=== PATIENT | female | born 1965 | race Caucasian/White ===

== ENCOUNTER 2024-01-16 19:14 | Emergency (ER) | payer OTHER, SELFPAY ==
[2024-01-16] VITALS (22 sets, daily range): BP systolic 105–122; BP diastolic 52–99; PULSE 60–81; TEMP 36.9; O2SAT 98–99; BMI 34.2
--- NOTE | 2024-01-16 19:42 | XR_ITS ---
The [address] [address] Patient Name: VALERIA ROMERO MRN: [id number] date: 1965 Sex: F Assigned Patient Location: ER Current Patient Location: ER Accession/Order Number: [id number] Exam Date: 01/16/2024 20:05 Report Date: 01/16/2024 20:30 At the request of: DANI TURNER Procedure: XR chest 1V ONE-VIEW CHEST RADIOGRAPH, 01/16/2024 8:05 PM EDT COMPARISON: None. CLINICAL HISTORY: chest pain , worse when lying down and recently recovering from the flu. Findings and impression: 1. Minimal atelectasis in the right lung base. Lungs otherwise clear. 2. Normal heart size. 3. No acute osseous abnormality. Electronically authenticated by: Loi JAUREGUI Date: 01/16/2024 20:30
--- NOTE | 2024-01-16 19:42 | ECG_ITS ---
The 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
--- NOTE | 2024-01-16 19:43 | ED.CHESTPAI1 ---
HPI - Chest Pain General Chief Complaint: Chest Pain Stated Complaint: Chest pain Time Seen by Provider: 01/16/24 19:33 Source: patient Mode of arrival: walk-in Limitations: no limitations History of Present Illness HPI narrative: past history of asthma. smokes marijuana. Ill with flu earlier this month. Now has chest pain for past 2 days. Also difficult time sleeping because when she lays down she starts coughing and feels like there is fluid in her chest. No fever , nausea or abdominal pain MD complaint: Reports chest heaviness Related Data Home Medications ?Medication ?Instructions ?Recorded ?Confirmed montelukast 10 mg tablet 10 mg PO DAILY 01/16/24 01/16/24 omeprazole 40 mg capsule,delayed 40 mg PO DAILY 01/16/24 01/16/24 release Allergies Allergy/AdvReac Type Severity Reaction Status Date / Time ciprofloxacin [From Cipro] Allergy Hives Verified 01/16/24 19:24 Review of Systems ROS Status of ROS 10 or more systems reviewed and unremarkable except as noted in history and below Exam Constitutional Vital Signs, click to edit/add: Last Vital Signs Temp 98.4 F 01/16/24 19:26 Pulse 61 01/16/24 21:58 Resp 16 01/16/24 21:58 BP 121/72 01/16/24 21:01 Pulse Ox 98 01/16/24 21:58 O2 Del Method Room Air 01/16/24 21:58 Common normals: no apparent distress, average body habitus, oriented x3, no limitations, healthy appearing, alert and well nourished [facility] Common normals: normocephalic and head/scalp atraumatic Eye Common normals: EOMs intact bilaterally and conjunctivae normal Respiratory Common normals: normal respiratory effort Effort & inspection: audible wheezes Cardio Common normals: regular rate, regular rhythm, S1 normal heart sound and S2 normal heart sound GI Common normals: Normal to inspection, nondistended, normoactive bowel sounds present, soft to palpation and non-tender Extremity Common normals: normal to inspection and full ROM Neuro Common normals: oriented x3, CN's II-XII intact bilaterally, moves all extremities and no focal motor deficits Psych Appearance: grossly normal Course Vital Signs Vital signs: Vital Signs Blood Pressure 105/63 01/16/24 19:21 Pulse Oximetry 99 01/16/24 19:21 Temperature 98.4 F 01/16/24 19:26 Pulse Rate 61 01/16/24 21:58 Respiratory Rate 16 01/16/24 21:58 Blood Pressure 121/72 01/16/24 21:01 Pulse Oximetry 98 01/16/24 21:58 Oxygen Delivery Method Room Air 01/16/24 21:58 MDM - Chest Pain MDM Narrative Medical decision making narrative: patient has history of asthma. recent influenza and smokes marijuana. Presents complaining of chest pressure and not able to lay down to sleep due to cough and a sensation of fluid in her chest. chest exam with diffuse wheeze that resolved after solumedrol and duoneb NMT x2. Patient feeling better. symptoms started yesterday. d-dimer and troponin neg. EKG without acute findings. Patient discharged home in improved condition with a prescription for zpak, prednisone and albuterol solution for her nebulizer that she has at home Lab Data Labs: Lab Results 01/16/24 Range/Units 19:40 WBC 10.0 (4.0-11.0) 10^3/uL RBC 4.08 L (4.20-5.40) 10^6/uL Hgb 11.4 L (12.0-16.0) g/dL Hct 36.5 (36.0-48.0) % MCV 89.5 (81.0-99.0) fL MCH 27.9 (26.7-34.0) pg MCHC 31.2 (29.9-35.2) g/dL RDW 14.9 (11.0-15.0) % Plt Count 523 H (150-450) 10^3/uL MPV 9.0 L (9.5-13.5) fL Neut % (Auto) 66.9 (43.0-75.0) % Lymph % (Auto) 23.9 (20.5-60.0) % [place] % (Auto) 7.2 (1.7-12.0) % Eos % (Auto) 1.4 (0.9-7.0) % Baso % (Auto) 0.4 (0.2-2.0) % Neut # (Auto) 6.7 H (1.4-6.5) 10^3/uL Lymph # (Auto) 2.4 (1.2-3.8) 10^3/uL [place] # (Auto) 0.7 (0.3-0.8) 10^3/uL Eos # (Auto) 0.1 (0.0-0.7) 10^3/uL Baso # (Auto) 0.0 (0.0-0.1) 10^3/uL Abs Immat Gran (auto) 0.02 (0.00-0.03) 10^3/uL Imm/Tot Granulo (auto) 0.2 (0.0-0.5) % D-Dimer 0.40 (<=0.59) mg/L FEU Sodium 142 (136-145) mmol/L Potassium 3.9 (3.5-5.1) mmol/L Chloride 104 (98-107) mmol/L Carbon Dioxide 32.3 H (21.0-32.0) mmol/L Anion Gap 9.6 BUN 6.0 L (7.0-18.0) mg/dL Creatinine 0.68 (0.55-1.02) mg/dL Est GFR ( Amer) >60 (>=60) Est GFR (Non-Af Amer) >60 (>=60) BUN/Creatinine Ratio 8.8 Glucose 110 H (74-106) mg/dL Calcium 9.7 (8.5-10.1) mg/dL Troponin I High Sens <4.0 L (4.0-51.3) pg/mL Discharge Plan Discharge Stand Alone Forms: Portal Instructions Chief Complaint: Chest Pain Clinical Impression: Acute bronchospasm, Bronchitis Patient Disposition: Home, Self-Care Prescriptions / Home Meds: No Action montelukast 10 mg tablet 10 mg PO DAILY omeprazole 40 mg capsule,delayed release(DR/EC) 40 mg PO DAILY Print Language: Mohawk Instructions: Acute Bronchitis (ED), Bronchospasm (ED) Additional Instructions: follow up with your doctor in 2-3 days for recheck Referrals: Capri Chi NP [Primary Care Provider] - 1 week
[2024-01-16] MEDS: METHYLPREDNISOLONE SOD SUCC PF 125 MG/2 ML VIAL IVP (19:50)
[2024-01-16] MEDS: IPRATROPIUM/ALBUTEROL SULFATE 3 ML AMPUL.NEB IH ×2 (19:52→22:05)
[2024-01-16 19:54] LABS: Basophils Percent Auto 0.4 % (0.2-2.0); Eosinophils Absolute Auto 0.1 10^3/uL (0.0-0.7); Eosinophils Percent Auto 1.4 % (0.9-7.0); Hematocrit 36.5 % (36.0-48.0); Hemoglobin 11.4 g/dL (12.0-16.0); Immature Granulocytes Abs Auto 0.02 10^3/uL (0.00-0.03); Immature Granulocytes Pct Auto 0.2 % (0.0-0.5); Lymphocytes Absolute Auto 2.4 10^3/uL (1.2-3.8); Lymphocytes Percent Auto 23.9 % (20.5-60.0); Mean Corpuscular HGB Conc 31.2 g/dL (29.9-35.2); Mean Corpuscular Hemoglobin 27.9 pg (26.7-34.0); Mean Corpuscular Volume 89.5 fL (81.0-99.0); Monocytes Absolute Auto 0.7 10^3/uL (0.3-0.8); Monocytes Percent Auto 7.2 % (1.7-12.0); Neutrophils Absolute Auto 6.7 10^3/uL (1.4-6.5); Neutrophils Percent Auto 66.9 % (43.0-75.0); Platelet Count 523 10^3/uL (150-450); Red Blood Count 4.08 10^6/uL (4.20-5.40); Red Cell Distribution Width 14.9 % (11.0-15.0)
[2024-01-16 20:14] LABS: Anion Gap 9.6; BUN Creatinine Ratio 8.8; Calcium 9.7 mg/dL (8.5-10.1); Carbon Dioxide 32.3 mmol/L (21.0-32.0); Chloride 104 mmol/L (98-107); Estimated GFR (African America >60 (>=60); Estimated GFR (Non-African Ame >60 (>=60); Glucose 110 mg/dL (74-106); Potassium 3.9 mmol/L (3.5-5.1); Sodium 142 mmol/L (136-145); Troponin I High Sensitivity <4.0 pg/mL (4.0-51.3)
== END 2024-01-16 22:19 | disposition home or self-care (01) ==
PROVIDERS: Emergency Provider Internal Medicine; PCP Nurse Practitioner Family
DX: J45.909 Unspecified asthma, uncomplicated (principal); Z79.899 Other long term (current) drug therapy
CPT/HCPCS: 36415; 71045; 80048; 84484; 85025; 85378; 93005; 94640; 96374; 99285; J2919

== ENCOUNTER 2024-05-21 21:09 | Emergency (ER) | payer OTHER, SELFPAY ==
[2024-05-21 21:49] VITALS: BP 114/78; PULSE 64; TEMP 36.6; O2SAT 99; BMI 39.1
--- NOTE | 2024-05-21 22:15 | ED_ITS ---
HPI - Dental/Oral General Chief complaint: Dental/Oral Stated complaint: Dental Pain Time Seen by Provider: 05/21/24 22:12 Source: patient Mode of arrival: walk-in Limitations: no limitations History of Present Illness HPI Narrative: presents complaining of left dental pain. Pain increases with eating or exposure to air. ongoing for a couple of days. no fever or obvious swelling Related Data Home Medications ?Medication ?Instructions ?Recorded ?Confirmed montelukast 10 mg tablet 10 mg PO DAILY 01/16/24 01/16/24 omeprazole 40 mg capsule,delayed 40 mg PO DAILY 01/16/24 01/16/24 release Allergies Allergy/AdvReac Type Severity Reaction Status Date / Time ciprofloxacin [From Cipro] Allergy Hives Verified 05/21/24 21:51 Review of Systems ROS Status of ROS 10 or more systems reviewed and unremark able except as noted in history and below Exam Constitutional Vital Signs, click to edit/add: Last Vital Signs Temp 98 F 05/21/24 21:49 Pulse 64 05/21/24 21:49 Resp 18 05/21/24 21:49 BP 114/78 05/21/24 21:49 Pulse Ox 99 05/21/24 21:49 O2 Del Method Room Air 05/21/24 21:49 Common normals: no apparent distress, average body habitus, oriented x3, no limitations, healthy appearing, alert and well nourished [facility] Common normals: normocephalic and head/scalp atraumatic Other: left upper premolar tender. no obvious swelling Eye Common normals: EOMs intact bilaterally and conjunctivae normal Respiratory Common normals: normal respiratory effort, no retractions, no use of accessory muscles and clear to auscultation bilaterally Cardio Common normals: regular rate, regular rhythm, S1 normal heart sound and S2 normal heart sound Extremity Common normals: normal to inspection and full ROM Neuro Common normals: oriented x3, CN's II-XII intact bilaterally and moves all extremities Psych Appearance: grossly normal Course Vital Signs Vital signs: Vital Signs Temperature 98 F 05/21/24 21:49 Pulse Rate 64 05/21/24 21:49 Respiratory Rate 18 05/21/24 21:49 Blood Pressure 114/78 05/21/24 21:49 Pulse Oximetry 99 05/21/24 21:49 Oxygen Delivery Method Room Air 05/21/24 21:49 Temperature 98 F 05/21/24 21:49 Pulse Rate 64 05/21/24 21:49 Respiratory Rate 18 05/21/24 21:49 Blood Pressure 114/78 05/21/24 21:49 Pulse Oximetry 99 05/21/24 21:49 Oxygen Delivery Method Room Air 05/21/24 21:49 MDM - Dental/Oral MDM Narrative Medical decision making narrative: presents with worsening dental pain concerning for an early abscess. Discussed plan to start Amoxicillin and have her follow up with her dentist Discharge Plan Discharge Stand Alone Forms: Work/School Release, Portal Instructions Chief Complaint: Dental/Oral Clinical Impression: Dental abscess Patient Disposition: Home, Self-Care Prescriptions / Home Meds: No Action montelukast 10 mg tablet 10 mg PO DAILY omeprazole 40 mg capsule,delayed release(DR/EC) 40 mg PO DAILY Print Language: [place] Instructions: Dental Abscess (ED) Additional Instructions: follow up with your dentist next week Referrals: Capri Chi NP [Primary Care Provider] - 1 week
[2024-05-21] MEDS: AMOXICILLIN 500 MG CAPSULE 1000 MG PO (22:26)
[2024-05-21] MEDS: IBUPROFEN 200 MG/10 ML ORAL.SUSP 800 MG PO (22:51)
[2024-05-21 22:54] VITALS: BP 112/70; PULSE 70; O2SAT 97
== END 2024-05-21 22:54 | disposition home or self-care (01) ==
PROVIDERS: Emergency Provider Internal Medicine; PCP Nurse Practitioner Family
DX: K04.7 Periapical abscess without sinus (principal)
CPT/HCPCS: 99283

== ENCOUNTER 2024-07-15 23:21 | Inpatient (IN) | payer OTHER, SELFPAY ==
[2024-07-15 23:31] VITALS: BP 124/87; PULSE 76; TEMP 36.9; O2SAT 99; BMI 35.2
--- OUTSIDE RECORDS SUMMARY | 2024-07-15 23:42 | XMS_ITS | CCD ---
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 Name Role Phone Unavailable Primary Care Provider Unavailabl e NO FAMILY, PHYSICIAN Primary Care Provider Unava ilable Rice ([facility]), KARINA Lundberg Attending Provider [phone] [facility], Arcadio Gallagher Primary Care Provider [phone] MD Charli Sena Attending Provider NO FAMILY, PHYSICIAN Primary Care Unavailable Rice ([facility]), Luz Maria Lundberg Admitting Unavailabl e Rice ([facility]), Luz Maria Lundberg Attending Unavailabl e [facility], Arcadio Gallagher Primary Care Unavailable Charli Sena Admitting Unavailable Charli Sena Attending Unavailable YAQUELIN, DR CHICHO Martines Consulting Unavailabl e YAQUELIN, DR CHICHO Martines Attending Unavailabl e [facility] Primary Care Unava ilable YAQUELIN, DR CHICHO Martines Admitting Unavailabl e SHANNON, DR INO Lundberg Consulting Unavailable NELDA .MAJOR Consulting Unavailabl e Unavailable Primary Care Provider Unavailabl e BETTIE SMITH Referring Unavailable PEDRO WALHS Referring Unavailable PEDRO WALSH Attending Unavailable PEDRO WALSH Referring Unavailable JAZZY SAWANT Attending Unavaila ble PEDRO WALSH Referring Unavailable PEDRO WALSH Attending Unavailable PEDRO WALSH Admitting Unavailable PEDRO WALSH Referring Unavailable PEDRO WALSH TMeaghan Referring Unavailable PEDRO WALSH Referring Unavailable PEDRO WALSH Attending Unavailable MARIA D REYNA Attending Unavailable BETTIE SMITH Referring Unavailable CRISTINE GARCIA Attending Unavailable Allergies Allergy Classification Reported Allergen(s) Allergy Type Date of Onset Reaction(s) Facility (14 sources) Ciprofloxacin; Translations: [CIPROFLOXACIN] Drug Allergy 02-27-2007 [facility] Work Phone: (1 source) Ciprofloxacin Drug Allergy 12-26-2022 [facility] (1 source) Ciprofloxacin Drug Allergy 05-01-2017 [facility] Repository Medications Current Medications Medication Drug Class(es) Dates Sig (Normalized) Sig (Original) acetaminophen 500 mg oral tablet (3 sources) Start: 06-09-2022 End: 06-16-2022 take 2 tablets by mouth every six hours as needed acetaminophen (TYLENOL) 500 mg tablet Take 2 tablets by mouth every 6 hours as needed for pain for up to 7 days. 56 tablet 0 06/09/2022 06/16/2022 Active Comment on above: Take 2 tablets by mo [facility] every 6 hours as needed for pain for up to 7 days. 200 actuat albuterol 0.09 mg/actuat dry powder inhaler (20 sources) beta2-Adrenergic Agonist Start: 12-26-2022 Albuterol Sulfate (Proair Respiclick) 90 mcg/actuation aerosol powdr breath activated Active 90 MCG INHALATION As Directed December 26, 2022 12:00am Start: 05-30-2022 End: 05-30-2022 take 3 mL by inhalation four times daily as needed for wheezing albuterol (PROVENTIL) 2.5 mg /3 mL (0.083 %) nebulizer solution Indications: Asthma with acute exacerbation, unspecified asthma severity, unspecified whether persistent Use 3 mL via nebulizer four times daily as needed for wheezing/shortness of breath. Inhale by nebulizer over 5-15 minutes 300 mL 0 05/30/2022 Active Start: 05-30-2022 End: 05-30-2022 take 1-2 puff(s) by inhalation every four to six hours as needed for wheezing albuterol HFA (PROAIR HFA) 90 mcg/actuation inhaler Indications: Asthma with acute exacerbation, unspecified asthma severity, unspecified whether persistent 1-2 puffs every 4-6 hours as needed for wheezing, shortness of breath 18 g 2 05/30/2022 Active Start: 10-30-2007 End: 05-30-2022 take 1 puff(s) by inhalation once daily as needed for wheezing ALBUTEROL 90 MCG/ACTUATION AEROSOL INHALER Inhale one(1) - two(2) puffs four(4) times a day as needed for wheezing and shortness of breath. a 2 10/30/2007 05/30/2022 Discontinued (Course of therapy completed) Comment on above: Inhale one(1) - two( 2) puffs four(4) times a day as needed for wheezing and shortness of breath. Use 3 mL via nebuliz er four times daily as needed for wheezing/shortness of breath. Inhale by nebulizer over 5-15 minutes 1-2 puffs every 4-6 hours as needed for wheezing, shortness of breath cyclobenzaprine hydrochloride 5 mg oral tablet (10 sources) Muscle Relaxant Start: 06-09-20 End: 06-19-20 take 1 tablet by mouth every eight hours as needed cyclobenzaprine (FLEXERIL) 5 mg tablet Take 1 tablet by mouth three times daily as needed for up to 10 days. 20 tablet 0 06/09/2022 06/19/2022 Active Start: 05-30-2022 End: 05-30-2022 cyclobenzaprine (FLEXERIL) 1 0 mg tablet Indications: Abdominal spasms Take 0.5 to 1 tab every 8 hours as needed for spasm 20 tablet 0 05/30/2022 Active Start: 10-30-2007 End: 05-30-2022 cyclobenzaprine hcl(FLEXERIL 10 MG TAB) Take one(1) tablet every eight(8) to twelve(12) hours as needed for pain or spasms. 20 0 10/30/2007 05/30/2022 Discontinued Comment on above: Take one(1) tablet e very eight(8) to twelve(12) hours as needed for pain or spasms. Take 0.5 to 1 tab ev diamond 8 hours as needed for spasm Take 1 tablet by barry th three times daily as needed for up to 10 days. montelukast 10 mg oral tablet (15 sources) Leukotriene Receptor Antagonist Start: 7 End: 2 take 1 tablet by mouth once daily Montelukast (Singulair) 10 mg Tablet Active 10 MG PO Daily December 26, 2022 12:00am Comment on above: Take one(1) tablet d aily at bedtime. Take 1 tablet by barry th daily at bedtime. Take by mouth. omeprazole 40 mg delayed release oral capsule (13 sources) Proton Pump Inhibitor Start: 3 take 40 mg by mouth once daily Omeprazole Active 40 MG PO Daily December 26, 2022 12:00am Start: 05-30-2022 End: 05-30-2022 take 1 capsule by mouth once daily omeprazole (PRILOSEC) 20 mg capsule Indications: Gastroesophageal reflux disease, unspecified whether esophagitis present Take 1 capsule by mouth once daily. 90 capsule 0 05/30/2022 Active End: 05-30-2022 omeprazole magnesium (PRILOS EC ORAL) Take 40 mg by mouth. 0 05/30/2022 Discontinued (Course of therapy completed) Comment on above: Take 1 capsule by [facility] once daily. Take 40 mg by mouth. predniSONE 20 mg oral tablet (4 sources) Start: 05-30-2022 End: 06-04-2022 take 2 tablets by mouth once daily predniSONE (DELTASONE) 20 mg tablet Indications: Asthma with acute exacerbation, unspecified asthma severity, unspecified whether persistent Take 2 tablets by mouth once daily for 5 days. 10 tablet 0 05/30/2022 06/04/2022 Active Comment on above: Take 2 tablets by [facility] once daily for 5 days. Completed/Discontinued Medications Medication Drug Class(es) Dates Sig (Normalized) Sig (Original) 24 hr buPROPion hydrochloride 300 mg extended release oral tablet (3 sources) Aminoketone Start: 12-18-2006 End: 05-30-2022 WELLBUTRIN XL 300 MG 24 HR TAB Indications: Incisional hernia without mention of obstruction or gangrene Take one(1) tablet daily. 0 12/18/2006 05/30/2022 Discontinued (Course of therapy completed) Comment on above: Take one(1) tablet d aily. codeine phosphate 2 mg/ml / guaiFENesin 20 mg/ml oral solution (3 sources) Opioid Agonist Start: 10-30-2007 End: 05-30-2022 CODEINE-GUAIFENESIN 10 MG-100 MG/5 ML SYRUP Take 1-2 teaspoon(s) (5-10 ml) tablet every four(4) to six(6) hours as needed for coughing. 200 0 10/30/2007 05/30/2022 Discontinued (Course of therapy completed) Comment on above: Take 1-2 teaspoon(s) (5-10 ml) tablet every four(4) to six(6) hours as needed for coughing. diphenhydrAMINE hydrochloride 25 mg oral capsule (3 sources) Histamine-1 Receptor Antagonist Start: 02-27-2007 End: 05-30-2022 diphenhydrAMINE (BENADRYL) 25 mg ORAL Cap Use as directed. 20 0 02/27/2007 05/30/2022 Discontinued (Course of therapy completed) Comment on above: Use as directed. esomeprazole 40 mg delayed release oral capsule (3 sources) Proton Pump Inhibitor Start: 12-18-2006 End: 05-30-2022 NEXIUM 40 MG CAP Indications: Incisional hernia without mention of obstruction or gangrene Take one(1) capsule daily. 0 12/18/2006 05/30/2022 Discontinued (Course of therapy completed) Comment on above: Take one(1) capsule daily. Nebulizer and Compressor For Neb (11 sources) Start: 05-30-2022 Nebulizer and Compressor For Neb Indications: Asthma with acute exacerbation, unspecified asthma severity, unspecified whether persistent 1 Each every 4 hours as needed. 1 Each 0 05/30/2022 Active Start: 05-30-2022 End: 05-30-2022 Nebulizer and Compressor For Neb Indications: Asthma with acute exacerbation, unspecified asthma severity, unspecified whether persistent 1 Each every 4 hours as needed. 1 Each 0 05/30/2022 05/30/2022 Discontinued Comment on above: 1 Each every 4 hours as needed. oxyCODONE hydrochloride 5 mg oral tablet (9 sources) Opioid Agonist Start: 06-09-2022 take 1 tablet by mouth every eight hours as needed for pain oxyCODONE IR (ROXICODONE) 5 mg immediate release tablet Indications: Acute post-operative pain Take 1 tablet by mouth every 8 hours as needed for pain (for pain not relieved by Tylenol/Motrin). 10 tablet 0 06/09/2022 Active Start: 06-09-2022 End: 06-14-2022 take 1 tablet by mouth every six hours as needed oxyCODONE IR (ROXICODONE) 5 mg immediate release tablet Indications: Post-op pain Take 1 tablet by mouth every 6 hours as needed for up to 5 days. 10 tablet 0 06/09/2022 06/14/2022 Active Comment on above: Take 1 tablet by barry every 6 hours as needed for up to 5 days. Take 1 tablet by barry th every 8 hours as needed for pain (for pain not relieved by Tylenol/Motrin). promethazine hydrochloride 25 mg oral tablet (3 sources) Phenothiazine Start: 12-19-19 End: 05-30-20 PHENERGAN 25 MG TAB Indications: Incisional hernia without mention of obstruction or gangrene Take one(1) tablet every four(4) to six(6) hours as needed for nausea. 0 12/18/2006 05/30/2022 Discontinued (Course of therapy completed) Comment on above: Take one(1) tablet e very four(4) to six(6) hours as needed for nausea. sertraline 50 mg oral tablet (11 sources) Serotonin Reuptake Inhibitor Start: 05-30-20 End: 05-30-20 take 1 tablet by mouth once daily sertraline (ZOLOFT) 50 mg tablet Indications: Anxiety and depression Take 1 tablet by mouth once daily. 90 tablet 0 05/30/2022 Active Comment on above: Take 1 tablet by barry th once daily. synthetic conjugated estrogens, A (3 sources) Start: 12-19-19 End: 05-30-20 CENESTIN 0.625 MG TAB Indications: Incisional hernia without mention of obstruction or gangrene Take one(1) tablet daily. 0 12/18/2006 05/30/2022 Discontinued (Course of therapy completed) Start: 12-18-2006 CENESTIN 0.625 MG TAB Indications: Incisional hernia without mention of obstruction or gangrene Take one(1) tablet daily. 0 12/18/2006 Active Comment on above: Take one(1) tablet d aily. Problems Active Problems Problem Classification Problem Date Documented Date Episodic/Chronic Abdominal pain (5 sources) Finding of sensation of abdomen; Translations: [Unspecified abdominal pain] Onset: 12-18-2022 Episodic Anxiety disorders (8 sources) Mixed anxiety and depressive disorder; Translations: [Anxiety disorder, unspecified] Onset: 06-07-2022 Chronic Asthma (13 sources) Asthma; Translations: [Unspecified asthma, uncomplicated] Onset: 05-30-2022 05-30-2022 Chronic Esophageal disorders (13 sources) Gastroesophageal reflux disease without esophagitis; Translations: [Gastro-esophageal reflux disease without esophagitis] Onset: 05-30-2022 05-30-2022 Chronic Esophageal disorders (1 source) Esophageal disorders; Translations: [Gastro-esophageal reflux disease without esophagitis] Onset: 12-27-2022 Hemorrhoids (2 sources) Prolapsed hemorrhoids; Translations: [Other hemorrhoids] Onset: 01-18-2023 Episodic Other nervous system disorders (1 source) Acute postoperative pain; Translations: [Other acute postprocedural pain] Episodic Prolapse of female genital organs (1 source) Vaginal wall prolapse; Translations: [Cystocele, unspecified] Chronic Residual codes; unclassified (1 source) Acquired absence of both cervix and uterus; Translations: [ACQUIRED ABSENCE BOTH CERVIX AND UTERUS] Onset: 12-19-2022 Episodic Substance-related disorders (8 sources) Nicotine dependence; Translations: [Nicotine dependence, unspecified, uncomplicated] Onset: 06-08-2022 06-08-2022 Chronic Unclassified (1 source) Encounter for screening mammogram for malignant neoplasm of breast; Translations: [Encounter for screening mammogram for malignant neoplasm of breast] Onset: 09-06-2022 Past or Other Problems Problem Classification Problem Date Documented Da te Episodic/Chronic Abdominal hernia (16 sources) Incisional hernia; Translations: [Incisional hernia without obstruction or gangrene] Onset: 04-18-2022 Episodic Immunizations and screening for infectious disease (7 sources) Blood group antibody titer - finding; Translations: [Other specified abnormal immunological findings in serum] Onset: 06-02-2022 06-02-2022 Episodic Other gastrointestinal disorders (1 source) Personal history of other diseases of the digestive system; Translations: [History of incisional hernia repair] Onset: 04-18-2022 Episodic Other nervous system disorders (7 sources) Postoperative pain ; Translations: [Other acute postprocedural pain] Onset: 06-07-2022 06-07-2022 Episodic Other nervous system disorders (1 source) Other acute postprocedural pain; Translations: [Post-op pain] Onset: 06-07-2022 Episodic Peritonitis and intestinal abscess (3 sources) Infectious disease of abdomen; Translations: [Peritonitis, unspecified] Onset: 06-29-2022 Episodic Residual codes; unclassified (7 sources) History of hernia repair; Translations: [Other specified postprocedural states] Onset: 06-07-2022 06-07-2022 Episodic Residual codes; unclassified (1 source) Other specified postprocedural states; Translations: [History of incisional hernia repair] Onset: 04-18-2022 Episodic Results Test Name Value Interpretation Reference Range Facility [facility] 01-18-2023 CNOV Office Visit (CORSAV ) VALERIA ROMERO ([id number]) 1965 F Date Time Provider Department 01/18/23 9:40 AM MARIA D REYNA During your visit today, we recorded the following information about you: Maria D Reyna MD 01/19/2023 1:23 AM Signed COLORECTAL SURGERY January 18, 2023 Valeria Romero 57 year old This consult was requested by Dr. Sena and my final recommendations will be communicated to the requesting health care provider by way of the shared medical record for internal providers or letter via the [employer] for external providers. Chief Complaint: hemorrhoids, prolapse History of Present Illness: Valeria Romero is a 57 year old female presents today for evaluation of hemorrhoids and prolapse. Colonoscopy 12/27/22 - Dr. Sena Findings: - Pancolonic diverticulosis - Cecum: 15 mm sessile polyp removed from the posterior cecal wall with hot snare, 8 mm sessile polyp removed adjacent to the AO with hot snare - Ascending colon: 10 mm polyp removed with a hot snare - Hepatic flexure: Normal - Transverse colon: 5 mm and 12 mm polyps removed with hot snare - Splenic flexure: Normal - Descending colon: Normal - Sigmoid colon: 6 mm polyp removed with cold snare - Rectum: Normal - Retroflexed views: Rectum did show large inflamed with area of prolapse internal hemorrhoids. 57-year-old female with the above-stated history. She underwent colonoscopy as above. She does report some rectal bleeding. She also reports an episode of something that prolapses out of her vagina. It was quite painful and she had to manually push it back in. I asked that we first go to the bathroom so she could Valsalva and see if we could retreat this prolapse but she declines PAST MEDICAL HISTORY Diagnosis Date Asthma GERD (gastroesophageal reflux disease) PAST SURGICAL HISTORY Procedure Laterality Date PAST SURGICAL HISTORY OF 10/01/2000 incisional hernia PAST SURGICAL HISTORY OF 10/01/2003 incisional hernia PAST SURGICAL HISTORY OF 10/01/2003 bilat ovarian cyst PAST SURGICAL HISTORY OF PAST SURGICAL HISTORY OF 10/01/2004 incisional hernia PAST SURGICAL HISTORY OF 10/01/2006 recurrent incisional hernia, mesh removal PAST SURGICAL HISTORY OF 10/01/1997 umbilical hernia, abominoplasty PAST SURGICAL HISTORY OF 10/01/1993 TOTAL ABDOM HYSTERECTOMY Current Outpatient Medications Medication Sig Dispense Refill oxyCODONE IR (ROXICODONE) 5 mg immediate release tablet Take 1 tablet by mouth every 8 hours as needed for pain (for pain not relieved by Tylenol/Motrin). 10 tablet 0 albuterol (PROVENTIL) 2.5 mg /3 mL (0.083 %) nebulizer solution Use 3 mL via nebulizer four times daily as needed for wheezing/shortness of breath. Inhale by nebulizer over 5-15 minutes 300 mL 0 Nebulizer and Compressor For Neb 1 Each every 4 hours as needed. 1 Each 0 albuterol HFA (PROAIR HFA) 90 mcg/actuation inhaler 1-2 puffs every 4-6 hours as needed for wheezing, shortness of breath 18 g 2 montelukast (SINGULAIR) 10 mg tablet Take 1 tablet by mouth daily at bedtime. 90 tablet 0 omeprazole (PRILOSEC) 20 mg capsule Take 1 capsule by mouth once daily. 90 capsule 0 sertraline (ZOLOFT) 50 mg tablet Take 1 tablet by mouth once daily. 90 tablet 0 No current facility-administered medications for this visit. ALLERGIES Allergen Reactions Cipro [Ciprofloxaci* Rash FAMILY HISTORY Problem Relation Age of Onset COPD Mother Diabetes Mother Diabetes Father Social History Tobacco Use Smoking status: Some Days Types: Cigarettes, Pipe Last attempt to quit: 05/22/2022 Years since quittin.6 Smokeless tobacco: Never Tobacco comments: vape Vaping Use Vaping Use: current everyday user Substance Use Topics Alcohol use: Yes Comment: rare Drug use: Yes Frequency: 7.0 times per week Types: Marijuana Comment: marijuana daily Physical Exam: There were no vitals taken for this visit. General Appearance: Well appearing, alert, in no acute distress, well-hydrated, well nourished. Anorectal: External exam reveals no lesions. Digital rectal exam reveals no gross blood or masses Forensic Photographer present: Yes, Gianna Gusman Anoscopy: The patient was placed in chest-knee position. After digital exam with a lubricated finger, the scope was easily inserted. Moderately enlarged right posterior, right anterior, and left lateral internal hemorrhoids were noted. Otherwise normal mucosa was noted. Anoscopy completed. Preoperative diagnosis: First to second degree hemorrhoids. Procedure: Anoscopy, rubber band ligation of hemorrhoids. Postoperative diagnosis: Same Indications: This 57 year old was found to have internal hemorrhoids that were not suitable for conservative management. Description of procedure: The patient was placed in the chest-knee posit (more content not included)... Normal [facility] 12-27-2022 L -- ---- Specimen: [id number] Received: 12/27/22 Status: PJ Segovianolan Num: [id number] Spec Type: Surgical Subm Dr: Charli Sena MD Tissues: A Colon Biopsy (CECAL POLYP) B Colon Biopsy (ASCENDING POLYP) C Colon Biopsy (TRANSVERSE POLYP) D Colon Biopsy (SIGMOID POLYP) Procedures: HE/8, Gross/Micro L4/4 ---- Age/ Patient Sex Location Account Attending Physician ---- Valeria Romero 57/F [id number] Charli Sena MD ---- SPEC NUM: [id number] RECD: 12/27/22 STATUS: PJ GARZA NUM: [id number] ADELITA: 12/27/[address]: Charli Sena MD ENTERED: 12/27/[address] [facility] [address]: CAROL ANN TYPE: Surgical DEPT: S ORDERED: HE/8, Gross/Micro L4/4 ORDERED: HE/8, Gross/Micro L4/4 Pathological Diagnosis A. Colon, cecum, polyps, biopsy: - Fragments of tubular adenoma. B. Colon, ascending, polyp, biopsy: - Fragments of tubular adenoma. C. Colon, transverse, polyp, biopsy: - Fragments of tubular adenoma. D. Colon, sigmoid, polyp, biopsy: - Tubular adenoma. Clinical Information GERD, blood in stools Gross Description A. Received in formalin labeled with the patient's name, number and cecal polyps are multiple fragments of soft figueroa tissue measuring 2.2 x 0.7 x 0.3 cm in aggregate. Entirely submitted in one cassette labeled A1. ---- Specimen: Received: 12/27/22 Status: PJ Garza Num: [id number] Spec Type: Surgical Subm Dr: Charli Sena MD Tissues: A Colon Biopsy (CECAL POLYP) B Colon Biopsy (ASCENDING POLYP) C Colon Biopsy (TRANSVERSE POLYP) D Colon Biopsy (SIGMOID POLYP) Procedures: ROHAN/Angel, Gross/Micro L4/4 ---- Patient: TomasmunirjoseValeria [id number] (Continued) ---- Specimen: Received: 12/27/22 (Continued) Gross Description (Continued) Signed (signature on file) Kristel Blair MD 12/28/22 0936 ---- Specimen: Received: 12/27/22 Status: PJ Garza Num: [id number] Spec Type: Surgical Subm Dr: Charli Sena MD Tissues: A Colon Biopsy (CECAL POLYP) B Colon Biopsy (ASCENDING POLYP) C Colon Biopsy (TRANSVERSE POLYP) D Colon Biopsy (SIGMOID POLYP) Procedures: /Angel, Gross/Micro L4/4 ---- Patient: Valeria Romero [id number] (Continued) ---- Specimen: [id number] Received: 12/27/22-1057 (Continued) Gross Description (Continued) B. Received in formalin labeled with the patient's name, number and ascending polyp are multiple fragments of soft figueroa tissue measuring 1.5 x 0.7 x 0.2 cm in aggregate. Entirely submitted in one cassette labeled B1. C. Received in formalin labeled with the patient's name, number and transverse polyp are multiple fragments of soft figueroa tissue measuring 1.5 x 1.2 x 0.4 cm in aggregate. Entirely submitted in one cassette labeled C1. D. Received in formalin labeled with the patient's name, number and sigmoid polyp is one fragment of soft figueroa tissue measuring 0.5 x 0.3 x 0.2 cm. Entirely submitted in one cassette labeled D1. Microscopic Description A. Two glass slides with H E stained material have been examined. The microscopic findings support the above pathologic diagnosis. B. Two glass slides with H E stained material have been examined. The microscopic findings support the above pathologic diagnosis. C. Two glass slides with H E stained material have been examined. The microscopic findings support the above pathologic diagnosis. D. Two glass slides with H E stained material have been examined. The microscopic findings support the above pathologic diagnosis. CPT Codes 46363?4 ---- ---- Specimen: [id number] Received: 12/27/22 Status: PJ Garza Num: [id number] Spec Type: Surgical Subm Dr: Charli Sena MD Tissues: A Colon Biopsy (CECAL POLYP) B Colon Biopsy (ASCENDING POLYP) C Colon Biopsy (TRANSVERSE POLY (more content not included)... Normal [facility] CT ABD/PELVIS WO CONon 12-18 CT ABD/PELVIS WO CON EXAMINATION: CT ABD/PELVIS WO CON HISTORY: UNSPECIFIED ABDOMINAL PAIN COMPARISON: No relevant comparison available. TECHNIQUE: Axial, Coronal, and Sagittal images were obtained without and/or with IV contrast as indicated by examination type. Dose reduction techniques were achieved by using automated exposure control and/or adjustment of mA and/or kV according to patient size and/or use of iterative reconstruction technique. FINDINGS: LUNG BASES: No visible pulmonary or pleural disease. LIVER: No enlargement, atrophy, suspicious density, or significant focal lesion. BILIARY: Cholecystectomy. PANCREAS: No lesion, fluid collection, or abnormal duct dilatation. SPLEEN: No enlargement or focal lesion. ADRENALS: No mass or enlargement. KIDNEYS: No mass, obstruction, or calcification. BOWEL/MESENTERY: Numerous small diverticula along the length of colon without acute inflammatory changes. Normal appendix. No visible mass, obstruction, or bowel wall thickening. AORTA/VASCULAR: No aneurysm or dissection. RETROPERITONEUM: No mass or adenopathy. LYMPH NODES: No adenopathy. URINARY BLADDER: No visible focal wall thickening, lesion, or calculus. PELVIC ORGANS: Hysterectomy. ABDOMINAL WALL: Prior lower anterior abdominal wall hernia repair; no hernia or suspicious abnormality. This time. BONES: Old, incompletely healed fractures of the anterior pubic rami bilaterally. OTHER: Negative. IMPRESSION: 1.No acute or specific findings to account for patient's symptoms. 2.Colonic diverticulosis. 3. Additional chronic changes detailed above. Electronically authenticated by: INO ORTEGA Date: 2022-12-18 17:48 Normal [facility] ER URINE PROFILEon 3 Bilirubin Ql (U) Negative Normal NEGATIVE [facility] Comment on above: Performed By: #### E RUR #### [facility] [address] [place] [address] Dr. Oh Laureano Clarity (U) CLEAR Normal CLEAR [facility] Comment on above: Performed By: #### E RUR #### [facility] [address] [place] [address] Dr. Oh Laureano Color (U) LT. YELLOW Normal YELLOW [facility] Comment on above: Performed By: #### E RUR #### [facility] [address] [place] [address] Dr. Oh CHAPMAN A micrscopic examination will be performed if indicated. Normal [facility] Comment on above: Performed By: #### E RUR #### [facility] [address] [place] [address] Dr. Oh Laureano Glucose Ql (U) Negative Normal NEGATIVE [facility] Comment on above: Performed By: #### E RUR #### [facility] [address] [place] [address] Dr. Oh Laureano Hemoglobin Ql (U) Negative Normal NEGATIVE [facility] Comment on above: Performed By: #### E RUR #### [facility] [address] [place] [address] Dr. Oh Laureano Ketones Ql (U) Negative Normal NEGATIVE [facility] Comment on above: Performed By: #### E RUR #### [facility] [address] [place] [address] Dr. Oh Laureano LEUKOCYTES Negative Normal NEGATIVE [facility] Comment on above: Performed By: #### E RUR #### [facility] [address] [place] [address] Dr. Oh Laureano Nitrite Ql (U) Negative Normal NEGATIVE [facility] Comment on above: Performed By: #### E RUR #### [facility] [address] [place] [address] Dr. Oh Laureano pH (U) 6.0 [pH] Normal 5-9 [facility] Comment on above: Performed By: #### E RUR #### [facility] [address] [place] [address] Dr. Oh Laureano SPEC GRAVITY <=1.005 Abnormal 1.005-<=1.025 [facility] Comment on above: Performed By: #### E RUR #### [facility] [address] [place] [address] Dr. Oh Laureano UA PROTEIN Negative Normal NEGATIVE/ TRACE [facility] Comment on above: Performed By: #### E RUR #### [facility] [address] [place] [address] Dr. Oh Laureano UR MICRO IND NOT INDICATED Normal [facility] Comment on above: Performed By: #### E RUR #### [facility] [address] [place] [address] Dr. Oh Laureano Urobilinogen Qn (U) 0.2 {Rasta'U}/dL Normal 0.2 - 1. 0 [facility] Comment on above: Performed By: #### E RUR #### [facility] [address] [place] [address] Dr. Oh Laureano Basophils Auto (Bld) [#/Vol] Ordered By: Capri Walsh on 09-06-2022 Basophils (Bld) [#/Vol] 0.0 10*3/uL 0.0-0.2 [facility] Basophils/100 WBC Auto (Bld) Ordered By: Capri Walsh on 09-06-2022 Basophils/100 WBC (Bld) 0.9 % . [facility] Complete Blood Count Auto Di ffon 09-06-2022 Basophils (Bld) [#/Vol] 0.0 10*3/uL Normal 0.0-0.2 [facility] Comment on above: Order Comment: PT FA STED 12 HRS Result Comment: PERF ORMED BY: [place] [address] PATHOLOGIST HARNESS CLEANER MAURIZIO CRAMER M.D. Performed By: #### C BC #### [facility] [address] [place] [address] #### HCV RX PCR #### [facility] , Basophils/100 WBC (Bld) 0.9 % Normal . [facility] Comment on above: Order Comment: PT FA STED 12 HRS Performed By: #### C BC #### [facility] [address] [place] [address] #### HCV RX PCR #### [facility] , Eosinophils (Bld) [#/Vol] 0.2 10*3/uL Normal 0.0-0.45 [facility] Comment on above: Order Comment: PT FA STED 12 HRS Performed By: #### C BC #### [facility] [address] [place] [address] #### HCV RX PCR #### [facility] , Eosinophils/100 WBC (Bld) 3.7 % Normal . [facility] Comment on above: Order Comment: PT FA STED 12 HRS Performed By: #### C BC #### [facility] [address] [place] [address] [place] #### HCV RX PCR #### [facility] , Erythrocyte distribution width (RBC) [Ratio] 15.3 % Normal 11.9-15.3 [facility] Comment on above: Order Comment: PT FA STED 12 HRS Performed By: #### C BC #### [facility] [address] [place] [address] [place] #### HCV RX PCR #### [facility] , Hematocrit (Bld) [Volume fraction] 32.5 % Low 34.0-46.4 [facility] Comment on above: Order Comment: PT FA STED 12 HRS Performed By: #### C BC #### [facility] [address] [place] [address] #### HCV RX PCR #### [facility] , Hemoglobin (Bld) [Mass/Vol] 10.4 g/dL Low 11.8-15.4 [facility] Comment on above: Order Comment: PT FA STED 12 HRS Performed By: #### C BC #### [facility] [address] [place] [address] #### HCV RX PCR #### [facility] , Lymphocytes (Bld) [#/Vol] 1.1 10*3/uL Normal 1.00-4.8 [facility] Comment on above: Order Comment: PT FA STED 12 HRS Performed By: #### C BC #### [facility] [address] [place] [address] #### HCV RX PCR #### [facility] , Lymphocytes/100 WBC (Bld) 20.5 % Normal . [facility] Comment on above: Order Comment: PT FA STED 12 HRS Performed By: #### C BC #### [facility] [address] [place] [address] #### HCV RX PCR #### [facility] , MCH (RBC) [Entitic mass] 26.5 pg Normal 24.7-34.3 [facility] Comment on above: Order Comment: PT FA STED 12 HRS Performed By: #### C BC #### [facility] [address] [place] [address] [place] #### HCV RX PCR #### [facility] , MCV (RBC) [Entitic vol] 82.8 fL Normal 80-100 [facility] Comment on above: Order Comment: PT FA STED 12 HRS Performed By: #### C BC #### [facility] [address] [place] [address] [place] #### HCV RX PCR #### [facility] , Mean Corpuscular HGB Conc 32.0 g/dL Normal 32.0-35.0 [facility] Comment on above: Order Comment: PT FA STED 12 HRS Performed By: #### C BC #### [facility] [address] [place] [address] [place] #### HCV RX PCR #### [facility] , Monocytes (Bld) [#/Vol] 0.5 10*3/uL Normal 0.0-0.8 [facility] Comment on above: Order Comment: PT FA STED 12 HRS Performed By: #### C BC #### [address] #### HCV RX PCR #### [facility] , Monocytes/100 WBC (Bld) 9.1 % Normal . [facility] Comment on above: Order Comment: PT FA STED 12 HRS Performed By: #### C BC #### [facility] [address] [place] [address] [place] #### HCV RX PCR #### [facility] , Neutrophils (Bld) [#/Vol] 3.6 10*3/uL Normal 1.8-7.7 [facility] Comment on above: Order Comment: PT FA STED 12 HRS Performed By: #### C BC #### [facility] [address] [place] [address] [place] #### HCV RX PCR #### [facility] , Neutrophils/100 WBC (Bld) 65.8 % Normal . [facility] Comment on above: Order Comment: PT FA STED 12 HRS Performed By: #### C BC #### [facility] [address] [place] [address] [place] #### HCV RX PCR #### [facility] , NRBC% 0.0 /100{WBC} Normal 0-0.5 [facility] Comment on above: Order Comment: PT FA STED 12 HRS Performed By: #### C BC #### [facility] [address] [place] [address] #### HCV RX PCR #### [facility] , Platelet mean volume (Bld) [Entitic vol] 7.5 fL Normal 6.3-10.7 [facility] Comment on above: Order Comment: PT FA STED 12 HRS Performed By: #### C BC #### [facility] [address] [place] [address] #### HCV RX PCR #### [facility] , Platelets (Bld) [#/Vol] 374 10*3/uL Normal 150-450 [facility] Comment on above: Order Comment: PT FA STED 12 HRS Performed By: #### C BC #### [facility] [address] [place] [address] #### HCV RX PCR #### [facility] , RBC (Bld) [#/Vol] 3.92 10*6/uL Normal 3.60-5.00 [facility] Comment on above: Order Comment: PT FA STED 12 HRS Performed By: #### C BC #### [facility] [address] [place] [address] #### HCV RX PCR #### [facility] , WBC (Bld) [#/Vol] 5.5 10*3/uL Normal 3.8-11.6 [facility] Comment on above: Order Comment: PT FA STED 12 HRS Performed By: #### C BC #### [facility] [address] [place] [address] [place] #### HCV RX PCR #### [facility] , Eosinophils Auto (Bld) [#/Vo l]Ordered By: Capri Walsh on 09-06-2022 Eosinophils (Bld) [#/Vol] 0.2 10*3/uL 0.0-0.45 [facility] Eosinophils/100 WBC Auto (Bl d)Ordered By: Capri Walsh on 09-06-2022 Eosinophils/100 WBC (Bld) 3.7 % . [facility] Erythrocyte distribution wid th Auto (RBC) [Ratio]Ordered By: Capri Walsh on 09-06-2022 Erythrocyte distribution width (RBC) [Ratio] 15.3 % 11.9-15.3 [facility] Hematocrit Auto (Bld) [Volum e fraction]Ordered By: Capri Walsh on 09-06-2022 Hematocrit (Bld) [Volume fraction] 32.5 % 34.0-46.4 [facility] Hemoglobin [Mass/volume] in BloodOrdered By: Capri Walsh on 09-06-2022 Hemoglobin (Bld) [Mass/Vol] 10.4 g/dL 11.8-15.4 [facility] Hep C Ab wRfx to Qnt PCRon 1 11-07-2021 Hepatitis C Virus Antibody <0.1 Normal 0.0-0.9 [facility] Comment on above: Order Comment: PT FA STED 12 HRS Performed By: #### C BC #### [facility] [address] [place] [address] #### HCV RX PCR #### [facility] , Interpretation Hepatitis C Normal . [facility] Comment on above: Order Comment: PT FA STED 12 HRS Result Comment: Nega tive Not infected with HCV, unless recent infection is suspected or other evidence exists to indicate HCV infection. Performed at: - [facility] [id number] Glass Science Engineer: Jean Thorpe PhD, Phone: [phone] PERFORMED BY: [place] [address] PATHOLOGIST HARNESS CLEANER MAURIZIO CRAMER M.D. Performed By: #### C BC #### [facility] [address] [place] [address] [place] #### HCV RX PCR #### [facility] , Leukocytes [#/volume] correc radhames for nucleated erythrocytes in Blood by Automated counOrdered By: Capri Walsh on 09-06-2022 WBC corrected for nucl RBC Auto (Bld) [#/Vol] 5.5 10*3/uL 3.8-11.6 [facility] Lymphocytes Auto (Bld) [#/Vo l]Ordered By: Capri Walsh on 09-06-2022 Lymphocytes (Bld) [#/Vol] 1.1 10*3/uL 1.00-4.8 [facility] Lymphocytes/100 WBC Auto (Bl d)Ordered By: Capri Walsh on 09-06-2022 Lymphocytes/100 WBC (Bld) 20.5 % . [facility] MCH Auto (RBC) [Entitic mass ]Ordered By: Capri Walsh on 09-06-2022 MCH (RBC) [Entitic mass] 26.5 pg 24.7-34.3 [facility] MCHC Auto (RBC) [Mass/Vol]Or dered By: Capri Walsh on 09-06-2022 MCHC (RBC) [Mass/Vol] 32.0 g/dL 32.0-35.0 [facility] MCV Auto (RBC) [Entitic vol] Ordered By: Capri Walsh on 09-06-2022 MCV (RBC) [Entitic vol] 82.8 fL 80-100 [facility] MM screening mammo BI w/CADo n 09-06-2022 MM screening mammo BI w/CAD [facility] [place] [address] Mammography Report Signed Patient: Valeria Romero MR#: [id number] : 1965 Acct:[id number] Age/Sex: 57 / F ADM Date: 09/06/22 Loc: [place] Room: Type: [facility] Attending Dr: Luz Maria West ([facility]) KARINA Copies to: NO FAMILY PHYSICIAN Luz Maria West APRN, WHCNP Ordering Provider: Luz Maria West APRN, WHCNP Date of Service: 09/06/22 MM/MM screening mammo BI w/CAD: SCREENING CLINICAL DATA: Screening for malignancy. BILATERAL SCREENING MAMMOGRAMS - FULL FIELD DIGITAL WITH TOMOSYNTHESIS AND CAD Conventional and Tomosynthesis craniocaudal and mediolateral oblique views of both breasts were obtained using low-dose digital technique. Comparison is made to prior studies from 07/05/2012 and 04/08/2009. This examination was reviewed with the aid of CAD. The breast parenchyma has been largely replaced by fat. Benign-appearing calcifications are present. Benign-appearing lymph nodes are noted along the chest wall. There are no dominant masses, typically malignant calcifications or architectural distortion. There has been no significant interval change. MM/MM screening mammo BI w/CAD IMPRESSION: NO MAMMOGRAPHIC EVIDENCE OF MALIGNANCY. ROUTINE FOLLOW-UP IS RECOMMENDED IN ONE YEAR. RESULT CODE: 2 Benign Findings(s) DENSITY CODE: 1 (<25% glandular) FOLLOW UP: 1YR The false-negative rate of mammography is approximately 10-percent. Management of a palpable abnormality must be based on clinical grounds. Patient was entered into a reminder system with a target due date for the next mammogram. Impression dictated by: Wilfredo Green M.D.09/06/2022 12:33 PM Dictation Location: [facility] Transcribed By: HAM 09/06/22 1233 Dictated By: Wilfredo Green II, MD 09/06/22 1226 Signed By: 09/06/22 1233 Normal [facility] Monocytes Auto (Bld) [#/Vol] Ordered By: Capri Walsh on 09-06-2022 Monocytes (Bld) [#/Vol] 0.5 10*3/uL 0.0-0.8 [facility] Monocytes/100 WBC Auto (Bld) Ordered By: Capri Walsh on 09-06-2022 Monocytes/100 WBC (Bld) 9.1 % . [facility] Neutrophils Auto (Bld) [#/Vo l]Ordered By: Capri Walsh on 09-06-2022 Neutrophils (Bld) [#/Vol] 3.6 10*3/uL 1.8-7.7 [facility] Neutrophils/100 WBC Auto (Bl d)Ordered By: Capri Walsh on 09-06-2022 Neutrophils/100 WBC (Bld) 65.8 % . [facility] Nucleated erythrocytes [Pres ence] in Blood by Automated countOrdered By: Capri Walsh on 09-06-2022 Nucleated RBC Auto Ql (Bld) 0.0 /100{WBC} 0-0.5 [facility] Platelet mean volume Auto (B ld) [Entitic vol]Ordered By: Capri Walsh on 09-06-2022 Platelet mean volume (Bld) [Entitic vol] 7.5 fL 6.3-10.7 [facility] Platelets Auto (Bld) [#/Vol] Ordered By: Capri Walsh on 09-06-2022 Platelets (Bld) [#/Vol] 374 10*3/uL 150-450 [facility] RBC Auto (Bld) [#/Vol]Ordere d By: Capri Walsh on 09-06-2022 RBC (Bld) [#/Vol] 3.92 10*6/uL 3.60-5.00 [facility] WBC Auto (Bld) [#/Vol]Ordere d By: Capri Walsh on 09-06-2022 WBC (Bld) [#/Vol] 5.5 10*3/uL 3.8-11.6 [facility] CNOVon 06-29-2022 CNOV Office Visit (TAMMY ) VALERIA ROMERO ([id number]) 1965 F Date Time Provider Department 06/29/22 10:20 AM PEDRO WALSH During your visit today, we recorded the following information about you: Temperature Pulse Respiration Blood pressure 96.6 degrees 76/minute 14/minute 109/62 Weight Height 78 kg 1.575 m Pedro Walsh MD 06/29/2022 4:16 PM Signed [facility] Abdominal Core Health - Postoperative visit HPI: Silvia Galo is a 57 y/o F with a PMH of asthma, depression/anxiety, GERD who presented on 06/06/22 for a ventral hernia repair with mesh by Dr. Walsh (Bilateral TAR), she had a non eventful hospital stay and was discharge POD 3. She is here today for her first postoperative visit. Patient is doing ok, eating and drinking well, a week ago she started feeling a lump on the right lower part of her midline incision with pain especially with activity. On examination abdomen is soft, non tender, non distended, with a SQ tissue bulge in the right lower part of the midline incision. PAST MEDICAL HISTORY Diagnosis Date Asthma GERD (gastroesophageal reflux disease) PAST SURGICAL HISTORY Procedure Laterality Date PAST SURGICAL HISTORY OF 10/01/2000 incisional hernia PAST SURGICAL HISTORY OF 10/01/2003 incisional hernia PAST SURGICAL HISTORY OF 10/01/2003 bilat ovarian cyst PAST SURGICAL HISTORY OF PAST SURGICAL HISTORY OF 10/01/2004 incisional hernia PAST SURGICAL HISTORY OF 10/01/2006 recurrent incisional hernia, mesh removal PAST SURGICAL HISTORY OF 10/01/1997 umbilical hernia, abominoplasty PAST SURGICAL HISTORY OF 10/01/1993 TOTAL ABDOM HYSTERECTOMY Social History Tobacco Use Smoking status: Some Days Types: Cigarettes, Pipe Last attempt to quit: 05/22/2022 Years since quittin.1 Smokeless tobacco: Never Tobacco comments: vape Vaping Use Vaping Use: current everyday user Substance Use Topics Alcohol use: Yes Comment: rare Drug use: Yes Frequency: 7.0 times per week Types: Marijuana Comment: marijuana daily Additional social history not relevant to the patient's HPI FAMILY HISTORY Problem Relation Age of Onset COPD Mother Diabetes Mother Diabetes Father Additional family history not relevant to the patient's HPI ALLERGIES Allergen Reactions Cipro [Ciprofloxaci* Rash Current Outpatient Medications Medication Sig Dispense Refill oxyCODONE IR (ROXICODONE) 5 mg immediate release tablet Take 1 tablet by mouth every 8 hours as needed for pain (for pain not relieved by Tylenol/Motrin). 10 tablet 0 albuterol (PROVENTIL) 2.5 mg /3 mL (0.083 %) nebulizer solution Use 3 mL via nebulizer four times daily as needed for wheezing/shortness of breath. Inhale by nebulizer over 5-15 minutes 300 mL 0 Nebulizer and Compressor For Neb 1 Each every 4 hours as needed. 1 Each 0 albuterol HFA (PROAIR HFA) 90 mcg/actuation inhaler 1-2 puffs every 4-6 hours as needed for wheezing, shortness of breath 18 g 2 montelukast (SINGULAIR) 10 mg tablet Take 1 tablet by mouth daily at bedtime. 90 tablet 0 omeprazole (PRILOSEC) 20 mg capsule Take 1 capsule by mouth once daily. 90 capsule 0 sertraline (ZOLOFT) 50 mg tablet Take 1 tablet by mouth once daily. 90 tablet 0 No current facility-administered medications for this visit. BP 109/62 Pulse 76 Temp (!) 35.9 ?C (96.6 ?F) (Temporal) Resp 14 Ht 157.5 cm (5' 2 ) Wt 78 kg (172 lb) BMI 31.46 kg/m? Physical findings of this patient are as follows (COMPLETE 10 INCLUDING HEART AND LUNG EXAM OR CHOOSE NORMAL EXAM IF APPROPRIATE): Physical Exam Physical Exam Constitutional: The patient is well-developed, well-nourished, and in no distress. Head: Normocephalic and atraumatic. Eyes: Pupils are equal, round, and reactive to light. EOM are normal. Neck: Normal range of motion. Neck supple. Cardiovascular: Regular rhythm and normal heart sounds. Pulmonary/Chest: Effort normal and breath sounds normal. Abdominal: See HPI Musculoskeletal: Normal range of motion. Neurological: He is alert. GCS score is 15. Skin: Skin is warm and dry. Psychiatric: Affect and judgment normal. LABS: No results found for: HBA1C IMAGING - Reviewed with staff CT - Ordered Assessment: Silvia Galo is a 57 y/o F with a PMH of asthma, depression/anxiety, GERD who presented on 06/06/22 for a ventral hernia repair with mesh by Dr. Walsh (Bilateral TAR), she had a non eventful hospital stay and was discharge POD 3. She is here today for her first postoperative visit. Where she was found to have lump on the right lower part of her midline incision with pain especially with activity. Plan: - CT A/P Leonard Ivey MD General Surgery Resident Attending Note I evaluated the patient and personally participated in the parham components. I agree with the resi (more content not included)... [facility] CT ABD/PEL WO IVCONon 2021 CT ABD/PEL WO IVCON * * *Final Report* * * DATE OF EXAM: Jun 29 2022 12:25PM [facility] 0531 - CT ABD/PEL WO IVCON / PROCEDURE REASON: Infection in abdomen (HCC) * * * * Physician Interpretation * * * * EXAMINATION: CT ABDOMEN AND PELVIS WITHOUT IV CONTRAST CLINICAL HISTORY: Incisional hernia repair (06/06/2022). Follow-up exam. TECHNIQUE: Non-IV contrast imaging of the abdomen and pelvis was performed using standard technique, scanning from just above the dome of the diaphragm to the symphysis pubis. Unenhanced imaging is limited for the evaluation of some intra-abdominal and pelvic pathology. MQ: [id number] Contrast: IV: None Oral: None CT Radiation dose: Integrated Dose-length product (DLP) for this visit = 331 mGy*cm. CT Dose Reduction Employed: Automated exposure control (AEC) COMPARISON: CT abdomen/pelvis 04/18/2022 RESULT: Abdomen / Pelvis: Liver: Unremarkable. Biliary: Cholecystectomy. Spleen: No splenomegaly. Pancreas: Unremarkable. Adrenals: No mass. Kidneys: No calculus, hydronephrosis or finding to suggest a cyst or mass in the unenhanced kidney. GI Tract: Small hiatal hernia. No dilated bowel. Normal appendix. Scattered colonic diverticulosis without acute diverticulitis. Lymph Nodes: No lymphadenopathy. Mesentery/peritoneum: Ventral abdominal wall hernia repair with minimal stranding in the anterior peritoneum. No organized fluid collection. Retroperitoneum: No mass. Vasculature: Mild arterial atherosclerotic disease without aneurysm. Pelvis: No mass or ascites. Decompressed urinary bladder. Hysterectomy. Bones/Soft Tissues: Postoperative changes to the ventral abdominal wall with: * 3.5 x 6.9 cm fluid collection in the subcutaneous infraumbilical midline abdominal wall (2:105) with small volume fluid extending superiorly at midline. No internal gas. * 1.8 x 4.0 cm fluid collection in the supraumbilical subcutaneous midline abdominal wall (2:49). No internal gas. Healed bilateral inferior pubic rami fractures. Lower thorax: Unremarkable. Certified Coding Specialist (topogram) images: No additional findings. IMPRESSION: Postoperative changes to ventral abdominal wall with pockets of fluid along the surgical incision without internal gas, as described, likely seromas. No intra-abdominopelvic fluid collection. Entry Level Finance: MANAV Transcribe Date/Time: Jun 29 2022 12:38P Dictated by : ALISSON FISH DO This examination was interpreted and the report reviewed and electronically signed by: KYLE COBB MD on Jun 29 2022 1:40PM EST [id number] [facility] No Panel Informationon 06-29 [facility] ([facility]) HEATHERVALERIA ([id number]) 1965 F Date Time Provider Department 06/12/22 VALERIA MORSE [facility] During your visit today, we recorded the following information about you: VON Bhatia 06/12/2022 4:15 PM Signed BEHAVIORAL HEALTH SOCIAL WORK CONSULT NOTE Service Date: June 12, 2022 Patient was identified by name and Patient: Valeria Mei Heather [address] [place] [address] [address] [facility] [id number] (home) [phone] (cell) PCP: No primary care provider on file. No primary provider on file. Assessment: SW spoke with pt about getting connected with mental health services. Pt declined assistance. Medications: Current Outpatient Medications on File Prior to Visit Medication Sig cyclobenzaprine (FLEXERIL) 5 mg tablet Take 1 tablet by mouth three times daily as needed for up to 10 days. acetaminophen (TYLENOL) 500 mg tablet Take 2 tablets by mouth every 6 hours as needed for pain for up to 7 days. oxyCODONE IR (ROXICODONE) 5 mg immediate release tablet Take 1 tablet by mouth every 6 hours as needed for up to 5 days. oxyCODONE IR (ROXICODONE) 5 mg immediate release tablet Take 1 tablet by mouth every 8 hours as needed for pain (for pain not relieved by Tylenol/Motrin). albuterol (PROVENTIL) 2.5 mg /3 mL (0.083 %) nebulizer solution Use 3 mL via nebulizer four times daily as needed for wheezing/shortness of breath. Inhale by nebulizer over 5-15 minutes Nebulizer and Compressor For Neb 1 Each every 4 hours as needed. albuterol HFA (PROAIR HFA) 90 mcg/actuation inhaler 1-2 puffs every 4-6 hours as needed for wheezing, shortness of breath montelukast (SINGULAIR) 10 mg tablet Take 1 tablet by mouth daily at bedtime. omeprazole (PRILOSEC) 20 mg capsule Take 1 capsule by mouth once daily. sertraline (ZOLOFT) 50 mg tablet Take 1 tablet by mouth once daily. No current facility-administered medications on file prior to visit. Curbside: No Screening Tools: No Substance Use / Abuse: No Outcome / Plan / Referrals: Internal Referrals : No Reason for External Referrals : N/A Intervention: Supportive Listening Education Resources Provided: Patient declined option for recommendations Time Spent: 15 minutes LIEN Bhatia Allergies As of Date: 06/12/2022 Noted Allergy Reaction CIPRO (CIPROFLOXACIN) 02/27/2007 2 - Rash Date Reviewed: 06/08/2022 Reviewed by: Kellee Hayden RN - Fully Assessed Reason for Visit: outreach [Other] Prescriptions as of 06/12/2022 - cyclobenzaprine (FLEXERIL) 5 mg tablet Take 1 tablet by mouth three times daily as needed for up to 10 days. - acetaminophen (TYLENOL) 500 mg tablet Take 2 tablets by mouth every 6 hours as needed for pain for up to 7 days. - oxyCODONE IR (ROXICODONE) 5 mg immediate release tablet Take 1 tablet by mouth every 6 hours as needed for up to 5 days. - oxyCODONE IR (ROXICODONE) 5 mg immediate release tablet Take 1 tablet by mouth every 8 hours as needed for pain (for pain not relieved by Tylenol/Motrin). - albuterol (PROVENTIL) 2.5 mg /3 mL (0.083 %) nebulizer solution Use 3 mL via nebulizer four times daily as needed for wheezing/shortness of breath. Inhale by nebulizer over 5-15 minutes - Nebulizer and Compressor For Neb 1 Each every 4 hours as needed. - albuterol HFA (PROAIR HFA) 90 mcg/actuation inhaler 1-2 puffs every 4-6 hours as needed for wheezing, shortness of breath - montelukast (SINGULAIR) 10 mg tablet Take 1 tablet by mouth daily at bedtime. - omeprazole (PRILOSEC) 20 mg capsule Take 1 capsule by mouth once daily. - sertraline (ZOLOFT) 50 mg tablet Take 1 tablet by mouth once daily. 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] 06/02/2022 Incisional hernia of anterior abdominal wall wi*06/06/2022 06/07/2022 S/P hernia repair [Z98.890, Z87.19] 06/07/2022 Post-op pain [G89.18] 06/07/2022 Hyperkalemia [E87.5] 06/07/2022 06/09/2022 Anxiety [F41.9] 06/07/2022 Nicotine use disorder, F17.2 [F17.200] 06/08/2022 Encounter Status:Closed by VALERIA MORSE on 06/12/22 [facility] Basic metabolic 2000 panelon 06-09-2022 Anion gap [Moles/Vol] 11 mmol/L Normal 9-18 [facility] Comment on above: Order Comment: Speci men Type: BLOOD SPECIMENOrdering Facility: [facility] Address: [address] [place] [address] Performed By: #### 2 4320-11, 1988-01, , 2776-10 ####[facility] LABCLIA [id number] [place] [address] [place] Calcium [Mass/Vol] 8.8 mg/dL Normal 8.5-10.2 [facility] Comment on above: Order Comment: Speci men Type: BLOOD SPECIMENOrdering Facility: [facility] Address: [address] [place] [address] Performed By: #### 2 4320-11, 1988-01, , 2776-10 ####[facility] LABCLIA [id number] [address] [address] [place] Chloride [Moles/Vol] 102 mmol/L Normal 97-105 [facility] Comment on above: Order Comment: Speci men Type: BLOOD SPECIMENOrdering Facility: [facility] Address: [address] [place], [place] [address] Performed By: #### 2 432-2, 1988-01, , 2776-10 ####[facility] LABCLIA [id number] [address] [address] [place] CO2 [Moles/Vol] 25 mmol/L Normal 22-30 [facility] Comment on above: Order Comment: Speci men Type: BLOOD SPECIMENOrdering Facility: [facility] Address: [address] [place], [place] [address] Performed By: #### 2 432-2, 1988-01, , 2776-10 ####[facility] LABCLIA [id number] [address] [address] [place] Creatinine [Mass/Vol] 0.58 mg/dL Normal 0.58-0.96 [facility] Comment on above: Order Comment: Speci men Type: BLOOD SPECIMENOrdering Facility: [facility] Address: [address] [place], [place] [address] Performed By: #### 2 432-2, 1988-01, , 2776-10 ####[facility] LABCLIA [id number] [address] [address] [place] ESTIMATED GLOMERULAR FILTRATION RATE 107 mL/min/1.73m??? Normal >=60 [facility] Comment on above: Order Comment: Speci men Type: BLOOD SPECIMENOrdering Facility: [facility] Address: [address] [place], [place] [address] Result Comment: Faiza mated Glomerular Filtration Rate (eGFR) is calculated using the 2021 CKD-EPI creatinine equation. This equation utilizes serum creatinine, sex, and age as parameters. The creatinine assay has traceable calibration to isotope dilution-mass spectrometry. Refer to KDIGO guidelines for clinical interpretation. In patients with unstable renal function, e.g. those with acute kidney injury, the eGFR may not accurately reflect actual GFR. Performed By: #### 2 4320-11, 1988-01, , 2776-10 ####[facility] LABCLIA [id number] [place] [id number] [place] Glucose [Mass/Vol] 102 mg/dL High 74-99 [facility] Comment on above: Order Comment: Poncho freeman Type: BLOOD SPECIMENOrdering Facility: [facility] Address: [address] [place] [address] Result Comment: The Stateless Diabetes Association (ADA) provides guidance for cutoff values for fasting glucose and random glucose. The ADA defines fasting as no caloric intake for at least 8 hours. Fasting plasma glucose results between 100 to 125 mg/dL indicate increased risk for diabetes (prediabetes). Fasting plasma glucose results greater than or equal to 126 mg/dL meet the criteria for diagnosis of diabetes. In the absence of unequivocal hyperglycemia, results should be confirmed by repeat testing. In a patient with classic symptoms of hyperglycemia or hyperglycemic crisis, random plasma glucose results greater than or equal to 200 mg/dL meet the criteria for diagnosis of diabetes. Reference: Standards of Medical Care in Diabetes 2016, Stateless Diabetes Association. Diabetes Care. 2016.39(Suppl 1). Performed By: #### 2 4320-11, 1988-01, , 2776-10 ####[facility] LABCLIA [id number] [address] [address] [place] Potassium [Moles/Vol] 3.9 mmol/L Normal 3.7-5.1 [facility] Comment on above: Order Comment: Poncho freeman Type: BLOOD SPECIMENOrdering Facility: [facility] Address: [address] [place] [address] Performed By: #### 2 4320-11, 1988-01, , 2776-10 ####[facility] LABCLIA [id number] [place] [address] [place] Sodium [Moles/Vol] 138 mmol/L Normal 136-144 [facility] Comment on above: Order Comment: Speci men Type: BLOOD SPECIMENOrdering Facility: [facility] Address: [address] [place] [address] Performed By: #### 2 4320-2, 1988-01, , 2776-10 ####[facility] LABCLIA [id number] [place] [address] [place] Urea nitrogen [Mass/Vol] 6 mg/dL Low 7-21 [facility] Comment on above: Order Comment: Speci men Type: BLOOD SPECIMENOrdering Facility: [facility] Address: [address] [place] [address] Performed By: #### 2 4320-11, 1988-01, , 2776-10 ####[facility] LABCLIA [id number] [place] [address] [place] CBC W Auto Differential pane l (Bld)on 06-09-2022 Basophils (Bld) [#/Vol] 0.05 10*3/uL Normal <0.11 [facility] Comment on above: Order Comment: Speci men Type: BLOOD SPECIMENOrdering Facility: [facility] Address: [address] [place], [place] [address] Performed By: #### 5 7021-8 ####[facility] LABCLIA [id number] [place] [address] [place] Basophils/100 WBC (Bld) 0.4 % Normal [facility] Comment on above: Order Comment: Speci men Type: BLOOD SPECIMENOrdering Facility: [facility] Address: [address] [place], [place] [address] Performed By: #### 5 7021-8 ####[facility] LABCLIA [id number] [address] [place] Differential cell count method Nom (Bld) Auto Normal [facility] Comment on above: Order Comment: Speci men Type: BLOOD SPECIMENOrdering Facility: [facility] Address: [address] [place] [address] Performed By: #### 5 7021-8 ####[facility] LABCLIA [id number] [place] [address] [place] Eosinophils (Bld) [#/Vol] 0.26 10*3/uL Normal <0.46 [facility] Comment on above: Order Comment: Speci men Type: BLOOD SPECIMENOrdering Facility: [facility] Address: [address] [place] [address] Performed By: #### 5 7021-8 ####[facility] LABCLIA [id number] [address] [place] Eosinophils/100 WBC (Bld) 2.1 % Normal [facility] Comment on above: Order Comment: Speci men Type: BLOOD SPECIMENOrdering Facility: [facility] Address: [address] [place], [place] [address] Performed By: #### 5 7021-8 ####[facility] LABCLIA [id number] [place] [address] [place] Erythrocyte distribution width (RBC) [Ratio] 14.1 % Normal 11.5-15.0 [facility] Comment on above: Order Comment: Speci men Type: BLOOD SPECIMENOrdering Facility: [facility] Address: [address] [place], [place] [address] Performed By: #### 5 7021-8 ####[facility] LABCLIA [id number] [place] [address] [place] Hematocrit (Bld) [Volume fraction] 34.3 % Low 36.0-46.0 [facility] Comment on above: Order Comment: Speci men Type: BLOOD SPECIMENOrdering Facility: [facility] Address: [address] [place], [place] [address] Performed By: #### 5 7021-8 ####[facility] LABCLIA [id number] [place] [address] [place] Hemoglobin (Bld) [Mass/Vol] 10.7 g/dL Low 11.5-15.5 [facility] Comment on above: Order Comment: Speci men Type: BLOOD SPECIMENOrdering Facility: [facility] Address: [address] [place] [address] Performed By: #### 5 7021-8 ####[facility] LABCLIA [id number] [address] [place] IMMATURE GRAN % 0.8 % Normal [facility] Comment on above: Order Comment: Speci men Type: BLOOD SPECIMENOrdering Facility: [facility] Address: [address] [place], [place] [address] Performed By: #### 5 7021-8 ####[facility] LABCLIA [id number] [place] [address] [place] IMMATURE GRAN ABS 0.10 k/uL High <0.10 [facility] Comment on above: Order Comment: Speci men Type: BLOOD SPECIMENOrdering Facility: [facility] Address: [address] [place], [place] [address] Performed By: #### 5 7021-8 ####[facility] LABCLIA [id number] [place] [address] [place] Lymphocytes (Bld) [#/Vol] 1.76 10*3/uL Normal 1.00-4.00 [facility] Comment on above: Order Comment: Speci men Type: BLOOD SPECIMENOrdering Facility: [facility] Address: [address] [place], [place] [address] Performed By: #### 5 7021-8 ####[facility] LABCLIA [id number] [place] [address] [place] Lymphocytes/100 WBC (Bld) 14.0 % Normal [facility] Comment on above: Order Comment: Speci men Type: BLOOD SPECIMENOrdering Facility: [facility] Address: [address] [place] [address] Performed By: #### 5 7021-8 ####[facility] LABCLIA [id number] [address] [place] MCH (RBC) [Entitic mass] 29.4 pg Normal 26.0-34.0 [facility] Comment on above: Order Comment: Speci men Type: BLOOD SPECIMENOrdering Facility: [facility] Address: [address] [place], [place] [address] Performed By: #### 5 7021-8 ####[facility] LABIA [id number] [address] [place] MCHC (RBC) [Mass/Vol] 31.2 g/dL Normal 30.5-36.0 [facility] Comment on above: Order Comment: Speci men Type: BLOOD SPECIMENOrdering Facility: [facility] Address: [address] [place], [place] [address] Performed By: #### 5 7021-8 ####[facility] LABIA [id number] [place] [address] [place] MCV (RBC) [Entitic vol] 94.2 fL Normal 80.0-100.0 [facility] Comment on above: Order Comment: Speci men Type: BLOOD SPECIMENOrdering Facility: [facility] Address: [address] [place] [address] Performed By: #### 5 7021-8 ####[facility] LABIA [id number] [place] [address] [place] Monocytes (Bld) [#/Vol] 1.05 10*3/uL High <0.87 [facility] Comment on above: Order Comment: Speci men Type: BLOOD SPECIMENOrdering Facility: [facility] Address: [address] [place] [address] Performed By: #### 5 7021-8 ####[facility] LABCLIA [id number] [place] [address] [place] Monocytes/100 WBC (Bld) 8.4 % Normal [facility] Comment on above: Order Comment: Speci men Type: BLOOD SPECIMENOrdering Facility: [facility] Address: [address] Performed By: #### 5 7021-8 ####[facility] LABCLIA [id number] [place] [address] [place] Neutrophils (Bld) [#/Vol] 9.35 10*3/uL High 1.45-7.50 [facility] Comment on above: Order Comment: Speci men Type: BLOOD SPECIMENOrdering Facility: [facility] Address: [address] [place] [address] Performed By: #### 5 7021-8 ####[facility] LABCLIA [id number] [place] [address] [place] Neutrophils/100 WBC (Bld) 74.3 % Normal [facility] Comment on above: Order Comment: Speci men Type: BLOOD SPECIMENOrdering Facility: [facility] Address: [address] [place] Performed By: #### 5 7021-8 ####[facility] LABCLIA [id number] [place] [address] [place] Nucleated RBC (Bld) [#/Vol] 10*3/uL Normal <0.01 [facility] Comment on above: Order Comment: Speci men Type: BLOOD SPECIMENOrdering Facility: [facility] Address: [address] [place] [address] Performed By: #### 5 7021-8 ####[facility] LABCLIA [id number] [place] [address] [place] Nucleated RBC/100 WBC (Bld) [Ratio] 0.0 /100 WBC Normal [facility] Comment on above: Order Comment: Speci men Type: BLOOD SPECIMENOrdering Facility: [facility] Address: [address] [place] [address] Performed By: #### 5 7021-8 ####[facility] LABIA [id number] [place] [address] [place] Platelet mean volume (Bld) [Entitic vol] 9.9 fL Normal 9.0-12.7 [facility] Comment on above: Order Comment: Speci men Type: BLOOD SPECIMENOrdering Facility: [facility] Address: [address] [place], [place] [address] Performed By: #### 5 7021-8 ####[facility] LABIA [id number] [place] [address] [place] Platelets (Bld) [#/Vol] 316 10*3/uL Normal 150-400 [facility] Comment on above: Order Comment: Speci men Type: BLOOD SPECIMENOrdering Facility: [facility] Address: [address] [place] [address] Performed By: #### 5 7021-8 ####[facility] LABIA [id number] [place] [address] [place] RBC (Bld) [#/Vol] 3.64 10*6/uL Low 3.90-5.20 [facility] Comment on above: Order Comment: Speci men Type: BLOOD SPECIMENOrdering Facility: [facility] Address: [address] [place], [place] [address] Performed By: #### 5 7021-8 ####[facility] LABCLIA [id number] [place] [id number] [place] WBC (Bld) [#/Vol] 12.57 10*3/uL High 3.70-11.00 [facility] Comment on above: Order Comment: Speci men Type: BLOOD SPECIMENOrdering Facility: [facility] Address: [address] [place] [address] Performed By: #### 5 7021-8 ####[facility] LABCLIA [id number] [place] [id number] [facility] [place] CNDSon 06-09-2022 CNDS HNO ID: [id number] Author: Pedro Walsh MD Service: General Surgery Author Type: Physician Type: Discharge Summary Filed: 06/12/2022 9:30 AM Note Text: GENERAL SURGERY DISCHARGE SUMMARY PATIENT NAME: Valeria Romero ADMISSION DATE: 06/06/2022 DISCHARGE DATE: 06/09/2022 ATTENDING PHYSICIAN: Pedro Walsh MD Code Status: Not on file Highest Readmission Risk Score: 26 The 30 day readmissions risk score is derived from an internally validated risk model which evaluates patient level characteristics, utilization history, medication orders and lab results up until the day of discharge. Patients with a score of 40 or above are considered highest risk for readmission. Specific patient level drivers will be listed at the bottom of the summary. REASON FOR HOSPITALIZATION: hernia surgery and recovery OPERATIONS DURING HOSPITALIZATION: 1. Open right myofascial advancement flap 2. Open left myofascial advancement flap 3. Repair of incarcerated incisional hernia 4. Implantation of 30 cm x 30 cm Prolene mesh 5. Transverse abdominis block with bupivacaine 6. Resection old mesh PROCEDURES DURING HOSPITALIZATION: IV access Intubation for surgery Anesthesia administration EKG HOSPITAL COURSE: Silvia Galo is a 57 y/o F with a PMH of asthma, depression/anxiety, GERD who presented on 06/06/22 for a ventral hernia repair with mesh by Dr. Walsh. The patient tolerated the procedure well, and surgery went as expected. She recovered in the PACU, and then was transferred to a [facility] for the remainder of recovery. On POD1 she was treated with a K+ cocktail x1 for hyperkalemia. She was asymptomatic and an EKG showed NSR. On POD1 she was having bowel function and advanced to GIS. 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 Her scott was removed and she was able to void. On POD3 she had successfully met all post op milestones. Left REYNALDO drain was removed. Right REYNALDO drain was left in place with plans to return on 06/14/22 for removal. PHYSICAL EXAM ON DAY OF DISCHARGE BP (!) 113/47 Pulse 74 Temp 37.2 ?C (99 ?F) (Oral) Resp 18 Ht 152.4 cm (5') Wt 85 kg (187 lb 6.3 oz) SpO2 97% BMI 36.60 kg/m? Gen: Alert, awake, oriented. NAD. Resp: Chest rise symmetrical. Breathing non labored. Card: Well perfused, no edema Abd: Soft, appropriately tender. Non distended. Incision sites well approximated with skin glue in place. Binder being worn. Right REYNALDO drain SS. Neuro: CN II-XII grossly intact. DEL ROSARIO equally. Active Hospital Problems Diagnosis Date Noted Nicotine use disorder, F17.2 06/08/2022 S/P hernia repair 06/07/2022 Post-op pain 06/07/2022 Anxiety 06/07/2022 Asthma 05/30/2022 Resolved Hospital Problems Diagnosis Date Noted Date Resolved Incisional hernia of anterior abdominal wall without obstruction or gangrene 06/06/2022 06/07/2022 Hyperkalemia 06/07/2022 06/09/2022 Transitions of Care Critical Issues: - Follow up on 06/14/22 for drain removal in clinic - Follow up in 3-4 weeks with surgeon LABS AND PROCEDURES PENDING AT DISCHARGE: No pending results. CONSULTING TEAMS DURING HOSPITALIZATION: None Treatment Team: Attending Provider: Pedro Walsh MD Primary Service: ALESSIA DUBOIS PATIENT CONDITION AT DISCHARGE: Stable DISCHARGE DISPOSITION: Home with Self Care INFORMATION PROVIDED TO PATIENT: DCI DIET: Resume pre-hospital diet ACTIVITY: Lifting is restricted to: 10 lbs for 4 weeks May bathe and shower No walking restrictions No driving while on narcotics May use stairs WOUND/SURGICAL SITE CARE: None ALLERGIES Allergen Reactions Cipro [Ciprofloxaci* Rash DISCHARGE MEDICATION: Current Discharge Medication List START taking these medications acetaminophen (TYLENOL) 1,000 mg Take 1,000 mg by mouth every 6 hours as needed for pain. Qty: 56 tablet Refills: 0 oxyCODONE IR (ROXICODONE) 5 mg Take 5 mg by mouth every 6 hours as needed. Qty: 10 tablet Refills: 0 Associated Diagnoses:Post-op pain CONTINUE these medications which have CHANGED cyclobenzaprine (FLEXERIL) 5 mg Take 5 mg by mouth three times daily as needed. Qty: 20 tablet Refills: 0 CONTINUE these medications which have NOT CHANGED montelukast (SINGULAIR) 10 mg Take 10 mg by mouth daily at bedtime. Qty: 90 tablet Refills: 0 Associated Diagnoses:Asthma with acute exacerbation, unspecified asthma severity, unspecified whether persistent sertraline (ZOLOFT) 50 mg Take 50 mg by mouth once daily. Qty: 90 tablet Refills: 0 Associated Diagnoses:Anxiety and depression albuterol (PROVENTIL) 2.5 mg Use 2.5 mg via nebulizer four times daily as needed for wheezing/shortness of breath. Inhale by nebulizer over 5-15 minutes Qty: 300 mL Refills: 0 Associated Diagnoses:Asthma with acute exacerbation, unspecified asthma severity, unspecified whether persistent Nebulizer and Compressor For Neb 1 Each (more content not included)... [facility] CRP SerPl-mCncon 06-09-2022 CRP [Mass/Vol] 10.2 mg/dL High <0.9 [facility] Comment on above: Order Comment: Poncho freeman Type: BLOOD SPECIMENOrdering Facility: [facility] Address: [address] [place], [place] [phone] Performed By: #### 2 4321-2, 1987-5, 38163-5, 2777-1 ####[facility] LABCLIA [id number] [facility] [id number] [place] [address] [place] Magnesium SerPl-mCncon 06-09 Magnesium [Mass/Vol] 2.0 mg/dL Normal 1.7-2.3 [facility] Comment on above: Order Comment: Poncho freeman Type: BLOOD SPECIMENOrdering Facility: [facility] Address: [address] [place], [place] [phone] Performed By: #### 2 4321-2, 1988-01, , 2776-10 ####[facility] LABCLIA [id number] [address] [address] [place] NURSING PROGon 06-09-2022 NURSING PROG HNO ID: [id number] Author: Kellee Hayden RN Service: ? Author Type: Registered Nurse Type: Nursing Progress Note Filed: 06/09/2022 3:55 AM Note Text: Other: pt refusal for PIV PIV removed at 2210 on 06/08/2022 after being flushed with no difficulty. Pt stated PIV was burning during and after flush. IV removed by RN, pt refused insertion of a new one. Dr Ivey notified and requested that a new IV be placed. pt refused, MD notified. Pt was educated on need for IV in case of an emergency while in the hospital and still refused. Dr Ivey notified [facility] Phosphate SerPl-mCncon 06-09 Phosphate [Mass/Vol] 2.0 mg/dL Low 2.7-4.8 [facility] Comment on above: Order Comment: Speci men Type: BLOOD SPECIMENOrdering Facility: [facility] Address: [address] [place], [place] [phone] Performed By: #### 2 4321-2, 1988-01, , 2776-10 ####[facility] LABIA [id number] [place] [id number] [place] URINALYSIS, REFLEX MICROSCOP ICon 06-09-2022 Bilirubin Ql (U) Negative Normal Negative [facility] Comment on above: Order Comment: Speci men Type: URINE SPECIMENOrdering Facility: [facility] Address: [address] [place] [address] Performed By: #### L [id number] ####[facility] LABCLIA [id number] [address] [address] [place] Clarity (Unsp spec) Clear Normal Clear [facility] Comment on above: Order Comment: Speci men Type: URINE SPECIMENOrdering Facility: [facility] Address: [address] [place] [address] Performed By: #### L [id number] ####[facility] LABCLIA [id number] [place] [address] [place] Color (U) Straw Normal [facility] Comment on above: Order Comment: Speci men Type: URINE SPECIMENOrdering Facility: [facility] Address: [address] [place] [address] Performed By: #### L [id number] ####[facility] LABCL[facility] [id number] [place] [address] [place] Glucose Test strip (U) [Mass/Vol] Negative Normal Negative [facility] Comment on above: Order Comment: Speci men Type: URINE SPECIMENOrdering Facility: [facility] Address: [address] [place], [place] [address] Performed By: #### L [id number] ####[facility] LABCL[facility] [id number] [place] [address] [place] Hemoglobin Ql (U) Negative Normal Negative [facility] Comment on above: Order Comment: Speci men Type: URINE SPECIMENOrdering Facility: [facility] Address: [address] [place] [address] Performed By: #### L [id number] ####[facility]CLIA [id number] [place] [address] [place] Ketones Ql (U) Negative Normal Negative [facility] Comment on above: Order Comment: Speci men Type: URINE SPECIMENOrdering Facility: [facility] Address: [address] [place], [place] [address] Performed By: #### L [id number] ####[facility] LABCLIA [id number] [place] [address] [place] Leukocyte esterase Test strip Ql (U) Negative Normal Negative [facility] Comment on above: Order Comment: Speci men Type: URINE SPECIMENOrdering Facility: [facility] Address: [address] [place], [place] [address] Performed By: #### L [id number] ####[facility]CLIA [id number] [place] [address] [place] Nitrite Ql (U) Negative Normal Negative [facility] Comment on above: Order Comment: Speci men Type: URINE SPECIMENOrdering Facility: [facility] Address: [address] [place], [place] [address] Performed By: #### L [id number] ####[facility] LABCLIA [id number] [place] [address] [place] pH (U) 8.0 [pH] Normal 5.0-8.0 [facility] Comment on above: Order Comment: Speci men Type: URINE SPECIMENOrdering Facility: [facility] Address: [address] [place], [place] [address] Performed By: #### L [id number] ####[facility]CLIA [id number] [place] [address] [place] Protein (U) [Mass/Vol] Negative Normal Negative [facility] Comment on above: Order Comment: Speci men Type: URINE SPECIMENOrdering Facility: [facility] Address: [address] [place], [place] [address] Performed By: #### L [id number] ####[facility]CLIA [id number] [place] [address] [place] Specific gravity (U) [Rel density] 1.006 Normal 1.005-1.030 [facility] Comment on above: Order Comment: Speci men Type: URINE SPECIMENOrdering Facility: [facility] Address: [address] [place], [place] [address] Performed By: #### L [id number] ####[facility]CLIA [id number] [place] [address] [place] Urobilinogen Ql (U) Negative Normal Negative [facility] Comment on above: Order Comment: Speci men Type: URINE SPECIMENOrdering Facility: [facility] Address: [address] [place] [address] Performed By: #### L [id number] ####[facility] LABCLIA [id number] [place] [address] [place] ALLIED HEALTHon 06-08-2022 ALLIED HEALTH HNO ID: [id number] Author: Chaplain Jameson Service: Spiritual Care Author Type: Type: Allied Health Filed: 06/08/2022 12:50 PM Note Text: HEALING SERVICES THERAPY NOTE Service date: 06/08/22 Visit with: Patient Purpose of session: Emotional support Type of visit: Initial Visit Referred by: Nurse Practitioner Reason for Referral: Emotional Support;Fear/Anxiety/S tress Intervention notes: Patient welcomed visit. Will look at brochure for further interest. Welcomed a follow-up visit. Revisit from Healing Services Team?: If requested SIGNATURE: Chaplain Jameson PATIENT NAME: Valeria Romero DATE: June 08, 2022 TIME: 12:49 PM CONTACT #: [id number] Normal [facility] Basic metabolic 2000 panelon 06-08-2022 Anion gap [Moles/Vol] 9 mmol/L Normal 9-18 [facility] Comment on above: Order Comment: Speci men Type: BLOOD SPECIMENOrdering Facility: [facility] Address: [address] [place] [address] Performed By: #### 2 4321-2, 1987-5, 12952-3, 2777-1, JOSSELYN ####[facility] LABCLIA [id number] [place] [address] [place] Calcium [Mass/Vol] 9.0 mg/dL Normal 8.5-10.2 [facility] Comment on above: Order Comment: Speci men Type: BLOOD SPECIMENOrdering Facility: [facility] Address: [address] [place] [phone] Performed By: #### 2 4320-11, 1988-01, , 2776-10, JOSSELYN ####[facility] LABCLIA [id number] [place] [id number] [place] Chloride [Moles/Vol] 99 mmol/L Normal 97-105 [facility] Comment on above: Order Comment: Speci men Type: BLOOD SPECIMENOrdering Facility: [facility] Address: [address] [place], [place] [phone] Performed By: #### 2 4320-11, 1988-01, , 2776-10, JOSSELYN ####[facility] LABCLIA [id number] [place] [address] [place] CO2 [Moles/Vol] 30 mmol/L Normal 22-30 [facility] Comment on above: Order Comment: Speci men Type: BLOOD SPECIMENOrdering Facility: [facility] Address: [address] [place], [place] [phone] Performed By: #### 2 4320-11, 1988-01, , 2776-10, JOSSELYN ####[facility] LABCLIA [id number] [place] [address] [place] Creatinine [Mass/Vol] 0.66 mg/dL Normal 0.58-0.96 [facility] Comment on above: Order Comment: Speci men Type: BLOOD SPECIMENOrdering Facility: [facility] Address: [address] [place] [phone] Performed By: #### 2 4320-2, 1988-01, , 2776-10, JOSSELYN ####[facility] LABCLIA [id number] [place] [id number] [place] ESTIMATED GLOMERULAR FILTRATION RATE 104 mL/min/1.73m??? Normal >=60 [facility] Comment on above: Order Comment: Poncho freeman Type: BLOOD SPECIMENOrdering Facility: [facility] Address: [address] [place] [address] Result Comment: Faiza mated Glomerular Filtration Rate (eGFR) is calculated using the 2020 CKD-EPI creatinine equation. This equation utilizes serum creatinine, sex, and age as parameters. The creatinine assay has traceable calibration to isotope dilution-mass spectrometry. Refer to KDIGO guidelines for clinical interpretation. In patients with unstable renal function, e.g. those with acute kidney injury, the eGFR may not accurately reflect actual GFR. Performed By: #### 2 4320-, 1988-01, , 2776-10, JOSSELYN ####[facility] LABCLIA [id number] [address] [address] [place] Glucose [Mass/Vol] 108 mg/dL High 74-99 [facility] Comment on above: Order Comment: Poncho freeman Type: BLOOD SPECIMENOrdering Facility: [facility] Address: [address] [place] [phone] Result Comment: The Stateless Diabetes Association (ADA) provides guidance for cutoff values for fasting glucose and random glucose. The ADA defines fasting as no caloric intake for at least 8 hours. Fasting plasma glucose results between 100 to 125 mg/dL indicate increased risk for diabetes (prediabetes). Fasting plasma glucose results greater than or equal to 126 mg/dL meet the criteria for diagnosis of diabetes. In the absence of unequivocal hyperglycemia, results should be confirmed by repeat testing. In a patient with classic symptoms of hyperglycemia or hyperglycemic crisis, random plasma glucose results greater than or equal to 200 mg/dL meet the criteria for diagnosis of diabetes. Reference: Standards of Medical Care in Diabetes 2016, Stateless Diabetes Association. Diabetes Care. 2016.39(Suppl 1). Performed By: #### 2 4320-, 1988-01, , 2776-10, JOSSELYN ####[facility] LABCLIA [id number] [address] [address] [place] Potassium [Moles/Vol] 5.1 mmol/L Normal 3.7-5.1 [facility] Comment on above: Order Comment: Speci men Type: BLOOD SPECIMENOrdering Facility: [facility] Address: [address] [place], [place] [address] Performed By: #### 2 4320-11, 1988-01, , 2776-10, JOSSELYN ####[facility] LABCLIA [id number] [place] [id number] [place] Sodium [Moles/Vol] 138 mmol/L Normal 136-144 [facility] Comment on above: Order Comment: Speci men Type: BLOOD SPECIMENOrdering Facility: [facility] Address: [address] [place] [address] Performed By: #### 2 4320-11, 1988-01, , 2776-10, JOSSELYN ####[facility] LABCLIA [id number] [place] [address] [place] Urea nitrogen [Mass/Vol] 6 mg/dL Low 7-21 [facility] Comment on above: Order Comment: Speci men Type: BLOOD SPECIMENOrdering Facility: [facility] Address: [address] [place] [address] Performed By: #### 2 4320-11, 1988-01, , 2776-10, JOSSELYN ####[facility] LABCLIA [id number] [place] [address] [place] CBC W Auto Differential pane l (Bld)on 06-08-2022 Basophils (Bld) [#/Vol] 10*3/uL Normal <0.11 [facility] Comment on above: Order Comment: Speci men Type: BLOOD SPECIMENOrdering Facility: [facility] Address: [address] [place], [place] [address] Performed By: #### 5 7021-8 ####[facility] LABCLIA [id number] [place] [address] [place] Basophils/100 WBC (Bld) 0.1 % Normal [facility] Comment on above: Order Comment: Speci men Type: BLOOD SPECIMENOrdering Facility: [facility] Address: [address] [place], [place] [address] Performed By: #### 5 7021-8 ####[facility] LABCLIA [id number] [place] [address] [place] Differential cell count method Nom (Bld) Auto Normal [facility] Comment on above: Order Comment: Speci men Type: BLOOD SPECIMENOrdering Facility: [facility] Address: [address] [place], [place] [address] Performed By: #### 5 7021-8 ####[facility] LABCLIA [id number] [place] [address] [place] Eosinophils (Bld) [#/Vol] 0.07 10*3/uL Normal <0.46 [facility] Comment on above: Order Comment: Speci men Type: BLOOD SPECIMENOrdering Facility: [facility] Address: [address] [place], [place] [address] Performed By: #### 5 7021-8 ####[facility] LABCLIA [id number] [place] [address] [place] Eosinophils/100 WBC (Bld) 0.6 % Normal [facility] Comment on above: Order Comment: Speci men Type: BLOOD SPECIMENOrdering Facility: [facility] Address: [address] [place], [place] [address] Performed By: #### 5 7021-8 ####[facility] LABCLIA [id number] [place] [address] [place] Erythrocyte distribution width (RBC) [Ratio] 14.4 % Normal 11.5-15.0 [facility] Comment on above: Order Comment: Speci men Type: BLOOD SPECIMENOrdering Facility: [facility] Address: [address] [place], [place] [address] Performed By: #### 5 7021-8 ####[facility] LABIA [id number] [address] OF [facility] Hematocrit (Bld) [Volume fraction] 34.8 % Low 36.0-46.0 [facility] Comment on above: Order Comment: Speci men Type: BLOOD SPECIMENOrdering Facility: [facility] Address: [address] [place], [place] [address] Performed By: #### 5 7021-8 ####[facility] [id number] [address] STATES OF [facility] Hemoglobin (Bld) [Mass/Vol] 10.7 g/dL Low 11.5-15.5 [facility] Comment on above: Order Comment: Speci men Type: BLOOD SPECIMENOrdering Facility: [facility] Address: [address] [place], [place] [address] Performed By: #### 5 7021-8 ####[facility] [id number] [address] IMMATURE GRAN % 0.7 % Normal [facility] Comment on above: Order Comment: Speci men Type: BLOOD SPECIMENOrdering Facility: [facility] Address: [address] [place], [place] [address] Performed By: #### 5 7021-8 ####[facility] [id number] [address] OF [facility] IMMATURE GRAN ABS 0.08 k/uL Normal <0.10 [facility] Comment on above: Order Comment: Speci men Type: BLOOD SPECIMENOrdering Facility: [facility] Address: [address] [place], [place] [address] Performed By: #### 5 7021-8 ####[facility] [id number] [address] [place] Lymphocytes (Bld) [#/Vol] 2.23 10*3/uL Normal 1.00-4.00 [facility] Comment on above: Order Comment: Speci men Type: BLOOD SPECIMENOrdering Facility: [facility] Address: [address] [place], [place] [address] Performed By: #### 5 7021-8 ####[facility] LABIA [id number] [address] [place] Lymphocytes/100 WBC (Bld) 20.2 % Normal [facility] Comment on above: Order Comment: Speci men Type: BLOOD SPECIMENOrdering Facility: [facility] Address: [address] [place], [place] [address] Performed By: #### 5 7021-8 ####[facility] LABIA [id number] [place] [address] [place] MCH (RBC) [Entitic mass] 29.1 pg Normal 26.0-34.0 [facility] Comment on above: Order Comment: Speci men Type: BLOOD SPECIMENOrdering Facility: [facility] Address: [address] [place], [place] [address] Performed By: #### 5 7021-8 ####[facility] LABIA [id number] [address] [place] MCHC (RBC) [Mass/Vol] 30.7 g/dL Normal 30.5-36.0 [facility] Comment on above: Order Comment: Speci men Type: BLOOD SPECIMENOrdering Facility: [facility] Address: [address] [place], [place] [address] Performed By: #### 5 7021-8 ####[facility] LABIA [id number] [address] [place] MCV (RBC) [Entitic vol] 94.6 fL Normal 80.0-100.0 [facility] Comment on above: Order Comment: Speci men Type: BLOOD SPECIMENOrdering Facility: [facility] Address: [address] [place], [place] [address] Performed By: #### 5 7021-8 ####[facility] LABCLIA [id number] [place] [address] [place] Monocytes (Bld) [#/Vol] 0.97 10*3/uL High <0.87 [facility] Comment on above: Order Comment: Speci men Type: BLOOD SPECIMENOrdering Facility: [facility] Address: [address] [place], [place] [address] Performed By: #### 5 7021-8 ####[facility] LABCLIA [id number] [place] [address] [place] Monocytes/100 WBC (Bld) 8.8 % Normal [facility] Comment on above: Order Comment: Speci men Type: BLOOD SPECIMENOrdering Facility: [facility] Address: [address] [place], [place] [address] Performed By: #### 5 7021-8 ####[facility] LABCLIA [id number] [place] [address] [place] Neutrophils (Bld) [#/Vol] 7.66 10*3/uL High 1.45-7.50 [facility] Comment on above: Order Comment: Speci men Type: BLOOD SPECIMENOrdering Facility: [facility] Address: [address] [place], [place] [address] Performed By: #### 5 7021-8 ####[facility]CLIA [id number] [place] [address] [place] Neutrophils/100 WBC (Bld) 69.6 % Normal [facility] Comment on above: Order Comment: Speci men Type: BLOOD SPECIMENOrdering Facility: [facility] Address: [address] [place], [place] [address] Performed By: #### 5 7021-8 ####[facility] LABCLIA [id number] [place] [address] [place] Nucleated RBC (Bld) [#/Vol] 10*3/uL Normal <0.01 [facility] Comment on above: Order Comment: Speci men Type: BLOOD SPECIMENOrdering Facility: [facility] Address: [address] [place], [place] [address] Performed By: #### 5 7021-8 ####[facility] LABCLIA [id number] [place] [address] [place] Nucleated RBC/100 WBC (Bld) [Ratio] 0.0 /100 WBC Normal [facility] Comment on above: Order Comment: Speci men Type: BLOOD SPECIMENOrdering Facility: [facility] Address: [address] [place], [place] [address] Performed By: #### 5 7021-8 ####[facility] LABIA [id number] [place] [address] [place] Platelet mean volume (Bld) [Entitic vol] 9.7 fL Normal 9.0-12.7 [facility] Comment on above: Order Comment: Speci men Type: BLOOD SPECIMENOrdering Facility: [facility] Address: [address] [place], [place] [address] Performed By: #### 5 7021-8 ####[facility] LABIA [id number] [place] [address] [place] Platelets (Bld) [#/Vol] 322 10*3/uL Normal 150-400 [facility] Comment on above: Order Comment: Speci men Type: BLOOD SPECIMENOrdering Facility: [facility] Address: [address] [place], [place] [address] Performed By: #### 5 7021-8 ####[facility] LABCLIA [id number] [place] [address] [place] RBC (Bld) [#/Vol] 3.68 10*6/uL Low 3.90-5.20 [facility] Comment on above: Order Comment: Speci men Type: BLOOD SPECIMENOrdering Facility: [facility] Address: [address] [place], [place] [address] Performed By: #### 5 7021-8 ####[facility] LABCLIA [id number] [place] [address] [place] WBC (Bld) [#/Vol] 11.02 10*3/uL High 3.70-11.00 [facility] Comment on above: Order Comment: Speci men Type: BLOOD SPECIMENOrdering Facility: [facility] Address: [address] [place], [place] [address] Performed By: #### 5 7021-8 ####[facility] LABCLIA [id number] [place] [address] [place] CRP SerPl-ncon 06-08-2022 CRP [Mass/Vol] 6.2 mg/dL High <0.9 [facility] Comment on above: Order Comment: Speci men Type: BLOOD SPECIMENOrdering Facility: [facility] Address: [address] [place], [place] [address] Performed By: #### 2 4320-2, 1988-01, , 2776-10, JOSSELYN ####[facility] LABCLIA [id number] [place] [address] [place] Magnesium SerPl-mCncon 06-08 Magnesium [Mass/Vol] 2.2 mg/dL Normal 1.7-2.3 [facility] Comment on above: Order Comment: Speci men Type: BLOOD SPECIMENOrdering Facility: [facility] Address: [address] [place] [address] Performed By: #### 2 4321-2, 1988-01, , 2776-10, JOSSELYN ####[facility] LABCLIA [id number] [place] [id number] [place] Phosphate SerPl-mCncon 06-08 Phosphate [Mass/Vol] 2.4 mg/dL Low 2.7-4.8 [facility] Comment on above: Order Comment: Speci men Type: BLOOD SPECIMENOrdering Facility: [facility] Address: [address] [place], [place] [address] Performed By: #### 2 4321-2, 1988-01, , 2776-10, JOSSELYN ####[facility] LABCLIA [id number] [place] [id number] [place] TROPONIN Ton 06-08-2022 Troponin T.cardiac [Mass/Vol] ug/L Normal 0.000-0.029 [facility] Comment on above: Order Comment: Speci men Type: BLOOD SPECIMENOrdering Facility: [facility] Address: [address] [place], [place] [address] Performed By: #### 2 4321-2, 1988-01, , 2776-10, JOSSELYN ####[facility] LABCLIA [id number] [place] [address] [place] Basic metabolic 2000 panelon 06-07-2022 Anion gap [Moles/Vol] 9 mmol/L Normal 9-18 [facility] Comment on above: Order Comment: Speci men Type: BLOOD SPECIMENOrdering Facility: [facility] Address: [address] [place], [place] [address] Performed By: #### 2 4321-2 ####[facility] LABCLIA [id number] [place] [address] [place] Calcium [Mass/Vol] 9.6 mg/dL Normal 8.5-10.2 [facility] Comment on above: Order Comment: Speci men Type: BLOOD SPECIMENOrdering Facility: [facility] Address: [address] [place], [place] [address] Performed By: #### 2 4321-2 ####[facility] LABCLIA [id number] [place] [address] [place] Chloride [Moles/Vol] 99 mmol/L Normal 97-105 [facility] Comment on above: Order Comment: Speci men Type: BLOOD SPECIMENOrdering Facility: [facility] Address: [address] [place] [address] Performed By: #### 2 4321-2 ####[facility] LABCLIA [id number] [place] [address] [place] CO2 [Moles/Vol] 29 mmol/L Normal 22-30 [facility] Comment on above: Order Comment: Speci men Type: BLOOD SPECIMENOrdering Facility: [facility] Address: [address] [place] [address] Performed By: #### 2 4321-2 ####[facility] LABIA [id number] [address] [place] OF [facility] Creatinine [Mass/Vol] 0.70 mg/dL Normal 0.58-0.96 [facility] Comment on above: Order Comment: Speci men Type: BLOOD SPECIMENOrdering Facility: [facility] Address: [address] [place] [address] Performed By: #### 2 4321-2 ####[facility] LABIA [id number] [address] OF [facility] ESTIMATED GLOMERULAR FILTRATION RATE 102 mL/min/1.73m??? Normal >=60 [facility] Comment on above: Order Comment: Speci men Type: BLOOD SPECIMENOrdering Facility: [facility] Address: [address] [place] [address] Result Comment: Faiza mated Glomerular Filtration Rate (eGFR) is calculated using the 2020 CKD-EPI creatinine equation. This equation utilizes serum creatinine, sex, and age as parameters. The creatinine assay has traceable calibration to isotope dilution-mass spectrometry. Refer to KDIGO guidelines for clinical interpretation. In patients with unstable renal function, e.g. those with acute kidney injury, the eGFR may not accurately reflect actual GFR. Performed By: #### 2 4321-2 ####[facility]CL[facility] [id number] [address] [address] [place] Glucose [Mass/Vol] 94 mg/dL Normal 74-99 [facility] Comment on above: Order Comment: Speci men Type: BLOOD SPECIMENOrdering Facility: [facility] Address: [address] [place], [place] [phone] Result Comment: The Stateless Diabetes Association (ADA) provides guidance for cutoff values for fasting glucose and random glucose. The ADA defines fasting as no caloric intake for at least 8 hours. Fasting plasma glucose results between 100 to 125 mg/dL indicate increased risk for diabetes (prediabetes). Fasting plasma glucose results greater than or equal to 126 mg/dL meet the criteria for diagnosis of diabetes. In the absence of unequivocal hyperglycemia, results should be confirmed by repeat testing. In a patient with classic symptoms of hyperglycemia or hyperglycemic crisis, random plasma glucose results greater than or equal to 200 mg/dL meet the criteria for diagnosis of diabetes. Reference: Standards of Medical Care in Diabetes 2016, Stateless Diabetes Association. Diabetes Care. 2016.39(Suppl 1). Performed By: #### 2 4321-2 ####[facility] [id number] [place] [address] [place] Potassium [Moles/Vol] 4.9 mmol/L Normal 3.7-5.1 [facility] Comment on above: Order Comment: Carol Anni men Type: BLOOD SPECIMENOrdering Facility: [facility] Address: [address] [phone] Performed By: #### 2 4321-2 ####[facility] [id number] [place] [address] [place] Sodium [Moles/Vol] 137 mmol/L Normal 136-144 [facility] Comment on above: Order Comment: Poncho men Type: BLOOD SPECIMENOrdering Facility: [facility] Address: [address] [place] [address] Performed By: #### 2 4321-2 ####[facility]CL[facility] [id number] [place] [address] [place] Urea nitrogen [Mass/Vol] 8 mg/dL Normal 7-21 [facility] Comment on above: Order Comment: Speci men Type: BLOOD SPECIMENOrdering Facility: [facility] Address: [address] [place], [place] [address] Performed By: #### 2 4321-2 ####[facility] [id number] [place] [address] [place] Anion gap [Moles/Vol] 9 mmol/L Normal 9-18 [facility] Comment on above: Order Comment: Speci men Type: BLOOD SPECIMENOrdering Facility: [facility] Address: [address] [place], [place] [address] Performed By: #### 1 988-5, 2777-1, JOSSELYN, , 88576-8 ####[facility] [id number] [place] [address] [place] Calcium [Mass/Vol] 10.0 mg/dL Normal 8.5-10.2 [facility] Comment on above: Order Comment: Speci men Type: BLOOD SPECIMENOrdering Facility: [facility] Address: [address] [place], [place] [address] Performed By: #### 1 988-5, 2777-1, JOSSELYN, , 69901-9 ####[facility] [id number] [address] [address] [place] Chloride [Moles/Vol] 99 mmol/L Normal 97-105 [facility] Comment on above: Order Comment: Speci men Type: BLOOD SPECIMENOrdering Facility: [facility] Address: [address] [place], [place] [address] Performed By: #### 1 988-5, 2777-1, JOSSELYN, , 29813-3 ####[facility]CL[facility] [id number] [place] [address] [place] CO2 [Moles/Vol] 27 mmol/L Normal 22-30 [facility] Comment on above: Order Comment: Speci men Type: BLOOD SPECIMENOrdering Facility: [facility] Address: [address] [place] [address] Performed By: #### 1 988-5, 2777-1, JOSSELYN, , 46343-8 ####[facility] [id number] [place] [address] [place] Creatinine [Mass/Vol] 0.66 mg/dL Normal 0.58-0.96 [facility] Comment on above: Order Comment: Speci men Type: BLOOD SPECIMENOrdering Facility: [facility] Address: [address] [place] [address] Performed By: #### 1 988-5, 2777-1, JOSSELYN, , 28388-4 ####[facility] [id number] [place] [address] [place] ESTIMATED GLOMERULAR FILTRATION RATE 104 mL/min/1.73m??? Normal >=60 [facility] Comment on above: Order Comment: Speci men Type: BLOOD SPECIMENOrdering Facility: [facility] Address: [address] [place] [address] Result Comment: Faiza mated Glomerular Filtration Rate (eGFR) is calculated using the 2020 CKD-EPI creatinine equation. This equation utilizes serum creatinine, sex, and age as parameters. The creatinine assay has traceable calibration to isotope dilution-mass spectrometry. Refer to KDIGO guidelines for clinical interpretation. In patients with unstable renal function, e.g. those with acute kidney injury, the eGFR may not accurately reflect actual GFR. Performed By: #### 1 988-5, 2777-1, JOSSELYN, 52824-3, 54389-5 ####[facility] [id number] [place] [address] [place] Glucose [Mass/Vol] 121 mg/dL High 74-99 [facility] Comment on above: Order Comment: Speci men Type: BLOOD SPECIMENOrdering Facility: [facility] Address: [address] [place] [address] Result Comment: The Stateless Diabetes Association (ADA) provides guidance for cutoff values for fasting glucose and random glucose. The ADA defines fasting as no caloric intake for at least 8 hours. Fasting plasma glucose results between 100 to 125 mg/dL indicate increased risk for diabetes (prediabetes). Fasting plasma glucose results greater than or equal to 126 mg/dL meet the criteria for diagnosis of diabetes. In the absence of unequivocal hyperglycemia, results should be confirmed by repeat testing. In a patient with classic symptoms of hyperglycemia or hyperglycemic crisis, random plasma glucose results greater than or equal to 200 mg/dL meet the criteria for diagnosis of diabetes. Reference: Standards of Medical Care in Diabetes 2016, Stateless Diabetes Association. Diabetes Care. 2016.39(Suppl 1). Performed By: #### 1 988-5, 2777-1, JOSSELYN, 57975-4, 78471-6 ####[facility] [id number] [place] [address] [place] Potassium [Moles/Vol] 5.4 mmol/L High 3.7-5.1 [facility] Comment on above: Order Comment: Speci men Type: BLOOD SPECIMENOrdering Facility: [facility] Address: [address] [place] [address] Performed By: #### 1 988-5, 2777-1, JOSSELYN, , 55445-5 ####[facility] [id number] [place] [address] [place] Sodium [Moles/Vol] 135 mmol/L Low 136-144 [facility] Comment on above: Order Comment: Speci men Type: BLOOD SPECIMENOrdering Facility: [facility] Address: [address] [place], [place] [phone] Performed By: #### 1 988-5, 2777-1, JOSSELYN, 98587-4, 49195-5 ####[facility] [id number] [place] [address] [place] Urea nitrogen [Mass/Vol] 8 mg/dL Normal 7-21 [facility] Comment on above: Order Comment: Speci men Type: BLOOD SPECIMENOrdering Facility: [facility] Address: [address] [place] [address] Performed By: #### 1 988-5, 2777-1, JOSSELYN, 43073-2, 49229-3 ####[facility] [id number] [place] [address] [place] CBC W Auto Differential pane l (Bld)on 06-07-2022 Basophils (Bld) [#/Vol] 10*3/uL Normal <0.11 [facility] Comment on above: Order Comment: Speci men Type: BLOOD SPECIMENOrdering Facility: [facility] Address: [address] [place] [address] Performed By: #### 5 7021-8 ####[facility] [id number] [address] [place] Basophils/100 WBC (Bld) 0.1 % Normal [facility] Comment on above: Order Comment: Speci men Type: BLOOD SPECIMENOrdering Facility: [facility] Address: [address] [place], [place] [address] Performed By: #### 5 7021-8 ####[facility] [id number] [address] [place] Differential cell count method Nom (Bld) Auto Normal [facility] Comment on above: Order Comment: Speci men Type: BLOOD SPECIMENOrdering Facility: [facility] Address: [address] [place], [place] [address] Performed By: #### 5 7021-8 ####[facility]CL[facility] [id number] [place] [address] [place] Eosinophils (Bld) [#/Vol] 10*3/uL Normal <0.46 [facility] Comment on above: Order Comment: Speci men Type: BLOOD SPECIMENOrdering Facility: [facility] Address: [address] [place] [address] Performed By: #### 5 7021-8 ####[facility] [id number] [place] [address] [place] Eosinophils/100 WBC (Bld) 0.0 % Normal [facility] Comment on above: Order Comment: Speci men Type: BLOOD SPECIMENOrdering Facility: [facility] Address: [address] [place] [address] Performed By: #### 5 7021-8 ####[facility] [id number] [place] [address] [place] Erythrocyte distribution width (RBC) [Ratio] 14.4 % Normal 11.5-15.0 [facility] Comment on above: Order Comment: Speci men Type: BLOOD SPECIMENOrdering Facility: [facility] Address: [address] [place] [address] Performed By: #### 5 7021-8 ####[facility] [id number] [place] [address] [place] Hematocrit (Bld) [Volume fraction] 39.3 % Normal 36.0-46.0 [facility] Comment on above: Order Comment: Speci men Type: BLOOD SPECIMENOrdering Facility: [facility] Address: [address] [place], [place] [address] Performed By: #### 5 7021-8 ####[facility]CL[facility] [id number] [place] [address] [place] Hemoglobin (Bld) [Mass/Vol] 12.2 g/dL Normal 11.5-15.5 [facility] Comment on above: Order Comment: Speci men Type: BLOOD SPECIMENOrdering Facility: [facility] Address: [address] [place], [place] [address] Performed By: #### 5 7021-8 ####[facility] [id number] [place] [address] [place] IMMATURE GRAN % 0.8 % Normal [facility] Comment on above: Order Comment: Speci men Type: BLOOD SPECIMENOrdering Facility: [facility] Address: [address] [place], [place] [address] Performed By: #### 5 7021-8 ####[facility]CL[facility] [id number] [place] [address] [place] IMMATURE GRAN ABS 0.11 k/uL High <0.10 [facility] Comment on above: Order Comment: Speci men Type: BLOOD SPECIMENOrdering Facility: [facility] Address: [address] [place], [place] [address] Performed By: #### 5 7021-8 ####[facility] [id number] [place] [address] [place] Lymphocytes (Bld) [#/Vol] 0.56 10*3/uL Low 1.00-4.00 [facility] Comment on above: Order Comment: Speci men Type: BLOOD SPECIMENOrdering Facility: [facility] Address: [address] [place], [place] [address] Performed By: #### 5 7021-8 ####[facility]CL[facility] [id number] [place] [address] [place] Lymphocytes/100 WBC (Bld) 3.9 % Normal [facility] Comment on above: Order Comment: Speci men Type: BLOOD SPECIMENOrdering Facility: [facility] Address: [address] [place], [place] [address] Performed By: #### 5 7021-8 ####[facility]CL[facility] [id number] [place] [address] [place] MCH (RBC) [Entitic mass] 28.7 pg Normal 26.0-34.0 [facility] Comment on above: Order Comment: Speci men Type: BLOOD SPECIMENOrdering Facility: [facility] Address: [address] [place] [address] Performed By: #### 5 7021-8 ####[facility] [id number] [address] [place] MCHC (RBC) [Mass/Vol] 31.0 g/dL Normal 30.5-36.0 [facility] Comment on above: Order Comment: Speci men Type: BLOOD SPECIMENOrdering Facility: [facility] Address: [address] [place] [address] Performed By: #### 5 7021-8 ####[facility] [id number] [address] [place] MCV (RBC) [Entitic vol] 92.5 fL Normal 80.0-100.0 [facility] Comment on above: Order Comment: Speci men Type: BLOOD SPECIMENOrdering Facility: [facility] Address: [address] [place] [address] Performed By: #### 5 7021-8 ####[facility] [id number] [address] [place] Monocytes (Bld) [#/Vol] 0.76 10*3/uL Normal <0.87 [facility] Comment on above: Order Comment: Speci men Type: BLOOD SPECIMENOrdering Facility: [facility] Address: [address] [place] [address] Performed By: #### 5 7021-8 ####[facility] [id number] [address] [id number] [address] [place] Monocytes/100 WBC (Bld) 5.3 % Normal [facility] Comment on above: Order Comment: Speci men Type: BLOOD SPECIMENOrdering Facility: [facility] Address: [address] [place], [place] [address] Performed By: #### 5 7021-8 ####[facility]CL[facility] [id number] [place] [address] [place] Neutrophils (Bld) [#/Vol] 12.93 10*3/uL High 1.45-7.50 [facility] Comment on above: Order Comment: Speci men Type: BLOOD SPECIMENOrdering Facility: [facility] Address: [address] [place], [place] [address] Performed By: #### 5 7021-8 ####[facility]CL[facility] [id number] [place] [address] [place] Neutrophils/100 WBC (Bld) 89.9 % Normal [facility] Comment on above: Order Comment: Speci men Type: BLOOD SPECIMENOrdering Facility: [facility] Address: [address] [place], [place] [address] Performed By: #### 5 7021-8 ####[facility] [id number] [place] [address] [place] Nucleated RBC (Bld) [#/Vol] 10*3/uL Normal <0.01 [facility] Comment on above: Order Comment: Speci men Type: BLOOD SPECIMENOrdering Facility: [facility] Address: [address] [place], [place] [address] Performed By: #### 5 7021-8 ####[facility]CL[facility] [id number] [place] [address] [place] Nucleated RBC/100 WBC (Bld) [Ratio] 0.0 /100 WBC Normal [facility] Comment on above: Order Comment: Speci men Type: BLOOD SPECIMENOrdering Facility: [facility] Address: [address] [place], [place] [address] Performed By: #### 5 7021-8 ####[facility] [id number] [place] [address] [place] Platelet mean volume (Bld) [Entitic vol] 9.9 fL Normal 9.0-12.7 [facility] Comment on above: Order Comment: Speci men Type: BLOOD SPECIMENOrdering Facility: [facility] Address: [address] [place], [place] [address] Performed By: #### 5 7021-8 ####[facility] [id number] [place] [address] [place] Platelets (Bld) [#/Vol] 385 10*3/uL Normal 150-400 [facility] Comment on above: Order Comment: Speci men Type: BLOOD SPECIMENOrdering Facility: [facility] Address: [address] [place], [place] [address] Performed By: #### 5 7021-8 ####[facility] [id number] [place] [address] [place] RBC (Bld) [#/Vol] 4.25 10*6/uL Normal 3.90-5.20 [facility] Comment on above: Order Comment: Speci men Type: BLOOD SPECIMENOrdering Facility: [facility] Address: [address] [place] [address] Performed By: #### 5 7021-8 ####[facility] [id number] [place] [address] [place] WBC (Bld) [#/Vol] 14.38 10*3/uL High 3.70-11.00 [facility] Comment on above: Order Comment: Speci men Type: BLOOD SPECIMENOrdering Facility: [facility] Address: [address] [place], [place] [address] Performed By: #### 5 7021-8 ####[facility]CL[facility] [id number] [address] [id number] [facility] CRP SerPl-mCncon 06-07-2022 CRP [Mass/Vol] 2.1 mg/dL High <0.9 [facility] Comment on above: Order Comment: Speci men Type: BLOOD SPECIMENOrdering Facility: [facility] Address: [address] [place] [address] Performed By: #### 1 988-5, 2777-1, JOSSELYN, 41066-7, 60691-9 ####[facility] [id number] [address] [facility] ECG COMPLETEon 06-07-2022 ECG COMPLETE Ventricular Rate : 6 3 BPM Atrial Rate : 63 BPM P-R Interval : 136 ms QRS Duration : 82 ms Q-T Interval : 414 ms QTC Calculation(Bazett) : 423 ms Calculated P [place] : 56 degrees Calculated R [place] : 49 degrees Calculated T [place] : 33 degrees NORMAL SINUS RHYTHM NORMAL ECG Confirmed by MD PRECIOUS, PhD, UZMA ([id number]) on 06/24/2022 6:36:16 PM NAME : VALERIA ROMERO PID : [id number] : 1965 Gender : Female Race : ORD : [id number] Procedure Date : Jun 07 2022 02:28:37 Edit Date : Jun 24 2022 18:36:18 Diagnosis: NORMAL SINUS RHYTHM NORMAL ECG Confirmed by MD PRECIOUS, PhD, UZMA ([id number]) on 06/24/2022 6:36:16 PM Test Reason : Post-OP Location : 53 : 0 H050[facility] Overread By : MD PRECIOUS, PhD,UZMA Edited By : MD PRECIOUS, PhD,UZMA Referred By : , Acquired by : JACQUES [facility] Magnesium SerPl-mCncon 06-07 Magnesium [Mass/Vol] 2.0 mg/dL Normal 1.7-2.3 [facility] Comment on above: Order Comment: Speci men Type: BLOOD SPECIMENOrdering Facility: [facility] Address: [address] [place] [address] Performed By: #### 1 988-5, 2777-1, JOSSELYN, , 95274-7 ####[facility]CL[facility] [id number] [address] [address] [facility] Phosphate SerPl-mCncon 06-07 Phosphate [Mass/Vol] 4.4 mg/dL Normal 2.7-4.8 [facility] Comment on above: Order Comment: Speci men Type: BLOOD SPECIMENOrdering Facility: [facility] Address: [address] [place], [place] [address] [address] Performed By: #### 1 988-5, 2777-1, JOSSELYN, , 61170-4 ####[facility] [id number] [place] [id number] [facility] [place] THERAPY NTon 06-07-2022 THERAPY NT HNO ID: [id number] Author: Chayo Maharaj OT/Hamida Service: ? Author Type: Occupational Therapist Type: Therapy (PT/OT/Speech/Resp) Filed: 06/07/2022 3:04 PM Note Text: Occupational Therapy Evaluation SERVICE DATE: 06/07/2022 SERVICE TIME: 1354 to 1451 ROOM: [place] [address] Recommended Discharge Disposition: Home Recommended Discharge Disposition Comments: Recommend assistance for IADL management. Anticipated Discharge Needs: Physical Assist at Home Physical Assist at Home for: Cleaning;Laundry;Meals ;Stairs Recommended Discharge Equipment: No equipment needs anticipated OT 6 Clicks Score: 24 Precautions/Activity Restrictions: Abdominal Current Hospital Course: s/p ventral hernia repair with mesh, resection of old mesh 06/06 Reason for Hospital Admission: scheduled procedure Relevant Past Medical History: GERD, asthma, tobacco abuse hx, shx surgical history significant for multiple incisional hernia repairs, hysterectomy, C-sections, abdominoplasty, and bilateral ovarian cyst removal Response to Therapy Interventions: Good participation in activities, Notable progression with functional activities/skills, On-track to achieve discharge goals Assessment Comments: Pt w/ good participation in activities while adhering to abdominal precautions. No further OT concerns at this time. Will discontinue services. Cognition/Communicatio n Deficits Responsiveness: Alert, Awake Follows Commands: 3-step Commands Attention Deficits: Distractible Cognitive Clinical Tests and Screens: 4AT Screening Psychosocial Deficit: Pt appears to be coping well with current hospital course. Reports intermittent anxiety, provided meditation handouts/aromatherapy for pt and demonstrated use. Cognitive Activities Performed: Precautions 4AT Screening Assess alertness (ask patient to state their name and address): Normal (fully alert, but not agitated, throughout assessment) Ask patient: age, date of , current year, and current location: No mistakes Ask patient to tell me the months of the year backwards order, starting with August : Able to state 7+ months correctly Acute change or fluctuating mental status: No 4AT Score: 0 Delirium Positive/Negative: Negative Home Environment Patient Lives With: Other: See Comment Comments: Roommates Assistance Available: 24 Hour;Other: See Comment Comments: Cousin will be staying with patient intially at discharge Entry To Home: Stairs;Without Rail Number Of Stairs Into Home: 3 Number Of Stairs To Bed/Bath: flight to basement bedroom Stairs to Bed/Bath with: No Rail Tub/Shower Type: walk in shower with GB Laundry: Pt normally completes (up one flight of stairs from bedroom in basement), however arranged for roommates to complete. Equipment Owned: Grab Bars-Shower Prior Functional Level: Within Functional Limits Prior Functional Level Comments: Pt reports IND in ADLs/IADLs. (+) drives, (-) falls. Patient Report: I have everything set up. CURRENT FUNCTIONAL STATUS: Most recent performance Current Activities of Daily Living Assist Level Additional Information Feeding Independent Grooming Set Up Bathing Upper Body Modified Independent Bathing Lower Body Stand By Assistance Dressing Upper Body Modified Independent Dressing Lower Body Stand By Assistance Toileting Stand By Assistance Instrumental Activities of Daily Living Assist Level Additional Information Meal/Beverage Prep Cleaning Laundry Medication Management with Strategies Functional Mobility Assist Level Additional Information Rolling Supervision Supine to Sit Supervision Sit to Supine Scooting Supervision Sit to Stand Stand By Assistance Stand to Sit Stand By Assistance Bed to Chair Toilet/Commode Shower Functional Mobility Stand By Assistance IV Pole Blank dickson indicate activity not attempted Balance: Static Sitting;Dynamic Sitting;Static Standing;Dynamic Standing Static Sitting Balance: Normal Patient able to maintain steady balance without handhold support Dynamic Sitting Balance: Normal Patient accepts maximal challenge and can shift weight easily within full range in all directions Static Standing Balance: Good Patient able to maintain balance without handhold support, limited postural sway Dynamic Standing Balance: Good Patient accepts moderate challenge, able to maintain balance while picking up object off floor Learning/Educational Needs: Discharge Plan;Family Education/Training;Fun ctional Activities/Mobility;Sa fety;Self Care Goals for Plan of Care: Patient /Caregiver Goals: Go Home Goals: Patient will demonstrate progress with self-care, cognitive and/or coping needs identified to allow safe discharge to home with available support and/or physical assistance. (Goal met 06/07.) Progress Toward Goals: Progressing as expected Rehab Potential: Good Patient will be discontinued from Occupational Therapy when no further skilled needs ar (more content not included)... Normal [facility] THERAPY NT HNO ID: [id number] Author: Shanna Leslie PT Service: ? Author Type: Physical Therapist Type: Therapy (PT/OT/Speech/Resp) Filed: 06/07/2022 11:46 AM Note Text: Physical Therapy Evaluation SERVICE DATE: 06/07/2022 SERVICE TIME: 1043 to 1121 ROOM: [place] [address] Recommended Discharge Disposition: Home Recommended Discharge Disposition Comments: Pt reports roommates will be available to assist with iADLs. Cousin will be staying with her initially at discharge. Anticipated Discharge Needs: Physical Assist at Home Physical Assist at Home for: Cleaning;Laundry;Meals ;Shopping Recommended Discharge Equipment: No equipment needs anticipated PT 6 Clicks Score: 24 Precautions/Activity Restrictions: Abdominal Current Hospital Course: s/p ventral hernia repair with mesh, resection of old mesh 06/06 Reason for Hospital Admission: scheduled procedure Relevant Past Medical History: GERD, asthma, tobacco abuse hx, shx surgical history significant for multiple incisional hernia repairs, hysterectomy, C-sections, abdominoplasty, and bilateral ovarian cyst removal Response to Therapy Interventions: Good participation in activities, On-track to achieve discharge goals, Pain Assessment Comments: Patient requires cueing and education throughout session for application of precautions to mobility. Education provided related to home safety and activity modification. Pt receptive to therapist education. No additional skilled needs at this time and pt will be discharged from PT caseload. Please re-consult if additional needs arise. Physical Therapy Problem List: Pain;Decreased Activity Tolerance;Functional Mobility Impairment;Balance Impaired Treatment Interventions: Education;Functional Mobility Training;Balance Training;Pain Management;Energy Conservation Training Home Environment Patient Lives With: Other: See Comment Comments: Roommates Assistance Available: 24 Hour;Other: See Comment Comments: Cousin will be staying with patient intially at discharge Entry To Home: Stairs;Without Rail Number Of Stairs Into Home: 3 Number Of Stairs To Bed/Bath: flight to basement bedroom Stairs to Bed/Bath with: No Rail Tub/Shower Type: walk in shower with GB Equipment Owned: SenicShower Prior Functional Level: Within Functional Limits Prior Functional Level Comments: Pt reports I with mobility, ADLs, and 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 Patient Report: Pt agreeable to PT CURRENT FUNCTIONAL STATUS: Most recent performance Current Functional Mobility Assist Level Additional Information Rolling Supine to Sit Stand By Assistance;Verbal Cues Only Sit to Supine Scooting Supervision Sit to Stand Stand By Assistance Stand to Sit Stand By Assistance Bed to Chair Stand By Assistance Bed To Chair Transfer Type: Stepping Bed To Chair Transfer Equipment: (IV pole) Toilet/Commode Gait Stand By Assistance;Additional Information Gait Device: IV Pole Gait Distance (feet): 320 Progressing to supervision Stairs Stand By Assistance Stairs Device: Rail Number of Stairs: 4 Curb Step Car Transfer Blank dickson indicate activity not attempted Balance: Static Sitting;Dynamic Sitting;Static Standing;Dynamic Standing Static Sitting Balance: Normal Patient able to maintain steady balance without handhold support Dynamic Sitting Balance: Good Patient accepts moderate challenge, able to maintain balance while picking up object off floor Static Standing Balance: Good Patient able to maintain balance without handhold support, limited postural sway Dynamic Standing Balance: Good Patient accepts moderate challenge, able to maintain balance while picking up object off floor JH-HLM: 8: Walk 250 feet or more Learning/Educational Needs: Disease Process;Discharge Plan;Pain Management;Plan of Care;Rehabilitation Techniques and Procedures;Safety;Prec autions Goals for Plan of Care: Patient /Caregiver Goals: Go Home Goals: Patient will demonstrate progress with functional mobility to allow safe discharge to home with available support and/or physical assistance. Rehab Potential: Excellent Patient will be discontinued from Physical Therapy when no further skilled needs are identified in this setting. PLAN: PT Frequency: Discontinue therapy services Reasons Therapy Services Discontinued: Goals met Plan of Care developed with: Patient TREATMENT INTERVENTIONS: Therapy Diagnosis: Reduced mobility-other Interventions Provided: Evaluation;Therapeutic Activity (72293);Gait Training (24606) $ Evaluation-Low (83378) Billed Units: 1 unit Therapeutic Activity (28074) Treatment Minutes: 8 $ Therapeutic Activity (38245) Billed Units: 1 unit Gait Training (80400) Treatment Minutes: 15 $ Gait Training (84341) Billed Units: 1 unit Training AND education provided in: Assistive device use, Bed mobility, Benefits of in-hospital mobility, Discharge planning, Disease specific education, Expected functional level, Gait trinity (more content not included)... [facility] TROPONIN Ton 06-07-2022 Troponin T.cardiac [Mass/Vol] ug/L Normal 0.000-0.029 [facility] Comment on above: Order Comment: Speci men Type: BLOOD SPECIMENOrdering Facility: [facility] Address: [address] [place] [address] Performed By: #### 1 988-5, 2777-1, JOSSELYN, 13275-7, 02978-8 ####[facility] LABCLIA [id number] [place] [address] [place] ANES POSTPROC EVALon 022 ANES POSTPROC EVAL HNO ID: [id number] Author: Jose Manuel Martinez MD Service: ? Author Type: Anesthesiologist Type: Anesthesia Postprocedure Evaluation Filed: 06/06/2022 4:49 PM Note Text: POST ANESTHESIA EVALUATION NOTE : 1965 Procedure Summary Date: 06/06/22 Room / Location: [address] [facility] Anesthesia Start: 1026 Anesthesia Stop: 1505 Procedure: COMPLEX REPAIR WOUND OF ABDOMEN 2.6 CM TO 7.5 CM (Abdomen) Diagnosis: Preoperative examination Incisional hernia, without obstruction or gangrene (Preoperative examination [Z01.818]) (Incisional hernia, without obstruction or gangrene [K43.2]) Surgeons: Pedro Walsh MD Responsible Provider: Jose Manuel Martinez MD Anesthesia Type: general ASA Status: 3 Anesthesia Type: general Airway Type: ETT Last Vitals Vitals Value Taken Time BP 115/60 06/06/22 1645 Temp 36 ?C (96.8 ?F) 06/06/22 1503 Pulse 71 06/06/22 1646 Resp 28 06/06/22 1646 SpO2 95 % 06/06/22 1646 Vitals shown include unvalidated device data. Post Anesthesia Patient Status Patient Evaluation: bedside. Neurological Status: aware and responsive. Pulmonary Status: breathing comfortably on room air Airway Control: returned to baseline unsupported. Cardiovascular Status: stable. Pain Management: clinically adequate Postoperative Hydration: acceptable. Intraoperative Events: no significant anesthesia events Post Operative Nausea/Vomiting Status: no significant post operative nausea or vomiting Anesthetic Observations: Recommendation: continue current plan of care. Anesthesia Observations No Documentation SIGNATURE: Jose Manuel Martinez MD PATIENT NAME: Valeria Romero DATE: June 06, 2022 TIME: 4:48 PM CSN: [id number] [facility] ANES PRE-OPon 06-06-2022 ANES PRE-OP HNO ID: [id number] Author: Jose Manuel Martinez MD Service: ? Author Type: Anesthesiologist Type: Anesthesia Preprocedure Evaluation Filed: 06/06/2022 9:56 AM Note Text: ANESTHESIOLOGY DAY OF SURGERY NOTE : 1965 Procedure Information Date/Time: 06/06/22 1015 Procedure: COMPLEX REPAIR WOUND OF ABDOMEN 2.6 CM TO 7.5 CM (Abdomen) Location: [place] [address] [facility] Surgeons: Pedro Walsh MD Estimated body mass index is 33.36 kg/m? as calculated from the following: Height as of 05/30/22: 152.4 cm (5'). Weight as of 05/30/22: 77.5 kg (170 lb 12.8 oz). Most recent hematocrit and potassium results: Hematocrit 40.5 05/30/2022 Potassium 4.3 05/30/2022 Relevant Problems GI (+) Gastroesophageal reflux disease without esophagitis PULMONARY (+) Asthma I - PHYSICAL EVALUATION AIRWAY Patient intubated: No. Tracheostomy tube not present Mallampati: II. TM distance: >3 FB. Neck ROM: full ROM without neurological symptoms. Mouth opening: adequate. Short neck: no. Thick neck: no DENTAL Dental findings: missing tooth/teeth. Additional exam findings: yes. Other findings: most molars missing top and bottom still smoking MJ and sounds tight without wheezing although does not look dyspneic wants TAP block no reflux while on PPI . II - ANESTHESIA PLAN ASA Score: 3 Anesthetic Plan: general Airway type: ETT The patient is a current smoker. NPO Status: adequate Monitoring plan: standard ASA. Postoperative analgesic plan: parenteral or oral opioids. Informed Consent Anesthetic risks, benefits, alternatives, personnel and consent discussed: yes. Patient / Responsible Constitution Party agrees to proceed: yes Patient / Surrogate agrees to blood products: Yes Significant changes in the patient condition since the History and Physical, not otherwise documented in primary service progress note: no. Potential Anesthesia issues that may suggest increased risk of complications or contraindication to planned procedure: none. Vitals Value Taken Time BP 116/60 06/06/22 0845 Pulse 63 06/06/22 0845 Resp 18 06/06/22 0845 Temp 36.7 ?C (98.1 ?F) 06/06/22 0845 SpO2 99 % 06/06/22 0845 Facility-Administered Medications as of 06/06/2022 Medication Dose Route Frequency - lidocaine (PF) 10 mg/mL (1 %) 1-2 mg injection (XYLOCAINE) 0.1-0.2 mL INTRADERMAL PRN Or - lidocaine 1% 0.25 mL subcutaneous j-tip syringe (XYLOCAINE) 0.25 mL SUBCUTANEOUS PRN - lactated ringers iv infusion 5-30 mL/hr INTRAVENOUS CONTINUOUS - [COMPLETED] heparin 5,000 Units injection 5,000 Units SUBCUTANEOUS ONCE - ceFAZolin iv piggyback 2 g in D5W (iso-osmotic) 100 mL (ANCEF) 2 g INTRAVENOUS Pre-Op Once - [COMPLETED] acetaminophen 1,000 mg tab(s) (TYLENOL) 1,000 mg ORAL ONCE - [COMPLETED] promethazine 12.5 mg tab(s) (PHENERGAN) 12.5 mg ORAL Pre-Op Once No current outpatient medications on file as of 06/06/2022. I have interviewed and examined the patient. I have reviewed the medical record and/or the pre-anesthesia evaluation, pertinent labs, and test results. This contains updated information obtained within 48 hours of Surgery/Procedure. SIGNATURE: Jose Manuel Martinez MD PATIENT NAME: Valeria Romero DATE: June 06, 2022 TIME: 9:52 AM CSN: [id number] [facility] CBC panel Auto (Bld)on 06-06 Erythrocyte distribution width (RBC) [Ratio] 14.2 % Normal 11.5-15.0 [facility] Comment on above: Order Comment: Speci men Type: BLOOD SPECIMENOrdering Facility: [facility] Address: [address] [place] [address] Performed By: #### 5 8410-2 ####[facility] [id number] [address] [place] Hematocrit (Bld) [Volume fraction] 41.1 % Normal 36.0-46.0 [facility] Comment on above: Order Comment: Speci men Type: BLOOD SPECIMENOrdering Facility: [facility] Address: [address] [place] [address] Performed By: #### 5 8410-2 ####[facility] [id number] [place] [address] [place] Hemoglobin (Bld) [Mass/Vol] 13.1 g/dL Normal 11.5-15.5 [facility] Comment on above: Order Comment: Speci men Type: BLOOD SPECIMENOrdering Facility: [facility] Address: [address] [place] [address] Performed By: #### 5 8410-2 ####[facility] LABIA [id number] [place] [address] [place] MCH (RBC) [Entitic mass] 29.5 pg Normal 26.0-34.0 [facility] Comment on above: Order Comment: Speci men Type: BLOOD SPECIMENOrdering Facility: [facility] Address: [address] [place] [address] Performed By: #### 5 8410-2 ####[facility] LABIA [id number] [place] [address] [place] MCHC (RBC) [Mass/Vol] 31.9 g/dL Normal 30.5-36.0 [facility] Comment on above: Order Comment: Speci men Type: BLOOD SPECIMENOrdering Facility: [facility] Address: [address] [place], [place] [address] Performed By: #### 5 8410-2 ####[facility] LABIA [id number] [place] [address] [place] MCV (RBC) [Entitic vol] 92.6 fL Normal 80.0-100.0 [facility] Comment on above: Order Comment: Speci men Type: BLOOD SPECIMENOrdering Facility: [facility] Address: [address] [place], [place] [address] Performed By: #### 5 8410-2 ####[facility] LABIA [id number] [address] [place] Nucleated RBC (Bld) [#/Vol] 10*3/uL Normal <0.01 [facility] Comment on above: Order Comment: Speci men Type: BLOOD SPECIMENOrdering Facility: [facility] Address: [address] [place], [place] [address] Performed By: #### 5 8410-2 ####[facility] LABIA [id number] [place] [address] [place] Platelet mean volume (Bld) [Entitic vol] 9.6 fL Normal 9.0-12.7 [facility] Comment on above: Order Comment: Speci men Type: BLOOD SPECIMENOrdering Facility: [facility] Address: [address] [place], [place] [address] Performed By: #### 5 8410-2 ####[facility] LABCLIA [id number] [place] [address] [place] Platelets (Bld) [#/Vol] 261 10*3/uL Normal 150-400 [facility] Comment on above: Order Comment: Speci men Type: BLOOD SPECIMENOrdering Facility: [facility] Address: [address] [place], [place] [address] Performed By: #### 5 8410-2 ####[facility] LABCLIA [id number] [place] [address] [place] RBC (Bld) [#/Vol] 4.44 10*6/uL Normal 3.90-5.20 [facility] Comment on above: Order Comment: Speci men Type: BLOOD SPECIMENOrdering Facility: [facility] Address: [address] [place], [place] [address] Performed By: #### 5 8410-2 ####[facility] LABCLIA [id number] [place] [address] [place] WBC (Bld) [#/Vol] 18.18 10*3/uL High 3.70-11.00 [facility] Comment on above: Order Comment: Speci men Type: BLOOD SPECIMENOrdering Facility: [facility] Address: [address] [place], [place] [address] Performed By: #### 5 8410-2 ####[facility] LABCLIA [id number] [place] [address] [place] CONFIRM BLOOD TYPEon 022 ABO O [facility] Comment on above: Order Comment: Speci men Type: BLOOD SPECIMENOrdering Facility: [facility] Address: [address] [place], [place] [address] Performed By: #### C ONABO ####[facility] BLOOD BANKCLIA [id number] [place] [address] [place] Rh Nom (Bld) Positive [facility] Comment on above: Order Comment: Speci men Type: BLOOD SPECIMENOrdering Facility: [facility] Address: [address] [place], [place] [address] Performed By: #### C ONABO ####[facility] BLOOD [facility] [id number] [place] [id number] [facility] OPERATIVE NOon 06-06-2022 OPERATIVE NO HNO ID: [id number] Author: Pedro Walsh MD Service: ? Author Type: Physician Type: Operative Report Filed: 06/06/2022 2:20 PM Note Text: OPERATIVE REPORT Name: Valeria Romero : 1965 MR#: [id number] Date of service: June 06, 2022 Surgeon(s): Pedro Walsh MD [employer] Manager(s): DO Anne Peterson MD Procedure(s): 1. Open right myofascial advancement flap 2. Open left myofascial advancement flap 3. Repair of incarcerated incisional hernia 4. Implantation of 30 cm x 30 cm Prolene mesh 5. Transverse abdominis block with bupivacaine 6. Resection old mesh Anesthesia: General Pre-Op/Pre-Procedure Diagnosis: incarcerated incisional hernia Post-Op/Post-Procedure Diagnosis: incarcerated incisional hernia Operative Findings: Incisional hernia measuring 13 cm wide by 23 cm long Moderate intra-abdominal adhesions Estimated Blood Loss: 100 cc Specimens: None Implantable Devices: 30 cm x 30 cm Prolene mesh Drains: 2 drains above the mesh, below the muscle Complications: None Indication for Operation: Valeria Romero is a 57 year old female who presents with a symptomatic incisional hernia, having undergone at least 5 previous repairs. Current symptoms include pain and a bulge. We discussed the risks and benefits of the operation. and the patient agreed to proceed. Procedure Details: The patient was transported to the operating room and placed supine on the operating table. A preoperative safety huddle was performed. The patient received pre-operative IV antibiotics and subcutaneous heparin. Sequential compression devices were placed on the patient's lower extremities. General anesthesia was induced and an endotracheal tube was placed in the patient's airway. A Scott catheter was placed in the bladder. The patient was then appropriately positioned with padding and safety belts. The abdomen was prepped and draped in a sterile fashion. A time out was performed before incision. We began with a midline incision, entering the abdomen sharply. The bowel and omentum were taken down off of the anterior abdominal wall. Intra-abdominal adhesions were not bad, but there was some small bowel stuck to prior mesh in the pelvis. The bowel was liberated from the mesh and we ran it in its entirety. There were no serosal tears or enterotomies. After confirming hemostasis, a towel was placed over the viscera. The defect was 13 cm wide by 23 cm long. The fascia would not come back together primarily, so we performed posterior components separation. We started on the left side. The posterior rectus sheath was incised and off the rectus muscle, carefully preserving neurovascular bundles. The transversus abdominis muscle was divided to enter the preperitoneal plane. The dissection continued laterally to the psoas, superiorly along the costal margin to the central tendon of the diaphragm, and into the space of Retzius inferiorly. This gave us excellent advancement of the fascial elements. Next, the same dissection was performed on the contralateral side. The posterior rectus sheath was incised and off the rectus muscle, carefully preserving neurovascular bundles. The transversus abdominis muscle was divided to enter the preperitoneal plane. The dissection continued laterally to the psoas, superiorly along the costal margin to the central tendon of the diaphragm, and into the space of Retzius inferiorly. There were 3 pieces of old [place] mesh from prior hernia repairs that were excised. We then closed posterior rectus sheath with running 2-0 Vicryl, completely excluding the viscera from the large preperitoneal pocket. We policed for hemostasis. A 30 cm x 30 cm piece of Prolene mesh was placed in the retromuscular space, tucking it under the xiphoid, pubis, and costal margins. This gave us excellent mesh coverage of the defect. A TAP block was performed with bupivacaine. Two drains were placed above the mesh and secured at the skin before closing the anterior fascia. The midline was closed with interrupted [id number] sutures using #1 PDS. Some hernia sac was removed. After confirming that all final counts were correct, the skin was closed in two layers with a 3-0 chromic and a 4-0 Monocryl in a running, subcuticular fashion. Skin glue and sterile dressings were applied. Anesthesia was reversed and the patient was taken to the recovery room in stable condition. Please note, Dr. Pedro Walsh, the attending surgeon was present and scrubbed for the procedure. [facility] ([facility]) VALERIA ROMERO ([id number]) 1965 F Date Time Provider Department 06/01/22 VALERIA MORSE [facility] During your visit today, we recorded the following information about you: VON Bhatia 06/12/2022 4:16 PM Signed [facility] called the pt and left message with name and number asking for a return call. Allergies As of Date: 06/01/2022 Noted Allergy Reaction CIPRO (CIPROFLOXACIN) 02/27/2007 2 - Rash Date Reviewed: 05/30/2022 Reviewed by: Darío Miranda APRN.ETL TESTER - Fully Assessed Reason for Visit: outreach [Other] Prescriptions as of 06/12/2022 - cyclobenzaprine (FLEXERIL) 5 mg tablet Take 1 tablet by mouth three times daily as needed for up to 10 days. - acetaminophen (TYLENOL) 500 mg tablet Take 2 tablets by mouth every 6 hours as needed for pain for up to 7 days. - oxyCODONE IR (ROXICODONE) 5 mg immediate release tablet Take 1 tablet by mouth every 6 hours as needed for up to 5 days. - oxyCODONE IR (ROXICODONE) 5 mg immediate release tablet Take 1 tablet by mouth every 8 hours as needed for pain (for pain not relieved by Tylenol/Motrin). - albuterol (PROVENTIL) 2.5 mg /3 mL (0.083 %) nebulizer solution Use 3 mL via nebulizer four times daily as needed for wheezing/shortness of breath. Inhale by nebulizer over 5-15 minutes - Nebulizer and Compressor For Neb 1 Each every 4 hours as needed. - albuterol HFA (PROAIR HFA) 90 mcg/actuation inhaler 1-2 puffs every 4-6 hours as needed for wheezing, shortness of breath - montelukast (SINGULAIR) 10 mg tablet Take 1 tablet by mouth daily at bedtime. - omeprazole (PRILOSEC) 20 mg capsule Take 1 capsule by mouth once daily. - sertraline (ZOLOFT) 50 mg tablet Take 1 tablet by mouth once daily. Problem List As Of Date 06/01/2022 Noted Resolved Incisional hernia, without obstruction or gangr*05/30/2022 Asthma [J45.909] 05/30/2022 Gastroesophageal reflux disease without esophag*05/30/2022 Encounter Status:Closed by VALERIA MORSE on 06/12/22 [facility] Telephone ([facility]) VALERIA RMOERO ([id number]) 1965 F Date Time Provider Department 06/01/22 VALERIA MORSE [facility] During your visit today, we recorded the following information about you: VON Bhatia 06/01/2022 1:38 PM Signed BEHAVIORAL HEALTH SOCIAL WORK CONSULT NOTE Service Date: June 01, 2022 Patient was identified by name and Patient: Valeria Romero [address] [place] [address] [address] [facility] [address] (home) [phone] (cell) PCP: No primary care provider on file. No primary provider on file. Assessment: [facility] called the pt to discuss behavioral health services and offer resources, etc. Pt was looking for resources close to home. SW discussed options for psych, discussed firelands. Medications: Current Outpatient Medications on File Prior to Visit Medication Sig albuterol (PROVENTIL) 2.5 mg /3 mL (0.083 %) nebulizer solution Use 3 mL via nebulizer four times daily as needed for wheezing/shortness of breath. Inhale by nebulizer over 5-15 minutes Nebulizer and Compressor For Neb 1 Each every 4 hours as needed. albuterol HFA (PROAIR HFA) 90 mcg/actuation inhaler 1-2 puffs every 4-6 hours as needed for wheezing, shortness of breath predniSONE (DELTASONE) 20 mg tablet Take 2 tablets by mouth once daily for 5 days. montelukast (SINGULAIR) 10 mg tablet Take 1 tablet by mouth daily at bedtime. omeprazole (PRILOSEC) 20 mg capsule Take 1 capsule by mouth once daily. sertraline (ZOLOFT) 50 mg tablet Take 1 tablet by mouth once daily. cyclobenzaprine (FLEXERIL) 10 mg tablet Take 0.5 to 1 tab every 8 hours as needed for spasm No current facility-administered medications on file prior to visit. Curbside: No Screening Tools: No Substance Use / Abuse: No Outcome / Plan / Referrals: Internal Referrals : No Reason for External Referrals : Wait is too long and Location Intervention: Supportive Listening Education Provided referral information Resources Provided: Medication Management [facility] Time Spent: 15 minutes VON Bhatia Allergies As of Date: 06/01/2022 Noted Allergy Reaction CIPRO (CIPROFLOXACIN) 02/27/2007 2 - Rash Date Reviewed: 05/30/2022 Reviewed by: Darío Miranda APRN.ETL TESTER - Fully Assessed Reason for Visit: outreach [Other] Prescriptions as of 06/01/2022 - albuterol (PROVENTIL) 2.5 mg /3 mL (0.083 %) nebulizer solution Use 3 mL via nebulizer four times daily as needed for wheezing/shortness of breath. Inhale by nebulizer over 5-15 minutes - Nebulizer and Compressor For Neb 1 Each every 4 hours as needed. - albuterol HFA (PROAIR HFA) 90 mcg/actuation inhaler 1-2 puffs every 4-6 hours as needed for wheezing, shortness of breath - predniSONE (DELTASONE) 20 mg tablet Take 2 tablets by mouth once daily for 5 days. - montelukast (SINGULAIR) 10 mg tablet Take 1 tablet by mouth daily at bedtime. - omeprazole (PRILOSEC) 20 mg capsule Take 1 capsule by mouth once daily. - sertraline (ZOLOFT) 50 mg tablet Take 1 tablet by mouth once daily. - cyclobenzaprine (FLEXERIL) 10 mg tablet Take 0.5 to 1 tab every 8 hours as needed for spasm Problem List As Of Date 06/01/2022 Noted Resolved Incisional hernia, without obstruction or gangr*05/30/2022 Asthma [J45.909] 05/30/2022 Gastroesophageal reflux disease without esophag*05/30/2022 Encounter Status:Closed by VALERIA MORSE on 06/01/22 [facility] ANTIBODY ID PATIENTon 2021 ANTIBODY IDENTIFIED Non-specific Zoey [facility] Comment on above: Order Comment: Speci men Type: BLOOD SPECIMENOrdering Facility: [facility] Address: [address] [place] [address] Performed By: #### % DIAZ, TSCR30, BBABINT ####[facility] MA[facility] BLOOD BANKCLIA [id number] [address] BLOOD BANK PLACEHOLDER, ANTI BODY INTERPRETATIONon 05-30-2022 BLOOD BANK REPORT, ANTIBODY INTERPRETATION See Pathology Report [facility] Comment on above: Order Comment: Speci men Type: BLOOD SPECIMENOrdering Facility: [facility] Address: [address] [place] [address] Performed By: #### % DIAZ, TSCR30, BBABINT ####[facility] MA[facility] BLOOD BANKCLIA [id number] [address] TYPE AND SCREEN EXPIRATION 06/29/2022 23:59 [facility] Comment on above: Order Comment: Speci men Type: BLOOD SPECIMENOrdering Facility: [facility] Address: [address] [place] [address] Performed By: #### % DIAZ, TSCR30, BBABINT ####[facility] MA[facility] BLOOD BANKCLIA [id number] [address] BLOOD BANK REPORT, ANTIBODY INTERPRETATIONon 05-30-2022 CASE REPORT [facility] Comment on above: Order Comment: Poncho freeman Type: BLOOD SPECIMENOrdering Facility: [facility] Address: [address] [place], [place] [phone] Result Comment: Jonny cyr Bank Report, [facility] Case: [id number] Authorizing Provider: Pedro Walsh MD Collected: 05/30/2022 11:24 AM Ordering Location: Laboratory Medicine Received: 06/06/2022 11:54 AM Pathologist: Daniele Gallo MD Specimen: BLOOD Performed By: #### B MATEO ####[facility] LABIA [id number] [address] PATHOLOGY INTERPRETATION [facility] Comment on above: Order Comment: Poncho freeman Type: BLOOD SPECIMENOrdering Facility: [facility] Address: [address] [place] [address] Result Comment: Anti bodies to common clinically significant red cell antigens have been ruled out; however, there is weak reactivity of no apparent specificity against 3 of 3 cells in solid phase testing. No reactivity is seen in gel testing. This may represent an evolving antibody or spurious reactivity, among other possibilities. This reactivity is not expected to cause red cell hemolysis. Assessment of patterns of reactivity on subsequent antibody screens may help differentiate these possibilities. For transfusion: RBC units will be selected on the basis of ABO, Rh and AHG crossmatch compatibility. The AHG (Anti-Human Globulin or Nathan) crossmatch provides a good measure of safety in the presence of reactivity of no apparent specificity. Performed By: #### B MATEO ####[facility] LABIA [id number] [address] [place] CBC W Auto Differential pane l (Bld)on 05-30-2022 Basophils (Bld) [#/Vol] 10*3/uL Normal <0.11 [facility] Comment on above: Order Comment: Poncho freeman Type: BLOOD SPECIMENOrdering Facility: [facility] Address: [address] [place] [address] Performed By: #### 5 7021-8 ####[facility] LABCLIA [id number] [address] [place] Basophils/100 WBC (Bld) 0.4 % [facility] Comment on above: Order Comment: Speci men Type: BLOOD SPECIMENOrdering Facility: [facility] Address: [address] [place], [place] [address] Performed By: #### 5 7021-8 ####[facility] LABCLIA [id number] [place] [address] [place] Differential cell count method Nom (Bld) Auto [facility] Comment on above: Order Comment: Speci men Type: BLOOD SPECIMENOrdering Facility: [facility] Address: [address] [place], [place] [address] Performed By: #### 5 7021-8 ####[facility] LABCLIA [id number] [place] [address] [place] Eosinophils (Bld) [#/Vol] 0.15 10*3/uL Normal <0.46 [facility] Comment on above: Order Comment: Speci men Type: BLOOD SPECIMENOrdering Facility: [facility] Address: [address] [place] [address] Performed By: #### 5 7021-8 ####[facility] LABCLIA [id number] [address] STATES OF [facility] Eosinophils/100 WBC (Bld) 2.7 % [facility] Comment on above: Order Comment: Speci men Type: BLOOD SPECIMENOrdering Facility: [facility] Address: [address] [place] [address] Performed By: #### 5 7021-8 ####[facility] LABCLIA [id number] [place] [address] [place] Erythrocyte distribution width (RBC) [Ratio] 13.7 % Normal 11.5-15.0 [facility] Comment on above: Order Comment: Speci men Type: BLOOD SPECIMENOrdering Facility: [facility] Address: [address] [place], [place] [address] Performed By: #### 5 7021-8 ####[facility] LABIA [id number] [address] [place] Hematocrit (Bld) [Volume fraction] 40.5 % Normal 36.0-46.0 [facility] Comment on above: Order Comment: Speci men Type: BLOOD SPECIMENOrdering Facility: [facility] Address: [address] [place], [place] [address] Performed By: #### 5 7021-8 ####[facility] LABIA [id number] [address] [place] Hemoglobin (Bld) [Mass/Vol] 12.8 g/dL Normal 11.5-15.5 [facility] Comment on above: Order Comment: Speci men Type: BLOOD SPECIMENOrdering Facility: [facility] Address: [address] [place], [place] [address] Performed By: #### 5 7021-8 ####[facility] LABIA [id number] [address] OF [facility] IMMATURE GRAN % 0.4 % [facility] Comment on above: Order Comment: Speci men Type: BLOOD SPECIMENOrdering Facility: [facility] Address: [address] [place], [place] [address] Performed By: #### 5 7021-8 ####[facility] LABIA [id number] [address] [place] IMMATURE GRAN ABS <0.03 Normal <0.10 [facility] Comment on above: Order Comment: Speci men Type: BLOOD SPECIMENOrdering Facility: [facility] Address: [address] [place], [place] [address] Performed By: #### 5 7021-8 ####[facility] LABCLIA [id number] [place] [address] [place] Lymphocytes (Bld) [#/Vol] 1.30 10*3/uL Normal 1.00-4.00 [facility] Comment on above: Order Comment: Speci men Type: BLOOD SPECIMENOrdering Facility: [facility] Address: [address] [place] [address] Performed By: #### 5 7021-8 ####[facility] LABIA [id number] [place] [address] [place] Lymphocytes/100 WBC (Bld) 23.5 % [facility] Comment on above: Order Comment: Speci men Type: BLOOD SPECIMENOrdering Facility: [facility] Address: [address] [place] [address] Performed By: #### 5 7021-8 ####[facility] LABIA [id number] [place] [address] [place] MCH (RBC) [Entitic mass] 28.8 pg Normal 26.0-34.0 [facility] Comment on above: Order Comment: Speci men Type: BLOOD SPECIMENOrdering Facility: [facility] Address: [address] [place] [address] Performed By: #### 5 7021-8 ####[facility] LABIA [id number] [address] [place] MCHC (RBC) [Mass/Vol] 31.6 g/dL Normal 30.5-36.0 [facility] Comment on above: Order Comment: Speci men Type: BLOOD SPECIMENOrdering Facility: [facility] Address: [address] [place], [place] [address] Performed By: #### 5 7021-8 ####[facility] LABIA [id number] [address] [address] [id number] [address] [place] MCV (RBC) [Entitic vol] 91.2 fL Normal 80.0-100.0 [facility] Comment on above: Order Comment: Speci men Type: BLOOD SPECIMENOrdering Facility: [facility] Address: [address] [place], [place] [address] Performed By: #### 5 7021-8 ####[facility] LABCLIA [id number] [place] [address] [place] Monocytes (Bld) [#/Vol] 0.49 10*3/uL Normal <0.87 [facility] Comment on above: Order Comment: Speci men Type: BLOOD SPECIMENOrdering Facility: [facility] Address: [address] [place], [place] [address] Performed By: #### 5 7021-8 ####[facility] LABCLIA [id number] [address] [place] Monocytes/100 WBC (Bld) 8.8 % [facility] Comment on above: Order Comment: Speci men Type: BLOOD SPECIMENOrdering Facility: [facility] Address: [address] [place], [place] [address] Performed By: #### 5 7021-8 ####[facility] LABCLIA [id number] [place] [address] [place] Neutrophils (Bld) [#/Vol] 3.56 10*3/uL Normal 1.45-7.50 [facility] Comment on above: Order Comment: Speci men Type: BLOOD SPECIMENOrdering Facility: [facility] Address: [address] [place], [place] [address] Performed By: #### 5 7021-8 ####[facility] LABCLIA [id number] [place] [address] [place] Neutrophils/100 WBC (Bld) 64.2 % [facility] Comment on above: Order Comment: Speci men Type: BLOOD SPECIMENOrdering Facility: [facility] Address: [address] [place] [address] Performed By: #### 5 7021-8 ####[facility] LABCLIA [id number] [address] Nucleated RBC (Bld) [#/Vol] 10*3/uL Normal <0.01 [facility] Comment on above: Order Comment: Speci men Type: BLOOD SPECIMENOrdering Facility: [facility] Address: [address] [place], [place] [address] Performed By: #### 5 7021-8 ####[facility] LABCLIA [id number] [place] [address] [place] Nucleated RBC/100 WBC (Bld) [Ratio] 0.0 /100 WBC [facility] Comment on above: Order Comment: Speci men Type: BLOOD SPECIMENOrdering Facility: [facility] Address: [address] [place], [place] [address] Performed By: #### 5 7021-8 ####[facility] LABCLIA [id number] [place] [address] [place] Platelet mean volume (Bld) [Entitic vol] 10.4 fL Normal 9.0-12.7 [facility] Comment on above: Order Comment: Speci men Type: BLOOD SPECIMENOrdering Facility: [facility] Address: [address] [place] [address] Performed By: #### 5 7021-8 ####[facility] LABCLIA [id number] [place] [address] [place] Platelets (Bld) [#/Vol] 354 10*3/uL Normal 150-400 [facility] Comment on above: Order Comment: Speci men Type: BLOOD SPECIMENOrdering Facility: [facility] Address: [address] [place] [address] Performed By: #### 5 7021-8 ####[facility] LABCLIA [id number] [place] [address] [place] RBC (Bld) [#/Vol] 4.44 10*6/uL Normal 3.90-5.20 [facility] Comment on above: Order Comment: Speci men Type: BLOOD SPECIMENOrdering Facility: [facility] Address: [address] [place] [address] Performed By: #### 5 7021-8 ####[facility] LABIA [id number] [address] [place] WBC (Bld) [#/Vol] 5.54 10*3/uL Normal 3.70-11.00 [facility] Comment on above: Order Comment: Speci men Type: BLOOD SPECIMENOrdering Facility: [facility] Address: [address] [place] [address] Performed By: #### 5 7021-8 ####[facility] LABIA [id number] [address] [place] CNOVon 05-30-2022 CNOV Office Visit (INWG10 ) GARRETTOSITO DEVLINVALERIA Hamida ([id number]) 1965 F Date Time Provider Department 05/30/22 12:45 PM DARÍO MIRANDA INWG10 During your visit today, we recorded the following information about you: Temperature Pulse Blood pressure Weight 98.7 degrees 54/minute 102/63 77.5 kg Luz Maria Arriaga, RN 05/30/2022 1:12 PM Signed Valeria Galvezyanira is a 57 year old female here today for visit in the [facility]. Pt has been identified by name and date of for verification. Allergies have been reviewed/verified and include the following: Cipro [Ciprofloxacin]. Medication reviewed/updated by provider. Pharmacy verified Yes Has the patient had any recent labs: No Is the patient active on MyChart No: patient declines What is the patients preferred method of communication: Letter AMB ROOMING INTAKE FLOWSHEET DATA Risk Screening Do you have concerns about personal safety or safety in the home?: No Pain Pain Level: 4 Pain Location: Abdomen-Mid Lower Description: Spasm ( pinching ) Duration Amount of Time: 2 Duration Units: Months Frequency: Continuous Intervention/Comfort measure: Medication MORALES Larsen, KARINA.ETL TESTER 05/30/2022 2:30 PM Signed CC: Medication refills, asthma HPI: Valeria Romero is a 57 year old female who presents to the 0 walk in clinic with the above chief compliant. PMH: Asthma, multiple hernias, depression/anxiety Patient from [place]. Moved to [place] and moved back for the surgery. Living in [place], [place] 1[place] hours away. Has not had a PCP in >5 years. Needs to establish care with PCP in [place], [place]. Patient has not been taking any of her medications because of financial reasons and she wanted to be off medications. Patient currently has medicaid. Trying to get medical things taken care of while she has insurance. Following with general surgery for a painful and enlarging incisional hernia. Hx of incisional hernia repair with mesh at [facility] w/ Dr. Craft in 2006. Patient scheduled for abdominal wall reconstruction with prior mesh excision 06/06/22. Pre-op testing today --> Provider sent patient to [facility] today for concerns for asthma. Asthma - +wheezing at night. +shortness of breath after exertion. No chest pain. Minimal cough. No tobacco use. Occ MJ use. Not vaping - she quit. Asthma has been worse over the past 1 month. Has been on an maintenance in [place] in the past. None x >5 years. Patient has had a break-up recently, can not work because of health issues. Has anxiety and depression she is concerned about. Trying to manage with meditation, etc. But she notes she has had uncontrollable crying spontaneously more recently. Denies thoughts of SI/HI. Has tried Zolft in the past with some good effect. Lexapro did not work well. Minimal support system currently. Has abdominal wall spasms from her hernia. Took flexeril prior to her previous surgery that was helpful. Wonders if she can get a refill Past Medical History: PAST MEDICAL HISTORY Diagnosis Date Asthma GERD (gastroesophageal reflux disease) ACTIVE PROBLEM LIST Incisional Hernia, Without Obstruction Or Gangrene Asthma Gastroesophageal Reflux Disease Without Esophagitis Past Surgical History: PAST SURGICAL HISTORY Procedure Laterality Date PAST SURGICAL HISTORY OF 10/01/2000 incisional hernia PAST SURGICAL HISTORY OF 10/01/2003 incisional hernia PAST SURGICAL HISTORY OF 10/01/2003 bilat ovarian cyst PAST SURGICAL HISTORY OF PAST SURGICAL HISTORY OF 10/01/2004 incisional hernia PAST SURGICAL HISTORY OF 10/01/2006 recurrent incisional hernia, mesh removal PAST SURGICAL HISTORY OF 10/01/1997 umbilical hernia, abominoplasty PAST SURGICAL HISTORY OF 10/01/1993 TOTAL ABDOM HYSTERECTOMY Past Family History: FAMILY HISTORY Problem Relation Age of Onset COPD Mother Diabetes Mother Diabetes Father Medications: Current Outpatient Medications on File Prior to Visit Medication Sig omeprazole magnesium (PRILOSEC ORAL) Take 40 mg by mouth. cyclobenzaprine hcl(FLEXERIL 10 MG TAB) Take one(1) tablet every eight(8) to twelve(12) hours as needed for pain or spasms. ALBUTEROL 90 MCG/ACTUATION AEROSOL INHALER Inhale one(1) - two(2) puffs four(4) times a day as needed for wheezing and shortness of breath. SINGULAIR 10 MG TAB Take by mouth. CODEINE-GUAIFENESIN 10 MG-100 MG/5 ML SYRUP Take 1-2 teaspoon(s) (5-10 ml) tablet every four(4) to six(6) hours as needed for coughing. (Patient not taking: No sig reported) diphenhydrAMINE (BENADRYL) 25 mg ORAL Cap Use as directed. (Patient not taking: No sig reported) WELLBUTRIN XL 300 MG 24 HR TAB Take one(1) tablet daily. (Patient not taking: No sig reported) NEXIUM 40 MG CAP Take one(1) capsule daily. (Patient not taking: Reported on 05/30/2022) CENESTIN 0.625 MG TAB Take one(1 (more content not included)... [facility] CNOV Office Visit (GENN ) VALERIA ROMERO ([id number]) 1965 F Date Time Provider Department 05/30/22 11:00 AM JAZZY SAWANT During your visit today, we recorded the following information about you: Jazzy Pastrana, PhD 05/30/2022 2:09 PM Signed [facility] Name: Valeria Romero MR#: [id number] Date: 05/30/2022 Time: ? hour Referred by: Dr. Walsh Reason for Referral: address psychological factors as they can affect post-operative recovery. Information relayed back to referral source via electronic medical record Her chart was reviewed and she gave her own complex surgical and personal history. She has had some significant recent stressful events in her life and her medical problem compound her struggles. She has gone off her medications including for asthma. She says she has stopped smoking cigarettes but continues to vape although she plans to stop that as well. She has been smoking MJ daily and we discussed the risks of smoking and she says she will 'try' to stop. She had some specific GI complaints and was advised to see GI after she has recovered from this surgery and also to establish care with a PCP. She has financial issues that have gotten in the way of her care. The basic underlying psychological and physiological mechanisms behind the brain body connection were explained. She was introduced to the concepts and techniques that she can employ to help with pain and healing after surgery. She was given the link to the Behavioral Medicine Program website, instructed on the use of the relaxation recordings, and told of the informational content. She was given the opportunity to ask questions and informed that she could be seen again as an in-patient or in the outpatient clinic. Jazzy Pastrana, Ph.D. Referring Provider: PEDRO WALSH [[id number]] Allergies As of Date: 05/30/2022 Noted Allergy Reaction CIPRO (CIPROFLOXACIN) 02/27/2007 2 - Rash Date Reviewed: 05/30/2022 Reviewed by: Luz Maria Arriaga RN - Fully Assessed Primary Visit Diagnosis:Incisional hernia, without obstruction or gangrene [K43.2] Problem List As Of Date 05/30/2022 Noted Resolved Incisional hernia, without obstruction or gangr*05/30/2022 Asthma [J45.909] 05/30/2022 Gastroesophageal reflux disease without esophag*05/30/2022 Encounter Status:Closed by JAZZY SAWANT on 05/30/22 [facility] Comprehensive metabolic 2000 panelon 05-30-2022 Albumin [Mass/Vol] 4.3 g/dL Normal 3.9-4.9 [facility] Comment on above: Order Comment: Speci men Type: BLOOD SPECIMENOrdering Facility: [facility] Address: [address] [place] [address] Performed By: #### 2 4323-8 ####[facility] LABCLIA [id number] [place] [address] [place] ALP [Catalytic activity/Vol] 83 U/L Normal 34-123 [facility] Comment on above: Order Comment: Speci men Type: BLOOD SPECIMENOrdering Facility: [facility] Address: [address] [place] [address] Performed By: #### 2 4323-8 ####[facility] LABCLIA [id number] [place] [address] [place] ALT [Catalytic activity/Vol] 16 U/L Normal 7-38 [facility] Comment on above: Order Comment: Speci men Type: BLOOD SPECIMENOrdering Facility: [facility] Address: [address] [place] [address] Performed By: #### 2 4323-8 ####[facility] LABCLIA [id number] [place] [address] [place] Anion gap [Moles/Vol] 11 mmol/L Normal 9-18 [facility] Comment on above: Order Comment: Speci men Type: BLOOD SPECIMENOrdering Facility: [facility] Address: [address] [place], [place] [address] Performed By: #### 2 4323-8 ####[facility] LABCLIA [id number] [place] [address] [place] AST [Catalytic activity/Vol] 27 U/L Normal 13-35 [facility] Comment on above: Order Comment: Speci men Type: BLOOD SPECIMENOrdering Facility: [facility] Address: [address] [place], [place] [address] Performed By: #### 2 4323-8 ####[facility] LABCLIA [id number] [place] [address] [place] Bilirubin [Mass/Vol] 0.3 mg/dL Normal 0.2-1.3 [facility] Comment on above: Order Comment: Speci men Type: BLOOD SPECIMENOrdering Facility: [facility] Address: [address] [place], [place] [address] Performed By: #### 2 4323-8 ####[facility] LABCLIA [id number] [place] [address] [place] Calcium [Mass/Vol] 10.0 mg/dL Normal 8.5-10.2 [facility] Comment on above: Order Comment: Speci men Type: BLOOD SPECIMENOrdering Facility: [facility] Address: [address] [place] [address] Performed By: #### 2 4323-8 ####[facility] LABCLIA [id number] [place] [address] [place] Chloride [Moles/Vol] 102 mmol/L Normal 97-105 [facility] Comment on above: Order Comment: Speci men Type: BLOOD SPECIMENOrdering Facility: [facility] Address: [address] [place], [place] [address] Performed By: #### 2 4323-8 ####[facility] LABCLIA [id number] [place] [address] [place] CO2 [Moles/Vol] 28 mmol/L Normal 22-30 [facility] Comment on above: Order Comment: Speci men Type: BLOOD SPECIMENOrdering Facility: [facility] Address: [address] [place] [address] Performed By: #### 2 4323-8 ####[facility] LABCLIA [id number] [address] OF [facility] Creatinine [Mass/Vol] 0.59 mg/dL Normal 0.58-0.96 [facility] Comment on above: Order Comment: Speci men Type: BLOOD SPECIMENOrdering Facility: [facility] Address: [address] [place] [address] Performed By: #### 2 4323-8 ####[facility] LABIA [id number] [address] ESTIMATED GLOMERULAR FILTRATION RATE 107 mL/min/1.73m??? Normal >=60 [facility] Comment on above: Order Comment: Speci men Type: BLOOD SPECIMENOrdering Facility: [facility] Address: [address] [place] [address] Result Comment: Faiza mated Glomerular Filtration Rate (eGFR) is calculated using the 2020 CKD-EPI creatinine equation. This equation utilizes serum creatinine, sex, and age as parameters. The creatinine assay has traceable calibration to isotope dilution-mass spectrometry. Refer to KDIGO guidelines for clinical interpretation. In patients with unstable renal function, e.g. those with acute kidney injury, the eGFR may not accurately reflect actual GFR. Performed By: #### 2 4323-8 ####[facility] LABCLIA [id number] [place] [address] [place] Glucose [Mass/Vol] 89 mg/dL Normal 74-99 [facility] Comment on above: Order Comment: Speci men Type: BLOOD SPECIMENOrdering Facility: [facility] Address: [address] [place] [address] Result Comment: The Stateless Diabetes Association (ADA) provides guidance for cutoff values for fasting glucose and random glucose. The ADA defines fasting as no caloric intake for at least 8 hours. Fasting plasma glucose results between 100 to 125 mg/dL indicate increased risk for diabetes (prediabetes). Fasting plasma glucose results greater than or equal to 126 mg/dL meet the criteria for diagnosis of diabetes. In the absence of unequivocal hyperglycemia, results should be confirmed by repeat testing. In a patient with classic symptoms of hyperglycemia or hyperglycemic crisis, random plasma glucose results greater than or equal to 200 mg/dL meet the criteria for diagnosis of diabetes. Reference: Standards of Medical Care in Diabetes 2016, Stateless Diabetes Association. Diabetes Care. 2016.39(Suppl 1). Performed By: #### 2 4323-8 ####[facility] LABCLIA [id number] [place] [address] [place] Potassium [Moles/Vol] 4.3 mmol/L Normal 3.7-5.1 [facility] Comment on above: Order Comment: Speci men Type: BLOOD SPECIMENOrdering Facility: [facility] Address: [address] Performed By: #### 2 4323-8 ####[facility] [id number] [place] [address] [place] Protein [Mass/Vol] 7.4 g/dL Normal 6.3-8.0 [facility] Comment on above: Order Comment: Speci men Type: BLOOD SPECIMENOrdering Facility: [facility] Address: [address] Performed By: #### 2 4323-8 ####[facility] LABIA [id number] [place] [address] [place] Sodium [Moles/Vol] 141 mmol/L Normal 136-144 [facility] Comment on above: Order Comment: Speci men Type: BLOOD SPECIMENOrdering Facility: [facility] Address: [address] Performed By: #### 2 4323-8 ####[facility] LABCLIA [id number] [address] [address] [place] [facility] Urea nitrogen [Mass/Vol] 9 mg/dL Normal 7-21 [facility] Comment on above: Order Comment: Speci men Type: BLOOD SPECIMENOrdering Facility: [facility] Address: [address] [place], [place] [address] Performed By: #### 2 4323-8 ####[facility] LABCLIA [id number] [address] [address] [place] ECG COMPLETEon 05-30-2022 ECG COMPLETE Ventricular Rate : 5 5 BPM Atrial Rate : 55 BPM P-R Interval : 144 ms QRS Duration : 76 ms Q-T Interval : 464 ms QTC Calculation(Bazett) : 443 ms Calculated P [place] : 65 degrees Calculated R [place] : 65 degrees Calculated T [place] : 40 degrees SINUS BRADYCARDIA OTHERWISE NORMAL ECG Confirmed by KATT DODSON MD ([id number]) on 06/04/2022 6:50:53 PM NAME : VALERIA ROMERO PID : [id number] : 1965 Gender : Female Race : ORD : [id number] Procedure Date : May 30 2022 10:59:19 Edit Date : Jun 04 2022 18:50:54 Diagnosis: SINUS BRADYCARDIA OTHERWISE NORMAL ECG Confirmed by KATT DODSON MD ([id number]) on 06/04/2022 6:50:53 PM Test Reason : Location : 119 : A17 Overread By : KATT DODSON MD Edited By : KATT DODSON MD Referred By : PEDRO WALSH Acquired by : ISHAAN ROY [facility] HISTORY PHYSICALon HISTORY PHYSICAL HNO ID: [id number] Author: Candace Harris DO Service: ? Author Type: Resident Type: HANDP Filed: 05/31/2022 7:59 AM Note Text: HISTORY AND PHYSICAL EXAMINATION SERVICE DATE: May 30, 2022 SERVICE TIME: 10:22 AM PRIMARY CARE PHYSICIAN: No primary care provider on file. REASON FOR VISIT: Valeria Romero is a 57 year old female who is scheduled for COMPLEX REPAIR WOUND OF ABDOMEN 2.6 CM TO 7.5 CM at the request of Dr. Pedro Walsh for consultation. My final recommendation will be communicated back to the requesting physician by way of shared medical record or letter. The patient has the following: ACTIVE PROBLEM LIST Incisional Hernia, Without Obstruction Or Gangrene Asthma Gastroesophageal Reflux Disease Without Esophagitis Subjective CHIEF COMPLAINT: Pre-op exam HPI: Valeria Romero is a 57 year old female who presents for pre-anesthesia consultation for upcoming procedure. Patient has a history of GERD, asthma, tobacco abuse hx, shx surgical history significant for multiple incisional hernia repairs, hysterectomy, C-sections, abdominoplasty, and bilateral ovarian cyst removal who presents to discuss recurrent ventral hernias. Denies any fever, chills, nausea, vomiting, chest pain, abdominal pain, SOB. Above procedure is recommended to manage symptoms. Patient is scheduled for surgery on 06/06/2022. PAST MEDICAL HISTORY Diagnosis Date Asthma GERD (gastroesophageal reflux disease) PAST SURGICAL HISTORY Procedure Laterality Date PAST SURGICAL HISTORY OF 10/01/2000 incisional hernia PAST SURGICAL HISTORY OF 10/01/2003 incisional hernia PAST SURGICAL HISTORY OF 10/01/2003 bilat ovarian cyst PAST SURGICAL HISTORY OF PAST SURGICAL HISTORY OF 10/01/2004 incisional hernia PAST SURGICAL HISTORY OF 10/01/2006 recurrent incisional hernia, mesh removal PAST SURGICAL HISTORY OF 10/01/1997 umbilical hernia, abominoplasty PAST SURGICAL HISTORY OF 10/01/1993 TOTAL ABDOM HYSTERECTOMY FAMILY HISTORY Problem Relation Age of Onset COPD Mother Diabetes Mother Diabetes Father SOCIAL HISTORY: Social History Tobacco Use Smoking status: Some Days Types: Cigarettes, Pipe Last attempt to quit: 05/22/2022 Years since quittin.0 Smokeless tobacco: Never Tobacco comments: vape Vaping Use Vaping Use: current everyday user Substance Use Topics Alcohol use: Yes Comment: rare Drug use: Yes Frequency: 7.0 times per week Types: Marijuana Comment: marijuana daily MEDICATIONS: Prior to Admission medications as of 05/30/22 0946 Medication Sig Last Dose Taking omeprazole magnesium (PRILOSEC ORAL) Take 40 mg by mouth. Taking Yes cyclobenzaprine hcl(FLEXERIL 10 MG TAB) Take one(1) tablet every eight(8) to twelve(12) hours as needed for pain or spasms. Patient not taking: Reported on 05/30/2022 Not Taking ALBUTEROL 90 MCG/ACTUATION AEROSOL INHALER Inhale one(1) - two(2) puffs four(4) times a day as needed for wheezing and shortness of breath. Patient not taking: Reported on 05/30/2022 Not Taking CODEINE-GUAIFENESIN 10 MG-100 MG/5 ML SYRUP Take 1-2 teaspoon(s) (5-10 ml) tablet every four(4) to six(6) hours as needed for coughing. Patient not taking: Reported on 05/30/2022 Not Taking diphenhydrAMINE (BENADRYL) 25 mg ORAL Cap Use as directed. Patient not taking: Reported on 05/30/2022 Not Taking SINGULAIR 10 MG TAB Take one(1) tablet daily at bedtime. Patient not taking: Reported on 05/30/2022 Not Taking WELLBUTRIN XL 300 MG 24 HR TAB Take one(1) tablet daily. Patient not taking: Reported on 05/30/2022 Not Taking NEXIUM 40 MG CAP Take one(1) capsule daily. Patient not taking: Reported on 05/30/2022 Not Taking CENESTIN 0.625 MG TAB Take one(1) tablet daily. Patient not taking: Reported on 05/30/2022 Not Taking PHENERGAN 25 MG TAB Take one(1) tablet every four(4) to six(6) hours as needed for nausea. Patient not taking: Reported on 05/30/2022 Not Taking No medication comments found. CURRENT ALLERGIES: ALLERGIES Allergen Reactions Cipro [Ciprofloxaci* Rash COVID VACCINATION STATUS: Fully vaccinated REVIEW OF SYSTEMS: PAIN ASSESSMENT: Pain Pain Level: 4 Pain Location: Abdomen Description: Spasm;Pressure Ulcer/Injury;Tingling Duration Units: Years Frequency: Intermittent General: No weight loss, malaise or fevers. Neuro: No history of TIA's, stroke, WINDOWS CONSULTANT tumor, impaired sensorium, hemiplegia, paraplegia or quadraplegia. No neurological symptoms or problems. Respiratory: +Asthma. No history of current cough or dyspnea, or pneumonia in the past 6 weeks. No history of respiratory/pulmonary symptoms or problems. Cardiovascular: No history of HTN requiring medication, no history of angina, CHF, UT, cardiac surgery or stents. Denies rest pain, gangrene or revascularization/ampu tation for PVD. No history of cardiovascular symptoms or problems. GI: +Chronic diarrhea/IBS. : No history of d (more content not included)... [facility] PT panel Coag (PPP)on 2021 INR Coag (PPP) [Relative time] 1.0 {INR} Normal 0.9-1.3 [facility] Comment on above: Order Comment: Poncho freeman Type: BLOOD SPECIMENOrdering Facility: [facility] Address: [address] [place] [address] Result Comment: Essence min K Antagonist (VKA) Therapeutic Range: INR 2 to 3 (Target INR of 2.5) Note: For patients treated with VKA drugs, such as warfarin, the Stateless College of [employer]icians 2012 Guideline recommends a therapeutic INR range of 2 to 3 (target INR of 2.5). This recommendation includes high-risk patients with antiphospholipid syndrome with previous arterial or venous thromboembolism, current-generation mechanical or bioprosthetic aortic heart valve replacement. Note: Patients with mechanical aortic valve replacement and additional risk factors for thromboembolic events (atrial fibrillation, previous thromboembolism, LV dysfunction, hypercoagulable conditions) or an older generation mechanical AVR (i.e., ball in-Cage) or any mechanical MVR should have a INR therapeutic range of 2.5 to 3.5 (target INR of 3). Jad WORTHY, et al. Chest 2012, 141:7S-47S Mateus RA, et al. [facility] 2017, 70: 252-289 Performed By: #### 3 4528-0, 59553-0 ####[facility] LABCLIA [id number] [facility] [id number] [place] PT Coag (PPP) [Time] 10.6 s Normal 9.7-13.0 [facility] Comment on above: Order Comment: Poncho freeman Type: BLOOD SPECIMENOrdering Facility: [facility] Address: [address] [place] [address] Performed By: #### 3 4528-0, 19859-2 ####[facility] LABCLIA [id number] [address] [place] TYPE AND SCREEN,30 DAYon ABO O [facility] Comment on above: Order Comment: Speci men Type: BLOOD SPECIMENOrdering Facility: [facility] Address: [address] [place] [address] Performed By: #### % DIAZ, TSCR30, BBABINT ####[facility] BLOOD BANKCLIA [id number] [address] [place] HISTORICAL AB SCR STATUS Negative [facility] Comment on above: Order Comment: Speci men Type: BLOOD SPECIMENOrdering Facility: [facility] Address: [address] [place] [address] Performed By: #### % DAIZ, TSCR30, BBABINT ####[facility] BLOOD BANKIA [id number] [address] [place] Rh Nom (Bld) Positive [facility] Comment on above: Order Comment: Speci men Type: BLOOD SPECIMENOrdering Facility: [facility] Address: [address] [place] [address] Performed By: #### % DIAZ, TSCR30, BBABINT ####[facility] BLOOD BANKCLIA [id number] [address] [place] aPTT PPPon 05-30-2022 aPTT Coag (PPP) [Time] 27.3 s Normal 23.0-32.4 [facility] Comment on above: Order Comment: Speci men Type: BLOOD SPECIMENOrdering Facility: [facility] Address: [address] [place] [address] Performed By: #### 3 4528-0, 97145-8 ####[facility] LABCLIA [id number] [address] [place] CNOVon 05-22-2022 CNOV Office Visit (GENN ) VALERIA ROMERO ([id number]) 1965 F Date Time Provider Department 05/22/22 9:00 AM PEDRO WALSH During your visit today, we recorded the following information about you: Temperature Pulse Blood pressure Weight 98.3 degrees 69/minute 108/69 73.5 kg Height 1.524 m Lidya May Ma 05/22/2022 9:29 AM Signed What is the reason for your visit today? consult Who is your referring physician? Are you having poor oral intake? NO Have you had unintentional weight loss of 15 lbs/7 Kg in the last 3-6 months? NO Bowels: regular Wound: clean AND dry Temperature: No Drains: No Yeni Sevilla MD 05/22/2022 11:19 AM Signed [facility] Abdominal [facility] - HISTORY AND PHYSICAL Chief Complaint: Incisional hernia HPI: Valeria Romero is a 57 year old female with a history of asthma and GERD, who is a current smoker, and a surgical history significant for multiple incisional hernia repairs, hysterectomy, C-sections, abdominoplasty, and bilateral ovarian cyst removal who presents to discuss recurrent ventral hernias. She reports that she has had multiple repairs over the years, most recently [place] [address] Craft. She notes that 6 months after her repair in 2006, she noted recurrence at the lower part of her abdomen. She has put off repair of this hernia due to fear surrounding surgery in the setting of her multiple hernia repairs. 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 She also has experienced intermittent nausea and vomiting and inability to have bowel movements over the past year. She occasionally visited the ED in [place], and she presented to the ED in March of this year for evaluation. During that visit, a fat-containing hernia was noted on CT and she was discharged with follow-up in the hernia clinic. She notes that her quality of life is significantly impacted by this hernia and she is unable to carry out her day-to-day tasks or hold on her job due to this severe pain and cumbersome nature of her large hernia. She presents today to discuss definitive repair of this large hernia. Relevant previous operations include: Incisional hernia repairs-2000, 2003, 2004, 2006, hysterectomy, C section (1993), abdominoplasty (1997), mesh removal (2006), bilateral ovarian cyst removal (2003) No history of Psychiatric Disorders or Opioid Use Independent No employment Intense (more than once/week) No Significant Comorbidities History of open abdomen, History of abdominal wall surgical site infection PAST MEDICAL HISTORY Diagnosis Date Asthma GERD (gastroesophageal reflux disease) PAST SURGICAL HISTORY Procedure Laterality Date PAST SURGICAL HISTORY OF 2000 incisional hernia PAST SURGICAL HISTORY OF 2003 incisional hernia PAST SURGICAL HISTORY OF 2003 bilat ovarian cyst PAST SURGICAL HISTORY OF PAST SURGICAL HISTORY OF 2004 incisional hernia PAST SURGICAL HISTORY OF 2006 recurrent incisional hernia, mesh removal PAST SURGICAL HISTORY OF 1997 umbilical hernia, abominoplasty PAST SURGICAL HISTORY OF 1993 Social History Tobacco Use Smoking status: Some Days Types: Cigarettes, Pipe Smokeless tobacco: Never Vaping Use Vaping Use: current everyday user Substance Use Topics Drug use: Yes Types: Marijuana Comment: quit Aug 2021 Additional social history not relevant to the patient's HPI FAMILY HISTORY Problem Relation Age of Onset COPD Mother Diabetes Mother Diabetes Father Additional family history not relevant to the patient's HPI ALLERGIES Allergen Reactions Cipro [Ciprofloxaci* Rash Current Outpatient Medications Medication Sig Dispense Refill cyclobenzaprine hcl(FLEXERIL 10 MG TAB) Take one(1) tablet every eight(8) to twelve(12) hours as needed for pain or spasms. 20 0 ALBUTEROL 90 MCG/ACTUATION AEROSOL INHALER Inhale one(1) - two(2) puffs four(4) times a day as needed for wheezing and shortness of breath. a 2 CODEINE-GUAIFENESIN 10 MG-100 MG/5 ML SYRUP Take 1-2 teaspoon(s) (5-10 ml) tablet every four(4) to six(6) hours as needed for coughing. 200 0 diphenhydrAMINE (BENADRYL) 25 mg ORAL Cap Use as directed. 20 0 SINGULAIR 10 MG TAB Take one(1) tablet daily at bedtime. 0 WELLBUTRIN XL 300 MG 24 HR TAB Take one(1) tablet daily. 0 NEXIUM 40 MG CAP Take one(1) capsule daily. 0 CENESTIN 0.625 MG TAB Take one(1) tablet daily. 0 PHENERGAN 25 MG TAB Take one(1) tablet every four(4) to six(6) hours as needed for nausea. 0 No current facility-administered medications for this visit. REVIEW OF SYSTEMS The remainder of the 12 review of systems is negative other than what was mentioned in the HPI and above. BP 108/69 Pulse 69 Temp 36.8 ?C (98.3 ?F) (Tympanic) Ht 152.4 cm (5') Wt 73.5 (more content not included)... [facility] HISTORY PHYSICALon HISTORY PHYSICAL HNO ID: [id number] Author: Yeni Sevilla MD Service: ? Author Type: Resident Type: HANDP Filed: 05/22/2022 11:19 AM Note Text: [facility] Abdominal [facility] - HISTORY AND PHYSICAL Chief Complaint: Incisional hernia HPI: Valeria Romero is a 57 year old female with a history of asthma and GERD, who is a current smoker, and a surgical history significant for multiple incisional hernia repairs, hysterectomy, C-sections, abdominoplasty, and bilateral ovarian cyst removal who presents to discuss recurrent ventral hernias. She reports that she has had multiple repairs over the years, most recently in [address] Craft. She notes that 6 months after her repair in 2006, she noted recurrence at the lower part of her abdomen. She has put off repair of this hernia due to fear surrounding surgery in the setting of her multiple hernia repairs. 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 She also has experienced intermittent nausea and vomiting and inability to have bowel movements over the past year. She occasionally visited the ED in [place], and she presented to the ED in March of this year for evaluation. During that visit, a fat-containing hernia was noted on CT and she was discharged with follow-up in the hernia clinic. She notes that her quality of life is significantly impacted by this hernia and she is unable to carry out her day-to-day tasks or hold on her job due to this severe pain and cumbersome nature of her large hernia. She presents today to discuss definitive repair of this large hernia. Relevant previous operations include: Incisional hernia repairs-2000, 2003, 2004, 2006, hysterectomy, C section (1993), abdominoplasty (1997), mesh removal (2006), bilateral ovarian cyst removal (2003) No history of Psychiatric Disorders or Opioid Use Independent No employment Intense (more than once/week) No Significant Comorbidities History of open abdomen, History of abdominal wall surgical site infection PAST MEDICAL HISTORY Diagnosis Date Asthma GERD (gastroesophageal reflux disease) PAST SURGICAL HISTORY Procedure Laterality Date PAST SURGICAL HISTORY OF 2000 incisional hernia PAST SURGICAL HISTORY OF 2003 incisional hernia PAST SURGICAL HISTORY OF 2003 bilat ovarian cyst PAST SURGICAL HISTORY OF PAST SURGICAL HISTORY OF 2004 incisional hernia PAST SURGICAL HISTORY OF 2006 recurrent incisional hernia, mesh removal PAST SURGICAL HISTORY OF 1997 umbilical hernia, abominoplasty PAST SURGICAL HISTORY OF 1993 Social History Tobacco Use Smoking status: Some Days Types: Cigarettes, Pipe Smokeless tobacco: Never Vaping Use Vaping Use: current everyday user Substance Use Topics Drug use: Yes Types: Marijuana Comment: quit Aug 2021 Additional social history not relevant to the patient's HPI FAMILY HISTORY Problem Relation Age of Onset COPD Mother Diabetes Mother Diabetes Father Additional family history not relevant to the patient's HPI ALLERGIES Allergen Reactions Cipro [Ciprofloxaci* Rash Current Outpatient Medications Medication Sig Dispense Refill cyclobenzaprine hcl(FLEXERIL 10 MG TAB) Take one(1) tablet every eight(8) to twelve(12) hours as needed for pain or spasms. 20 0 ALBUTEROL 90 MCG/ACTUATION AEROSOL INHALER Inhale one(1) - two(2) puffs four(4) times a day as needed for wheezing and shortness of breath. a 2 CODEINE-GUAIFENESIN 10 MG-100 MG/5 ML SYRUP Take 1-2 teaspoon(s) (5-10 ml) tablet every four(4) to six(6) hours as needed for coughing. 200 0 diphenhydrAMINE (BENADRYL) 25 mg ORAL Cap Use as directed. 20 0 SINGULAIR 10 MG TAB Take one(1) tablet daily at bedtime. 0 WELLBUTRIN XL 300 MG 24 HR TAB Take one(1) tablet daily. 0 NEXIUM 40 MG CAP Take one(1) capsule daily. 0 CENESTIN 0.625 MG TAB Take one(1) tablet daily. 0 PHENERGAN 25 MG TAB Take one(1) tablet every four(4) to six(6) hours as needed for nausea. 0 No current facility-administered medications for this visit. REVIEW OF SYSTEMS The remainder of the 12 review of systems is negative other than what was mentioned in the HPI and above. BP 108/69 Pulse 69 Temp 36.8 ?C (98.3 ?F) (Tympanic) Ht 152.4 cm (5') Wt 73.5 kg (162 lb) BMI 31.64 kg/m? Physical findings of this patient are as follows Physical Exam Constitutional: The patient is well-developed, well-nourished, and in no distress. Head: Normocephalic and atraumatic. Eyes: Pupils are equal, round, and reactive to light. EOM are normal. Neck: Normal range of motion. Neck supple. Cardiovascular: Regular rhythm and normal heart sounds. Pulmonary/Chest: Effort normal and breath sounds normal. Abdominal: Soft. Bowel sounds are normal. Previous surgical scars well healed Musculoskeletal: Normal range of motion. Neurological: He is alert. GCS score is 15. Skin: Skin is (more content not included)... [facility] CT ABD/PEL W IVCONon 04-19-[address] ABD/PEL W IVCON * * *Final Report* * * DATE OF EXAM: Apr 18 2022 10:36PM [facility] 0530 - CT ABD/PEL W IVCON / PROCEDURE REASON: Hernia, complicated * * * * Physician Interpretation * * * * EXAMINATION: CT ABDOMEN AND PELVIS WITH IV CONTRAST CLINICAL HISTORY: Hernia, complicated TECHNIQUE: CT of the abdomen and pelvis was performed using standard technique, scanning from just above the dome of the diaphragm to the symphysis pubis. MQ: CTAP_3 Contrast: IV: 100 ml of Omnipaque 350 Oral: 200 ml of Omni 240 10-25ml diluted with water CT Radiation dose: Integrated Dose-length product (DLP) for this visit = 919 mGy*cm. CT Dose Reduction Employed: Automated exposure control (AEC) COMPARISON: CT abdomen/pelvis 10/25/2010 RESULT: Liver: No mass. Biliary: No bile duct dilation. Gallbladder is absent. Spleen: No mass. No splenomegaly. Pancreas: No mass or duct dilation. Adrenals: No mass. Kidneys: No mass, calculus or hydronephrosis. GI tract: No dilation or wall thickening. Normal appendix. Scattered colonic diverticula with no findings of diverticulitis. Lymph nodes: No abdominal or pelvic lymphadenopathy. Mesentery/Peritoneum: No ascites or mass. Retroperitoneum: No mass. Punctate and linear metallic densities overlie the left psoas and bilateral pelvic sidewalls, unchanged Vasculature: - Abdominal aorta and iliac arteries: No aneurysm. - Celiac and SMA: Patent without stenosis. - Portal venous system (SMV, splenic vein, portal vein and branches): Patent. - Hepatic veins: Patent. Pelvis: No mass, ascites or fluid collection. Bones: No acute abnormality Soft Tissues: Fat-containing ventral hernia, increased in size from 2010. Hernia sac measures approximately 16.8 cm transverse by 4.4 cm AP by 8.9 cm craniocaudal. Neck measures about 4 cm in transverse dimension, 2.3 cm in craniocaudal dimension, and lies superior to the abdominal wall mesh. No substantial stranding or inflammatory change of the herniated contents. Lower thorax: Unremarkable. Certified Coding Specialist (topogram) images: Unremarkable. IMPRESSION: Fat-containing ventral hernia as described, increased in size since 2010. Details and incidental findings as discussed. Entry Level Finance: MANAV Transcribe Date/Time: Apr 18 2022 10:48P Dictated by : JUJU GREGORY MD This examination was interpreted and the report reviewed and electronically signed by: KATT YANEZ MD on Apr 18 2022 11:18PM EST [id number] [facility] ED NOTEon 04-19-2022 ED NOTE HNO ID: [id number] Author: Monique Hanna RN Service: Emergency Medicine Author Type: Registered Nurse Type: ED Notes Filed: 04/18/2022 11:59 PM Note Text: Discharge instructions reviewed with patient at this time. No further questions or concerns. Patient stable at time of discharge. [facility] Basic metabolic 2000 panelon 04-18-2022 Anion gap [Moles/Vol] 8 mmol/L Low 9-18 [facility] Comment on above: Order Comment: Speci men Type: BLOOD SPECIMENOrdering Facility: [facility] Address: [address] [place] [phone] Performed By: #### 2 4321-2, ####[facility] LABCLIA [id number] [place] [id number] [place] Calcium [Mass/Vol] 9.9 mg/dL Normal 8.5-10.2 [facility] Comment on above: Order Comment: Speci men Type: BLOOD SPECIMENOrdering Facility: [facility] Address: [address] [place] [address] Performed By: #### 2 4321-2, ####[facility] LABCLIA [id number] [place] [address] [place] Chloride [Moles/Vol] 104 mmol/L Normal 97-105 [facility] Comment on above: Order Comment: Speci men Type: BLOOD SPECIMENOrdering Facility: [facility] Address: [address] [place] [address] Performed By: #### 2 432-2, ####[facility] LABCLIA [id number] [place] [address] [place] CO2 [Moles/Vol] 29 mmol/L Normal 22-30 [facility] Comment on above: Order Comment: Speci men Type: BLOOD SPECIMENOrdering Facility: [facility] Address: [address] [place] [phone] Performed By: #### 2 4321-2, ####[facility] LABCLIA [id number] [place] [id number] [place] Creatinine [Mass/Vol] 0.63 mg/dL Normal 0.58-0.96 [facility] Comment on above: Order Comment: Speci men Type: BLOOD SPECIMENOrdering Facility: [facility] Address: [address] [place], [place] [phone] Performed By: #### 2 4320-, ####[facility] LABCLIA [id number] [place] [address] [place] ESTIMATED GLOMERULAR FILTRATION RATE 105 mL/min/1.73m??? Normal >=60 [facility] Comment on above: Order Comment: Poncho freeman Type: BLOOD SPECIMENOrdering Facility: [facility] Address: [address] [place] [address] Result Comment: Faiza mated Glomerular Filtration Rate (eGFR) is calculated using the 2020 CKD-EPI creatinine equation. This equation utilizes serum creatinine, sex, and age as parameters. The creatinine assay has traceable calibration to isotope dilution-mass spectrometry. Refer to KDIGO guidelines for clinical interpretation. In patients with unstable renal function, e.g. those with acute kidney injury, the eGFR may not accurately reflect actual GFR. Performed By: #### 2 43210-02, ####[facility] LABCLIA [id number] [place] [address] [place] Glucose [Mass/Vol] 101 mg/dL High 74-99 [facility] Comment on above: Order Comment: Poncho freeman Type: BLOOD SPECIMENOrdering Facility: [facility] Address: [address] [place] [address] Result Comment: The Stateless Diabetes Association (ADA) provides guidance for cutoff values for fasting glucose and random glucose. The ADA defines fasting as no caloric intake for at least 8 hours. Fasting plasma glucose results between 100 to 125 mg/dL indicate increased risk for diabetes (prediabetes). Fasting plasma glucose results greater than or equal to 126 mg/dL meet the criteria for diagnosis of diabetes. In the absence of unequivocal hyperglycemia, results should be confirmed by repeat testing. In a patient with classic symptoms of hyperglycemia or hyperglycemic crisis, random plasma glucose results greater than or equal to 200 mg/dL meet the criteria for diagnosis of diabetes. Reference: Standards of Medical Care in Diabetes 2016, Stateless Diabetes Association. Diabetes Care. 2016.39(Suppl 1). Performed By: #### 2 432-, ####[facility] LABCLIA [id number] [place] [address] [place] Potassium [Moles/Vol] 3.4 mmol/L Low 3.7-5.1 [facility] Comment on above: Order Comment: Speci men Type: BLOOD SPECIMENOrdering Facility: [facility] Address: [address] [place] [address] Performed By: #### 2 4321-2, 66007-3 ####[facility] LABCLIA [id number] [place] [address] [place] Sodium [Moles/Vol] 141 mmol/L Normal 136-144 [facility] Comment on above: Order Comment: Speci men Type: BLOOD SPECIMENOrdering Facility: [facility] Address: [address] [place] [address] Performed By: #### 2 4321-2, 05542-4 ####[facility] LABCLIA [id number] [address] [place] Urea nitrogen [Mass/Vol] 9 mg/dL Normal 7-21 [facility] Comment on above: Order Comment: Speci men Type: BLOOD SPECIMENOrdering Facility: [facility] Address: [address] [place] [address] Performed By: #### 2 4321-2, 93232-3 ####[facility] LABCLIA [id number] [place] [address] [place] CBC W Auto Differential pane l (Bld)on 04-18-2022 Basophils (Bld) [#/Vol] 0.04 10*3/uL Normal <0.11 [facility] Comment on above: Order Comment: Speci men Type: BLOOD SPECIMENOrdering Facility: [facility] Address: [address] [place] [address] Performed By: #### 5 7021-8 ####[facility] LABCLIA [id number] [address] [place] Basophils/100 WBC (Bld) 0.7 % [facility] Comment on above: Order Comment: Speci men Type: BLOOD SPECIMENOrdering Facility: [facility] Address: [address] [place], [place] [address] Performed By: #### 5 7021-8 ####[facility] LABCLIA [id number] [place] [address] [place] Differential cell count method Nom (Bld) Auto [facility] Comment on above: Order Comment: Speci men Type: BLOOD SPECIMENOrdering Facility: [facility] Address: [address] [place], [place] [address] Performed By: #### 5 7021-8 ####[facility] LABCLIA [id number] [place] [address] [place] Eosinophils (Bld) [#/Vol] 0.17 10*3/uL Normal <0.46 [facility] Comment on above: Order Comment: Speci men Type: BLOOD SPECIMENOrdering Facility: [facility] Address: [address] [place] [address] Performed By: #### 5 7021-8 ####[facility] LABCLIA [id number] [address] [place] Eosinophils/100 WBC (Bld) 2.8 % [facility] Comment on above: Order Comment: Speci men Type: BLOOD SPECIMENOrdering Facility: [facility] Address: [address] [place] [address] Performed By: #### 5 7021-8 ####[facility] LABCLIA [id number] [place] [address] [place] Erythrocyte distribution width (RBC) [Ratio] 13.9 % Normal 11.5-15.0 [facility] Comment on above: Order Comment: Speci men Type: BLOOD SPECIMENOrdering Facility: [facility] Address: [address] [place], [place] [phone] Performed By: #### 5 7021-8 ####[facility] LABIA [id number] [address] [facility] Hematocrit (Bld) [Volume fraction] 37.6 % Normal 36.0-46.0 [facility] Comment on above: Order Comment: Speci men Type: BLOOD SPECIMENOrdering Facility: [facility] Address: [address] [place], [place] [address] Performed By: #### 5 7021-8 ####[facility] LABIA [id number] [address] [facility] Hemoglobin (Bld) [Mass/Vol] 12.4 g/dL Normal 11.5-15.5 [facility] Comment on above: Order Comment: Speci men Type: BLOOD SPECIMENOrdering Facility: [facility] Address: [address] [place], [place] [address] Performed By: #### 5 7021-8 ####[facility] LABIA [id number] [address] IMMATURE GRAN % 0.3 % [facility] Comment on above: Order Comment: Speci men Type: BLOOD SPECIMENOrdering Facility: [facility] Address: [address] [place], [place] [address] Performed By: #### 5 7021-8 ####[facility] LABIA [id number] [address] [place] IMMATURE GRAN ABS <0.03 Normal <0.10 [facility] Comment on above: Order Comment: Speci men Type: BLOOD SPECIMENOrdering Facility: [facility] Address: [address] [place], [place] [address] Performed By: #### 5 7021-8 ####[facility] LABIA [id number] [id number] [address] [place] Lymphocytes (Bld) [#/Vol] 2.13 10*3/uL Normal 1.00-4.00 [facility] Comment on above: Order Comment: Speci men Type: BLOOD SPECIMENOrdering Facility: [facility] Address: [address] [place] [address] Performed By: #### 5 7021-8 ####[facility] LABCLIA [id number] [address] [place] Lymphocytes/100 WBC (Bld) 34.7 % [facility] Comment on above: Order Comment: Speci men Type: BLOOD SPECIMENOrdering Facility: [facility] Address: [address] [place], [place] [address] Performed By: #### 5 7021-8 ####[facility] LABCLIA [id number] [address] [place] MCH (RBC) [Entitic mass] 29.5 pg Normal 26.0-34.0 [facility] Comment on above: Order Comment: Speci men Type: BLOOD SPECIMENOrdering Facility: [facility] Address: [address] [place], [place] [address] Performed By: #### 5 7021-8 ####[facility] LABCLIA [id number] [address] [place] MCHC (RBC) [Mass/Vol] 33.0 g/dL Normal 30.5-36.0 [facility] Comment on above: Order Comment: Speci men Type: BLOOD SPECIMENOrdering Facility: [facility] Address: [address] [place], [place] [address] Performed By: #### 5 7021-8 ####[facility] LABCLIA [id number] [place] [address] [place] MCV (RBC) [Entitic vol] 89.3 fL Normal 80.0-100.0 [facility] Comment on above: Order Comment: Speci men Type: BLOOD SPECIMENOrdering Facility: [facility] Address: [address] [place], [place] [address] Performed By: #### 5 7021-8 ####[facility] LABCLIA [id number] [place] [address] [place] Monocytes (Bld) [#/Vol] 0.72 10*3/uL Normal <0.87 [facility] Comment on above: Order Comment: Speci men Type: BLOOD SPECIMENOrdering Facility: [facility] Address: [address] [place], [place] [address] Performed By: #### 5 7021-8 ####[facility] LABCLIA [id number] [place] [address] [place] Monocytes/100 WBC (Bld) 11.7 % [facility] Comment on above: Order Comment: Speci men Type: BLOOD SPECIMENOrdering Facility: [facility] Address: [address] [place], [place] [address] Performed By: #### 5 7021-8 ####[facility] LABCLIA [id number] [place] [address] [place] Neutrophils (Bld) [#/Vol] 3.05 10*3/uL Normal 1.45-7.50 [facility] Comment on above: Order Comment: Speci men Type: BLOOD SPECIMENOrdering Facility: [facility] Address: [address] [place] [address] Performed By: #### 5 7021-8 ####[facility] LABCLIA [id number] [place] [address] [place] Neutrophils/100 WBC (Bld) 49.8 % [facility] Comment on above: Order Comment: Speci men Type: BLOOD SPECIMENOrdering Facility: [facility] Address: [address] [place], [place] [address] Performed By: #### 5 7021-8 ####[facility] LABCLIA [id number] [place] [address] [place] Nucleated RBC (Bld) [#/Vol] 10*3/uL Normal <0.01 [facility] Comment on above: Order Comment: Speci men Type: BLOOD SPECIMENOrdering Facility: [facility] Address: [address] [place], [place] [address] Performed By: #### 5 7021-8 ####[facility] LABIA [id number] [place] [address] [place] Nucleated RBC/100 WBC (Bld) [Ratio] 0.0 /100 WBC [facility] Comment on above: Order Comment: Speci men Type: BLOOD SPECIMENOrdering Facility: [facility] Address: [address] [place], [place] [address] Performed By: #### 5 7021-8 ####[facility] [id number] [place] [address] [place] Platelet mean volume (Bld) [Entitic vol] 9.1 fL Normal 9.0-12.7 [facility] Comment on above: Order Comment: Speci men Type: BLOOD SPECIMENOrdering Facility: [facility] Address: [address] [place], [place] [address] Performed By: #### 5 7021-8 ####[facility] [id number] [place] [address] [place] Platelets (Bld) [#/Vol] 355 10*3/uL Normal 150-400 [facility] Comment on above: Order Comment: Speci men Type: BLOOD SPECIMENOrdering Facility: [facility] Address: [address] [place] [address] Performed By: #### 5 7021-8 ####[facility] LABIA [id number] [place] [address] [place] RBC (Bld) [#/Vol] 4.21 10*6/uL Normal 3.90-5.20 [facility] Comment on above: Order Comment: Speci men Type: BLOOD SPECIMENOrdering Facility: [facility] Address: [address] [place], [place] [phone] Performed By: #### 5 7021-8 ####[facility] LABCLIA [id number] [place] [address] [facility] WBC (Bld) [#/Vol] 6.13 10*3/uL Normal 3.70-11.00 [facility] Comment on above: Order Comment: Speci men Type: BLOOD SPECIMENOrdering Facility: [facility] Address: [address] [place] [address] Performed By: #### 5 7021-8 ####[facility] LABCLIA [id number] [address] [facility] ED NOTEon 04-18-2022 ED NOTE HNO ID: [id number] Author: Eddie Lu DO, DPM Service: Emergency Medicine Author Type: Physician Type: ED Notes Filed: 04/20/2022 9:09 AM Note Text: CC for SS at 9:42 PM 57 year old female with PMH incision hernia s/p multiple repairs with mesh. Living in [place] and just moved back to [place]. Just got her Medicaid insurance today. Here to get her hernia evaluated. Had BM here. Exam with reducible hernia. [ ] CT scan [ ] labs [ ] plan for surgery outpatient follow up Initial lactate 0.8. No clinically significant laboratory abnormalities. CT scan with fat-containing incisional hernia. Patient feels better and is amenable for follow up with general surgery. Follow up order placed. Patient prescribed Tylenol and Motrin. Given ED return precautions and discharged home in stable condition. Eddie Lu DO, VALERIE, CHUY, FACEP [facility] ED NOTE HNO ID: [id number] Author: Eddie Gu RN Service: Emergency Medicine Author Type: Registered Nurse Type: ED Notes Filed: 04/18/2022 2:12 PM Note Text: Pt with a history of hernia repair, states recently diagnosed with another hernia at [facility], only wants her care at [facility]. [facility] ED PROV NOTEon 04-18-2022 ED PROV NOTE HNO ID: [id number] Author: Eddie Lu DO, DPM Service: Emergency Medicine Author Type: Physician Type: ED Provider Notes Filed: 04/20/2022 9:06 AM Note Text: ED Provider Note Patient Name: Valeria Romero : 1965 SERVICE DATE: 04/18/22 History Patient presents with: Hernia Valeria Romero is a 57 year old female with a PMHx significant for incisional hernia s/p multiple hernia repairs with mesh presenting to the ED for hernia. Patient reports she has had a lower abdominal incisional hernia for over 10 years. Has previously been repaired 7 times per patient report with mesh. Patient has been living in [place] but recently returned to [place]. States that over the past few months the hernia has rapidly grown in size. Endorses cramping and pulling pain along the hernia. States that she has been able to tolerate p.o. Denies nausea, vomiting, fever, chills, overlying skin changes. Her last bowel movement was while waiting in the ED lobby. States that she returned to [facility] to establish definitive care as she is aware that her hernia is complex. No past medical history on file. PAST SURGICAL HISTORY Procedure Laterality Date - PAST SURGICAL HISTORY OF 2000 incisional hernia - PAST SURGICAL HISTORY OF 2003 incisional hernia - PAST SURGICAL HISTORY OF 2003 bilat ovarian cyst - PAST SURGICAL HISTORY OF - PAST SURGICAL HISTORY OF 2004 incisional hernia - PAST SURGICAL HISTORY OF 2006 recurrent incisional hernia, mesh removal - PAST SURGICAL HISTORY OF 1997 umbilical hernia, abominoplasty - PAST SURGICAL HISTORY OF 1993 No family history on file. Social History Tobacco Use - Smoking status: Not on file - Smokeless tobacco: Not on file Substance and Sexual Activity - Alcohol use: Not on file - Drug use: Not on file - Sexual activity: Not on file ALLERGIES Allergen Reactions - Cipro [Ciprofloxaci* Rash Review of Systems Constitutional: Negative for chills and fever. HENT: Negative for sore throat. Respiratory: Negative for cough and shortness of breath. Cardiovascular: Negative for chest pain. Gastrointestinal: Positive for abdominal pain. Negative for diarrhea, nausea and vomiting. Genitourinary: Negative for dysuria and hematuria. Musculoskeletal: Negative for myalgias. Skin: Negative for rash. Allergic/Immunologic: Negative for immunocompromised state. Neurological: Negative for dizziness and light-headedness. Physical Exam Vitals [04/18/22 1409] BP Pulse Temp Temp src Resp SpO2 Weight Height 128/84 72 36.7 ?C (98.1 ?F) Oral 18 99 % -- -- Physical Exam Vitals and nursing note reviewed. Constitutional: General: She is not in acute distress. Appearance: Normal appearance. HENT: Head: Normocephalic and atraumatic. Right Ear: External ear normal. Left Ear: External ear normal. Mouth/Throat: Mouth: Mucous membranes are moist. Eyes: Extraocular Movements: Extraocular movements intact. Conjunctiva/sclera: Conjunctivae normal. Cardiovascular: Rate and Rhythm: Normal rate and regular rhythm. Pulses: Normal pulses. Heart sounds: No murmur heard. No friction rub. No gallop. Pulmonary: Effort: Pulmonary effort is normal. Breath sounds: No wheezing, rhonchi or rales. Abdominal: General: Bowel sounds are normal. There is no distension. Palpations: Abdomen is soft. Tenderness: There is abdominal tenderness. Hernia: A hernia is present. Hernia is present in the ventral area. Comments: Hernia present across the lower abdomen below the umbilicus, soft, mildly tender to palpation, reducible, no overlying skin changes Musculoskeletal: General: Normal range of motion. Cervical back: Neck supple. Right lower leg: No edema. Left lower leg: No edema. Skin: General: Skin is warm and dry. Capillary Refill: Capillary refill takes less than 2 seconds. Findings: No rash. Neurological: General: No focal deficit present. Mental Status: She is alert and oriented to person, place, and time. Psychiatric: Behavior: Behavior normal. Thought Content: Thought content normal. Diagnostic Testing ED Labs Ordered and Reviewed - No data to display Procedures ED Course / Clinical Impression ED Course as of 04/18/222 Jef Hamilton's Documentation SunApr 18, 20222033 Temp: 36.7 ?C (98.1 ?F) Afebrile 2033 Pulse: 72 2033 BP: 128/84 Hemodynamically stable 2033 SpO2: 99 % On room air 2133 Lactate (POCT): 0.8 Normal, low suspicion for bowel ischemia Others' Documentation Tue Apr 18, 20222206 Care endorsed to me by Dr. Lu - large ventral hernia with multiple procedures. Got insurance today and came to ED to see Venancio. Getting CT imaging. If no acute then outpatient follow up with [facility]. [HJ] ED Course User Index [HJ] Cristine Garcia MD Clinical Impressions as of 04/18/22 2307 Ventral hernia without obstruction or gangre (more content not included)... [facility] Magnesium SerPl-mCncon 04-18 Magnesium [Mass/Vol] 1.9 mg/dL Normal 1.7-2.3 [facility] Comment on above: Order Comment: Speci men Type: BLOOD SPECIMENOrdering Facility: [facility] Address: [address] [place] [address] Performed By: #### 2 4321-2, 25296-6 ####[facility] LABCLIA [id number] [place] [address] [place] Vital Signs Date Time Vital Sign Value Performing Clinician Facility 12-27-2022 10:46-0400 Diastolic blood pressure 65 mm[Hg] [facility] Work Phone: [facility] 12-27-2022 10:46-0400 Heart rate 61 /min [facility] Work Phone: [facility] 12-27-2022 10:46-0400 Respiratory rate 18 /min [facility] Work Phone: [facility] 12-27-2022 10:46-0400 SaO2% (BldA) [Mass fraction] 98 % [facility] Work Phone: [facility] 12-27-2022 10:46-0400 Systolic blood pressure 107 mm[Hg] [facility] Work Phone: [facility] 12-27-2022 08:49-0400 Body height 152.4 cm [facility] Work Phone: [facility] 12-27-2022 08:49-0400 Body temperature 97.7 [degF] [facility] Work Phone: [facility] 12-27-2022 08:49-0400 Body weight 86.63 kg [facility] Work Phone: [facility] 06-29-2022 10:33-0400 Body height 157.5 cm Pedro Walsh MD Work Phone: [facility] 06-29-2022 10:33-0400 Body temperature 96.6 [degF] Pedro Walsh MD Work Phone: [facility] 06-29-2022 10:33-0400 Body weight 78.02 kg Pedro Walsh MD Work Phone: [facility] 06-29-2022 10:33-0400 Diastolic blood pressure 62 mm[Hg] Pedro Walsh MD Work Phone: [facility] 06-29-2022 10:33-0400 Heart rate 76 /min Pedro Walsh MD Work Phone: [facility] 06-29-2022 10:33-0400 Respiratory rate 14 /min Pedro Walsh MD Work Phone: [facility] 06-29-2022 10:33-0400 Systolic blood pressure 109 mm[Hg] Pedro Walsh MD Work Phone: [facility] 05-30-2022 13:09-0400 Body temperature 98.71 [degF] Daríohector Miranda DIRECTOR OF LOSS PREVENTION.ET[employer] TESTER Work Phone: [facility] 05-30-2022 13:09-0400 Body weight 77.47 kg Daríohector Miranda DIRECTOR OF LOSS PREVENTION.ETL TESTER Work Phone: [facility] 05-30-2022 13:09-0400 Diastolic blood pressure 63 mm[Hg] Daríohector Miranda DIRECTOR OF LOSS PREVENTION.ET[employer] TESTER Work Phone: [facility] 05-30-2022 13:09-0400 Heart rate 54 /min Darío Bhattiveronica DIRECTOR OF LOSS PREVENTION.ETL TESTER Work Phone: [facility] 05-30-2022 13:09-0400 SaO2% (BldA) [Mass fraction] 95 % Darío Bhattiveronica DIRECTOR OF LOSS PREVENTION.ETL TESTER Work Phone: [facility] 05-30-2022 13:09-0400 Systolic blood pressure 102 mm[Hg] Darío Ruben DIRECTOR OF LOSS PREVENTION.ETL TESTER Work Phone: [facility] 05-22-2022 09:26-0400 Body height 152.4 cm Pedro Walsh MD Work Phone: [facility] 05-22-2022 09:26-0400 Body temperature 98.29 [degF] Pedro Walsh MD Work Phone: [facility] 05-22-2022 09:26-0400 Body weight 73.48 kg Pedro Walsh MD Work Phone: [facility] 05-22-2022 09:26-0400 Diastolic blood pressure 69 mm[Hg] Pedro Walsh MD Work Phone: [facility] 05-22-2022 09:26-0400 Heart rate 69 /min Pedro Walsh MD Work Phone: [facility] 05-22-2022 09:26-0400 Systolic blood pressure 108 mm[Hg] Pedro Walsh MD Work Phone: [facility] Encounters Encounter Date Encounter Type Care Provider Facility Start: 01-18-2023 End: 01-18-2023 lashon REYNA Facility:[facility] Start: 01-18-2023 End: 01-18-2023 Patient encounter procedure Maria D Reyna MD Work Phone: Colorectal Surgery Comment on above: Prolapsed hemorrhoid s (Primary Dx); Vaginal prolapse Start: 12-27-2022 End: 12-27-2022 ambulatory [facility] Dept Facility:[facility] Start: 12-27-2022 End: 12-27-2022 [facility] Work Phone: Start: 12-27-2022 End: 12-27-2022 [facility] Work Phone: Start: 12-18-2022 End: 12-18-[address] CHICHO JAMISON Facility: Start: 09-06-2022 End: 09-06-2022 ambulatory PHYSICIAN NO FAMILY Facility:[facility] Start: 09-06-2022 End: 09-06-2022 ambulatory PHYSICIAN NO FAMILY [facility] Work Phone: Start: 09-06-2022 End: 09-06-2022 Patient encounter procedure PHYSICIAN NO [facility] Start: 06-29-2022 End: 06-29-2022 ambulatory BETTIE SMITH Facility:[facility] Start: 06-29-2022 End: 06-30-2022 ambulatory PEDRO WALSH Facility:[facility] Start: 06-29-2022 End: 06-29-2022 Subsequent hospital visit by physician Ct 2 Main Qb (I-Stat) Radiology Comment on above: Infection in abdomen (HCC) [K65.9] Start: 06-29-2022 End: 06-29-2022 Patient encounter procedure Pedro Walsh MD Work Phone: General Surgery Comment on above: Infection in abdomen (HCC) (Primary Dx) Start: 06-12-2022 Telephone encounter Valeria LONGORIA Work Phone: Psycholgy Comment on above: outreach Start: 06-09-2022 Orders Only Sil bolaños MD Work Phone: General Surgery Comment on above: Acute post-operative pain (Primary Dx) Start: 06-06-2022 End: 06-09-2022 Evaluation and management of inpatient PEDRO WALSH Facility:[facility] Start: 06-01-2022 Chart abstracting Valeria LONGORIA Work Phone: Psycholgy Start: 06-01-2022 Telephone encounter Valeriaomar Pettywell KILN FURNITURE CASTER Work Phone: Psycholgy Comment on above: outreach Start: 05-30-2022 End: 05-31-2022 ambulatory BETTIE SMITH Facility:[facility] Start: 05-30-2022 Encounter for other preprocedural examination [facility] Start: 05-30-2022 End: 05-31-2022 ambulatory PEDRO WALSH Facility:[facility] Start: 05-30-2022 End: 05-31-2022 ambulatory PEDRO WALSH Facility:[facility] Start: 05-30-2022 Encounter for other preprocedural examination [facility] Start: 05-30-2022 End: 05-30-2022 Patient encounter procedure Jazzy Sanchez PhD Work Phone: General Surgery Comment on above: Incisional hernia, w ithout obstruction or gangrene (Primary Dx) Asthma with acute ex acerbation, unspecified asthma severity, unspecified whether persistent (Primary Dx); Anxiety and depression; Gastroesophageal reflux disease, unspecified whether esophagitis present; Abdominal spasms Start: 05-25-2022 ambulatory Pedro levine MD Work Phone: [facility] Comment on above: 9.6.22 cure (Complex abdominal wall reconstruction 5 hours los 5) Start: 05-25-2022 Preprocedural examin ation done Pedro Walsh MD Work Phone: [facility] Start: 05-22-2022 End: 05-23-2022 ambulatory PEDRO WALSH Facility:[facility] Start: 05-22-2022 End: 05-22-2022 Patient encounter procedure Pedro Walsh MD Work Phone: General Surgery Comment on above: Incisional hernia, w ithout obstruction or gangrene (Primary Dx) Start: 04-18-2022 End: 04-19-2022 Emergency department patient visit CRISTINE GARCIA Facility:[facility] Procedures Date Procedure Procedure Detail Performing Clinician Start: 12-27-2022 Esophagogastroduodenoscopy [facility] Dept Work Phone: Start: 09-06-2022 Screening mammography of bilateral breasts PHYSICIAN NO FAMILY Start: 06-29-2022 Ct abdomen & pelvis w/o contrast material Leonard Ivey MD Work Phone: Start: 05-30-2022 Antibody screen BETTIE SMITH Comment on above: Order Comment: Specimen Type: BLOOD SPEC IMENOrdering Facility: [facility] Address: [address] [place] [address] Performed By: #### % DIAZ, [id number], BBABINT ####CC MAIN BLOOD BANKCLIA [id number] [address] Plan of Treatment Date Care Activity Detail Author Start: 06-09-2025 DIABETES SCREEN DIABETES SCREEN [facility] Start: 05-30-2025 DIABETES SCREEN DIABETES SCREEN [facility] Start: 04-18-2025 DIABETES SCREEN DIABETES SCREEN [facility] Start: 06-01-2023 Influenza vaccination INFLUENZA (Sea son Ended) [facility] Start: 05-30-2023 ANNUAL PCP TEAM RAG GRADER VANESA DISEASE VISIT ANNUAL PCP TEAM CHRONIC DISEASE VISIT [facility] Start: 12-27-2022 [facility] Start: 10-01-2022 DEPRESSION ASSESSMENT DEPRESSION ASS ESSMENT [facility] Start: 09-06-2022 [facility] Start: 06-01-2022 Influenza vaccination INFLUENZA (#1) [facility] Start: 05-29-2022 End: 05-25-2023 aPTT in Platelet poor plasma by Coagulation assay ACTIVATED PTT Lab Routine Preoperative examination Incisional hernia, without obstruction or gangrene Expected: 05/29/2022, Expires: 05/25/2023 [facility] Work Phone: Comment on above: Expected: 05/29/2022 , Expires: 05/25/2023 Start: 05-29-2022 End: 05-25-2023 CBC W Auto Differential panel - Blood CBC + DIFF Lab Routine Preoperative examination Incisional hernia, without obstruction or gangrene Expected: 05/29/2022, Expires: 05/25/2023 [facility] Work Phone: Comment on above: Expected: 05/29/2022 , Expires: 05/25/2023 Start: 05-29-2022 End: 05-25-2023 Comprehensive metabolic 2000 panel - Serum or Plasma COMP METABOLIC PANEL Lab Routine Preoperative examination Incisional hernia, without obstruction or gangrene Expected: 05/29/2022, Expires: 05/25/2023 [facility] Work Phone: Comment on above: Expected: 05/29/2022 , Expires: 05/25/2023 Start: 05-29-2022 End: 05-25-2023 PT panel - Platelet poor plasma by Coagulation assay PROTHROMBIN TIME/PT Lab Routine Preoperative examination Incisional hernia, without obstruction or gangrene Expected: 05/29/2022, Expires: 05/25/2023 [facility] Work Phone: Comment on above: Expected: 05/29/2022 , Expires: 05/25/2023 Start: 05-29-2022 End: 05-25-2023 TYPE AND SCREEN,30 DAY TYPE AND SCREEN,30 DAY Blood Bank Routine Preoperative examination Incisional hernia, without obstruction or gangrene Expected: 05/29/2022, Expires: 05/25/2023 [facility] Work Phone: Comment on above: Expected: 05/29/2022 , Expires: 05/25/2023 Start: 10-01-2021 DEPRESSION ASSESSMENT DEPRESSION ASS ESSMENT [facility] Start: 2017 SHINGRIX VACCINE (1 of 2) SHINGRIX VACCINE (1 of 2) [facility] Start: 02-03-2012 COLOGUARD (FIT-DNA) COLOGUARD (FIT-D NA) [facility] Start: 02-03-2012 Colonoscopy COLONOSCOPY [facility] Start: 02-03-2012 COLORECTAL CANCER SCREENING COLORECTAL CANCER SCREENING [facility] Start: 02-03-[address] [facility] Start: 02-03-2012 FECAL OCCULT BLOOD FECAL OCCULT BLOO D [facility] Start: 02-03-2012 LIPID SCREEN LIPID SCREEN [facility] Start: 02-03-2012 SIGMOIDOSCOPY SIGMOIDOSCOPY [facility] Start: 2007 Mammography MAMMOGRAM [facility] Start: 1997 HPV TESTING HPV TESTING [facility] Start: 02-03-1988 PAP TESTING PAP TESTING [facility] Start: 1986 Urine microalbumin profile DTAP,TDAP,TD (1 - Tdap) [facility] Start: 1985 ANNUAL PCP TEAM RAG GRADER VANESA DISEASE VISIT ANNUAL PCP TEAM CHRONIC DISEASE VISIT [facility] Start: 1985 HEPATITIS C SCREENING HEPATITIS C SC REENING [facility] Start: 1985 HIV SCREENING HIV SCREENING [facility] Start: 1985 SPIROMETRY SPIROMETRY [facility] Start: 1979 Adult depression screening assessment DEPRESSION SCREENING [facility] Start: 1973 PNEUMOCOCCAL (1 - PCV) PNEUMOCOCCAL (1 - PCV) [facility] Start: 1967 COVID-19 VACCINE (#1) COVID-19 VACCI NE (#1) [facility] Start: 1967 HEPATITIS B (1 of 3 - 3-dose series) [facility] End: 05-25-2023 ECG COMPLETE ECG COMPLETE ECG Routine Preoperative examination Incisional hernia, without obstruction or gangrene 1 Occurrences starting 05/29/2022 until 05/25/2023 [facility] Work Phone: Comment on above: 1 Occurrences starti ng 05/29/2022 until 05/25/2023 Hepatitis C virus Ab Signal/Cutoff in Serum or Plasma by Immunoassay [facility] Work Phone: Patient Education Colon Polyps H emorrhoids (DC) Diverticulosis (DC) [facility] Work Phone: REFER FOR ADMIT INTERVIEW REFER FOR ADMIT INTERVIEW Procedures Routine Preoperative examination Incisional hernia, without obstruction or gangrene Ordered: 05/29/2022 [facility] Work Phone: Comment on above: Ordered: 05/29/2022 [facility] Payers Date Payer Category Payer Self-pay 2022 Medicaid MEDICAID [facility] MEDICAID [id number] 2022-Present [phone] [address] [place] [address] Medicaid [id number] 2022 Medicaid [id number] 1965 Unknown [id number] Unknown Isaías MORTON/YENI [id number] Unknown [id number] Unknown [id number] Social History Date Type Detail Facility Start: 05-22-2022 End: 05-30-2022 Tobacco smoking status UTIS Occasional tobacco smoker [facility] End: 05-22-2022 History of tobacco use Cigarette Smoker [facility] History of tobacco use Pipe Smoker [facility] Start: 05-22-2022 End: 05-30-2022 Tobacco use and exposure Smokeless tobacco non-user [facility] Start: 1965 Sex Assigned At Not on file [facility] Start: 05-12-2022 End: 06-29-2022 Exposure to SARS-CoV-2 (event) Not sure [facility] Start: 05-30-2022 End: 01-19-2023 Alcohol intake Current drinker of alcohol (finding) [facility] Start: 05-30-2022 History SDOH Alcohol Comment rare [facility] Start: 05-30-2022 Tobacco Comment vape [facility] Start: 1965 Sex Assigned At Female F [facility] Start: 12-27-2022 Tobacco smoking stat us UTIS Ex-smoker (finding) [facility] Medical Equipment Procedure Code Equipment Code Equipment Origin al Text Equipment Identifier Dates Mesh Prolene Squ are Flat 79y98hr Surgical Knit Nonabsorbable Nonreactive - [id number] Start: 06-06-2022 Goals Date Patient Goal Desired Activity /State Clinical Notes 04-19-2022 to 01-18-2023 Gianna Gusman RN - 01/18/2023 10:10 AM PRITITMaria D Reyna MD - 01/18/2023 9:40 AM Collette Beyer - 06/29/2022 1:30 PM Glynn Walsh MD - 06/29/2022 11:10 AM EDT Note Date & Type Note Facility 01-18-2023 Note HNO ID: [id number] Author: Maria D Reyna MD Service: ? Author Type: Physician Type: Progress Notes Filed: 01/19/2023 1:23 AM Note Text: COLORECTAL SURGERY January 18, 2023 Valeria Romero 57 year old This consult was requested by Dr. Sena and my final recommendations will be communicated to the requesting health care provider by way of the shared medical record for internal providers or letter via the [employer] for external providers. Chief Complaint: hemorrhoids, prolapse History of Present Illness: Valeria Romero is a 57 year old female presents today for evaluation of hemorrhoids and prolapse. Colonoscopy 12/27/22 - Dr. Sena Findings: - Pancolonic diverticulosis - Cecum: 15 mm sessile polyp removed from the posterior cecal wall with hot snare, 8 mm sessile polyp removed adjacent to the AO with hot snare - Ascending colon: 10 mm polyp removed with a hot snare - Hepatic flexure: Normal - Transverse colon: 5 mm and 12 mm polyps removed with hot snare - Splenic flexure: Normal - Descending colon: Normal - Sigmoid colon: 6 mm polyp removed with cold snare - Rectum: Normal - Retroflexed views: Rectum did show large inflamed with area of prolapse internal hemorrhoids. 57-year-old female with the above-stated history. She underwent colonoscopy as above. She does report some rectal bleeding. She also reports an episode of something that prolapses out of her vagina. It was quite painful and she had to manually push it back in. I asked that we first go to the bathroom so she could Valsalva and see if we could retreat this prolapse but she declines PAST MEDICAL HISTORY Diagnosis Date Asthma GERD (gastroesophageal reflux disease) PAST SURGICAL HISTORY Procedure Laterality Date PAST SURGICAL HISTORY OF 10/01/2000 incisional hernia PAST SURGICAL HISTORY OF 10/01/2003 incisional hernia PAST SURGICAL HISTORY OF 10/01/2003 bilat ovarian cyst PAST SURGICAL HISTORY OF PAST SURGICAL HISTORY OF 10/01/2004 incisional hernia PAST SURGICAL HISTORY OF 10/01/2006 recurrent incisional hernia, mesh removal PAST SURGICAL HISTORY OF 10/01/1997 umbilical hernia, abominoplasty PAST SURGICAL HISTORY OF 10/01/1993 TOTAL ABDOM HYSTERECTOMY Current Outpatient Medications Medication Sig Dispense Refill oxyCODONE IR (ROXICODONE) 5 mg immediate release tablet Take 1 tablet by mouth every 8 hours as needed for pain (for pain not relieved by Tylenol/Motrin). 10 tablet 0 albuterol (PROVENTIL) 2.5 mg /3 mL (0.083 %) nebulizer solution Use 3 mL via nebulizer four times daily as needed for wheezing/shortness of breath. Inhale by nebulizer over 5-15 minutes 300 mL 0 Nebulizer and Compressor For Neb 1 Each every 4 hours as needed. 1 Each 0 albuterol HFA (PROAIR HFA) 90 mcg/actuation inhaler 1-2 puffs every 4-6 hours as needed for wheezing, shortness of breath 18 g 2 montelukast (SINGULAIR) 10 mg tablet Take 1 tablet by mouth daily at bedtime. 90 tablet 0 omeprazole (PRILOSEC) 20 mg capsule Take 1 capsule by mouth once daily. 90 capsule 0 sertraline (ZOLOFT) 50 mg tablet Take 1 tablet by mouth once daily. 90 tablet 0 No current facility-administered medications for this visit. ALLERGIES Allergen Reactions Cipro [Ciprofloxaci* Rash FAMILY HISTORY Problem Relation Age of Onset COPD Mother Diabetes Mother Diabetes Father Social History Tobacco Use Smoking status: Some Days Types: Cigarettes, Pipe Last attempt to quit: 05/22/2022 Years since quittin.6 Smokeless tobacco: Never Tobacco comments: vape Vaping Use Vaping Use: current everyday user Substance Use Topics Alcohol use: Yes Comment: rare Drug use: Yes Frequency: 7.0 times per week Types: Marijuana Comment: marijuana daily Physical Exam: There were no vitals taken for this visit. General Appearance: Well appearing, alert, in no acute distress, well-hydrated, well nourished. Anorectal: External exam reveals no lesions. Digital rectal exam reveals no gross blood or masses Forensic Photographer present: Yes, Gianna Gusman Anoscopy: The patient was placed in chest-knee position. After digital exam with a lubricated finger, the scope was easily inserted. Moderately enlarged right posterior, right anterior, and left lateral internal hemorrhoids were noted. Otherwise normal mucosa was noted. Anoscopy completed. Preoperative diagnosis: First to second degree hemorrhoids. Procedure: Anoscopy, rubber band ligation of hemorrhoids. Postoperative diagnosis: Same Indications: This 57 year old was found to have internal hemorrhoids that were not suitable for conservative management. Description of procedure: The patient was placed in the chest-knee position. A time out was completed. A digital rectal exam was performed. A lubricated anoscope was inserted into the anal canal. The three hemorrhoidal pedicles were identified and the redu (more content not included)... [facility] Nurse Note What is the reason for your visit today? New patient consult for hemorrhoids & prolapse Who is your referring physician? Dr. Jaida MD Are you having poor oral intake? NO Have you had unintentional weight loss of 15 lbs/7 Kg in the last 3-6 months? NO Bowels: soft with occasional bleeding with wiping Wound: none Temperature: No Drains: No documented in this encounter [facility] 01-18-2023 History of Presen t illness Narrative COLORECTAL SURGERY January 18, 2023 Valeria Romero 57 year old This consult was requested by Dr. Sena and my final recommendations will be communicated to the requesting health care provider by way of the shared medical record for internal providers or letter via the [employer] Service for external providers. Chief Complaint: hemorrhoids, prolapse History of Present Illness: Valeria Romero is a 57 year old female presents today for evaluation of hemorrhoids and prolapse. Colonoscopy 12/27/22 - Dr. Sena Findings: - Pancolonic diverticulosis - Cecum: 15 mm sessile polyp removed from the posterior cecal wall with hot snare, 8 mm sessile polyp removed adjacent to the AO with hot snare - Ascending colon: 10 mm polyp removed with a hot snare - Hepatic flexure: Normal - Transverse colon: 5 mm and 12 mm polyps removed with hot snare - Splenic flexure: Normal - Descending colon: Normal - Sigmoid colon: 6 mm polyp removed with cold snare - Rectum: Normal - Retroflexed views: Rectum did show large inflamed with area of prolapse internal hemorrhoids. 57-year-old female with the above-stated history. She underwent colonoscopy as above. She does report some rectal bleeding. She also reports an episode of something that prolapses out of her vagina. It was quite painful and she had to manually push it back in. I asked that we first go to the bathroom so she could Valsalva and see if we could retreat this prolapse but she declines PAST MEDICAL HISTORY Diagnosis Date Asthma GERD (gastroesophageal reflux disease) PAST SURGICAL HISTORY Procedure Laterality Date PAST SURGICAL HISTORY OF 10/01/2000 incisional hernia PAST SURGICAL HISTORY OF 10/01/2003 incisional hernia PAST SURGICAL HISTORY OF 10/01/2003 bilat ovarian cyst PAST SURGICAL HISTORY OF PAST SURGICAL HISTORY OF 10/01/2004 incisional hernia PAST SURGICAL HISTORY OF 10/01/2006 recurrent incisional hernia, mesh removal PAST SURGICAL HISTORY OF 10/01/1997 umbilical hernia, abominoplasty PAST SURGICAL HISTORY OF 10/01/1993 TOTAL ABDOM HYSTERECTOMY Current Outpatient Medications Medication Sig Dispense Refill oxyCODONE IR (ROXICODONE) 5 mg immediate release tablet Take 1 tablet by mouth every 8 hours as needed for pain (for pain not relieved by Tylenol/Motrin). 10 tablet 0 albuterol (PROVENTIL) 2.5 mg /3 mL (0.083 %) nebulizer solution Use 3 mL via nebulizer four times daily as needed for wheezing/shortness of breath. Inhale by nebulizer over 5-15 minutes 300 mL 0 Nebulizer and Compressor For Neb 1 Each every 4 hours as needed. 1 Each 0 albuterol HFA (PROAIR HFA) 90 mcg/actuation inhaler 1-2 puffs every 4-6 hours as needed for wheezing, shortness of breath 18 g 2 montelukast (SINGULAIR) 10 mg tablet Take 1 tablet by mouth daily at bedtime. 90 tablet 0 omeprazole (PRILOSEC) 20 mg capsule Take 1 capsule by mouth once daily. 90 capsule 0 sertraline (ZOLOFT) 50 mg tablet Take 1 tablet by mouth once daily. 90 tablet 0 No current facility-administered medications for this visit. ALLERGIES Allergen Reactions Cipro [Ciprofloxaci* Rash FAMILY HISTORY Problem Relation Age of Onset COPD Mother Diabetes Mother Diabetes Father Social History Tobacco Use Smoking status: Some Days Types: Cigarettes, Pipe Last attempt to quit: 05/22/2022 Years since quittin.6 Smokeless tobacco: Never Tobacco comments: vape Vaping Use Vaping Use: current everyday user Substance Use Topics Alcohol use: Yes Comment: rare Drug use: Yes Frequency: 7.0 times per week Types: Marijuana Comment: marijuana daily Physical Exam: There were no vitals taken for this visit. General Appearance: Well appearing, alert, in no acute distress, well-hydrated, well nourished. Anorectal: External exam reveals no lesions. Digital rectal exam reveals no gross blood or masses Forensic Photographer present: Yes, Gianna Gusman Anoscopy: The patient was placed in chest-knee position. After digital exam with a lubricated finger, the scope was easily inserted. Moderately enlarged right posterior, right anterior, and left lateral internal hemorrhoids were noted. Otherwise normal mucosa was noted. Anoscopy completed. Preoperative diagnosis: First to second degree hemorrhoids. Procedure: Anoscopy, rubber band ligation of hemorrhoids. Postoperative diagnosis: Same Indications: This 57 year old was found to have internal hemorrhoids that were not suitable for conservative management. Description of procedure: The patient was placed in the chest-knee position. A time out was completed. A digital rectal exam was performed. A lubricated anoscope was inserted into the anal canal. The three hemorrhoidal pedicles were identified and the redundant rectal mucosa just above the largest internal hemorrhoids (right anterior, right posterior, left lateral) suctioned. Using the applicator, 2 rubber bands were placed around the tissue and were noted to be in good position. The mucosa was inspected for bleeding prior to withdrawal of the anoscope. The patient tolerated the procedure well with no excessive pain. Following the procedure, patient began to complain of worsening pain and pressure. She asked that the bands be removed. Endoscopy was repeated in the left lateral and right anterior bands were removed. The right posterior bands were able to be moved more superficially onto the hemorrhoid but it was challenging to completely remove them. At this point she said her pain had completely resolved and she was fine leaving this band on Assessment Assessment and Plan: Valeria Romero is a 57 year old female with symptomatic bleeding internal hemorrhoids status post rubber band ligation of 3 hemorrhoids and removal of band from 2 of the hemorrhoids due to excessive pain and pressure. We talked about psyllium fiber supplementation as well as increasing water intake. She also wishes to see someone for the vaginal prolapse and so I referred her to Dr. Peralta. She will return to see me as needed Medical Decision Making: Data Reviewed: Tests & Documents Reviewed/ordered: Review of prior operative reports Review of Imaging: CT Abdomen, CT Pelvis Review of Labs: CBC, BMP I have independently interpreted: CT Abdomen, CT Pelvis Risk of morbidity, mortality and/or complications of treatment plan: hola Reyna MD Colorectal Surgery documented in this encounter [facility] 12-27-2022 Procedure note [facility] 06-29-2022 Note HNO ID: [id number] Author: Collette Figueroa Service: Radiology Author Type: Traffic Engineer Type: Progress Notes Filed: 06/29/2022 12:24 PM Note Text: Radiology Service Progress Note PATIENT NAME: Valeria Romero DATE OF SERVICE: June 29, 2022 TIME: 12:18 PM PATIENT IDENTITY VERIFICATION COMPLETED USING TWO (2) IDENTIFIERS: Name and Date of confirmed by patient verbally. FALL SCREENING: Has the patient had 2 falls in the last year or 1 fall with injury or currently using an Ambulatory Assistive Device (Walker, Cane, Wheelchair, Crutches, etc.)? No PATIENT GENDER DATA: Female. status: : No status: NO. PATIENT RELEVANT IMPLANT DATA REVIEWED: Yes RADIOLOGY DEPARTMENT: CT; Exam(s) Completed: Abdomen/Pelvis PERIPHERAL IV DATA: Not applicable SIGNED BY: Collette Figueroa June 29, 2022 12:18 PM [facility] 06-29-2022 History of Presen t illness Narrative Radiology Service Progress Note PATIENT NAME: Valeria Romero DATE OF SERVICE: June 29, 2022 TIME: 12:18 PM PATIENT IDENTITY VERIFICATION COMPLETED USING TWO (2) IDENTIFIERS: Name and Date of confirmed by patient verbally. FALL SCREENING: Has the patient had 2 falls in the last year or 1 fall with injury or currently using an Ambulatory Assistive Device (Walker, Cane, Wheelchair, Crutches, etc.)? No PATIENT GENDER DATA: Female. status: : No status: NO. PATIENT RELEVANT IMPLANT DATA REVIEWED: Yes RADIOLOGY DEPARTMENT: CT; Exam(s) Completed: Abdomen/Pelvis PERIPHERAL IV DATA: Not applicable SIGNED BY: Collette Figueroa June 29, 2022 12:18 PM documented in this encounter [facility] 06-29-2022 Note HNO ID: [id number] Author: Pedro Walsh MD Service: ? Author Type: Physician Type: Progress Notes Filed: 06/29/2022 4:16 PM Note Text: [facility] - Postoperative visit HPI: Silvia Galo is a 57 y/o F with a PMH of asthma, depression/anxiety, GERD who presented on 06/06/22 for a ventral hernia repair with mesh by Dr. Walsh (Bilateral TAR), she had a non eventful hospital stay and was discharge POD 3. She is here today for her first postoperative visit. Patient is doing ok, eating and drinking well, a week ago she started feeling a lump on the right lower part of her midline incision with pain especially with activity. On examination abdomen is soft, non tender, non distended, with a SQ tissue bulge in the right lower part of the midline incision. PAST MEDICAL HISTORY Diagnosis Date Asthma GERD (gastroesophageal reflux disease) PAST SURGICAL HISTORY Procedure Laterality Date PAST SURGICAL HISTORY OF 10/01/2000 incisional hernia PAST SURGICAL HISTORY OF 10/01/2003 incisional hernia PAST SURGICAL HISTORY OF 10/01/2003 bilat ovarian cyst PAST SURGICAL HISTORY OF PAST SURGICAL HISTORY OF 10/01/2004 incisional hernia PAST SURGICAL HISTORY OF 10/01/2006 recurrent incisional hernia, mesh removal PAST SURGICAL HISTORY OF 10/01/1997 umbilical hernia, abominoplasty PAST SURGICAL HISTORY OF 10/01/1993 TOTAL ABDOM HYSTERECTOMY Social History Tobacco Use Smoking status: Some Days Types: Cigarettes, Pipe Last attempt to quit: 05/22/2022 Years since quittin.1 Smokeless tobacco: Never Tobacco comments: vape Vaping Use Vaping Use: current everyday user Substance Use Topics Alcohol use: Yes Comment: rare Drug use: Yes Frequency: 7.0 times per week Types: Marijuana Comment: marijuana daily Additional social history not relevant to the patient's HPI FAMILY HISTORY Problem Relation Age of Onset COPD Mother Diabetes Mother Diabetes Father Additional family history not relevant to the patient's HPI ALLERGIES Allergen Reactions Cipro [Ciprofloxaci* Rash Current Outpatient Medications Medication Sig Dispense Refill oxyCODONE IR (ROXICODONE) 5 mg immediate release tablet Take 1 tablet by mouth every 8 hours as needed for pain (for pain not relieved by Tylenol/Motrin). 10 tablet 0 albuterol (PROVENTIL) 2.5 mg /3 mL (0.083 %) nebulizer solution Use 3 mL via nebulizer four times daily as needed for wheezing/shortness of breath. Inhale by nebulizer over 5-15 minutes 300 mL 0 Nebulizer and Compressor For Neb 1 Each every 4 hours as needed. 1 Each 0 albuterol HFA (PROAIR HFA) 90 mcg/actuation inhaler 1-2 puffs every 4-6 hours as needed for wheezing, shortness of breath 18 g 2 montelukast (SINGULAIR) 10 mg tablet Take 1 tablet by mouth daily at bedtime. 90 tablet 0 omeprazole (PRILOSEC) 20 mg capsule Take 1 capsule by mouth once daily. 90 capsule 0 sertraline (ZOLOFT) 50 mg tablet Take 1 tablet by mouth once daily. 90 tablet 0 No current facility-administered medications for this visit. BP 109/62 Pulse 76 Temp (!) 35.9 ?C (96.6 ?F) (Temporal) Resp 14 Ht 157.5 cm (5' 2 ) Wt 78 kg (172 lb) BMI 31.46 kg/m? Physical findings of this patient are as follows (COMPLETE 10 INCLUDING HEART AND LUNG EXAM OR CHOOSE NORMAL EXAM IF APPROPRIATE): Physical Exam Physical Exam Constitutional: The patient is well-developed, well-nourished, and in no distress. Head: Normocephalic and atraumatic. Eyes: Pupils are equal, round, and reactive to light. EOM are normal. Neck: Normal range of motion. Neck supple. Cardiovascular: Regular rhythm and normal heart sounds. Pulmonary/Chest: Effort normal and breath sounds normal. Abdominal: See HPI Musculoskeletal: Normal range of motion. Neurological: He is alert. GCS score is 15. Skin: Skin is warm and dry. Psychiatric: Affect and judgment normal. LABS: No results found for: HBA1C IMAGING - Reviewed with staff CT - Ordered Assessment: Silvia Galo is a 57 y/o F with a PMH of asthma, depression/anxiety, GERD who presented on 06/06/22 for a ventral hernia repair with mesh by Dr. Walsh (Bilateral TAR), she had a non eventful hospital stay and was discharge POD 3. She is here today for her first postoperative visit. Where she was found to have lump on the right lower part of her midline incision with pain especially with activity. Plan: - CT A/P Leonard Ivey MD General Surgery Resident Attending Note I evaluated the patient and personally participated in the parham components. I agree with the resident's findings and plan as documented and have discussed the case and management of the patient's care with the resident. I suspect she has a seroma. CT today. Signature: Pedro Walsh MD Date: 06/29/2022 Time: 1:01 PM [facility] 06-29-2022 History of Presen t illness Narrative [facility] - Postoperative visit HPI: Silvia Galo is a 57 y/o F with a PMH of asthma, depression/anxiety, GERD who presented on 06/06/22 for a ventral hernia repair with mesh by Dr. Walsh (Bilateral TAR), she had a non eventful hospital stay and was discharge POD 3. She is here today for her first postoperative visit. Patient is doing ok, eating and drinking well, a week ago she started feeling a lump on the right lower part of her midline incision with pain especially with activity. On examination abdomen is soft, non tender, non distended, with a SQ tissue bulge in the right lower part of the midline incision. PAST MEDICAL HISTORY Diagnosis Date Asthma GERD (gastroesophageal reflux disease) PAST SURGICAL HISTORY Procedure Laterality Date PAST SURGICAL HISTORY OF 10/01/2000 incisional hernia PAST SURGICAL HISTORY OF 10/01/2003 incisional hernia PAST SURGICAL HISTORY OF 10/01/2003 bilat ovarian cyst PAST SURGICAL HISTORY OF PAST SURGICAL HISTORY OF 10/01/2004 incisional hernia PAST SURGICAL HISTORY OF 10/01/2006 recurrent incisional hernia, mesh removal PAST SURGICAL HISTORY OF 10/01/1997 umbilical hernia, abominoplasty PAST SURGICAL HISTORY OF 10/01/1993 TOTAL ABDOM HYSTERECTOMY Social History Tobacco Use Smoking status: Some Days Types: Cigarettes, Pipe Last attempt to quit: 05/22/2022 Years since quittin.1 Smokeless tobacco: Never Tobacco comments: vape Vaping Use Vaping Use: current everyday user Substance Use Topics Alcohol use: Yes Comment: rare Drug use: Yes Frequency: 7.0 times per week Types: Marijuana Comment: marijuana daily Additional social history not relevant to the patient's HPI FAMILY HISTORY Problem Relation Age of Onset COPD Mother Diabetes Mother Diabetes Father Additional family history not relevant to the patient's HPI ALLERGIES Allergen Reactions Cipro [Ciprofloxaci* Rash Current Outpatient Medications Medication Sig Dispense Refill oxyCODONE IR (ROXICODONE) 5 mg immediate release tablet Take 1 tablet by mouth every 8 hours as needed for pain (for pain not relieved by Tylenol/Motrin). 10 tablet 0 albuterol (PROVENTIL) 2.5 mg /3 mL (0.083 %) nebulizer solution Use 3 mL via nebulizer four times daily as needed for wheezing/shortness of breath. Inhale by nebulizer over 5-15 minutes 300 mL 0 Nebulizer and Compressor For Neb 1 Each every 4 hours as needed. 1 Each 0 albuterol HFA (PROAIR HFA) 90 mcg/actuation inhaler 1-2 puffs every 4-6 hours as needed for wheezing, shortness of breath 18 g 2 montelukast (SINGULAIR) 10 mg tablet Take 1 tablet by mouth daily at bedtime. 90 tablet 0 omeprazole (PRILOSEC) 20 mg capsule Take 1 capsule by mouth once daily. 90 capsule 0 sertraline (ZOLOFT) 50 mg tablet Take 1 tablet by mouth once daily. 90 tablet 0 No current facility-administered medications for this visit. BP 109/62 Pulse 76 Temp (!) 35.9 C (96.6 F) (Temporal) Resp 14 Ht 157.5 cm (5' 2 ) Wt 78 kg (172 lb) BMI 31.46 kg/m Physical findings of this patient are as follows (COMPLETE 10 INCLUDING HEART AND LUNG EXAM OR CHOOSE NORMAL EXAM IF APPROPRIATE): Physical Exam Physical Exam Constitutional: The patient is well-developed, well-nourished, and in no distress. Head: Normocephalic and atraumatic. Eyes: Pupils are equal, round, and reactive to light. EOM are normal. Neck: Normal range of motion. Neck supple. Cardiovascular: Regular rhythm and normal heart sounds. Pulmonary/Chest: Effort normal and breath sounds normal. Abdominal: See HPI Musculoskeletal: Normal range of motion. Neurological: He is alert. GCS score is 15. Skin: Skin is warm and dry. Psychiatric: Affect and judgment normal. LABS: No results found for: HBA1C IMAGING - Reviewed with staff CT - Ordered Assessment: Silvia Galo is a 57 y/o F with a PMH of asthma, depression/anxiety, GERD who presented on 06/06/22 for a ventral hernia repair with mesh by Dr. Walsh (Bilateral TAR), she had a non eventful hospital stay and was discharge POD 3. She is here today for her first postoperative visit. Where she was found to have lump on the right lower part of her midline incision with pain especially with activity. Plan: - CT A/P Leonard Ivey MD General Surgery Resident Attending Note I evaluated the patient and personally participated in the parham components. I agree with the resident's findings and plan as documented and have discussed the case and management of the patient's care with the resident. I suspect she has a seroma. CT today. Signature: Pedro Walsh MD Date: 06/29/2022 Time: 1:01 PM documented in this encounter [facility] 06-12-2022 Miscellaneous Notes [facility] called the pt and left message with name and number asking for a return call. documented in this encounter [facility] 06-12-2022 Miscellaneous Notes BEHAVIORAL HEALTH SOCIAL WORK CONSULT NOTE Service Date: June 12, 2022 Patient was identified by name and Patient: Valeria Romero [address] [place] [address] [address] [facility] [address] (home) [phone] (cell) PCP: No primary care provider on file. No primary provider on file. Assessment: SW spoke with pt about getting connected with mental health services. Pt declined assistance. Medications: Current Outpatient Medications on File Prior to Visit Medication Sig cyclobenzaprine (FLEXERIL) 5 mg tablet Take 1 tablet by mouth three times daily as needed for up to 10 days. acetaminophen (TYLENOL) 500 mg tablet Take 2 tablets by mouth every 6 hours as needed for pain for up to 7 days. oxyCODONE IR (ROXICODONE) 5 mg immediate release tablet Take 1 tablet by mouth every 6 hours as needed for up to 5 days. oxyCODONE IR (ROXICODONE) 5 mg immediate release tablet Take 1 tablet by mouth every 8 hours as needed for pain (for pain not relieved by Tylenol/Motrin). albuterol (PROVENTIL) 2.5 mg /3 mL (0.083 %) nebulizer solution Use 3 mL via nebulizer four times daily as needed for wheezing/shortness of breath. Inhale by nebulizer over 5-15 minutes Nebulizer and Compressor For Neb 1 Each every 4 hours as needed. albuterol HFA (PROAIR HFA) 90 mcg/actuation inhaler 1-2 puffs every 4-6 hours as needed for wheezing, shortness of breath montelukast (SINGULAIR) 10 mg tablet Take 1 tablet by mouth daily at bedtime. omeprazole (PRILOSEC) 20 mg capsule Take 1 capsule by mouth once daily. sertraline (ZOLOFT) 50 mg tablet Take 1 tablet by mouth once daily. No current facility-administered medications on file prior to visit. Curbside: No Screening Tools: No Substance Use / Abuse: No Outcome / Plan / Referrals: Internal Referrals : No Reason for External Referrals : N/A Intervention: Supportive Listening Education Resources Provided: Patient declined option for recommendations Time Spent: 15 minutes VON Bhatia-S documented in this encounter [facility] 06-09-2022 Note HNO ID: [id number] Author: Eve Anne MD Service: General Surgery Author Type: Fellow Type: Progress Notes Filed: 06/14/2022 10:29 AM Note Text: [facility] - Clinic Visit HPI: Valeria Romero is a 57 year old female who presents 1 week following a bilateral TAR for an incisional ventral hernia on 06/06/22. Her right REYNALDO was left in place at discharge due to high output. Today in clinic she is doing well. She had incisional pain after discharge, for which she was taking opioids. Her pain has improved and she is no longer taking pain meds. She is tolerating a diet, having bowel movements. Her incision is healing well without signs of infection. He REYNALDO output has decreased significantly, minimal output of the past few days. She is doing some walking and refraining from heavy lifting. She is not back at work. BP (!) 113/47 Pulse 97 Temp 37.2 ?C (99 ?F) (Oral) Resp 16 Ht 152.4 cm (5') Wt 85 kg (187 lb 6.3 oz) SpO2 96% BMI 36.60 kg/m? Physical Exam Relevant Hernia Findings - Well healed midline scar with glue. No drainage or signs of infection. Right REYNALDO drain removed today. Plan: No concerns 1 week s/p TAR. REYNALDO drain removed. No heavy lifting until 4 weeks post-op. Return to work when ready. Follow-up in ~3-4 weeks for post-op check. Eve Anne MD 06/14/22, 10:22 AM General Surgery Fellow - Abdominal Wall Reconstruction [facility] 06-08-2022 Note HNO ID: [id number] Author: Andree Chavez RN Service: Care Management Author Type: Registered Nurse Type: Care Mgt Initial Assessment Filed: 06/08/2022 3:32 PM Note Text: CARE MANAGEMENT: ASSESSMENT AND DISCHARGE PLAN SERVICE DATE: June 08, 2022 SERVICE TIME: 3:30 PM PRIMARY CARE PHYSICIAN: No primary care provider on file. Phone: None Primary Contact: Extended Emergency Contact Information Primary Emergency Contact: ISIDORO ROMERO Address: [address] [address] Relation: Spouse ADMISSION STATUS: Inpatient Insurance Provider: [place] NEEDS PRIOR TO DISCHARGE No skilled needs POTENTIAL TRANSITION PLANS Home with self care and family support Patient's perception of need for this admission: planned procedure ADVANCE DIRECTIVES Current Advance Directive: None Raw Products Director Attempted to Assist with AD Completion: Yes Action: Education Provided MS/BEHAVIOR Baseline Mental Status Prior to this Illness what was the patient's Baseline Mental Status?: Alert AND Oriented Prior to this illness, has anyone described the patient having any of the following behaviors?: Disturbed Sleep;Agitation Relationship of the informant to the patient:: Self READMISSION Last Discharge Date: 04/18/22 Is this Within the Past 30 days? PATIENT SCREEN CAREGIVER ASSESSMENT MEDICAL SOCIAL Food Insecurity: Not on file Financial Resource Strain: Not on file Transportation Needs: Not on file Housing Stability: Not on file BEHAVIORAL/COGNITIVE FUNCTIONAL How do you manage to accomplish the following: Independent: Ambulation;Bathe/Shower;Going to the bathroom;Transportation to appointments/community;Meals/Me al Prep;Dress;Medication Management Services/Needs//Equipment Does Patient Currently Receive Any Community Services or Home Care?: None Equipment Prior to Admission: None No medical discharge barriers identified at this time. No social discharge barriers identified at this time. No behavioral/cognitive discharge barriers identified at this time. No functional discharge barriers identified at this time. FREEDOM OF CHOICE EXPLAINED: NO SKILLED HOME CARE NEEDS ASSESSMENT AND PLAN: Independent at home will transport This patient has been screened for Care Management Transitional Planning Services. At this time, it does not appear this patient will require transition planning services. Should this change, and the patient require transition planning services during this admission, please contact Case Management. SIGNATURE: Andree Chavez RN PATIENT NAME: Valeria Romero DATE: June 08, 2022 TIME: 3:30 PM CONTACT #: [phone] [facility] 06-08-2022 Note HNO ID: [id number] Author: Herminia Chance APRN.ETL TESTER Service: General Surgery Author Type: Nurse Practitioner Type: Progress Notes Filed: 06/08/2022 7:09 AM Note Text: SERVICE DATE: 06/08/2022 SERVICE TIME: 7:08 AM GENERAL SURGERY SERVICE PROGRESS NOTE POD 2 ventral hernia repair, resection of old mesh by Dr. Walsh Subjective INTERVAL HPI: C/o abdominal bloating. No flatus since yesterday, no BM yet. Denies nausea or emesis. Pain and muscle spasms have improved from yesterday. Objective BP 112/78 Pulse 79 Temp (Src) 99.3 (Oral) Resp 20 Ht 5' 0 (1.52m) Wt 187 lb 6.3 oz (85.0kg) SpO2 95% BMI 36.60 kg/(m2). O2 Therapy: Room Air Date 06/07/22 07 - 06/08/22 0659 06/08/22 0700 - 06/09/22 0659 Shift 0471-3850 5448-9617 7300-5776 24 Hour Total 5434-3163 6859-3737 3699-2717 24 Hour Total INTAKE PO 480 480 PO 480 480 IV 600 492 658 5973 Volume (mL) (lactated ringers iv infusion) 600 573 730 3149 Shift Total 1080 350 894 5595 OUTPUT Urine 300 600 900 Output ( Indwelling Urinary Catheter 06/06/22 1044 Assessment Scott 16 Fr) 300 600 900 Tubes 110 80 190 Drain/Tube Output (Drain/Tube 06/06/22 1349 Assessment Jaspal Burgess Left Upper Quadrant Abdomen Drain #1) 40 30 70 Drain/Tube Output (Drain/Tube 06/06/22 1351 Assessment Jaspal Burgess Right Upper Quadrant Abdomen Drain #2) 70 50 120 # of BMs Number of BMs 0 x 0 x Shift Total 577 054 7946 Weight (kg) 85 85 85 85 85 85 85 85 Lines, Drains, and Airways Line Duration Peripheral 06/06/22 1009 Short Left Hand 18 Gauge 1 day Drain Duration Drain/Tube 06/06/22 1349 Assessment Jaspal Burgess Left Upper Quadrant Abdomen Drain #1 1 day Drain/Tube 06/06/22 1351 Assessment Jaspal Burgess Right Upper Quadrant Abdomen Drain #2 1 day Indwelling Urinary Catheter 06/06/22 1044 Assessment Scott 16 Fr 1 day PHYSICAL EXAM GENERAL: A+Ox3. No acute distress. Anxiety improving. SKIN: Skin color, texture, turgor normal HEAD: Normocephalic and atraumatic LUNGS: Non- Labored breathing on room air. CARDIAC: Regular rate. ABDOMEN: Abdomen softly distended. Appropriately tender. JPx2 SS. INCISIONS: Clean, dry and intact EXTREMITIES: Warm, no lower extremity edema Assessment AND Plan Active Hospital Problems as of 06/08/2022 Noted - Resolved POA Hospital Asthma 05/30/2022 - Present Yes Current Assessment AND Plan Assessment: Per PMHx. No respiratory distress on visit. Breathing comfortably on room air. HDS. PLAN: - Minimize use of O2. - RT consult - PEP - IS use - 10 breaths an hour every hour while awake. - Scheduled Duonebs q6h - Home Singulair re-started S/P hernia repair 06/07/2022 - Present No Current Assessment AND Plan Assessment: POD2 from repair. Was advanced to GIS yesterday. Some abdominal bloating. States she passed gas yesterday, no flatus or BM today. Up to chair and ambulating yesterday. PLAN: - Ok to continue GIS. Advised patient to go slowly with diet and if nausea/emesis or worsening of bloating, will decrease diet. - Discontinue scott - MMP regimen - Strict I/Os - OOB to chair, ambulating today - Encourage IS use - Minimize use of O2 - PT/OT consults - Keep JPs to bulb suction - Dispo: RNF. No needs anticipated on discharge. Post-op pain 06/07/2022 - Present No Current Assessment AND Plan Assessment: No acute distress noted. Reports muscle spasms have improved with use of Flexeril. States she feels better today. PLAN: - D/C Dilaudid TRUCK UNLOADER - Scheduled Tylenol, Flexeril, Gabapentin. Monitor for over-sedation - PRN oxycodone 5mg q4h PO available. - Encourage non pharmacological pain interventions Hyperkalemia 06/07/2022 - Present No Current Assessment AND Plan Assessment: 5.1 today. PLAN: - Continue to trend BMPs while in house Anxiety 06/07/2022 - Present Unknown Current Assessment AND Plan Assessment: Mood improved today. Less anxious. PLAN: - Continue home Zoloft 50mg PO daily - Healing services consult placed. Medication and Non-Pharmacologic VTE Prophylaxis/Anticoagulants Anticoagulant AND Antiplatelet Medications (From admission, onward) Start Dose Route Frequency Last Action Ordered Stop 06/06/22 2100 enoxaparin 40 mg injection (LOVENOX) (Surgical Risk Categories) 40 mg SUBCUTANEOUS EVERY 24 HOURS Given, 06/07 231006/06/22 183 -- 06/06/22 184 pneumatic compression stockings ([place]) 06/06/22 184 activity - mobilize patient ([place]) VTE Prophylaxis: VTE prophylaxis appropriate Plan of care discussed with: Provider, RN, Patient and Care Management SIGNATURE: Herminia Chance APRN.ETL TESTER PATIENT NAME: Valeria Romero DATE: June 08, 2022 TIME: 7:08 AM [facility] 06-07-2022 History of Past i llness Narrative Problem Noted Date Resolved Date Hyperkalemia 06/07/2022 06/09/2022 Last Assessment & Plan: Assessment: 5.1 today. PLAN: - Continue to trend BMPs while in house Incisional hernia of anterio r abdominal wall without obstruction or gangrene 06/06/2022 06/07/2022 documented as of this encounter (statuses as of 06/09/2022) [facility]09[facility]07[facility]2022 History of Past illness Narrative* Problem Noted Date Resolved Date Hyperkalemia 06/07/2022 06/09/2022 Last Assessment & Plan: Assessment: 5.1 today. PLAN: - Continue to trend BMPs while in house Incisional hernia of anterio r abdominal wall without obstruction or gangrene 06/06/2022 06/07/2022 documented as of this encounter (statuses as of 06/12/2022) [facility] History of Past illness Narrative* Problem Noted Date Resolved Date Hyperkalemia 06/07/2022 06/09/2022 Last Assessment & Plan: Assessment: 5.1 today. PLAN: - Continue to trend BMPs while in house Incisional hernia of anterio r abdominal wall without obstruction or gangrene 06/06/2022 06/07/2022 documented as of this encounter (statuses as of 06/12/2022) [facility] History of Past illness Narrative* Problem Noted Date Resolved Date Hyperkalemia 06/07/2022 06/09/2022 Last Assessment & Plan: Assessment: 5.1 today. PLAN: - Continue to trend BMPs while in house Incisional hernia of anterio r abdominal wall without obstruction or gangrene 06/06/2022 06/07/2022 documented as of this encounter (statuses as of 06/29/2022) [facility] History of Past illness Narrative* Problem Noted Date Resolved Date Hyperkalemia 06/07/2022 06/09/2022 Last Assessment & Plan: Assessment: 5.1 today. PLAN: - Continue to trend BMPs while in house Incisional hernia of anterio r abdominal wall without obstruction or gangrene 06/06/2022 06/07/2022 documented as of this encounter (statuses as of 06/30/2022) [facility] History of Past illness Narrative* Problem Noted Date Resolved Date Hyperkalemia 06/07/2022 06/09/2022 Last Assessment & Plan: Assessment: 5.1 today. PLAN: - Continue to trend BMPs while in house Incisional hernia of anterio r abdominal wall without obstruction or gangrene 06/06/2022 06/07/2022 documented as of this encounter (statuses as of 06/30/2022) [facility] History of Past illness Narrative* Problem Noted Date Resolved Date Hyperkalemia 06/07/2022 06/09/2022 Last Assessment & Plan: Assessment: 5.1 today. PLAN: - Continue to trend BMPs while in house Incisional hernia of anterio r abdominal wall without obstruction or gangrene 06/06/2022 06/07/2022 documented as of this encounter (statuses as of 01/19/2023) [facility]22 NoteHNO ID: [id number] Author: Herminia Chance APRN.ETL TESTER Service: General Surgery Author Type: Nurse Practitioner Type: Progress Notes Filed: 06/07/2022 8:50 AM Note Text: SERVICE DATE: 06/07/2022 SERVICE TIME: 8:49 AM GENERAL SURGERY SERVICE PROGRESS NOTE POD 1- ventral hernia repair with mesh, resection of old mesh - Dr. Walsh Subjective INTERVAL HPI: C/o muscle spasms s/p hernia repair. Using TRUCK UNLOADER. Denies nausea, vomiting. Reports she has passed flatus but no BM. Highly anxious regarding advancement of her diet. Objective BP 105/56 Pulse 78 Temp (Src) 98.2 (Oral) Resp 16 Ht 5' 0 (1.52m) Wt 187 lb 6.3 oz (85.0kg) SpO2 91% BMI 36.60 kg/(m2). O2 Therapy: Room Air Date 06/06/22 07 - 06/07/22 0659 06/07/22 07 - 06/08/22 0659 Shift 5090-2155 0485-4432 7046-2100 24 Hour Total 7558-6369 7793-6585 2004-8296 24 Hour Total INTAKE PO 100 200 300 PO 100 200 300 IV 2400 225 1475 4100 Volume (mL) (dextrose 10% iv bolus) 250 250 Volume (mL) (lactated ringers iv infusion) 1000 1000 Volume (mL) (lactated ringers iv infusion) 1400 1400 Volume (mL) (lactated ringers iv infusion) 225 1225 1450 Shift Total 2400 325 1675 4400 OUTPUT Urine 940 2639 162 0152 OR Urine Output 940 940 Output ( Indwelling Urinary Catheter 06/06/22 1044 Assessment Scott 16 Fr) 8712 897 9784 Tubes 195 90 285 Drain/Tube Output (Drain/Tube 06/06/22 1349 Assessment Jaspal Burgess Left Upper Quadrant Abdomen Drain #1) 110 50 160 Drain/Tube Output (Drain/Tube 06/06/22 1351 Assessment Jaspal Burgess Right Upper Quadrant Abdomen Drain #2) 85 40 125 Blood 100 100 Estimated Blood loss 100 100 Shift Total 1040 4557 192 7747 Weight (kg) 85 85 85 85 85 85 85 Lines, Drains, and Airways Line Duration Peripheral 06/06/22 1009 Short Left Hand 18 Gauge <1 day Peripheral 06/06/22 1042 Right Hand 18 Gauge <1 day Drain Duration Drain/Tube 06/06/22 1349 Assessment Jaspal Burgess Left Upper Quadrant Abdomen Drain #1 <1 day Drain/Tube 06/06/22 1351 Assessment Jaspal Burgess Right Upper Quadrant Abdomen Drain #2 <1 day Indwelling Urinary Catheter 06/06/22 1044 Assessment Scott 16 Fr <1 day PHYSICAL EXAM GENERAL: A+Ox3. Upset over not being able to eat regular food. SKIN: Skin color, texture, turgor normal HEAD: Normocephalic and atraumatic LUNGS: Non- Labored breathing on room air. CARDIAC: Regular rate. ABDOMEN: Abdomen soft, appropriately tender, mildly distended. INCISIONS:Initial post op dressing intact. JPx2 SS. EXTREMITIES: Warm, no lower extremity edema Assessment AND Plan Active Hospital Problems as of 06/07/2022 Noted - Resolved POA Hospital Asthma 05/30/2022 - Present Yes Current Assessment AND Plan Assessment: Per PMHx. No respiratory distress on visit. 91% on RA, discussed IS use. PLAN: - Wean O2, minimize use - RT consult - PEP - IS use - 10 breaths an hour every hour while awake. - Scheduled Duonebs q6h - Home Singulair re-started S/P hernia repair 06/07/2022 - Present No Current Assessment AND Plan Assessment: POD1 from repair. No nausea or vomiting. Reports she is passing flatus no BM. Good UOP. PLAN: - Advance to [facility] with limited 1L PO intake. Advised patient to go slowly. Avoid carbonation. Discussed with patient the timeline of advancing diet. - MMP regimen - Strict I/Os - OOB to chair, ambulating today - Encourage IS use - Minimize use of O2 - PT/OT consults - Dispo: RNF Post-op pain 06/07/2022 - Present No Current Assessment AND Plan Assessment: C/o muscle spasms around incision site. Using TRUCK UNLOADER. 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 Monitor for over-sedation - Encourage non pharmacological pain interventions Hyperkalemia 06/07/2022 - Present No Current Assessment AND Plan Assessment: K+ 5.4 overnight. Received K+ cocktail x1. EKG shows NSR. PLAN: - Follow up on repeat K+ Anxiety 06/07/2022 - Present Unknown Current Assessment AND Plan Assessment: Anxious appearing. Emotional support, educated provided at bedside regarding post op plan. PLAN: - Continue home Zoloft 50mg PO daily - Healing services consult placed. Medication and Non-Pharmacologic VTE Prophylaxis/Anticoagulants Anticoagulant AND Antiplatelet Medications (From admission, onward) Start Dose Route Frequency Last Action Ordered Stop 06/06/222099 enoxaparin 40 mg injection (LOVENOX) (Surgical Risk Categories) 40 mg SUBCUTANEOUS EVERY 24 HOURS Given, 06/06 202806/06/22 1832 -- 06/06/22 184 pneumatic compression stockings (fl,oh) 06/06/22 1845 activity - mobilize patient ([place]) VTE Prophylaxis: VTE prophylaxis appropriate Plan of care discussed with: Provider, RN, Patient and Care Management SIGNATURE: Herminia Chance APRN.KELLI PATIENT NAME: Valeria Romero DATE: June 07, 2022 TIME: 8:49 [facility]09-07-2022 NoteHNO ID: [id number] Author: Radha Medina RN Service: Nursing Author Type: Registered Nurse Type: Nursing Progress Note Filed: 06/07/2022 1:46 AM Note Text: LIP notified of Potassium 5.4.[facility]09-06-2022 NoteHNO ID: [id number] Author: Lara Moctezuma RN Service: ? Author Type: Registered Nurse Type: Nursing Progress Note Filed: 06/06/2022 6:02 PM Note Text: Other: Educated patient on leaving oxygen in nose when she has the TRUCK UNLOADER pump.[facility]09-06-2022 NoteHNO ID: [id number] Author: Belkis Benitez APRN.APPOINTMENT MANAGER Service: ? Author Type: Nurse Telecom Engineer Type: Anesthesia Procedure Notes Filed: 06/06/2022 11:07 AM Note Text: ANESTHESIOLOGY PROCEDURE NOTE Airway General Information Procedure Start Time/Medication Administration: 06/06/2022 10:39 AM Procedure End Time: 06/06/2022 10:40 AM Patient location during procedure: OR Timeout Performed Pre-procedure: timeout performed Consent Obtained: Yes Patient identity confirmed: arm band and patient sedated or unresponsive Staffing Anesthesiologist: Jose Manuel Martinez MD Performed by: anesthesiologist Indications and Patient Condition Indications for airway management: anesthesia Preoxygenated: yes anesthesia circuit Patient position: sniffing Method: asleep Difficult Mask: No Final Airway Details Final airway type: endotracheal airway Final Endotracheal Airway: ETT Cuffed: yes Successful intubation technique: direct laryngoscopy Endotracheal tube insertion site: oral Blade: Ever Blade size: #3 ETT size (mm): 7.0 Measured from: lips Measurement (cm): 22 Placement verified by: chest auscultation and capnometry Cormack-Lehane Classification: grade I - full view of glottis Number of attempts at approach: 1 Airway not difficult SIGNATURE: Belkis Benitez APRN.CRNA PATIENT NAME: Valeria Romero DATE: June 06, 2022 TIME: 11:06 AM CSN: [id number]22 NoteHNO ID: [id number] Author: Belkis Benitez APRN.APPOINTMENT MANAGER Service: ? Author Type: Nurse Telecom Engineer Type: Anesthesia Procedure Notes Filed: 06/06/2022 2:24 PM Note Text: ANESTHESIOLOGY PROCEDURE NOTE PIV General Information Procedure Start Time/Medication Administration: 06/06/2022 10:42 AM Patient Location: OR Staffing APPOINTMENT MANAGER: Belkis Benitez APRN.APPOINTMENT MANAGER Performed by: PIPO Preparation Sterility Preparation: hand hygiene performed prior to procedure, skin prep agent completely dried prior to procedure Site Prep: alcohol Procedure Details Indication: need for IV access Needle Size/Type: 18 gauge angiocath Orientation: Right Location: Hand Imaging Guidance Used: No SIGNATURE: Belkis Benitez APRN.CRNA PATIENT NAME: Valeria Romero DATE: June 06, 2022 TIME: 11:04 AM CSN: [id number]09-01-2022 Miscellaneous Notes* Telephone Encounter - VON Bhatia - 06/01/2022 12:47 PM EDT BEHAVIORAL HEALTH SOCIAL WORK CONSULT NOTE Service Date: June 01, 2022 Patient was identified by name and Patient: Valeria Romero [address] [place] [address] [address] [facility] [address] (home) [phone] (cell) PCP: No primary care provider on file. No primary provider on file. Assessment: [facility] called the pt to discuss behavioral health services and offer resources, etc. Pt was looking for resources close to home. SW discussed options for psych, discussed [place]lands. Medications: Current Outpatient Medications on File Prior to Visit Medication Sig albuterol (PROVENTIL) 2.5 mg /3 mL (0.083 %) nebulizer solution Use 3 mL via nebulizer four times daily as needed for wheezing/shortness of breath. Inhale by nebulizer over 5-15 minutes Nebulizer and Compressor For Neb 1 Each every 4 hours as needed. albuterol HFA (PROAIR HFA) 90 mcg/actuation inhaler 1-2 puffs every 4-6 hours as needed for wheezing, shortness of breath predniSONE (DELTASONE) 20 mg tablet Take 2 tablets by mouth once daily for 5 days. montelukast (SINGULAIR) 10 mg tablet Take 1 tablet by mouth daily at bedtime. omeprazole (PRILOSEC) 20 mg capsule Take 1 capsule by mouth once daily. sertraline (ZOLOFT) 50 mg tablet Take 1 tablet by mouth once daily. cyclobenzaprine (FLEXERIL) 10 mg tablet Take 0.5 to 1 tab every 8 hours as needed for spasm No current facility-administered medications on file prior to visit. Curbside: No Screening Tools: No Substance Use / Abuse: No Outcome / Plan / Referrals: Internal Referrals : No Reason for External Referrals : Wait is too long and Location Intervention: Supportive Listening Education Provided referral information Resources Provided: Medication Management [facility] Time Spent: 15 minutes VON Bhatia documented in this encounterVan Wert [facility]08-30-2022 NoteHNO ID: [id number] Author: Jazzy Sanchez, PhD Service: ? Author Type: Psychologist Type: Progress Notes Filed: 05/30/2022 2:09 PM Note Text: Behavioral Medicine [facility]ive Disease [facility] Name: Valeria Romero MR#: [id number] Date: 05/30/2022 Time: ? hour Referred by: Dr. Walsh Reason for Referral: address psychological factors as they can affect post-operative recovery. Information relayed back to referral source via electronic medical record Her chart was reviewed and she gave her own complex surgical and personal history. She has had some significant recent stressful events in her life and her medical problem compound her struggles. She has gone off her medications including for asthma. She says she has stopped smoking cigarettes but continues to vape although she plans to stop that as well. She has been smoking MJ daily and we discussed the risks of smoking and she says she will 'try' to stop. She had some specific GI complaints and was advised to see GI after she has recovered from this surgery and also to establish care with a PCP. She has financial issues that have gotten in the way of her care. The basic underlying psychological and physiological mechanisms behind the brain body connection were explained. She was introduced to the concepts and techniques that she can employ to help with pain and healing after surgery. She was given the link to the Behavioral Medicine Program website, instructed on the use of the relaxation recordings, and told of the informational content. She was given the opportunity to ask questions and informed that she could be seen again as an in-patient or in the outpatient clinic. Jazzy Pastrana, Ph.D.[facility]08-30-2022 NoteHNO ID: [id number] Author: Darío Miranda APRN.ETL TESTER Service: ? Author Type: Nurse Practitioner Type: Progress Notes Filed: 05/30/2022 2:30 PM Note Text: CC: Medication refills, asthma HPI: Valeria Romero is a 57 year old female who presents to the 0 walk in clinic with the above chief compliant. PMH: Asthma, multiple hernias, depression/anxiety Patient from [place]. Moved to [place] and moved back for the surgery. Living in [place], [place] 1.5 hours away. Has not had a PCP in >5 years. Needs to establish care with PCP in [place], [place]. Patient has not been taking any of her medications because of financial reasons and she wanted to be off medications. Patient currently has medicaid. Trying to get medical things taken care of while she has insurance. Following with general surgery for a painful and enlarging incisional hernia. Hx of incisional hernia repair with mesh at [facility] w/ Dr. Craft in 2006. Patient scheduled for abdominal wall reconstruction with prior mesh excision 06/06/22. Pre-op testing today --> Provider sent patient to [facility] today for concerns for asthma. Asthma - +wheezing at night. +shortness of breath after exertion. No chest pain. Minimal cough. No tobacco use. Occ MJ use. Not vaping - she quit. Asthma has been worse over the past 1 month. Has been on an maintenance in [place] in the past. None x >5 years. Patient has had a break-up recently, can not work because of health issues. Has anxiety and depression she is concerned about. Trying to manage with meditation, etc. But she notes she has had uncontrollable crying spontaneously more recently. Denies thoughts of SI/HI. Has tried Zolft in the past with some good effect. Lexapro did not work well. Minimal support system currently. Has abdominal wall spasms from her hernia. Took flexeril prior to her previous surgery that was helpful. Wonders if she can get a refill Past Medical History: PAST MEDICAL HISTORY Diagnosis Date Asthma GERD (gastroesophageal reflux disease) ACTIVE PROBLEM LIST Incisional Hernia, Without Obstruction Or Gangrene Asthma Gastroesophageal Reflux Disease Without Esophagitis Past Surgical History: PAST SURGICAL HISTORY Procedure Laterality Date PAST SURGICAL HISTORY OF 10/01/2000 incisional hernia PAST SURGICAL HISTORY OF 10/01/2003 incisional hernia PAST SURGICAL HISTORY OF 10/01/2003 bilat ovarian cyst PAST SURGICAL HISTORY OF PAST SURGICAL HISTORY OF 10/01/2004 incisional hernia PAST SURGICAL HISTORY OF 10/01/2006 recurrent incisional hernia, mesh removal PAST SURGICAL HISTORY OF 10/01/1997 umbilical hernia, abominoplasty PAST SURGICAL HISTORY OF 10/01/1993 TOTAL ABDOM HYSTERECTOMY Past Family History: FAMILY HISTORY Problem Relation Age of Onset COPD Mother Diabetes Mother Diabetes Father Medications: Current Outpatient Medications on File Prior to Visit Medication Sig omeprazole magnesium (PRILOSEC ORAL) Take 40 mg by mouth. cyclobenzaprine hcl(FLEXERIL 10 MG TAB) Take one(1) tablet every eight(8) to twelve(12) hours as needed for pain or spasms. ALBUTEROL 90 MCG/ACTUATION AEROSOL INHALER Inhale one(1) - two(2) puffs four(4) times a day as needed for wheezing and shortness of breath. SINGULAIR 10 MG TAB Take by mouth. CODEINE-GUAIFENESIN 10 MG-100 MG/5 ML SYRUP Take 1-2 teaspoon(s) (5-10 ml) tablet every four(4) to six(6) hours as needed for coughing. (Patient not taking: No sig reported) diphenhydrAMINE (BENADRYL) 25 mg ORAL Cap Use as directed. (Patient not taking: No sig reported) WELLBUTRIN XL 300 MG 24 HR TAB Take one(1) tablet daily. (Patient not taking: No sig reported) NEXIUM 40 MG CAP Take one(1) capsule daily. (Patient not taking: Reported on 05/30/2022) CENESTIN 0.625 MG TAB Take one(1) tablet daily. (Patient not taking: No sig reported) PHENERGAN 25 MG TAB Take one(1) tablet every four(4) to six(6) hours as needed for nausea. (Patient not taking: No sig reported) No current facility-administered medications on file prior to visit. Physical Exam: Vitals: BP 102/63 Pulse (!) 54 Temp 37.1 ?C (98.7 ?F) (Oral) Wt 77.5 kg (170 lb 12.8 oz) SpO2 95% BMI 33.36 kg/m? General: Alert, cooperative in no apparent distress. Speech clear and coherent Eyes: Anicteric Mouth: Mucous membranes moist, no oral lesions Heart: Bradycardic. Regular rhythm, without murmur Lungs: Breathing unlabored. Clear to auscultation bilaterally - minimal occasional wheeze Abdomen: Bowel sounds audible and active in all 4 quadrants. Lower hernia noted - tender to palpation Skin: Without rash or jaundice Ext: Without lower extremity edema bilaterally Assessment/Plan: Valeria Romero is a 57 year old female w/ a PMH asthma, anxiety and depression, GERD, multiple hernias at [facility] for an upcoming hernia repair. Sent to the walk in clinic for uncontrolled asthma concerns/exacerbation. Treatment plan as belo (more content not included)...[facility] 05-30-2022 NoteHNO ID: [id number] Author: Vic Fermin MD Service: ? Author Type: Anesthesiologist Type: Progress Notes Filed: 05/30/2022 1:24 PM Note Text: Attending Note I evaluated the patient and personally participated in the parham components. I agree with the resident's findings and plan as documented and have discussed the case and management of the patient's care with the resident. Signature: Vic Fermin MD Date: 05/30/2022 Time: 1:24 [facility]08-30-2022 Miscellaneous Notes* Addendum Note - Darío Miranda APRN.ETL TESTER - 05/30/2022 2:39 PM EDTAddended by: DARÍO MIRANDA on: 05/30/2022 02:39 PM Modules accepted: Orders documented in this encounterVan Wert [facility] Hospital08-30-2022 Instructions* Patient Instructions* Darío Miranda APRN.CNP - 05/30/2022 2:08 PM EDT Asthma: -Prednisone 40 mg (2 tabs) once daily for 5 days. Take with food -Albuterol nebulizer or inhaler -- 1 treatment or 1-2 puffs every 4-6 hours as needed for shortnessof breath, wheezing -Restart Singulair 10 mg once daily -Follow-up with primary care or pulmonology thereafter to see if daily maintenance therapy is needed -To the ER for chest pain, difficulty breathing, etc. Depression/Anxiety -Referral to counseling and resources -Start Zoloft 50 mg once daily. Follow-up with primary care or psychiatry in 1 month at the latest -To the ER for medication reactions, thoughts of harming yourself or others Flexeril 5 mg (one half tablet) three times daily as needed for pain, spasm. If tolerated, can increase to 10 mg (one full tablet) three times daily as needed. Instructed not drive, drink alcohol, oroperate heavy machinery while taking this medication Take care Darío Miranda APRN.CNP documented in this encounterVan Wert County Hospital08-30-2022 History of Present illness Narrative* Jazzy Sanchez, PhD - 05/30/2022 2:03 PM EDT Behavioral Medicine [facility] Name: Valeria Romero MR#: [id number] Date: 05/30/2022 Time: hour Referred by: Dr. Walsh Reason for Referral: address psychological factors as they can affect post- operative recovery. Information relayed back to referral source via electronic medical record Her chart was reviewed and she gave her own complex surgical and personal history. She has had some significant recent stressful events in her life and her medical problem compound her struggles. She has gone off her medications including for asthma. She says she has stopped smoking cigarettes but continues to vape although she plans to stop that as well. She has been smoking MJ daily and we discussed the risks of smoking and she says she will 'try' to stop. She had some specific GI complaints and was advised to see GI after she has recovered from this surgery and also to establish care with a PCP. She has financial issues that have gotten in the way of her care. The basic underlying psychological and physiological mechanisms behind the brain body connection were explained. She was introduced to the concepts and techniques that she can employ to help with pain and healing after surgery. She was given the link to the Behavioral Medicine Program website, instructed on the use of the relaxation recordings, and told of the informational content. She was given the opportunity to ask questions and informed that she could be seen again as an in-patient or in the outpatient clinic. Jazzy Pastrana, Ph.D. documented in this encounterVan Wert County Hospital08-30-2022 History of Present illness Narrative* Darío Miranda APRN.[facility] - 05/30/2022 1:38 PM EDT CC: Medication refills, asthma HPI: Valeria Romero is a 57 year old female who presents to the 0 walk in clinic with the above chief compliant. PMH: Asthma, multiple hernias, depression/anxiety Patient from [place]. Moved to [place] and moved back for the surgery. Living in [place], [place] hours away. Has not had a PCP in >5 years. Needs to establish care with PCP in [place], [place]. Patient has not been taking any of her medications because of financial reasons and she wanted to be off medications. Patient currently has medicaid. Trying to get medical things taken care of while shehas insurance. Following with general surgery for a painful and enlarging incisional hernia. Hx of incisional hernia repair with mesh at [facility] w/ Dr. Craft in 2006. Patient scheduled for abdominal wall reconstruction with prior mesh excision 06/06/22. Pre-op testing today --> Provider sent patient to [facility] today for concerns for asthma. Asthma - +wheezing at night. +shortness of breath after exertion. No chest pain. Minimal cough. No tobacco use. Occ MJ use. Not vaping - she quit. Asthma has been worse over the past 1 month. Has been on an maintenance in [facility] in the past. None x >5 years. Patient has had a break-up recently, can not work because of health issues. Has anxiety and depression she is concerned about. Trying to manage with meditation, etc. But she notes she has had uncontrollable crying spontaneously more recently. Denies thoughts of SI/HI. Has tried Zolft in the past with some good effect. Lexapro did not work well. Minimal support system currently. Has abdominal wall spasms from her hernia. Took flexeril prior to her previous surgery that was helpful. Wonders if she can get a refill Past Medical History: PAST MEDICAL HISTORY Diagnosis Date Asthma GERD (gastroesophageal reflux disease) ACTIVE PROBLEM LIST Incisional Hernia, Without Obstruction Or Gangrene Asthma Gastroesophageal Reflux Disease Without Esophagitis Past Surgical History: PAST SURGICAL HISTORY Procedure Laterality Date PAST SURGICAL HISTORY OF 10/01/2000 incisional hernia PAST SURGICAL HISTORY OF 10/01/2003 incisional hernia PAST SURGICAL HISTORY OF 10/01/2003 bilat ovarian cyst PAST SURGICAL HISTORY OF PAST SURGICAL HISTORY OF 10/01/2004 incisional hernia PAST SURGICAL HISTORY OF 10/01/2006 recurrent incisional hernia, mesh removal PAST SURGICAL HISTORY OF 10/01/1997 umbilical hernia, abominoplasty PAST SURGICAL HISTORY OF 10/01/1993 TOTAL ABDOM HYSTERECTOMY Past Family History: FAMILY HISTORY Problem Relation Age of Onset COPD Mother Diabetes Mother Diabetes Father Medications: Current Outpatient Medications on File Prior to Visit Medication Sig omeprazole magnesium (PRILOSEC ORAL) Take 40 mg by mouth. cyclobenzaprine hcl(FLEXERIL 10 MG TAB) Take one(1) tablet every eight(8) to twelve(12) hours as needed for pain or spasms. ALBUTEROL 90 MCG/ACTUATION AEROSOL INHALER Inhale one(1) - two(2) puffs four(4) times a day as needed for wheezing and shortness of breath. SINGULAIR 10 MG TAB Take by mouth. CODEINE-GUAIFENESIN 10 MG-100 MG/5 ML SYRUP Take 1-2 teaspoon(s) (5-10 ml) tablet every four(4) to six(6) hours as needed for coughing. (Patient not taking: No sig reported) diphenhydrAMINE (BENADRYL) 25 mg ORAL Cap Use as directed. (Patient not taking: No sig reported) WELLBUTRIN XL 300 MG 24 HR TAB Take one(1) tablet daily. (Patient not taking: No sig reported) NEXIUM 40 MG CAP Take one(1) capsule daily. (Patient not taking: Reported on 05/30/2022) CENESTIN 0.625 MG TAB Take one(1) tablet daily. (Patient not taking: No sig reported) PHENERGAN 25 MG TAB Take one(1) tablet every four(4) to six(6) hours as needed for nausea. (Patientnot taking: No sig reported) No current facility-administered medications on file prior to visit. Physical Exam: Vitals: BP 102/63 Pulse (!) 54 Temp 37.1 C (98.7 F) (Oral) Wt 77.5 kg (170 lb 12.8 oz) [id number]% BMI 33.36 kg/m General: Alert, cooperative in no apparent distress. Speech clear and coherent Eyes: Anicteric Mouth: Mucous membranes moist, no oral lesions Heart: Bradycardic. Regular rhythm, without murmur Lungs: Breathing unlabored. Clear to auscultation bilaterally - minimal occasional wheeze Abdomen: Bowel sounds audible and active in all 4 quadrants. Lower hernia noted - tender to palpation Skin: Without rash or jaundice Ext: Without lower extremity edema bilaterally Assessment/Plan: Valeira Romero is a 57 year old female w/ a PMH asthma, anxiety and depression, GERD, multiple hernias at [facility] for an upcoming hernia repair. Sent to the walk in clinic for uncontrolled asthma concerns/exacerbation. Treatment plan as below, though reiterated the importance of follow-up with PCP or pulmonology back in [place], [place] in addition to behavioral health specialist/counseling. (J45.901) Asthma with acute exacerbation, unspecified asthma severity, unspecified whether persistent (primary encounter diagnosis) Plan: albuterol (PROVENTIL) 2.5 mg /3 mL (0.083 %) nebulizer solution, Nebulizer and Compressor For Neb, albuterol HFA (PROAIR HFA) 90 mcg/actuation inhaler, predniSONE (DELTASONE) 20 mg tablet, montelukast (SINGULAIR) 10 mg tablet -Prednisone 40 mg (2 tabs) once daily for 5 days. To take with food -Albuterol nebulizer or inhaler -- 1 treatment or 1-2 puffs every 4-6 hours as needed for shortnessof breath, wheezing -Restart Singulair 10 mg once daily -Follow-up with primary care or pulmonology thereafter to see if daily maintenance therapy is needed -To the ER for chest pain, difficulty breathing, etc. (F41.9, F32.A) Anxiety and depression Plan: sertraline (ZOLOFT) 50 mg tablet, CONSULT TO PRIMARY CARE BEHAVIORAL HEALTH ADULT -Currently uncontrolled. No SI/HI. Will connect to resources, start Zoloft. She has been on in the past. Requesting to start at higher dose. Discussed need for follow-up in 1 month for efficacy. To the ER for medication reactions, thoughts of harming self or others (K21.9) Gastroesophageal reflux disease, unspecified whether esophagitis present Comment: Refill per request. Needs PCP Plan: omeprazole (PRILOSEC) 20 mg capsule (R10.9) Abdominal spasms Comment: Refill per request. Needs PCP Plan: cyclobenzaprine (FLEXERIL) 10 mg tablet -Flexeril 5 mg (one half tablet) three times daily as needed for pain, spasm. If tolerated, can increase to 10 mg (one full tablet) three times daily as needed. Instructed not drive, drink alcohol, or operate heavy machinery while taking this medication The above plan discussed with and agreed upon between the patient and this practitioner. All questions answered. Total time spent preparing chart, reviewing necessary history and tests, performing HPI and examination, counseling/care coordination, ordering necessary testing if indicated, consulting other providers, and documenting care in the electronic health record: 35 minutes Darío Miranda APRN.KELLI documented in this [facility] Nurse [facility]* Luz Maria Arriaga RN - 05/30/2022 1:10 PM EDT Valeria Romero is a 57 year old female here today for visit in the [facility]. Pt has been identified by name and date of for verification. Allergies have been reviewed/verified and include the following: Cipro [Ciprofloxacin]. Medication reviewed/updated by provider. Pharmacy verified Yes Has the patient had any recent labs: No Is the patient active on MyChart No: patient declines What is the patients preferred method of communication: Letter AMB ROOMING INTAKE FLOWSHEET DATA Risk Screening Do you have concerns about personal safety or safety in the home?: No Pain Pain Level: 4 Pain Location: Abdomen-Mid Lower Description: Spasm ( pinching ) Duration Amount of Time: 2 Duration Units: Months Frequency: Continuous Intervention/Comfort measure: Medication Luz Maria Arriaga RN documented in this encounterVan [facility]08-[facility]22 NoteHNO ID: [id number] Author: Pedro Walsh MD Service: ? Author Type: Physician Type: Progress Notes Filed: 05/22/2022 11:19 AM Note Text: Consultation requested by Dr. Ino Craft for an opinion regarding incisional hernia. My final recommendations will be communicated back to the requesting physician by way of shared medical record or letter via US mail. Valeria Romero is a 57 year old female who presents with incisional hernia. The hernia is enlarging and painful. She is unable to work. She underwent incisional hernia repair with mesh with Dr. Craft in 2006, during which he placed an 8 cm x 12 cm DualMesh. Her hernia has since recurred. On imaging, she had some incarcerated omentum in the hernia. We discussed abdominal wall reconstruction. Plan for open AWR with prior mesh excision. I have seen and evaluated the patient and discussed the case with the resident physician. I agree with the assessment and plan as documented in the resident?s note including a ROS that was reviewed and negative other than what was indicated in our notes. Patient consented for study? Yes STUDY TITLE: The Effect of Intraoperative Music on Pain in Patients Undergoing Ventral Hernia Repair with Mesh: a Double-Blind Randomized Controlled Trial IRB NO.: #[id number] CUSTOM CLOTHIER: Tawnya Soler MD COORDINATOR/Research Nurse/Folder Operator: Anne Colin MD Phone/email: [phone], [email or web address] Consenting was performed by the attending surgeon, in a [id number] manner, during preoperative evaluation at the General Surgery clinic. The study protocol was discussed in detail with the patient. All study procedures were explained to the subject, including randomization, the two possible study interventions, and the postoperative pain management strategy for all patients participating in the study. Also, it was explained that pain scores, anxiety, and opioid use will be assessed daily during hospital stay. The importance of follow up compliance was stressed. The risks, benefits, alternatives to participation and potential costs were discussed. All patient questions were addressed and answered. Patient has read and understood the study procedures and requirements. Patient has agreed to proceed with trial participation and consent signed. Copy of the signed consent provided to the patient. INCLUSION CRITERIA Yes No 1. The patient is > 18 years of age [x] [] 2. The patient has a hernia which is ? 20 cm in width [x] [] 3. The patient has a ventral, flank, or parastomal hernia [x] [] 4. The patient is planned to undergo an open ventral hernia repair with retromuscular mesh placement [x] [] 7. The patient is willing and able to give written informed consent [x] [] EXCLUSION CRITERIA Yes No 1. The patient lacks [place]ambian language fluency or cannot understand the consent form/study procedures [] [x] 2. The patient has any hearing impairment with or without the use of hearing aids [] [x] 3. The patient has a neurologic condition which prevents assessment of pain and/or anxiety [] [x] 4. The patient is to remain intubated after surgery [] [x][facility]08-22-[facility] History of Present illness Narrative* Pedro Walsh MD - 05/22/2022 10:03 AM EDT Consultation requested by Dr. Ino Craft for an opinion regarding incisional hernia. My final recommendations will be communicated back to the requesting physician by way of shared medical record or letter via US mail. Valeria Romero is a 57 year old female who presents with incisional hernia. The hernia is enlarging and painful. She is unable to work. She underwent incisional hernia repair with mesh with in 2006, during which he placed an 8 cm x 12 cm DualMesh. Her hernia has since recurred.On imaging, she had some incarcerated omentum in the hernia. We discussed abdominal wall reconstruction. Plan for open AWR with prior mesh excision. I have seen and evaluated the patient and discussed the case with the resident physician. I agree with the assessment and plan as documented in the resident s note including a ROS that was reviewed and negative other than what was indicated in our notes. Patient consented for study? Yes STUDY TITLE: The Effect of Intraoperative Music on Pain in Patients Undergoing Ventral Hernia Repair with Mesh: a Double-Blind Randomized Controlled Trial IRB NO.: #[id number] CUSTOM CLOTHIER: Tawnya Soler MD COORDINATOR/Research Nurse/Folder Operator: Anne Colin MD Phone/email: [phone], [email or web address] Consenting was performed by the attending surgeon, in a [id number] manner, during preoperative evaluation at the General Surgery clinic. The study protocol was discussed in detail with the patient. All study procedures were explained tothe subject, including randomization, the two possible study interventions, and the postoperative pain management strategy for all patients participating in the study. Also, it was explained that pain scores, anxiety, and opioid use will be assessed daily during hospital stay. The importance of follow up compliance was stressed. The risks, benefits, alternatives to participation and potential costs were discussed. All patient questions were addressed and answered. Patient has read and understood the study procedures and requirements. Patient has agreed to proceed with trial participation and consent signed. Copy of the signed consent provided to the patient. INCLUSION CRITERIA Yes No 1. The patient is > 18 years of age [x] [] 2. The patient has a hernia which is ? 20 cm in width [x] [] 3. The patient has a ventral, flank, or parastomal hernia [x] [] 4. The patient is planned to undergo an open ventral hernia repair with retromuscular mesh placement [x] [] 7. The patient is willing and able to give written informed consent [x] [] EXCLUSION CRITERIA Yes No 1. The patient lacks [place]ambian language fluency or cannot understand the consent form/study procedures [] [x] 2. The patient has any hearing impairment with or without the use of hearing aids [] [x] 3. The patient has a neurologic condition which prevents assessment of pain and/or anxiety [] [x] 4. The patient is to remain intubated after surgery [] [x] documented in this encounterVan [facility]22 History and physical note * Yeni Sevilla MD - 05/22/2022 9:59 AM EDT [facility] Abdominal [facility] - HISTORY AND PHYSICAL Chief Complaint: Incisional hernia HPI: Valeria Romero is a 57 year old female with a history of asthma and GERD, who is a current smoker, and a surgical history significant for multiple incisional hernia repairs, hysterectomy, C-sections, abdominoplasty, and bilateral ovarian cyst removal who presents to discuss recurrent ventral hernias. She reports that she has had multiple repairs over the years, most recently in [address] Craft. She notes that 6 months after her repair in 2006, she noted recurrence at the lower part of her abdomen. She has put off repair of this hernia due to fear surrounding surgery in thesetting of her multiple hernia repairs. She was living company about a year ago, and she notes thather hernia has become larger over the past year. She also has experienced intermittent nausea and vomiting and inability to have bowel movements over the past year. [place] to the ED in March of this year for evaluation. During that visit, a fat-containing hernia was noted on CT and she was discharged with follow-up in the hernia clinic. Shenotes that her quality of life is significantly impacted by this hernia and she is unable to carry out her day-to-day tasks or hold on her job due to this severe pain and cumbersome nature of her large hernia. She presents today to discuss definitive repair of this large hernia. Relevant previous operations include: Incisional hernia repairs-2000, 2003, 2004, 2006, hysterectomy, C section (1993), abdominoplasty (1997), mesh removal (2006), bilateral ovarian cyst removal (2003) No history of Psychiatric Disorders or Opioid Use Independent No employment Intense (more than once/week) No Significant Comorbidities History of open abdomen, History of abdominal wall surgical site infection PAST MEDICAL HISTORY Diagnosis Date Asthma GERD (gastroesophageal reflux disease) PAST SURGICAL HISTORY Procedure Laterality Date PAST SURGICAL HISTORY OF 2000 incisional hernia PAST SURGICAL HISTORY OF 2003 incisional hernia PAST SURGICAL HISTORY OF 2003 bilat ovarian cyst PAST SURGICAL HISTORY OF PAST SURGICAL HISTORY OF 2004 incisional hernia PAST SURGICAL HISTORY OF 2006 recurrent incisional hernia, mesh removal PAST SURGICAL HISTORY OF 1997 umbilical hernia, abominoplasty PAST SURGICAL HISTORY OF 1993 Social History Tobacco Use Smoking status: Some Days Types: Cigarettes, Pipe Smokeless tobacco: Never Vaping Use Vaping Use: current everyday user Substance Use Topics Drug use: Yes Types: Marijuana Comment: quit Aug 2021 Additional social history not relevant to the patient's HPI FAMILY HISTORY Problem Relation Age of Onset COPD Mother Diabetes Mother Diabetes Father Additional family history not relevant to the patient's HPI ALLERGIES Allergen Reactions Cipro [Ciprofloxaci* Rash Current Outpatient Medications Medication Sig Dispense Refill cyclobenzaprine hcl(FLEXERIL 10 MG TAB) Take one(1) tablet every eight(8) to twelve(12) hours as needed for pain or spasms. 20 0 ALBUTEROL 90 MCG/ACTUATION AEROSOL INHALER Inhale one(1) - two(2) puffs four(4) times a day as needed for wheezing and shortness of breath. a 2 CODEINE-GUAIFENESIN 10 MG-100 MG/5 ML SYRUP Take 1-2 teaspoon(s) (5-10 ml) tablet every four(4) to six(6) hours as needed for coughing. 200 0 diphenhydrAMINE (BENADRYL) 25 mg ORAL Cap Use as directed. 20 0 SINGULAIR 10 MG TAB Take one(1) tablet daily at bedtime. 0 WELLBUTRIN XL 300 MG 24 HR TAB Take one(1) tablet daily. 0 NEXIUM 40 MG CAP Take one(1) capsule daily. 0 CENESTIN 0.625 MG TAB Take one(1) tablet daily. 0 PHENERGAN 25 MG TAB Take one(1) tablet every four(4) to six(6) hours as needed for nausea. 0 No current facility-administered medications for this visit. REVIEW OF SYSTEMS The remainder of the 12 review of systems is negative other than what was mentioned in the HPI and above. BP 108/69 Pulse 69 Temp 36.8 C (98.3 F) (Tympanic) Ht 152.4 cm (5') Wt 73.5 kg (162 lb) BMI 31.64 kg/m Physical findings of this patient are as follows Physical Exam Constitutional: The patient is well-developed, well-nourished, and in no distress. Head: Normocephalic and atraumatic. Eyes: Pupils are equal, round, and reactive to light. EOM are normal. Neck: Normal range of motion. Neck supple. Cardiovascular: Regular rhythm and normal heart sounds. Pulmonary/Chest: Effort normal and breath sounds normal. Abdominal: Soft. Bowel sounds are normal. Previous surgical scars well healed Musculoskeletal: Normal range of motion. Neurological: He is alert. GCS score is 15. Skin: Skin is warm and dry. Psychiatric: Affect and judgment normal. Relevant Hernia Findings - Large ventral hernia appreciated on exam, difficult to reduce, no pain on palpation LABS: None IMAGING - Reviewed with staff CT - Fat containing ventral hernia, increased from 2010, mesh noted Assessment: Valeria Romero is a 57 year old female with a history of asthma and GERD, who is a current smoker, and a surgical history significant for multiple incisional hernia repairs, hysterectomy, C-sections, abdominoplasty, and bilateral ovarian cyst removal who presents to discuss recurrent ventral hernias. She has had multiple ventral hernias that have been repaired numerous times over the course of her life, most recently 2006. She noted recurrence shortly after the surgery, but deferred repair until the hernia became large enough to impact her quality of life. She is began experiencing severe pain as well as intermittent nausea and vomiting over the past year, which prompted her to seek surgical repair of this hernia. On evaluation, a large ventral hernia is appreciated thatis difficult to reduce. CT scan is notable for a large fat- containing ventral hernia. Given her symptoms and the bothersome nature of this hernia, she will be scheduled for repair. Plan: -patient will be booked for surgery to repair her hernia and remove the pre- existing mesh in accordance with her schedule; she was consented during this visit -she will have preop labs done and a preop anesthesia visit closer to her surgery date -shew as encouraged to stop smoking/vaping so that she can have better wound healing Patient seen and discussed with Dr. Alon Sevilla MD General Surgery Resident documented in this encounterVan [facility]08-[facility] Nurse Note* Lidya May Ma - 05/22/2022 9:26 AM EDT What is the reason for your visit today? consult Who is your referring physician? Are you having poor oral intake? NO Have you had unintentional weight loss of 15 lbs/7 Kg in the last 3-6 months? NO Bowels: regular Wound: clean & dry Temperature: No Drains: No documented in this encounterVan [facility]07-20-2022 NoteHNO ID: [id number] Author: RT Jama(R) Service: Radiology Author Type: Traffic Engineer Type: Progress Notes Filed: 04/18/2022 10:37 PM Note Text: Radiology Service Progress Note DATE OF SERVICE: April 18, 2022 TIME: 10:36 PM PATIENT IDENTITY VERIFICATION COMPLETED USING TWO (2) STANDARD IDENTIFIERS: Name and Date of confirmed by patient verbally and Name and Date of confirmed by identification band. FALL SCREENING: Has the patient had 2 falls in the last year or 1 fall with injury or currently using an Ambulatory Assistive Device (Walker, Cane, Wheelchair, Crutches, etc.)? Emergency Room Patient: Screened in ED PATIENT GENDER DATA: Female. status: : No status: NO. PATIENT RELEVANT IMPLANT DATA REVIEWED: Yes ALLERGIES: Reviewed and unchanged CONTRAST ALLERGY: NO. EXAM: CT -CONTRAST INDUCED NEPHROPATHY RISK FACTORS: Not applicable CREATININE: Creatinine Date Value Ref Range Status 04/18/2022 0.63 0.58 - 0.96 mg/dL Final 10/25/2010 0.70 0.70 - 1.40 mg/dL Final 02/27/2007 0.6 (L) 0.7 - 1.4 mg/dL Final Estimated Glomerular Filtration Rate Date Value Ref Range Status 04/18/2022 105 >=60 mL/min/1.73m? Final Comment: Estimated Glomerular Filtration Rate (eGFR) is calculated using the 2020 CKD-EPI creatinine equation. This equation utilizes serum creatinine, sex, and age as parameters. The creatinine assay has traceable calibration to isotope dilution-mass spectrometry. Refer to KDIGO guidelines for clinical interpretation. In patients with unstable renal function, e.g. those with acute kidney injury, the eGFR may not accurately reflect actual GFR. eGFR- Date Value Ref Range Status 10/25/2010 >60 Final P.O.C.T. RESULTS: POC done: Yes, See Lab Tab April 18, 2022 TREATMENT: N/A PERIPHERAL IV DATA: Inpatient - refer to LDA documentation RADIOLOGY DEPARTMENT: CT; Exam(s) Completed: Abdomen/Pelvis SIGNATURE: Wiliam Robertson RT(R) PATIENT NAME: Valeria Romero DATE: April 18, 2022 TIME: 10:36 [facility] note* Diagnosis Incisional hernia, without obstruction or gangrene- Primary Incisional hernia without mention of obstruction or gangrene documented in this encounter [facility] note* Diagnosis Preoperative examination- Primary Preoperative examination, unspecified Incisional hernia, without obstruction or gangrene Incisional hernia without mention of obstruction or gangrene Pre-op evaluation- Primary Preoperative examination, unspecified Incisional hernia, without obstruction or gangrene Incisional hernia without mention of obstruction or gangrene Preoperative examination Preoperative examination, unspecified Incisional hernia, without obstruction or gangrene Incisional hernia without mention of obstruction or gangrene documented in this encounter [facility] note* Diagnosis Incisional hernia, without obstruction or gangrene- Primary Incisional hernia without mention of obstruction or gangrene Preoperative examination Preoperative examination, unspecified Incisional hernia, without obstruction or gangrene Incisional hernia without mention of obstruction or gangrene documented in this encounter [facility] note* Diagnosis Asthma with acute exacerbation, unspecified asthma severity, unspecified whether persistent- Primary Anxiety and depression Dysthymic disorder Gastroesophageal reflux disease, unspecified whether esophagitis present Abdominal spasms Abdominal pain, unspecified site Preoperative examination Preoperative examination, unspecified Incisional hernia, without obstruction or gangrene Incisional hernia without mention of obstruction or gangrene documented in this encounter [facility] note* Diagnosis Acute post-operative pain- Primary documented in this encounter [facility] note* Diagnosis Infection in abdomen (HCC)- Primary Unspecified peritonitis documented in this encounter [facility] note* Diagnosis Infection in abdomen (HCC) Unspecified peritonitis documented in this encounter [facility] noteNo assessment information availableMer[facility] Work Phone: Evaluation note* Diagnosis Prolapsed hemorrhoids- Primary Unspecified hemorrhoids with other complication Vaginal prolapse Unspecified prolapse of vaginal farris documented in [facility] encounter [facility] Author Charli Sena [facility] December 27, 2022 9:44am Note Date/Time December 27, 2022 9:4 4am [facility] [address] [place] [address] Gastroenterology H&P Signed Patient: Valeria Romero MR#: [id number] : 1965 Acct:[id number] Age/Sex: 57 / F Adm Date: 3 Loc: Room: Type: [facility] Attending Dr: Charli Sena MD Copies to: Charli Sena MD [facility] Date of Service: 12/27/2022 HISTORY & PHYSICAL: Patient's history with special attention to the cardiovascular, pulmonary systems and the current problem was reviewed with the patient immediately prior to the procedure. Present medications and doses reviewed in the EMR. Allergies and pertinent laboratory tests were also reviewedat this time in the EMR. The physical examination, as below, was then performed. Indication, assessment and HPI: 57-year-old female is referred from the health department for EGD for history of GERD, no dysphagia. Colonoscopy for history of rectal bleeding. Family history of GI malignancy? No PHYSICAL EXAMINATION Mouth and Pharynx : Moist mucus membranes, normal dentition Cardiac: Regular rate, regular rhythm Pulmonary: Clear to auscultation bilaterally, no wheezing Neurological: Alert and oriented x3, no focal deficits noted Abdomen: Abdomen soft, non-tender REVIEW OF SYSTEMS Constitutional: Denies malaise, fevers Cardiovascular: Denies chest pain, palpitations Respiratory: Denies shortness of breath, wheezing Gastrointestinal: Per HPI Genitourinary: Denies dysuria, polyuria Musculoskeletal: Denies joint swelling, joint stiffness Neurological: Denies numbness, tingling Integumentary: Denies rashes, skin lesions Endocrine: Denies fatigue, weight loss Written informed consent obtained from the patient. Risks (including but not limited to perforation, infection, bloating, bleeding, need for emergent surgeryand loss of life), benefits and alternatives explained and questions answered. The patient verbalized understanding. Based on history patient is an appropriate candidate for the procedure. Charli Sena MD Documented By: Charli Sena MD 12/27/22 0943 Signed By: <Electronically signed by Charli Sena MD> 12/27/2244 [facility] Work Phone: Hospital Discharge instructions Additional Instructions DISCHARGE INSTRUCTIONS FOR UPPER ENDOSCOPY WHAT TO EXPECT: - You may feel full, gassy or cramping after your procedure. In some cases, this may be from a few hours to a day. Walking may help relieve the discomfort. - Your throat may feel sore today from the scope that the doctor passed through your throat to visualize your stomach. Take a throat lozenge or suck on ice to ease the discomfort. - You may notice some streaks of blood in your sputum if the doctor has taken a biopsy. - You should begin to recover from anesthesia within 1 hour of the procedure, however may feel groggy for the next 24 hours. DO's AND DON'Ts: - Call your doctor right away if you have a hard abdomen, severe pain, vomiting or if you cough up large amounts of blood. - Call your doctor if you develop any rashes, hives or difficulty breathing. - If you take 81 mg aspirin for your heart it is safe to resume this medication. - If you take other blood thinner medications your doctor will instruct you when these can safely be resumed. - Do NOT drive for 24 hours. - Do NOT operate machinery such as power tools, Beepn mowers, snow blowers, sewing machines, etc. for 24 hours. - Avoid alcoholic beverages and drugs for allergies, nerves, or sleep. - Do NOT stay alone. Do NOT leave your child unattended. - Do NOT make important personal or business decisions or sign any legal documents. - Eat solid foods and drink liquids in smaller amounts than usual until normal appetite returns. If you should experience an upset stomach, liquids high in sugar content (soda, Scotty-Aid, non-acid juices) are recommended. - Do NOT smoke. - Do take it easy today. You need not stay in bed, but avoid strenuous activities such as jogging or working out. DISCHARGE INSTRUCTIONS FOR COLONOSCOPY WHAT TO EXPECT: - You may feel full, gassy or cramping after your procedure. In some cases, this may be from a few hours to a day. Walking may help relieve the discomfort. - If you have polyp(s) removed you may note some minor bloody discharge after your first bowel movements. - You should begin to recover from anesthesia within 1 hour of the procedure, however may feel groggy for the next 24 hours. DO's AND DON'Ts: - Call your doctor right away if you have a hard abdomen, sever pain, are passing lots of bright red blood or clots. - Call your doctor if you develop any rashes, hives or difficulty breathing. - Let your doctor know if you have not had a bowel movement by 3 days after your procedure. - If you take 81 mg aspirin for your heart it is safe to resume this medication. - If you take other blood thinner medications your doctor will instruct you when these can safely be resumed. - Do NOT drive for 24 hours. - Do NOT operate machinery such as power tools, lawn mowers, snow blowers, sewing machines, etc. for 24 hours. - Avoid alcoholic beverages and drugs for allergies, nerves, or sleep. - Do NOT stay alone. Do NOT leave your child unattended. - Do NOT make important personal or business decisions or sign any legal documents. - Eat solid foods and drink liquids in smaller amounts than usual until normal appetite returns. If you should experience an upset stomach, liquids high in sugar content (soda, Scotty-Aid, non-acid juices) are recommended. - You can resume normal activities tomorrow. FOLLOW UP & RECOMMENDATIONS: -Dr. Sena's office will give you a referral to colorectal surgery from [facility] -Follow-up with the GI nurse practitioner in 3 months -Notify the doctor if you have any problems. -Repeat colonoscopy in 3 years. -Follow up with PCP. - Office number [phone].[facility] Work Phone: Reason for referral (narrative)* Outpatient Procedure (Routine) - Authorized Specialty Diagnoses / Procedures Referred By Jossy cheung Referred To [facility] Diagnoses Preoperative examination Incisional hernia, without obstruction or gangrene Procedures ECG COMPLETE ECG ROUTINE ECG W/LEAST 12 LDS W/I&R Pedro Walsh MD [address] [place] [address] [facility] [address] [place] [id number] Referral ID Status Reason Start Date Expiration Date Visits Requested Visits Authorized [id number] Authorized Auto-Generat ed Referral 05/29/2022 05/25/2023 1 1 * Consult, Test, Treat (Routine) - Authorized Specialty Diagnoses / Procedures Referred By Contac t Referred To Contact Diagnoses Preoperative examination Incisional hernia, without obstruction or gangrene Procedures CONSULT TO DD BEHAVIORAL MEDICINE OFFICE/OUTPATIENT [facility] 60-74 MINUTES Pedro Walsh MD [address] [place] [id number] Referral ID Status Reason Start Date Expiration Date Visits Requested Visits Authorized [id number] Authorized PCP Requested Referral 05/29/2022 05/25/2023 1 1 [facility] Reason for Referral Specialty Diagnoses / Procedures Referred By Contac t Referred To Contact CT IMAGING Diagnoses Infection in abdomen (HCC) Procedures CT ABD/PEL WO IVCON CT ABD & PELVIS W/O CONTRAST [facility] [id number] Imaging Referral ID Status Reason Start Date Expiration Date V isits Requested Visits Authorized [id number] Closed Auto-Generate d Referral 06/29/2022 07/29/2023 1 1 Specialty Diagnoses / Procedures Referred By Contac t Referred To Contact Diagnoses Vaginal prolapse Procedures CONSULT TO FEMALE UROLOGY/URO GYNECOLOGY OFFICE/OUTPATIENT [facility] 60-[place] [address] [address] [place] [address] Referral ID Status Reason Start Date Expiration Date Visits Requested Visits Authorized [id number] Authorized PCP Requested Referral 01/18/2023 01/18/2024 1 1 Chief Complaint and Reason for Visit Chief Complaint Screening Chief Complaint GERD, Blood Stools Advance Directives No Advanced Directives Records Found Advance Directive Response Recorded Date/ Time Advance Directives No September 06, 2022 8:40am Advance Directive Response Recorded Date/ Time Advance Directives No September 06, 2022 9:40am Family History No Family History Records Found Relationship Condition Age at Onset Recorded Date/T jelena Not Specified Pulmonary emphysema Unknown Myocardial infarction Unknown Diabetes mellitus Unknown father Diabetes mellitus Unknown grandparent Diabetes mellitus Unknown Summary Purpose Additional Source Comments Source Comments (unrecognize d section and content) In the event this informatio n is protected by the Federal Confidentiality of Alcohol and Drug Abuse Patient Records regulations: The Federal rules restrict any use of the information to criminally investigate or prosecute any alcohol or drug abuse patient.[facility] the event this information is protected by the Federal Confidentiality of Alcohol and Drug Abuse Patient Records regulations: The Federal rules restrict any use of the information to criminally investigate or prosecute any alcohol or drug abuse patient.[facility] the event this information is protected by the Federal Confidentiality of Alcohol and Drug Abuse Patient Records regulations: The Federal rules restrict any use of the information to criminally investigate or prosecute any alcohol or drug abuse patient.[facility] the event this information is protected by the Federal Confidentiality of Alcohol and Drug Abuse Patient Records regulations: The Federal rules restrict any use of the information to criminally investigate or prosecute any alcohol or drug abuse patient.[facility] the event this information is protected by the Federal Confidentiality of Alcohol and Drug Abuse Patient Records regulations: The Federal rules restrict any use of the information to criminally investigate or prosecute any alcohol or drug abuse patient.[facility] the event this information is protected by the Federal Confidentiality of Alcohol and Drug Abuse Patient Records regulations: The Federal rules restrict any use of the information to criminally investigate or prosecute any alcohol or drug abuse patient.[facility] the event this information is protected by the Federal Confidentiality of Alcohol and Drug Abuse Patient Records regulations: The Federal rules restrict any use of the information to criminally investigate or prosecute any alcohol or drug abuse patient.[facility] the event this information is protected by the Federal Confidentiality of Alcohol and Drug Abuse Patient Records regulations: The Federal rules restrict any use of the information to criminally investigate or prosecute any alcohol or drug abuse patient.[facility] the event this information is protected by the Federal Confidentiality of Alcohol and Drug Abuse Patient Records regulations: The Federal rules restrict any use of the information to criminally investigate or prosecute any alcohol or drug abuse patient.[facility] the event this information is protected by the Federal Confidentiality of Alcohol and Drug Abuse Patient Records regulations: The Federal rules restrict any use of the information to criminally investigate or prosecute any alcohol or drug abuse patient.[facility] the event this information is protected by the Federal Confidentiality of Alcohol and Drug Abuse Patient Records regulations: The Federal rules restrict any use of the information to criminally investigate or prosecute any alcohol or drug abuse patient.[facility] the event this information is protected by the Federal Confidentiality of Alcohol and Drug Abuse Patient Records regulations: The Federal rules restrict any use of the information to criminally investigate or prosecute any alcohol or drug abuse patient.[facility] the event this information is protected by the Federal Confidentiality of Alcohol and Drug Abuse Patient Records regulations: The Federal rules restrict any use of the information to criminally investigate or prosecute any alcohol or drug abuse patient.[facility] Reason for Visit (unrecogniz ed section and content) Reason Comments Consult Reason Comments 9.6.22 cure Complex abdominal wa ll reconstruction 5 hours los 5 Reason Comments Rx Refills Abdominal Pain Lower abdominal spas ms and pinching pain for the past 2 months Reason Comments outreach Reason Comments Post Op Reason Comments Radiology CT Specialty Diagnoses / Procedures Referred By Contac t Referred To Contact CT IMAGING Diagnoses Infection in abdomen (HCC) Procedures CT ABD/PEL WO IVCON CT ABD & PELVIS W/O CONTRAST [facility] [id number] Imaging Referral ID Status Reason Start Date Expiration Date V isits Requested Visits Authorized [id number] Closed Auto-Generate d Referral 06/29/2022 07/29/2023 1 1 Reason Comments New Patient Consult for hemorrho ids & prolapse Care Teams (unrecognized sec tion and content) Team Status: Inactive Member Role Status Dates PHYSICIAN NO FAMILY Primary Care Provider Active Luz Maria West ([facility]) , DIRECTOR OF LOSS PREVENTION Attending Provider Active Team Status: Active Member Role Status Dates [facility] Primary Care Provider Active Team Status: Inactive Member Role Status Dates [facility] Primary [facility] Provider Active Charli Sena MD Attending Provider Active Goals (unrecognized section and content) Goals may be documented in a n alternate section INFORMATION SOURCE (unrecogn ized section and content) DATE CREATED AUTHOR 01/04/2023 [facility] DATE CREATED AUTHOR AUTHOR'S ORGANIZ ATION 01/04/2023 [facility] DATE CREATED AUTHOR AUTHOR'S ORGANIZ ATION 01/31/2023 [facility] FOR RECORDS PERTAINING TO PATIENTS WHO ARE OR HAVE BEEN ENROLLED IN A CHEMICAL DEPENDENCY/SUBSTANCEABUSE PROGRAM, SOME INFORMATION MAY BE OMITTED. This clinical summary was aggregated from multiple sources. Caution should be exercised in using it in the provision of clinical care. This summary normalizes information from multiple sources, and as a consequence, information in this document may materially change the coding, format and clinical context of patient data. In addition, data may be omitted in some cases. CLINICAL DECISIONS SHOULD BE BASED ON THE PRIMARY CLINICAL RECORDS. [employer] provides no warranty or guarantee of the accuracy or completeness of information in this document.
--- NOTE | 2024-07-15 23:53 | ED.FEMALEGU1 ---
HPI - Female Genitourinary General Chief complaint: Urogenital-Female Stated complaint: UTI Time Seen by Provider: 07/15/24 23:43 Source: patient Mode of arrival: walk-in Limitations: no limitations History of Present Illness HPI Narrative: patient presents complaining of possible UTI. Describes hematuria once yesterday and dysuria tonight. No fever or nausea Related Data Home Medications ?Medication ?Instructions ?Recorded ?Confirmed montelukast 10 mg tablet 10 mg PO DAILY 01/16/24 07/16/24 omeprazole 40 mg capsule,delayed 40 mg PO DAILY 01/16/24 07/16/24 release albuterol sulfate 90 mcg/actuation 2 puff inhalation Q4H PRN 07/16/24 07/16/24 aerosol inhaler shortness of breath or wheezing Previous Rx's ?Medication ?Instructions ?Recorded amoxicillin 875 mg-potassium 1 tab PO Q12H #20 tabs 07/19/24 clavulanate 125 mg tablet ondansetron HCl 4 mg tablet 4 mg PO Q6H PRN nausea and 07/19/24 vomiting #10 tabs oxycodone-acetaminophen 5 mg-325 1 tab PO Q8H PRN pain 3 days #9 07/19/24 mg tablet (Percocet) tabs Allergies Allergy/AdvReac Type Severity Reaction Status Date / Time ciprofloxacin (From Cipro) Allergy Hives Verified 07/15/24 23:31 Review of Systems ROS Status of ROS 10 or more systems reviewed and unremarkable except as noted in history and below PFSH PFSH Medical History (Updated 07/23/24 @ 00:00 by ) Obesity (BMI 35.0-39.9 without comorbidity) ?E66.9 - Obesity, unspecified (ICD-10) Acute diverticulitis ?K57.92 - Diverticulitis of intestine, part unspecified, without perforation or abscess without bleeding (ICD-10) Diverticulitis of sigmoid colon ?K57.32 - Diverticulitis of large intestine without perforation or abscess without bleeding (ICD-10) Abscess of sigmoid colon ?K63.0 - Abscess of intestine (ICD-10) Acute bronchospasm ?J98.01 - Acute bronchospasm (ICD-10) GERD (gastroesophageal reflux disease) ?K21.9 - Gastro-esophageal reflux disease without esophagitis (ICD-10) Hemorrhoids ?K64.9 - Unspecified hemorrhoids (ICD-10) History of uterine cancer ?Z85.42 - Personal history of malignant neoplasm of other parts of uterus (ICD-10) Heartburn ?R12 - Heartburn (ICD-10) Asthma ?J45.909 - Unspecified asthma, uncomplicated (ICD-10) Surgical History H/O hernia repair ?Z98.890 - Other specified postprocedural states (ICD-10) ?Z87.19 - Personal history of other diseases of the digestive system (ICD-10) History of cholecystectomy ?Z90.49 - Acquired absence of other specified parts of digestive tract (ICD-10) H/O: hysterectomy ?Z90.710 - Acquired absence of both cervix and uterus (ICD-10) Family History Other Family history of COPD (chronic obstructive pulmonary disease) Family history of cancer Family history of diabetes mellitus Family history of hypertension Family history of myocardial infarction Social History Within the past year, how often did you have a drink containing alcohol: never Within the past year, how many standard drinks containing alcohol did you have on a typical day: 1 or 2 Within the past year, how often did you have six or more drinks on one occasion: never Total score: 0 Score interpretation: A score less than 3 is consistent with normal alcohol consumption. Smoking status: Never smoker Non-prescribed substance use: cannabis (any form) Previous occupational history: unemployed Highest level of school completed/degree received: some college, no degree In a typical week, how many times do you talk on the telephone with family, friends, or neighbors: 3 or more times per week How often do you get together with friends or relatives: 3 or more times per week Little interest or pleasure in doing things: several days Feeling down, depressed, or hopeless: not at all Feel stressed/tense/nervous/anxious/difficulty sleeping: rather much Life stressors: other Life stressor details: issues with roommates daughter Do you think of yourself as: straight/heterosexual Gender Identity: female Exam Constitutional Vital Signs, click to edit/add: Last Vital Signs Temp 97.8 F 07/19/24 11:42 Pulse 62 07/19/24 11:42 Resp 18 07/19/24 11:42 BP 136/60 07/19/24 11:42 Pulse Ox 91 L 07/19/24 11:47 O2 Del Method Room Air 07/19/24 11:47 Common normals: no apparent distress, average body habitus, oriented x3, no limitations, healthy appearing, alert and well nourished [facility] Common normals: normocephalic and head/scalp atraumatic Respiratory Common normals: normal respiratory effort, no retractions, no use of accessory muscles and clear to auscultation bilaterally Cardio Common normals: regular rate, regular rhythm, S1 normal heart sound and S2 normal heart sound GI Other: mild suprapubic tenderness. No flank tenderness Extremity Common normals: normal to inspection Neuro Common normals: oriented x3, CN's II-XII intact bilaterally, moves all extremities and no focal motor deficits Psych Appearance: grossly normal Course Course Hospital Course: 59-year-old female presented to the [facility] emergency department with lower abdominal discomfort and symptoms of what she thought might be a urinary tract infection. She has intermittent rectal bleeding off and on and was diagnosed with hemorrhoids earlier this year after she had a colonoscopy at [facility]. She denies any history of diverticulosis on the colonoscopy. CT scan of the abdomen and pelvis showed diverticulitis with a 1.8 cm intramural abscess. She was admitted for IV abx and treatment of diverticular abscess. Patient received IV zosyn for Diverticulitis, IVF and zofran as needed for nausea/vomiting. She was evaluated by General surgery during admission. Patient clinically improved and her diet was advanced but she admits to overdoing it and drank two bowls of chicken broth after which she had watery stool with blood in it along with abdominal cramping and discomfort. She was made NPO again. Her symptoms improved subsequently and today, she was able to tolerate PO diet w/o any difficulty. Case d/w General Surgery. Patient medically stable for discharge. She will need to finish oral abx course as outpatient and was instructed to f/u with PCP in one week. Patient was also instructed to slowly advance her diet. Vital Signs Vital signs: Vital Signs Temperature 98.4 F 07/15/24 23:31 Pulse Rate 76 07/15/24 23:31 Respiratory Rate 18 07/15/24 23:31 Blood Pressure 124/87 07/15/24 23:31 Pulse Oximetry 99 07/15/24 23:31 Oxygen Delivery Method Room Air 07/15/24 23:31 Temperature 97.8 F 07/19/24 11:42 Pulse Rate 62 07/19/24 11:42 Respiratory Rate 18 07/19/24 11:42 Blood Pressure 136/60 07/19/24 11:42 Pulse Oximetry 91 L 07/19/24 11:47 Oxygen Delivery Method Room Air 07/19/24 11:47 MDM - Female Genitourinary MDM Narrative Medical decision making narrative: patient presents with suprapubic lower quad pain for couple of days. concern she may have UTI. Mild tenderness . No guarding. UA neg. CT with findings of intramural abscess and mid sigmoid colitis. WBC normal and patient afebrile. Discussed with plant protection supervisor surgeon Dr Escobedo and he can consult on the patient. Discussed with the hospitalist and patient accepted for admission Lab Data Labs: Lab Results 07/16/24 07/16/24 Range/Units 00:00 00:55 WBC 10.9 (4.0-11.0) 10^3/uL RBC 4.50 (4.20-5.40) 10^6/uL Hgb 12.7 (12.0-16.0) g/dL Hct 40.3 (36.0-48.0) % MCV 89.6 (81.0-99.0) fL MCH 28.2 (26.7-34.0) pg MCHC 31.5 (29.9-35.2) g/dL RDW 14.1 (11.0-15.0) % Plt Count 397 (150-450) 10^3/uL MPV 9.3 L (9.5-13.5) fL Neut % (Auto) 65.0 (43.0-75.0) % Lymph % (Auto) 22.7 (20.5-60.0) % [place]upe % (Auto) 9.1 (1.7-12.0) % Eos % (Auto) 2.4 (0.9-7.0) % Baso % (Auto) 0.5 (0.2-2.0) % Neut # (Auto) 7.1 H (1.4-6.5) 10^3/uL Lymph # (Auto) 2.5 (1.2-3.8) 10^3/uL [place]upe # (Auto) 1.0 H (0.3-0.8) 10^3/uL Eos # (Auto) 0.3 (0.0-0.7) 10^3/uL Baso # (Auto) 0.1 (0.0-0.1) 10^3/uL Abs Immat Gran (auto) 0.03 (0.00-0.03) 10^3/uL Imm/Tot Granulo (auto) 0.3 (0.0-0.5) % Sodium 141 (136-145) mmol/L Potassium 3.7 (3.5-5.1) mmol/L Chloride 104 (98-107) mmol/L Carbon Dioxide 29.6 (21.0-32.0) mmol/L Anion Gap 11.1 BUN 6.0 L (7.0-18.0) mg/dL Creatinine 0.77 (0.55-1.02) mg/dL Est GFR ( Amer) >60 (>=60 mL/min/1.73m^2) Est GFR (Non-Af Amer) >60 (>=60 mL/min/1.73m^2) BUN/Creatinine Ratio 7.8 Glucose 97 (74-106) mg/dL Lactate 0.9 (0.4-2.0) mmol/L Calcium 9.6 (8.5-10.1) mg/dL Urine Color Yellow (YELLOW) Urine Clarity Clear (CLEAR) Urine pH 5.5 (5.0-9.0) Ur Specific Sheldahl 1.025 (1.005-1.025) Urine Protein Negative (NEG/TRACE) mg/dL Urine Glucose (UA) Negative (NEGATIVE) mg/dL Urine Ketones Trace A (NEGATIVE) mg/dL Urine Occult Blood Negative (NEGATIVE) Urine Nitrite Negative (NEGATIVE) Urine Bilirubin Negative (NEGATIVE) Urine Urobilinogen 1.0 (0.2-1.0) EU/dL Ur Leukocyte Esterase Negative (NEGATIVE) Imaging Data Abdominal x-ray: Radiologist's impression: ITS Impressions Abdomen/Pelvis CT 07/16/24 00:42 IMPRESSION: 1. Pancolonic diverticulosis with a mid sigmoid diverticulitis. There is a 1.8 cm intramural abscess in the medial wall of the focally thickened mid sigmoid colon. Surrounding inflammatory change is seen. There is no free air. No other acute findings are seen in the abdomen or pelvis. 2. Small hiatal hernia. 3. Cholecystectomy with mild postoperative extrahepatic biliary ductal dilatation. 4. Normal appendix. Electronically authenticated by: DIAMOND KAY Date: 07/16/2024 02:26 Discharge Plan Discharge Chief Complaint: Urogenital-Female Clinical Impression: Abscess of sigmoid colon, Diverticulitis of sigmoid colon Patient Disposition: Admitted As Inpatient Discharge Date/Time: 07/16/24 03:51
[2024-07-16] VITALS (13 sets, daily range): BP systolic 78–129; BP diastolic 53–69; PULSE 50–75; TEMP 36.3–36.9; O2SAT 95–98; BMI 36.0
[2024-07-16 00:13] LABS: Bilirubin Urine NEGATIVE (NEGATIVE); Blood Urine NEGATIVE (NEGATIVE); Clarity Urine CLEAR (CLEAR); Color Urine YELLOW (YELLOW); Glucose Urine UA NEGATIVE (NEGATIVE); Ketones Urine TRACE mg/dL (NEGATIVE); Leukocyte Esterase Urine NEGATIVE (NEGATIVE); Nitrite Urine NEGATIVE (NEGATIVE); Protein Urine NEGATIVE (NEG/TRACE); Specific Gravity Urine 1.025 (1.005-1.025); pH Urine 5.5 (5.0-9.0)
[2024-07-16 00:14] LABS: Urine Microscopic Indicated NO
--- NOTE | 2024-07-16 00:42 | CT_ITS ---
The [address] [address] Patient Name: VALERIA ROMERO MRN: [id number] date: 1965 Sex: F Assigned Patient Location: ER Current Patient Location: ER Accession/Order Number: [id number] Exam Date: 07/16/2024 01:42 Report Date: 07/16/2024 02:26 At the request of: DANI TURNER Procedure: CT abdomen pelvis w con EXAM: CT abdomen pelvis w con HISTORY: pelvic pain . Painful urination for 3 days. COMPARISON: CT abdomen pelvis, 12/18/2022. TECHNIQUE: IV contrast enhanced CT imaging the abdomen and pelvis was performed using 100 mL of Omnipaque 300 intravenous contrast. Sagittal and coronal reconstructions are provided. Dose reduction techniques were achieved by using automated exposure control and/or adjustment of mA and/or kV according to patient size and/or use of iterative reconstruction technique. FINDINGS: CT ABDOMEN: The lung bases are clear. The heart is unremarkable. Cholecystectomy clips are present with mild postoperative extrahepatic biliary ductal dilatation. The liver, pancreas, spleen, adrenal glands and kidneys are unremarkable. There is a small hiatal hernia. The stomach and small bowel are otherwise unremarkable. There are mild aortic and iliac arterial calcifications without aneurysm. The IVC appears normal. CT PELVIS: The appendix, pelvic small bowel loops and urinary bladder are unremarkable. Prior hysterectomy is noted. There is mid sigmoid diverticulitis with intramural abscess in the medial wall of the mid sigmoid colon measuring 1.8 x 0.9 cm on image 98 of series 3. Surrounding inflammatory fat stranding is noted with focal colonic wall thickening at this level. Diverticular change is seen throughout the remainder of the colon. There is no free air. No acute osseous abnormality or suspicious bony lesion is seen. CT/CT abdomen pelvis w con IMPRESSION: 1. Pancolonic diverticulosis with a mid sigmoid diverticulitis. There is a 1.8 cm intramural abscess in the medial wall of the focally thickened mid sigmoid colon. Surrounding inflammatory change is seen. There is no free air. No other acute findings are seen in the abdomen or pelvis. 2. Small hiatal hernia. 3. Cholecystectomy with mild postoperative extrahepatic biliary ductal dilatation. 4. Normal appendix. Electronically authenticated by: DIAMOND KAY Date: 07/16/2024 02:26
[2024-07-16 01:11] LABS: Basophils Absolute Auto 0.1 10^3/uL (0.0-0.1); Basophils Percent Auto 0.5 % (0.2-2.0); Eosinophils Absolute Auto 0.3 10^3/uL (0.0-0.7); Eosinophils Percent Auto 2.4 % (0.9-7.0); Hematocrit 40.3 % (36.0-48.0); Hemoglobin 12.7 g/dL (12.0-16.0); Immature Granulocytes Abs Auto 0.03 10^3/uL (0.00-0.03); Immature Granulocytes Pct Auto 0.3 % (0.0-0.5); Lymphocytes Absolute Auto 2.5 10^3/uL (1.2-3.8); Lymphocytes Percent Auto 22.7 % (20.5-60.0); Mean Corpuscular HGB Conc 31.5 g/dL (29.9-35.2); Mean Corpuscular Hemoglobin 28.2 pg (26.7-34.0); Mean Corpuscular Volume 89.6 fL (81.0-99.0); Mean Platelet Volume 9.3 fL (9.5-13.5); Monocytes Percent Auto 9.1 % (1.7-12.0); Neutrophils Absolute Auto 7.1 10^3/uL (1.4-6.5); Platelet Count 397 10^3/uL (150-450); Red Cell Distribution Width 14.1 % (11.0-15.0); White Blood Count 10.9 10^3/uL (4.0-11.0)
[2024-07-16 01:22] LABS: Anion Gap 11.1; BUN Creatinine Ratio 7.8; Calcium 9.6 mg/dL (8.5-10.1); Carbon Dioxide 29.6 mmol/L (21.0-32.0); Chloride 104 mmol/L (98-107); Estimated GFR (African America >60 (>=60 mL/min/1.73m^2); Estimated GFR (Non-African Ame >60 (>=60 mL/min/1.73m^2); Glucose 97 mg/dL (74-106); Potassium 3.7 mmol/L (3.5-5.1); Sodium 141 mmol/L (136-145)
[2024-07-16] MEDS: KETOROLAC TROMETHAMINE 30 MG/ML VIAL IVP ×3 (03:22→15:43)
[2024-07-16] MEDS: PIPERACILLIN SODIUM/TAZOBACTAM 3.375 GM in 0.9 % SODIUM CHLORIDE 50 ML IV ×3 (03:22→19:43)
[2024-07-16] MEDS: 0.9 % SODIUM CHLORIDE 1,000 ML 999 ML IV (03:22)
--- OUTSIDE RECORDS SUMMARY | 2024-07-16 03:57 | XMS_ITS | CCD ---
Author Organization [facility] Care Team Providers Care Technical Publications Writer Name Role Phone Unavailable Primary Care Provider Unavailabl e NO FAMILY, PHYSICIAN Primary Care Provider Unava ilable Rice ([facility]), KARINA Lundberg Attending Provider [facility], Arcadio Gallagher Primary Care Provider MD Charli Sena Attending Provider [phone] NO FAMILY, PHYSICIAN Primary Care Unavailable Rice ([facility]), Luz Maria Lundberg Admitting Unavailabl e Rice ([facility]), Luz Maria Lundberg Attending [facility]availabl e [facility] Arcadio Gallagher Primary Care Unavailable Charli Sena Admitting Unavailable Charli Sena Attending Unavailable YAQUELIN, DR CHICHO Martines Consulting Unavailabl e YAQUELIN, DR CHICHO Martines Attending Unavailabl e [facility] Primary Care Unava ilable YAQUELIN, DR CHICHO Martines Admitting Unavailabl e SHANNON, DR INO Lundberg Consulting Unavailable NELDA .MAJOR Consulting Unavailabl e Unavailable Primary Care Provider Unavailabl e BETTIE SMITH Referring Unavailable PEDRO WALSH Referring Unavailable PEDRO [...] sources) Ciprofloxacin; Translations: [CIPROFLOXACIN] Drug Allergy 02-27-2007 [facility] Work Phone: (1 source) Ciprofloxacin Drug Allergy 12-26-2022 [facility] Repository (1 source) Ciprofloxacin Drug Allergy 05-01-2017 [facility] Repository Medications Current Medications Medication Drug Class(es) [...] on above: Take 2 tablets by mo [facility] every 6 hours as needed for [...] Comment on above: Take 1 capsule by [facility] once daily. Take 40 mg by mouth. [...] Comment on above: Take 2 tablets by [facility] once daily for 5 days. Completed/Discontinued Medications [...] Test Name Value Interpretation Reference Range Facility [facility] 01-18-2023 CNOV Office Visit (CORSAV ) VALERIA ROMERO ([id number]) 1965 F Date Time Provider Department 01/18/23 [...] for internal providers or letter via the [employer] for external providers. Chief Complaint: [...] exam reveals no gross blood or masses Sand Carrier present: Yes, Gianna Gusman Anoscopy: The patient [...] chest-knee posit (more content not included)... Normal [facility] 12-27-2022 L -- ---- Specimen: [id number] Received: 12/27/22 Status: PJ Segovianolan Num: [id number] Spec Type: Surgical Subm Dr: Charli Sena MD Tissues: A Colon Biopsy (CECAL POLYP) B Colon Biopsy (ASCENDING POLYP) C Colon Biopsy (TRANSVERSE POLYP) D Colon Biopsy (SIGMOID POLYP) Procedures: HE/8, Gross/Micro L4/4 ---- Age/ Patient Sex Location Account Attending Physician ---- Valeria Romero 57/F [id number] Charli Sena MD ---- SPEC NUM: [id number] RECD: 12/27/22 STATUS: PJ GARZA NUM: [id number] ADELITA: 12/27/[address]: Charli Sena MD ENTERED: 12/27/[address] [facility] DR: CAROL ANN TYPE: Surgical DEPT: S [...] Specimen: Received: 12/27/22 Status: PJ Garza Num: [id number] Spec Type: Surgical Subm Dr: Charli Sena MD Tissues: A Colon Biopsy (CECAL POLYP) B Colon Biopsy (ASCENDING POLYP) C Colon Biopsy (TRANSVERSE POLYP) D Colon Biopsy (SIGMOID POLYP) Procedures: ROHAN/Angel, Gross/Micro L4/4 ---- Patient: TomasmunirjoseValeria [id number] (Continued) ---- Specimen: Received: 12/27/22 (Continued) Gross Description (Continued) Signed (signature on file) Kristel Blair MD 12/28/22 0936 ---- Specimen: Received: 12/27/22 Status: PJ Garza Num: [id number] Spec Type: Surgical Subm Dr: Charli Sena MD Tissues: A Colon Biopsy (CECAL POLYP) B Colon Biopsy (ASCENDING POLYP) C Colon Biopsy (TRANSVERSE POLYP) D Colon Biopsy (SIGMOID POLYP) Procedures: /Angel, Gross/Micro L4/4 ---- Patient: Valeria Romero [id number] (Continued) ---- Specimen: [id number] Received: 12/27/22-1057 (Continued) Gross Description (Continued) B. [...] support the above pathologic diagnosis. CPT Codes 79910?4 ---- ---- Specimen: [id number] Received: 12/27/22 Status: PJ Garza Num: [id number] Spec Type: Surgical Subm Dr: Charli Sena MD Tissues: A Colon Biopsy (CECAL POLYP) B Colon Biopsy (ASCENDING POLYP) C Colon Biopsy (TRANSVERSE POLY (more content not included)... Normal [facility] CT ABD/PELVIS WO CONon 12-18 CT ABD/PELVIS [...] INO ORTEGA Date: 2022-12-18 17:48 Normal [facility] ER URINE PROFILEon 3 Bilirubin Ql (U) Negative Normal NEGATIVE [facility] Comment on above: Performed By: #### E RUR #### [facility] [address] [place] [address] Dr. Oh Laureano Clarity (U) CLEAR Normal CLEAR [facility] Comment on above: Performed By: #### E RUR #### [facility] [address] [place] [address] Dr. Oh Laureano Color (U) LT. YELLOW Normal YELLOW [facility] Comment on above: Performed By: #### E RUR #### [facility] [address] [place] [address] Dr. Oh CHAPMAN A micrscopic examination will be performed if indicated. Normal [facility] Comment on above: Performed By: #### E RUR #### [facility] [address] [place] [address] Dr. Oh Laureano Glucose Ql (U) Negative Normal NEGATIVE [facility] Comment on above: Performed By: #### E RUR #### [facility] [address] [place] [address] Dr. Oh Laureano Hemoglobin Ql (U) Negative Normal NEGATIVE [facility] Comment on above: Performed By: #### E RUR #### [facility] [address] [place] [address] Dr. Oh Laureano Ketones Ql (U) Negative Normal NEGATIVE [facility] Comment on above: Performed By: #### E RUR #### [facility] [address] [place] [address] Dr. Oh Laureano LEUKOCYTES Negative Normal NEGATIVE [facility] Comment on above: Performed By: #### E RUR #### [facility] [address] [place] [address] Dr. Oh Laureano Nitrite Ql (U) Negative Normal NEGATIVE [facility] Comment on above: Performed By: #### E RUR #### [facility] [address] [place] [address] Dr. Oh Laureano pH (U) 6.0 [pH] Normal 5-9 [facility] Comment on above: Performed By: #### E RUR #### [facility] [address] [place] [address] Dr. Oh Laureano SPEC GRAVITY <=1.005 Abnormal 1.005-<=1.025 [facility] Comment on above: Performed By: #### E RUR #### [facility] [address] [place] [address] Dr. Oh Laureano UA PROTEIN Negative Normal NEGATIVE/ TRACE [facility] Comment on above: Performed By: #### E RUR #### [facility] [address] [place] [address] Dr. Oh Laureano UR MICRO IND NOT INDICATED Normal [facility] Comment on above: Performed By: #### E RUR #### [facility] [address] [place] [address] Dr. Oh Laureano Urobilinogen Qn (U) 0.2 {Rasta'U}/dL Normal 0.2 - 1. 0 [facility] Comment on above: Performed By: #### E RUR #### [facility] [address] [place] [address] Dr. hO Laureano Basophils Auto (Bld) [#/Vol] Ordered By: Capri Walsh on 09-06-2022 Basophils (Bld) [#/Vol] 0.0 10*3/uL 0.0-0.2 [facility] Basophils/100 WBC Auto (Bld) Ordered By: Capri Walsh on 09-06-2022 Basophils/100 WBC (Bld) 0.9 % . [facility] Complete Blood Count Auto Di ffon 09-06-2022 Basophils (Bld) [#/Vol] 0.0 10*3/uL Normal 0.0-0.2 [facility] Comment on above: Order Comment: PT FA STED 12 HRS Result Comment: PERF ORMED BY: [place] [address] PATHOLOGIST LAY OUT TECHNICIAN MAURIZIO CRAMER M.D. Performed By: #### C BC #### [facility] [address] [place] [address] #### HCV RX PCR #### [facility] , Basophils/100 WBC (Bld) 0.9 % Normal . [facility] Comment on above: Order Comment: PT FA STED 12 HRS Performed By: #### C BC #### [facility] [address] [place] [address] #### HCV RX PCR #### [facility] , Eosinophils (Bld) [#/Vol] 0.2 10*3/uL Normal 0.0-0.45 [facility] Comment on above: Order Comment: PT FA STED 12 HRS Performed By: #### C BC #### [facility] [address] [place] [address] #### HCV RX PCR #### [facility] , Eosinophils/100 WBC (Bld) 3.7 % Normal . [facility] Comment on above: Order Comment: PT FA STED 12 HRS Performed By: #### C BC #### [facility] [address] [place] [address] [place] #### HCV RX PCR #### [facility] , Erythrocyte distribution width (RBC) [Ratio] 15.3 % Normal 11.9-15.3 [facility] Comment on above: Order Comment: PT FA STED 12 HRS Performed By: #### C BC #### [facility] [address] [place] [address] [place] #### HCV RX PCR #### [facility] , Hematocrit (Bld) [Volume fraction] 32.5 % Low 34.0-46.4 [facility] Comment on above: Order Comment: PT FA STED 12 HRS Performed By: #### C BC #### [facility] [address] [place] [address] #### HCV RX PCR #### [facility] , Hemoglobin (Bld) [Mass/Vol] 10.4 g/dL Low 11.8-15.4 [facility] Comment on above: Order Comment: PT FA STED 12 HRS Performed By: #### C BC #### [facility] [address] [place] [address] #### HCV RX PCR #### [facility] , Lymphocytes (Bld) [#/Vol] 1.1 10*3/uL Normal 1.00-4.8 [facility] Comment on above: Order Comment: PT FA STED 12 HRS Performed By: #### C BC #### [facility] [address] [place] [address] #### HCV RX PCR #### [facility] , Lymphocytes/100 WBC (Bld) 20.5 % Normal . [facility] Comment on above: Order Comment: PT FA STED 12 HRS Performed By: #### C BC #### [facility] [address] [place] [address] #### HCV RX PCR #### [facility] , MCH (RBC) [Entitic mass] 26.5 pg Normal 24.7-34.3 [facility] Comment on above: Order Comment: PT FA STED 12 HRS Performed By: #### C BC #### [facility] [address] [place] [address] [place] #### HCV RX PCR #### [facility] , MCV (RBC) [Entitic vol] 82.8 fL Normal 80-100 [facility] Comment on above: Order Comment: PT FA STED 12 HRS Performed By: #### C BC #### [facility] [address] [place] [address] [place] #### HCV RX PCR #### [facility] , Mean Corpuscular HGB Conc 32.0 g/dL Normal 32.0-35.0 [facility] Comment on above: Order Comment: PT FA STED 12 HRS Performed By: #### C BC #### [facility] [address] [place] [address] [place] #### HCV RX PCR #### [facility] , Monocytes (Bld) [#/Vol] 0.5 10*3/uL Normal 0.0-0.8 [facility] Comment on above: Order Comment: PT FA STED 12 HRS Performed By: #### C BC #### [address] #### HCV RX PCR #### [facility] , Monocytes/100 WBC (Bld) 9.1 % Normal . [facility] Comment on above: Order Comment: PT FA STED 12 HRS Performed By: #### C BC #### [facility] [address] [place] [address] [place] #### HCV RX PCR #### [facility] , Neutrophils (Bld) [#/Vol] 3.6 10*3/uL Normal 1.8-7.7 [facility] Comment on above: Order Comment: PT FA STED 12 HRS Performed By: #### C BC #### [facility] [address] [place] [address] [place] #### HCV RX PCR #### [facility] , Neutrophils/100 WBC (Bld) 65.8 % Normal . [facility] Comment on above: Order Comment: PT FA STED 12 HRS Performed By: #### C BC #### [facility] [address] [place] [address] [place] #### HCV RX PCR #### [facility] , NRBC% 0.0 /100{WBC} Normal 0-0.5 [facility] Comment on above: Order Comment: PT FA STED 12 HRS Performed By: #### C BC #### [facility] [address] [place] [address] #### HCV RX PCR #### [facility] , Platelet mean volume (Bld) [Entitic vol] 7.5 fL Normal 6.3-10.7 [facility] Comment on above: Order Comment: PT FA STED 12 HRS Performed By: #### C BC #### [facility] [address] [place] [address] #### HCV RX PCR #### [facility] , Platelets (Bld) [#/Vol] 374 10*3/uL Normal 150-450 [facility] Comment on above: Order Comment: PT FA STED 12 HRS Performed By: #### C BC #### [facility] [address] [place] [address] #### HCV RX PCR #### [facility] , RBC (Bld) [#/Vol] 3.92 10*6/uL Normal 3.60-5.00 [facility] Comment on above: Order Comment: PT FA STED 12 HRS Performed By: #### C BC #### [facility] [address] [place] [address] #### HCV RX PCR #### [facility] , WBC (Bld) [#/Vol] 5.5 10*3/uL Normal 3.8-11.6 [facility] Comment on above: Order Comment: PT FA STED 12 HRS Performed By: #### C BC #### [facility] [address] [place] [address] [place] #### HCV RX PCR #### [facility] , Eosinophils Auto (Bld) [#/Vo l]Ordered By: Capri Walsh on 09-06-2022 Eosinophils (Bld) [#/Vol] 0.2 10*3/uL 0.0-0.45 [facility] Eosinophils/100 WBC Auto (Bl d)Ordered By: Capri Walsh on 09-06-2022 Eosinophils/100 WBC (Bld) 3.7 % . [facility] Erythrocyte distribution wid th Auto (RBC) [Ratio]Ordered By: Capri Walsh on 09-06-2022 Erythrocyte distribution width (RBC) [Ratio] 15.3 % 11.9-15.3 [facility] Hematocrit Auto (Bld) [Volum e fraction]Ordered By: Capri Walsh on 09-06-2022 Hematocrit (Bld) [Volume fraction] 32.5 % 34.0-46.4 [facility] Hemoglobin [Mass/volume] in BloodOrdered By: Capri Walsh on 09-06-2022 Hemoglobin (Bld) [Mass/Vol] 10.4 g/dL 11.8-15.4 [facility] Hep C Ab wRfx to Qnt PCRon 1 11-07-2021 Hepatitis C Virus Antibody <0.1 Normal 0.0-0.9 [facility] Comment on above: Order Comment: PT FA STED 12 HRS Performed By: #### C BC #### [facility] [address] [place] [address] #### HCV RX PCR #### [facility] , Interpretation Hepatitis C Normal . [facility] Comment on above: Order Comment: PT FA STED 12 HRS Result Comment: Nega tive Not infected with HCV, unless recent infection is suspected or other evidence exists to indicate HCV infection. Performed at: - [facility] [id number] Licensed Psychiatric Technician: Jean Thorpe PhD, Phone: [phone] PERFORMED BY: [place] [address] PATHOLOGIST LAY OUT TECHNICIAN MAURIZIO CRAMER M.D. Performed By: #### C BC #### [facility] [address] [place] [address] [place] #### HCV RX PCR #### [facility] , Leukocytes [#/volume] correc radhames for nucleated erythrocytes in Blood by Automated counOrdered By: Capri Walsh on 09-06-2022 WBC corrected for nucl RBC Auto (Bld) [#/Vol] 5.5 10*3/uL 3.8-11.6 [facility] Lymphocytes Auto (Bld) [#/Vo l]Ordered By: Capir Walsh on 09-06-2022 Lymphocytes (Bld) [#/Vol] 1.1 10*3/uL 1.00-4.8 [facility] Lymphocytes/100 WBC Auto (Bl d)Ordered By: Capri Walsh on 09-06-2022 Lymphocytes/100 WBC (Bld) 20.5 % . [facility] MCH Auto (RBC) [Entitic mass ]Ordered By: Capri Walsh on 09-06-2022 MCH (RBC) [Entitic mass] 26.5 pg 24.7-34.3 [facility] MCHC Auto (RBC) [Mass/Vol]Or dered By: Capri Walsh on 09-06-2022 MCHC (RBC) [Mass/Vol] 32.0 g/dL 32.0-35.0 [facility] MCV Auto (RBC) [Entitic vol] Ordered By: Capri Walsh on 09-06-2022 MCV (RBC) [Entitic vol] 82.8 fL 80-100 [facility] MM screening mammo BI w/CADo n 09-06-2022 MM screening mammo BI w/CAD [facility] [place] [address] Mammography Report Signed Patient: Valeria Romero MR#: [id number] : 1965 Acct:[id number] Age/Sex: 57 / F ADM Date: 09/06/22 Loc: [place] Room: Type: [facility] Attending Dr: Luz Maria West ([facility]) KARINA Copies to: NO FAMILY PHYSICIAN [...] Wilfredo Green M.D.09/06/2022 12:33 PM Dictation Location: [facility] Transcribed By: HAM 09/06/22 1233 Dictated By: Wilfredo Green II, MD 09/06/22 1226 Signed By: 09/06/22 1233 Normal [facility] Monocytes Auto (Bld) [#/Vol] Ordered By: Capri Walsh on 09-06-2022 Monocytes (Bld) [#/Vol] 0.5 10*3/uL 0.0-0.8 [facility] Monocytes/100 WBC Auto (Bld) Ordered By: Capri Walsh on 09-06-2022 Monocytes/100 WBC (Bld) 9.1 % . [facility] Neutrophils Auto (Bld) [#/Vo l]Ordered By: Capri Walsh on 09-06-2022 Neutrophils (Bld) [#/Vol] 3.6 10*3/uL 1.8-7.7 [facility] Neutrophils/100 WBC Auto (Bl d)Ordered By: Capri Walsh on 09-06-2022 Neutrophils/100 WBC (Bld) 65.8 % . [facility] Nucleated erythrocytes [Pres ence] in Blood by Automated countOrdered By: Capri Walsh on 09-06-2022 Nucleated RBC Auto Ql (Bld) 0.0 /100{WBC} 0-0.5 [facility] Platelet mean volume Auto (B ld) [Entitic vol]Ordered By: Capri Walsh on 09-06-2022 Platelet mean volume (Bld) [Entitic vol] 7.5 fL 6.3-10.7 [facility] Platelets Auto (Bld) [#/Vol] Ordered By: Capri Walsh on 09-06-2022 Platelets (Bld) [#/Vol] 374 10*3/uL 150-450 [facility] RBC Auto (Bld) [#/Vol]Ordere d By: Capri Walsh on 09-06-2022 RBC (Bld) [#/Vol] 3.92 10*6/uL 3.60-5.00 [facility] WBC Auto (Bld) [#/Vol]Ordere d By: Capri Walsh on 09-06-2022 WBC (Bld) [#/Vol] 5.5 10*3/uL 3.8-11.6 [facility] CNOVon 06-29-2022 CNOV Office Visit (TAMMY ) VALERIA ROMERO ([id number]) 1965 F Date Time Provider Department 06/29/22 10:20 AM PEDRO WALSH During your visit today, we recorded the following information about you: Temperature Pulse Respiration Blood pressure 96.6 degrees 76/minute 14/minute 109/62 Weight Height 78 kg 1.575 m Pedro Walsh MD 06/29/2022 4:16 PM Signed [facility] Abdominal Core Health - Postoperative [...] the resi (more content not included)... Normal [facility] CT ABD/PEL WO IVCONon 2021 CT ABD/PEL WO IVCON * * *Final Report* * * DATE OF EXAM: Jun 29 2022 12:25PM [facility] - CT ABD/PEL WO IVCON / [...] inferior pubic rami fractures. Lower thorax: Unremarkable. Firefighting Equipment Specialist (topogram) images: No additional findings. IMPRESSION: Postoperative changes to ventral abdominal wall with pockets of fluid along the surgical incision without internal gas, as described, likely seromas. No intra-abdominopelvic fluid collection. Physicist Acoustics: MANAV Transcribe Date/Time: Jun 29 2022 12:38P Dictated by : ALISSON FISH DO This examination was interpreted and the report reviewed and electronically signed by: KYLE COBB MD on Jun 29 2022 1:40PM EST [id number] Normal [facility] No Panel Informationon 06-29 [facility]-2022 CNPTasha Telephone ([facility]) HEATHERVALERIA ([id number]) 1965 F Date Time Provider Department 06/12/22 VALERIA MORSE [facility] During your visit today, we recorded the following information about you: VON Bhatia 06/12/2022 4:15 PM Signed [facility] SOC[facility] WORK CONSULT NOTE Service Date: June 12, 2022 Patient was identified by name and Patient: Valeria Mei Heather [address] [place] [address] [address] [facility] [address] (home) [phone] (cell) PCP: No primary care provider on [...] F17.2 [F17.200] 06/08/2022 Encounter Status:Closed by VALERIA OMRSE on 06/12/22 Normal [facility] Basic metabolic 2000 panelon 06-09-2022 Anion gap [Moles/Vol] 11 mmol/L Normal 9-18 [facility] Comment on above: Order Comment: Speci men Type: BLOOD SPECIMENOrdering Facility: [facility] Address: [address] [place] [address] Performed By: #### 2 4320-11, 1988-01, , 2776-10 ####[facility] [id number] [place] [address] [place] Calcium [Mass/Vol] 8.8 mg/dL Normal 8.5-10.2 [facility] Comment on above: Order Comment: Speci men Type: BLOOD SPECIMENOrdering Facility: [facility] Address: [address] [place] [address] Performed By: #### 2 4320-11, 1988-01, , 2776-10 ####[facility] [id number] [address] [address] [place] Chloride [Moles/Vol] 102 mmol/L Normal 97-105 [facility] Comment on above: Order Comment: Speci men Type: BLOOD SPECIMENOrdering Facility: [facility] Address: [address] [place], [place] [address] Performed By: #### 2 432-2, 1988-01, , 2776-10 ####[facility] [id number] [address] [address] [place] CO2 [Moles/Vol] 25 mmol/L Normal 22-30 [facility] Comment on above: Order Comment: Speci men Type: BLOOD SPECIMENOrdering Facility: [facility] Address: [address] [place], [place] [address] Performed By: #### 2 432-2, 1988-01, , 2776-10 ####[facility] [id number] [address] [address] [place] Creatinine [Mass/Vol] 0.58 mg/dL Normal 0.58-0.96 [facility] Comment on above: Order Comment: Speci men Type: BLOOD SPECIMENOrdering Facility: [facility] Address: [address] [place], [place] [address] Performed By: #### 2 432-2, 1988-01, , 2776-10 ####[facility] [id number] [address] [address] [place] ESTIMATED GLOMERULAR FILTRATION RATE 107 mL/min/1.73m??? Normal >=60 [facility] Comment on above: Order Comment: Speci men Type: BLOOD SPECIMENOrdering Facility: [facility] Address: [address] [place], [place] [address] Result Comment: Faiza mated Glomerular Filtration Rate [...] By: #### 2 4320-11, 1988-01, , 2776-10 ####[facility] [id number] [place] [id number] [place] Glucose [Mass/Vol] 102 mg/dL High 74-99 [facility] Comment on above: Order Comment: Poncho freeman Type: BLOOD SPECIMENOrdering Facility: [facility] Address: [address] [place] [address] Result Comment: The [place] Diabetes Association (ADA) provides guidance for cutoff [...] Standards of Medical Care in Diabetes 2016, [place] [employer] Association. Diabetes Care. 2016.39(Suppl 1). Performed By: #### 2 4320-11, 1988-01, , 2776-10 ####[facility] [id number] [address] [address] [place] Potassium [Moles/Vol] 3.9 mmol/L Normal 3.7-5.1 [facility] Comment on above: Order Comment: Poncho freeman Type: BLOOD SPECIMENOrdering Facility: [facility] Address: [address] [place] [address] Performed By: #### 2 4320-11, 1988-01, , 2776-10 ####[facility] [id number] [place] [address] [place] Sodium [Moles/Vol] 138 mmol/L Normal 136-144 [facility] Comment on above: Order Comment: Speci men Type: BLOOD SPECIMENOrdering Facility: [facility] Address: [address] [place] [address] Performed By: #### 2 4320-2, 1988-01, , 2776-10 ####[facility] [id number] [place] [address] [place] Urea nitrogen [Mass/Vol] 6 mg/dL Low 7-21 [facility] Comment on above: Order Comment: Speci men Type: BLOOD SPECIMENOrdering Facility: [facility] Address: [address] [place] [address] Performed By: #### 2 4320-11, 1988-01, , 2776-10 ####[facility] [id number] [place] [address] [place] CBC W Auto Differential pane l (Bld)on 06-09-2022 Basophils (Bld) [#/Vol] 0.05 10*3/uL Normal <0.11 [facility] Comment on above: Order Comment: Speci men Type: BLOOD SPECIMENOrdering Facility: [facility] Address: [address] [place], [place] [address] Performed By: #### 5 7021-8 ####[facility] [id number] [place] [address] [place] Basophils/100 WBC (Bld) 0.4 % Normal [facility] [facility] Comment on above: Order Comment: Speci men Type: BLOOD SPECIMENOrdering Facility: [facility] Address: [address] [place], [place] [address] Performed By: #### 5 7021-8 ####[facility] LABCLIA [id number] [address] [place] Differential cell count method Nom (Bld) Auto Normal [facility] Comment on above: Order Comment: Speci men Type: BLOOD SPECIMENOrdering Facility: [facility] Address: [address] [place] [address] Performed By: #### 5 7021-8 ####[facility] LABCLIA [id number] [place] [address] [place] Eosinophils (Bld) [#/Vol] 0.26 10*3/uL Normal <0.46 [facility] Comment on above: Order Comment: Speci men Type: BLOOD SPECIMENOrdering Facility: [facility] Address: [address] [place] [address] Performed By: #### 5 7021-8 ####[facility] LABCLIA [id number] [address] [place] Eosinophils/100 WBC (Bld) 2.1 % Normal [facility] Comment on above: Order Comment: Speci men Type: BLOOD SPECIMENOrdering Facility: [facility] Address: [address] [place], [place] [address] Performed By: #### 5 7021-8 ####[facility] LABCLIA [id number] [place] [address] [place] Erythrocyte distribution width (RBC) [Ratio] 14.1 % Normal 11.5-15.0 [facility] Comment on above: Order Comment: Speci men Type: BLOOD SPECIMENOrdering Facility: [facility] Address: [address] [place], [place] [address] Performed By: #### 5 7021-8 ####[facility] LABCLIA [id number] [place] [address] [place] Hematocrit (Bld) [Volume fraction] 34.3 % Low 36.0-46.0 [facility] Comment on above: Order Comment: Speci men Type: BLOOD SPECIMENOrdering Facility: [facility] Address: [address] [place], [place] [address] Performed By: #### 5 7021-8 ####[facility] LABCLIA [id number] [place] [address] [place] Hemoglobin (Bld) [Mass/Vol] 10.7 g/dL Low 11.5-15.5 [facility] Comment on above: Order Comment: Speci men Type: BLOOD SPECIMENOrdering Facility: [facility] Address: [address] [place] [address] Performed By: #### 5 7021-8 ####[facility] LABCLIA [id number] [address] [place] IMMATURE GRAN % 0.8 % Normal [facility] Comment on above: Order Comment: Speci men Type: BLOOD SPECIMENOrdering Facility: [facility] Address: [address] [place], [place] [address] Performed By: #### 5 7021-8 ####[facility] LABCLIA [id number] [place] [address] [place] IMMATURE GRAN ABS 0.10 k/uL High <0.10 [facility] Comment on above: Order Comment: Speci men Type: BLOOD SPECIMENOrdering Facility: [facility] Address: [address] [place], [place] [address] Performed By: #### 5 7021-8 ####[facility] LABCLIA [id number] [place] [address] [place] Lymphocytes (Bld) [#/Vol] 1.76 10*3/uL Normal 1.00-4.00 [facility] Comment on above: Order Comment: Speci men Type: BLOOD SPECIMENOrdering Facility: [facility] Address: [address] [place], [place] [address] Performed By: #### 5 7021-8 ####[facility] LABCLIA [id number] [place] [address] [place] Lymphocytes/100 WBC (Bld) 14.0 % Normal [facility] Comment on above: Order Comment: Speci men Type: BLOOD SPECIMENOrdering Facility: [facility] Address: [address] [place] [address] Performed By: #### 5 7021-8 ####[facility] LABCLIA [id number] [address] [place] MCH (RBC) [Entitic mass] 29.4 pg Normal 26.0-34.0 [facility] Comment on above: Order Comment: Speci men Type: BLOOD SPECIMENOrdering Facility: [facility] Address: [address] [place], [place] [address] Performed By: #### 5 7021-8 ####[facility] LABIA [id number] [address] [place] MCHC (RBC) [Mass/Vol] 31.2 g/dL Normal 30.5-36.0 [facility] Comment on above: Order Comment: Speci men Type: BLOOD SPECIMENOrdering Facility: [facility] Address: [address] [place], [place] [address] Performed By: #### 5 7021-8 ####[facility] LABIA [id number] [place] [address] [place] MCV (RBC) [Entitic vol] 94.2 fL Normal 80.0-100.0 [facility] Comment on above: Order Comment: Speci men Type: BLOOD SPECIMENOrdering Facility: [facility] Address: [address] [place] [address] Performed By: #### 5 7021-8 ####[facility] LABIA [id number] [place] [address] [place] Monocytes (Bld) [#/Vol] 1.05 10*3/uL High <0.87 [facility] Comment on above: Order Comment: Speci men Type: BLOOD SPECIMENOrdering Facility: [facility] Address: [address] [place] [address] Performed By: #### 5 7021-8 ####[facility] LABCLIA [id number] [place] [address] [place] Monocytes/100 WBC (Bld) 8.4 % Normal [facility] Comment on above: Order Comment: Speci men Type: BLOOD SPECIMENOrdering Facility: [facility] Address: [address] Performed By: #### 5 7021-8 ####[facility] LABCLIA [id number] [place] [address] [place] Neutrophils (Bld) [#/Vol] 9.35 10*3/uL High 1.45-7.50 [facility] Comment on above: Order Comment: Speci men Type: BLOOD SPECIMENOrdering Facility: [facility] Address: [address] [place] [address] Performed By: #### 5 7021-8 ####[facility] LABCLIA [id number] [place] [address] [place] Neutrophils/100 WBC (Bld) 74.3 % Normal [facility] Comment on above: Order Comment: Speci men Type: BLOOD SPECIMENOrdering Facility: [facility] Address: [address] [place] Performed By: #### 5 7021-8 ####[facility] LABCLIA [id number] [place] [address] [place] Nucleated RBC (Bld) [#/Vol] 10*3/uL Normal <0.01 [facility] Comment on above: Order Comment: Speci men Type: BLOOD SPECIMENOrdering Facility: [facility] Address: [address] [place] [address] Performed By: #### 5 7021-8 ####[facility] LABCLIA [id number] [place] [address] [place] Nucleated RBC/100 WBC (Bld) [Ratio] 0.0 /100 WBC Normal [facility] Comment on above: Order Comment: Speci men Type: BLOOD SPECIMENOrdering Facility: [facility] Address: [address] [place] [address] Performed By: #### 5 7021-8 ####[facility] LABIA [id number] [place] [address] [place] Platelet mean volume (Bld) [Entitic vol] 9.9 fL Normal 9.0-12.7 [facility] Comment on above: Order Comment: Speci men Type: BLOOD SPECIMENOrdering Facility: [facility] Address: [address] [place], [place] [address] Performed By: #### 5 7021-8 ####[facility] LABIA [id number] [place] [address] [place] Platelets (Bld) [#/Vol] 316 10*3/uL Normal 150-400 [facility] Comment on above: Order Comment: Speci men Type: BLOOD SPECIMENOrdering Facility: [facility] Address: [address] [place] [address] Performed By: #### 5 7021-8 ####[facility] LABIA [id number] [place] [address] [place] RBC (Bld) [#/Vol] 3.64 10*6/uL Low 3.90-5.20 [facility] Comment on above: Order Comment: Speci men Type: BLOOD SPECIMENOrdering Facility: [facility] Address: [address] [place], [place] [address] Performed By: #### 5 7021-8 ####[facility] LABCLIA [id number] [place] [id number] [place] WBC (Bld) [#/Vol] 12.57 10*3/uL High 3.70-11.00 [facility] Comment on above: Order Comment: Speci men Type: BLOOD SPECIMENOrdering Facility: [facility] Address: [address] [place] [address] Performed By: #### 5 7021-8 ####[facility] LABCLIA [id number] [place] [id number] [employer] [place] CNDSon 06-09-2022 CNDS HNO ID: [id number] Author: Pedro Walsh MD Service: General Surgery [...] PACU, and then was transferred to a [facility] for the remainder of recovery. On POD1 she was treated with a K+ cocktail x1 for hyperkalemia. She was asymptomatic and an EKG showed NSR. On POD1 she was having bowel function and advanced to GIS. On POD2 the patient was weaned off her [employer] and transitioned to PO pain medications. Her [...] 1 Each (more content not included)... Normal [facility] CRP SerPl-mCncon 06-09-2022 CRP [Mass/Vol] 10.2 mg/dL High <0.9 [facility] Comment on above: Order Comment: Poncho freeman Type: BLOOD SPECIMENOrdering Facility: [facility] Address: [address] [place], [place] [address] Performed By: #### 2 4321-2, 1987-5, 34679-2, 2777-1 ####[facility] LABCLIA [id number] [facility] [id number] [place] [address] [place] Magnesium SerPl-mCncon 06-09 Magnesium [Mass/Vol] 2.0 mg/dL Normal 1.7-2.3 [facility] Comment on above: Order Comment: Poncho freeman Type: BLOOD SPECIMENOrdering Facility: [facility] Address: [address] [place], [place] [address] Performed By: #### 2 4321-2, 1988-01, , 2776-10 ####[facility] LABCLIA [id number] [address] [address] [place] NURSING PROGon 06-09-2022 NURSING PROG HNO ID: [id number] Author: Kellee Hayden RN Service: ? Author [...] and still refused. Dr Ivey notified Normal [facility] Phosphate SerPl-mCncon 06-09 Phosphate [Mass/Vol] 2.0 mg/dL Low 2.7-4.8 [facility] Comment on above: Order Comment: Speci men Type: BLOOD SPECIMENOrdering Facility: [facility] Address: [address] [place], [place] [address] Performed By: #### 2 4321-2, 1988-01, , 2776-10 ####[facility] LABIA [id number] [place] [id number] [place] URINALYSIS, REFLEX MICROSCOP ICon 06-09-2022 Bilirubin Ql (U) Negative Normal Negative [facility] Comment on above: Order Comment: Speci men Type: URINE SPECIMENOrdering Facility: [facility] Address: [address] [place] [address] Performed By: #### L [id number] ####[facility] LABCLIA [id number] [address] [address] [place] Clarity (Unsp spec) Clear Normal Clear [facility] Comment on above: Order Comment: Speci men Type: URINE SPECIMENOrdering Facility: [facility] Address: [address] [place] [address] Performed By: #### L [id number] ####[facility] LABCLIA [id number] [place] [address] [place] Color (U) Straw Normal Yellow [facility] Comment on above: Order Comment: Speci men Type: URINE SPECIMENOrdering Facility: [facility] Address: [address] [place] [address] Performed By: #### L [id number] ####[facility] LABCLIA [id number] [place] [address] [place] Glucose Test strip (U) [Mass/Vol] Negative Normal Negative [facility] Comment on above: Order Comment: Speci men Type: URINE SPECIMENOrdering Facility: [facility] Address: [address] [place], [place] [address] Performed By: #### L [id number] ####[facility] LABCLIA [id number] [place] [address] [place] Hemoglobin Ql (U) Negative Normal Negative [facility] Comment on above: Order Comment: Speci men Type: URINE SPECIMENOrdering Facility: [facility] Address: [address] [place] [address] Performed By: #### L [id number] ####[facility] LABCLIA [id number] [place] [address] [place] Ketones Ql (U) Negative Normal Negative [facility] Comment on above: Order Comment: Speci men Type: URINE SPECIMENOrdering Facility: [facility] Address: [address] [place], [place] [address] Performed By: #### L [id number] ####[facility] LABCLIA [id number] [place] [address] [place] Leukocyte esterase Test strip Ql (U) Negative Normal Negative [facility] Comment on above: Order Comment: Speci men Type: URINE SPECIMENOrdering Facility: [facility] Address: [address] [place], [place] [address] Performed By: #### L [id number] ####[facility] LABCLIA [id number] [place] [address] [place] Nitrite Ql (U) Negative Normal Negative [facility] Comment on above: Order Comment: Speci men Type: URINE SPECIMENOrdering Facility: [facility] Address: [address] [place], [place] [address] Performed By: #### L [id number] ####[facility] LABCLIA [id number] [place] [address] [place] pH (U) 8.0 [pH] Normal 5.0-8.0 [facility] Comment on above: Order Comment: Speci men Type: URINE SPECIMENOrdering Facility: [facility] Address: [address] [place], [place] [address] Performed By: #### L [id number] ####[facility] LABCLIA [id number] [place] [address] [place] Protein (U) [Mass/Vol] Negative Normal Negative [facility] Comment on above: Order Comment: Speci men Type: URINE SPECIMENOrdering Facility: [facility] Address: [address] [place], [place] [address] Performed By: #### L [id number] ####[facility] LABCLIA [id number] [place] [address] [place] Specific gravity (U) [Rel density] 1.006 Normal 1.005-1.030 [facility] Comment on above: Order Comment: Speci men Type: URINE SPECIMENOrdering Facility: [facility] Address: [address] [place], [place] [address] Performed By: #### L [id number] ####[facility] LABCLIA [id number] [place] [address] [place] Urobilinogen Ql (U) Negative Normal Negative [facility] Comment on above: Order Comment: Speci men Type: URINE SPECIMENOrdering Facility: [facility] Address: [address] [place] [address] Performed By: #### L [id number] ####[facility] LABCLIA [id number] [place] [address] [place] ALLIED HEALTHon 06-08-2022 ALLIED HEALTH HNO ID: [id number] Author: Chaplain Jameson Service: Spiritual Care Author [...] 08, 2022 TIME: 12:49 PM CONTACT #: [id number] Normal [facility] Basic metabolic 2000 panelon 06-08-2022 Anion gap [Moles/Vol] 9 mmol/L Normal 9-18 [facility] Comment on above: Order Comment: Speci men Type: BLOOD SPECIMENOrdering Facility: [facility] Address: [address] [place] [address] Performed By: #### 2 4321-2, 1987-5, 63925-2, 2777-1, JOSSELYN ####[facility] LABCLIA [id number] [place] [address] [place] Calcium [Mass/Vol] 9.0 mg/dL Normal 8.5-10.2 [facility] Comment on above: Order Comment: Speci men Type: BLOOD SPECIMENOrdering Facility: [facility] Address: [address] [place] [address] Performed By: #### 2 4320-11, 1988-01, , 2776-10, JOSSELYN ####[facility] LABCLIA [id number] [place] [id number] [place] Chloride [Moles/Vol] 99 mmol/L Normal 97-105 [facility] Comment on above: Order Comment: Speci men Type: BLOOD SPECIMENOrdering Facility: [facility] Address: [address] [place], [place] [address] Performed By: #### 2 4320-11, 1988-01, , 2776-10, JOSSELYN ####[facility] LABCLIA [id number] [place] [address] [place] CO2 [Moles/Vol] 30 mmol/L Normal 22-30 [facility] Comment on above: Order Comment: Speci men Type: BLOOD SPECIMENOrdering Facility: [facility] Address: [address] [place], [place] [address] Performed By: #### 2 4320-11, 1988-01, , 2776-10, JOSSELYN ####[facility] LABCLIA [id number] [place] [address] [place] Creatinine [Mass/Vol] 0.66 mg/dL Normal 0.58-0.96 [facility] Comment on above: Order Comment: Speci men Type: BLOOD SPECIMENOrdering Facility: [facility] Address: [address] [place] [address] Performed By: #### 2 4320-2, 1988-01, , 2776-10, JOSSELYN ####[facility] LABCLIA [id number] [place] [id number] [place] ESTIMATED GLOMERULAR FILTRATION RATE 104 mL/min/1.73m??? Normal >=60 [facility] Comment on above: Order Comment: Poncho freeman Type: BLOOD SPECIMENOrdering Facility: [facility] Address: [address] [place] [address] Result Comment: Faiza mated Glomerular Filtration Rate [...] #### 2 4320-, 1988-01, , 2776-10, JOSSELYN ####[facility] LABCLIA [id number] [address] [address] [place] Glucose [Mass/Vol] 108 mg/dL High 74-99 [facility] Comment on above: Order Comment: Poncho freeman Type: BLOOD SPECIMENOrdering Facility: [facility] Address: [address] [place] [address] Result Comment: The [place] Diabetes Association (ADA) provides guidance for cutoff [...] Standards of Medical Care in Diabetes 2016, [place] [employer]. Diabetes Care. 2016.39(Suppl 1). Performed By: #### 2 4320-, 1988-01, , 2776-10, JOSSELYN ####[facility] LABCLIA [id number] [address] [address] [place] Potassium [Moles/Vol] 5.1 mmol/L Normal 3.7-5.1 [facility] Comment on above: Order Comment: Speci men Type: BLOOD SPECIMENOrdering Facility: [facility] Address: [address] [place], [place] [address] Performed By: #### 2 4320-11, 1988-01, , 2776-10, JOSSELYN ####[facility] LABCLIA [id number] [place] [id number] [place] Sodium [Moles/Vol] 138 mmol/L Normal 136-144 [facility] Comment on above: Order Comment: Speci men Type: BLOOD SPECIMENOrdering Facility: [facility] Address: [address] [place] [address] Performed By: #### 2 4320-11, 1988-01, , 2776-10, JOSSELYN ####[facility] LABCLIA [id number] [place] [address] [place] Urea nitrogen [Mass/Vol] 6 mg/dL Low 7-21 [facility] Comment on above: Order Comment: Speci men Type: BLOOD SPECIMENOrdering Facility: [facility] Address: [address] [place] [address] Performed By: #### 2 4320-11, 1988-01, , 2776-10, JOSSELYN ####[facility] LABCLIA [id number] [place] [address] [place] CBC W Auto Differential pane l (Bld)on 06-08-2022 Basophils (Bld) [#/Vol] 10*3/uL Normal <0.11 [facility] Comment on above: Order Comment: Speci men Type: BLOOD SPECIMENOrdering Facility: [facility] Address: [address] [place], [place] [address] Performed By: #### 5 7021-8 ####[facility] LABCLIA [id number] [place] [address] [place] Basophils/100 WBC (Bld) 0.1 % Normal [facility] Comment on above: Order Comment: Speci men Type: BLOOD SPECIMENOrdering Facility: [facility] Address: [address] [place], [place] [address] Performed By: #### 5 7021-8 ####[facility] LABCLIA [id number] [place] [address] [place] Differential cell count method Nom (Bld) Auto Normal [facility] Comment on above: Order Comment: Speci men Type: BLOOD SPECIMENOrdering Facility: [facility] Address: [address] [place], [place] [address] Performed By: #### 5 7021-8 ####[facility] LABCLIA [id number] [place] [address] [place] Eosinophils (Bld) [#/Vol] 0.07 10*3/uL Normal <0.46 [facility] Comment on above: Order Comment: Speci men Type: BLOOD SPECIMENOrdering Facility: [facility] Address: [address] [place], [place] [address] Performed By: #### 5 7021-8 ####[facility] LABCLIA [id number] [place] [address] [place] Eosinophils/100 WBC (Bld) 0.6 % Normal [facility] Comment on above: Order Comment: Speci men Type: BLOOD SPECIMENOrdering Facility: [facility] Address: [address] [place], [place] [address] Performed By: #### 5 7021-8 ####[facility] LABCLIA [id number] [place] [address] [place] Erythrocyte distribution width (RBC) [Ratio] 14.4 % Normal 11.5-15.0 [facility] Comment on above: Order Comment: Speci men Type: BLOOD SPECIMENOrdering Facility: [facility] Address: [address] [place], [place] [address] Performed By: #### 5 7021-8 ####[facility] LABIA [id number] [address] OF [facility] Hematocrit (Bld) [Volume fraction] 34.8 % Low 36.0-46.0 [facility] Comment on above: Order Comment: Speci men Type: BLOOD SPECIMENOrdering Facility: [facility] Address: [address] [place], [place] [address] Performed By: #### 5 7021-8 ####[facility] [id number] [address] STATES OF [facility] Hemoglobin (Bld) [Mass/Vol] 10.7 g/dL Low 11.5-15.5 [facility] Comment on above: Order Comment: Speci men Type: BLOOD SPECIMENOrdering Facility: [facility] Address: [address] [place], [place] [address] Performed By: #### 5 7021-8 ####[facility] [id number] [address] IMMATURE GRAN % 0.7 % Normal [facility] Comment on above: Order Comment: Speci men Type: BLOOD SPECIMENOrdering Facility: [facility] Address: [address] [place], [place] [address] Performed By: #### 5 7021-8 ####[facility] [id number] [address] OF [facility] IMMATURE GRAN ABS 0.08 k/uL Normal <0.10 [facility] Comment on above: Order Comment: Speci men Type: BLOOD SPECIMENOrdering Facility: [facility] Address: [address] [place], [place] [address] Performed By: #### 5 7021-8 ####[facility] [id number] [address] [place] Lymphocytes (Bld) [#/Vol] 2.23 10*3/uL Normal 1.00-4.00 [facility] Comment on above: Order Comment: Speci men Type: BLOOD SPECIMENOrdering Facility: [facility] Address: [address] [place], [place] [address] Performed By: #### 5 7021-8 ####[facility] LABIA [id number] [address] [place] Lymphocytes/100 WBC (Bld) 20.2 % Normal [facility] Comment on above: Order Comment: Speci men Type: BLOOD SPECIMENOrdering Facility: [facility] Address: [address] [place], [place] [address] Performed By: #### 5 7021-8 ####[facility] LABIA [id number] [place] [address] [place] MCH (RBC) [Entitic mass] 29.1 pg Normal 26.0-34.0 [facility] Comment on above: Order Comment: Speci men Type: BLOOD SPECIMENOrdering Facility: [facility] Address: [address] [place], [place] [address] Performed By: #### 5 7021-8 ####[facility] LABIA [id number] [address] [place] MCHC (RBC) [Mass/Vol] 30.7 g/dL Normal 30.5-36.0 [facility] Comment on above: Order Comment: Speci men Type: BLOOD SPECIMENOrdering Facility: [facility] Address: [address] [place], [place] [address] Performed By: #### 5 7021-8 ####[facility] LABIA [id number] [address] [place] MCV (RBC) [Entitic vol] 94.6 fL Normal 80.0-100.0 [facility] Comment on above: Order Comment: Speci men Type: BLOOD SPECIMENOrdering Facility: [facility] Address: [address] [place], [place] [address] Performed By: #### 5 7021-8 ####[facility] LABCLIA [id number] [place] [address] [place] Monocytes (Bld) [#/Vol] 0.97 10*3/uL High <0.87 [facility] Comment on above: Order Comment: Speci men Type: BLOOD SPECIMENOrdering Facility: [facility] Address: [address] [place], [place] [address] Performed By: #### 5 7021-8 ####[facility] LABCLIA [id number] [place] [address] [place] Monocytes/100 WBC (Bld) 8.8 % Normal [facility] Comment on above: Order Comment: Speci men Type: BLOOD SPECIMENOrdering Facility: [facility] Address: [address] [place], [place] [address] Performed By: #### 5 7021-8 ####[facility] LABCLIA [id number] [place] [address] [place] Neutrophils (Bld) [#/Vol] 7.66 10*3/uL High 1.45-7.50 [facility] Comment on above: Order Comment: Speci men Type: BLOOD SPECIMENOrdering Facility: [facility] Address: [address] [place], [place] [address] Performed By: #### 5 7021-8 ####[facility] LABCLIA [id number] [place] [address] [place] Neutrophils/100 WBC (Bld) 69.6 % Normal [facility] Comment on above: Order Comment: Speci men Type: BLOOD SPECIMENOrdering Facility: [facility] Address: [address] [place], [place] [address] Performed By: #### 5 7021-8 ####[facility] LABCLIA [id number] [place] [address] [place] Nucleated RBC (Bld) [#/Vol] 10*3/uL Normal <0.01 [facility] Comment on above: Order Comment: Speci men Type: BLOOD SPECIMENOrdering Facility: [facility] Address: [address] [place], [place] [address] Performed By: #### 5 7021-8 ####[facility] LABCLIA [id number] [place] [address] [place] Nucleated RBC/100 WBC (Bld) [Ratio] 0.0 /100 WBC Normal [facility] Comment on above: Order Comment: Speci men Type: BLOOD SPECIMENOrdering Facility: [facility] Address: [address] [place], [place] [address] Performed By: #### 5 7021-8 ####[facility] LABIA [id number] [place] [address] [place] Platelet mean volume (Bld) [Entitic vol] 9.7 fL Normal 9.0-12.7 [facility] Comment on above: Order Comment: Speci men Type: BLOOD SPECIMENOrdering Facility: [facility] Address: [address] [place], [place] [address] Performed By: #### 5 7021-8 ####[facility] LABIA [id number] [place] [address] [place] Platelets (Bld) [#/Vol] 322 10*3/uL Normal 150-400 [facility] Comment on above: Order Comment: Speci men Type: BLOOD SPECIMENOrdering Facility: [facility] Address: [address] [place], [place] [address] Performed By: #### 5 7021-8 ####[facility] LABCLIA [id number] [place] [address] [place] RBC (Bld) [#/Vol] 3.68 10*6/uL Low 3.90-5.20 [facility] Comment on above: Order Comment: Speci men Type: BLOOD SPECIMENOrdering Facility: [facility] Address: [address] [place], [place] [address] Performed By: #### 5 7021-8 ####[facility] LABCLIA [id number] [place] [address] [place] WBC (Bld) [#/Vol] 11.02 10*3/uL High 3.70-11.00 [facility] Comment on above: Order Comment: Speci men Type: BLOOD SPECIMENOrdering Facility: [facility] Address: [address] [place], [place] [address] Performed By: #### 5 7021-8 ####[facility] LABCLIA [id number] [place] [address] [place] CRP SerPl-ncon 06-08-2022 CRP [Mass/Vol] 6.2 mg/dL High <0.9 [facility] Comment on above: Order Comment: Speci men Type: BLOOD SPECIMENOrdering Facility: [facility] Address: [address] [place], [place] [address] Performed By: #### 2 4320-2, 1988-01, , 2776-10, JOSSELYN ####[facility] LABCLIA [id number] [place] [address] [place] Magnesium SerPl-mCncon 06-08 Magnesium [Mass/Vol] 2.2 mg/dL Normal 1.7-2.3 [facility] Comment on above: Order Comment: Speci men Type: BLOOD SPECIMENOrdering Facility: [facility] Address: [address] [place] [address] Performed By: #### 2 4321-2, 1988-01, , 2776-10, JOSSELYN ####[facility] LABCLIA [id number] [place] [id number] [place] Phosphate SerPl-mCncon 06-08 Phosphate [Mass/Vol] 2.4 mg/dL Low 2.7-4.8 [facility] Comment on above: Order Comment: Speci men Type: BLOOD SPECIMENOrdering Facility: [facility] Address: [address] [place], [place] [address] Performed By: #### 2 4321-2, 1988-01, , 2776-10, JOSSELYN ####[facility] LABCLIA [id number] [place] [address] [place] TROPONIN Ton 06-08-2022 Troponin T.cardiac [Mass/Vol] ug/L Normal 0.000-0.029 [facility] Comment on above: Order Comment: Speci men Type: BLOOD SPECIMENOrdering Facility: [facility] Address: [address] [place], [place] [address] Performed By: #### 2 4321-2, 1988-01, , 2776-10, JOSSELYN ####[facility] LABCLIA [id number] [place] [address] [place] Basic metabolic 2000 panelon 06-07-2022 Anion gap [Moles/Vol] 9 mmol/L Normal 9-18 [facility] Comment on above: Order Comment: Speci men Type: BLOOD SPECIMENOrdering Facility: [facility] Address: [address] [place], [place] [address] Performed By: #### 2 4321-2 ####[facility] LABCLIA [id number] [place] [address] [place] Calcium [Mass/Vol] 9.6 mg/dL Normal 8.5-10.2 [facility] Comment on above: Order Comment: Speci men Type: BLOOD SPECIMENOrdering Facility: [facility] Address: [address] [place], [place] [address] Performed By: #### 2 4321-2 ####[facility] LABCLIA [id number] [place] [address] [place] Chloride [Moles/Vol] 99 mmol/L Normal 97-105 [facility] Comment on above: Order Comment: Speci men Type: BLOOD SPECIMENOrdering Facility: [facility] Address: [address] [place] [address] Performed By: #### 2 4321-2 ####[facility] LABCLIA [id number] [place] [address] [place] CO2 [Moles/Vol] 29 mmol/L Normal 22-30 [facility] Comment on above: Order Comment: Speci men Type: BLOOD SPECIMENOrdering Facility: [facility] Address: [address] [place] [address] Performed By: #### 2 4321-2 ####[facility] LABIA [id number] [address] STATES OF [facility] Creatinine [Mass/Vol] 0.70 mg/dL Normal 0.58-0.96 [facility] Comment on above: Order Comment: Speci men Type: BLOOD SPECIMENOrdering Facility: [facility] Address: [address] [place] [address] Performed By: #### 2 4321-2 ####[facility] LABIA [id number] [address] OF [facility] ESTIMATED GLOMERULAR FILTRATION RATE 102 mL/min/1.73m??? Normal >=60 [facility] Comment on above: Order Comment: Speci men Type: BLOOD SPECIMENOrdering Facility: [facility] Address: [address] [place] [address] Result Comment: Faiza mated Glomerular Filtration Rate [...] actual GFR. Performed By: #### 2 4321-2 ####[facility] LABCLIA [id number] [address] [address] [place] Glucose [Mass/Vol] 94 mg/dL Normal 74-99 [facility] Comment on above: Order Comment: Speci men Type: BLOOD SPECIMENOrdering Facility: [facility] Address: [address] [place], [place] [address] Result Comment: The [place] Diabetes Association (ADA) provides guidance for cutoff [...] Standards of Medical Care in Diabetes 2016, [place] [employer]. Diabetes Care. 2016.39(Suppl 1). Performed By: #### 2 4321-2 ####[facility] LABIA [id number] [place] [address] [place] Potassium [Moles/Vol] 4.9 mmol/L Normal 3.7-5.1 [facility] Comment on above: Order Comment: Carol Anni men Type: BLOOD SPECIMENOrdering Facility: [facility] Address: [address] [place] [phone] Performed By: #### 2 4321-2 ####[facility] LABIA [id number] [place] [address] [place] Sodium [Moles/Vol] 137 mmol/L Normal 136-144 [facility] Comment on above: Order Comment: Poncho men Type: BLOOD SPECIMENOrdering Facility: [facility] Address: [address] [place] [address] Performed By: #### 2 4321-2 ####[facility] LABCLIA [id number] [place] [address] [place] Urea nitrogen [Mass/Vol] 8 mg/dL Normal 7-21 [facility] Comment on above: Order Comment: Speci men Type: BLOOD SPECIMENOrdering Facility: [facility] Address: [address] [place], [place] [address] Performed By: #### 2 4321-2 ####[facility] LABIA [id number] [place] [address] [place] Anion gap [Moles/Vol] 9 mmol/L Normal 9-18 [facility] Comment on above: Order Comment: Speci men Type: BLOOD SPECIMENOrdering Facility: [facility] Address: [address] [place], [place] [address] Performed By: #### 1 988-5, 2777-1, JOSSELYN, , 02773-2 ####[facility] LABIA [id number] [place] [address] [place] Calcium [Mass/Vol] 10.0 mg/dL Normal 8.5-10.2 [facility] Comment on above: Order Comment: Speci men Type: BLOOD SPECIMENOrdering Facility: [facility] Address: [address] [place], [place] [address] Performed By: #### 1 988-5, 2777-1, JOSSELYN, , 93251-3 ####[facility] LABIA [id number] [address] [address] [place] Chloride [Moles/Vol] 99 mmol/L Normal 97-105 [facility] Comment on above: Order Comment: Speci men Type: BLOOD SPECIMENOrdering Facility: [facility] Address: [address] [place], [place] [address] Performed By: #### 1 988-5, 2777-1, JOSSELYN, , 10253-6 ####[facility] LABCLIA [id number] [place] [address] [place] CO2 [Moles/Vol] 27 mmol/L Normal 22-30 [facility] Comment on above: Order Comment: Speci men Type: BLOOD SPECIMENOrdering Facility: [facility] Address: [address] [place] [address] Performed By: #### 1 988-5, 2777-1, JOSSELYN, , 49724-4 ####[facility] LABCLIA [id number] [place] [address] [place] Creatinine [Mass/Vol] 0.66 mg/dL Normal 0.58-0.96 [facility] Comment on above: Order Comment: Speci men Type: BLOOD SPECIMENOrdering Facility: [facility] Address: [address] [place] [address] Performed By: #### 1 988-5, 2777-1, JOSSELYN, , 12798-7 ####[facility] LABIA [id number] [place] [address] [place] ESTIMATED GLOMERULAR FILTRATION RATE 104 mL/min/1.73m??? Normal >=60 [facility] Comment on above: Order Comment: Speci men Type: BLOOD SPECIMENOrdering Facility: [facility] Address: [address] [place] [address] Result Comment: Faiza mated Glomerular Filtration Rate [...] Performed By: #### 1 988-5, 2777-1, JOSSELYN, 84767-5, 59758-6 ####[facility] LABCLIA [id number] [place] [address] [place] Glucose [Mass/Vol] 121 mg/dL High 74-99 [facility] Comment on above: Order Comment: Speci men Type: BLOOD SPECIMENOrdering Facility: [facility] Address: [address] [place] [phone] Result Comment: The [place] Diabetes Association (ADA) provides guidance for cutoff [...] Standards of Medical Care in Diabetes 2016, [place] [employer]. Diabetes Care. 2016.39(Suppl 1). Performed By: #### 1 988-5, 2777-1, JOSSELYN, 45818-7, 66814-8 ####[facility] LABCLIA [id number] [place] [address] [place] Potassium [Moles/Vol] 5.4 mmol/L High 3.7-5.1 [facility] Comment on above: Order Comment: Speci men Type: BLOOD SPECIMENOrdering Facility: [facility] Address: [address] [place] [phone] Performed By: #### 1 988-5, 2777-1, JOSSELYN, , 73130-4 ####[facility] LABIA [id number] [place] [address] [place] Sodium [Moles/Vol] 135 mmol/L Low 136-144 [facility] Comment on above: Order Comment: Speci men Type: BLOOD SPECIMENOrdering Facility: [facility] Address: [address] [place], [place] [address] Performed By: #### 1 988-5, 2777-1, JOSSELYN, 42629-6, 10513-0 ####[facility] LABCLIA [id number] [place] [address] [place] Urea nitrogen [Mass/Vol] 8 mg/dL Normal 7-21 [facility] Comment on above: Order Comment: Speci men Type: BLOOD SPECIMENOrdering Facility: [facility] Address: [address] [place] [address] Performed By: #### 1 988-5, 2777-1, JOSSELYN, 09587-7, 93183-5 ####[facility] LABCLIA [id number] [place] [address] [place] CBC W Auto Differential pane l (Bld)on 06-07-2022 Basophils (Bld) [#/Vol] 10*3/uL Normal <0.11 [facility] Comment on above: Order Comment: Speci men Type: BLOOD SPECIMENOrdering Facility: [facility] Address: [address] [place] [address] Performed By: #### 5 7021-8 ####[facility] LABCLIA [id number] [address] [place] Basophils/100 WBC (Bld) 0.1 % Normal [facility] Comment on above: Order Comment: Speci men Type: BLOOD SPECIMENOrdering Facility: [facility] Address: [address] [place], [place] [address] Performed By: #### 5 7021-8 ####[facility] LABCLIA [id number] [address] [place] Differential cell count method Nom (Bld) Auto Normal [facility] Comment on above: Order Comment: Speci men Type: BLOOD SPECIMENOrdering Facility: [facility] Address: [address] [place], [place] [address] Performed By: #### 5 7021-8 ####[facility] LABCLIA [id number] [place] [address] [place] Eosinophils (Bld) [#/Vol] 10*3/uL Normal <0.46 [facility] Comment on above: Order Comment: Speci men Type: BLOOD SPECIMENOrdering Facility: [facility] Address: [address] [place] [address] Performed By: #### 5 7021-8 ####[facility] LABCLIA [id number] [place] [address] [place] Eosinophils/100 WBC (Bld) 0.0 % Normal [facility] Comment on above: Order Comment: Speci men Type: BLOOD SPECIMENOrdering Facility: [facility] Address: [address] [place] [address] Performed By: #### 5 7021-8 ####[facility] LABIA [id number] [place] [address] [place] Erythrocyte distribution width (RBC) [Ratio] 14.4 % Normal 11.5-15.0 [facility] Comment on above: Order Comment: Speci men Type: BLOOD SPECIMENOrdering Facility: [facility] Address: [address] [place] [address] Performed By: #### 5 7021-8 ####[facility] LABIA [id number] [place] [address] [place] Hematocrit (Bld) [Volume fraction] 39.3 % Normal 36.0-46.0 [facility] Comment on above: Order Comment: Speci men Type: BLOOD SPECIMENOrdering Facility: [facility] Address: [address] [place], [place] [address] Performed By: #### 5 7021-8 ####[facility] LABCLIA [id number] [place] [address] [place] Hemoglobin (Bld) [Mass/Vol] 12.2 g/dL Normal 11.5-15.5 [facility] Comment on above: Order Comment: Speci men Type: BLOOD SPECIMENOrdering Facility: [facility] Address: [address] [place], [place] [address] Performed By: #### 5 7021-8 ####[facility] LABCLIA [id number] [place] [address] [place] IMMATURE GRAN % 0.8 % Normal [facility] Comment on above: Order Comment: Speci men Type: BLOOD SPECIMENOrdering Facility: [facility] Address: [address] [place], [place] [address] Performed By: #### 5 7021-8 ####[facility] LABCLIA [id number] [place] [address] [place] IMMATURE GRAN ABS 0.11 k/uL High <0.10 [facility] Comment on above: Order Comment: Speci men Type: BLOOD SPECIMENOrdering Facility: [facility] Address: [address] [place], [place] [address] Performed By: #### 5 7021-8 ####[facility] LABIA [id number] [place] [address] [place] Lymphocytes (Bld) [#/Vol] 0.56 10*3/uL Low 1.00-4.00 [facility] Comment on above: Order Comment: Speci men Type: BLOOD SPECIMENOrdering Facility: [facility] Address: [address] [place], [place] [address] Performed By: #### 5 7021-8 ####[facility] LABCLIA [id number] [place] [address] [place] Lymphocytes/100 WBC (Bld) 3.9 % Normal [facility] Comment on above: Order Comment: Speci men Type: BLOOD SPECIMENOrdering Facility: [facility] Address: [address] [place], [place] [address] Performed By: #### 5 7021-8 ####[facility] LABCLIA [id number] [place] [address] [place] MCH (RBC) [Entitic mass] 28.7 pg Normal 26.0-34.0 [facility] Comment on above: Order Comment: Speci men Type: BLOOD SPECIMENOrdering Facility: [facility] Address: [address] [place] [address] Performed By: #### 5 7021-8 ####[facility] LABIA [id number] [address] [place] MCHC (RBC) [Mass/Vol] 31.0 g/dL Normal 30.5-36.0 [facility] Comment on above: Order Comment: Speci men Type: BLOOD SPECIMENOrdering Facility: [facility] Address: [address] [place] [address] Performed By: #### 5 7021-8 ####[facility] LABIA [id number] [address] [place] MCV (RBC) [Entitic vol] 92.5 fL Normal 80.0-100.0 [facility] Comment on above: Order Comment: Speci men Type: BLOOD SPECIMENOrdering Facility: [facility] Address: [address] [place] [address] Performed By: #### 5 7021-8 ####[facility] LABIA [id number] [address] [place] Monocytes (Bld) [#/Vol] 0.76 10*3/uL Normal <0.87 [facility] Comment on above: Order Comment: Speci men Type: BLOOD SPECIMENOrdering Facility: [facility] Address: [address] [place] [address] Performed By: #### 5 7021-8 ####[facility] LABIA [id number] [address] [address] [place] Monocytes/100 WBC (Bld) 5.3 % Normal [facility] Comment on above: Order Comment: Speci men Type: BLOOD SPECIMENOrdering Facility: [facility] Address: [address] [place], [place] [address] Performed By: #### 5 7021-8 ####[facility] LABCLIA [id number] [place] [address] [place] Neutrophils (Bld) [#/Vol] 12.93 10*3/uL High 1.45-7.50 [facility] Comment on above: Order Comment: Speci men Type: BLOOD SPECIMENOrdering Facility: [facility] Address: [address] [place], [place] [address] Performed By: #### 5 7021-8 ####[facility] LABCLIA [id number] [place] [address] [place] Neutrophils/100 WBC (Bld) 89.9 % Normal [facility] Comment on above: Order Comment: Speci men Type: BLOOD SPECIMENOrdering Facility: [facility] Address: [address] [place], [place] [address] Performed By: #### 5 7021-8 ####[facility] LABCLIA [id number] [place] [address] [place] Nucleated RBC (Bld) [#/Vol] 10*3/uL Normal <0.01 [facility] Comment on above: Order Comment: Speci men Type: BLOOD SPECIMENOrdering Facility: [facility] Address: [address] [place], [place] [address] Performed By: #### 5 7021-8 ####[facility] LABCLIA [id number] [place] [address] [place] Nucleated RBC/100 WBC (Bld) [Ratio] 0.0 /100 WBC Normal [facility] Comment on above: Order Comment: Speci men Type: BLOOD SPECIMENOrdering Facility: [facility] Address: [address] [place], [place] [address] Performed By: #### 5 7021-8 ####[facility] LABIA [id number] [place] [address] [place] Platelet mean volume (Bld) [Entitic vol] 9.9 fL Normal 9.0-12.7 [facility] Comment on above: Order Comment: Speci men Type: BLOOD SPECIMENOrdering Facility: [facility] Address: [address] [place], [place] [address] Performed By: #### 5 7021-8 ####[facility] LABIA [id number] [place] [address] [place] Platelets (Bld) [#/Vol] 385 10*3/uL Normal 150-400 [facility] Comment on above: Order Comment: Speci men Type: BLOOD SPECIMENOrdering Facility: [facility] Address: [address] [place], [place] [address] Performed By: #### 5 7021-8 ####[facility] LABIA [id number] [place] [address] [place] RBC (Bld) [#/Vol] 4.25 10*6/uL Normal 3.90-5.20 [facility] Comment on above: Order Comment: Speci men Type: BLOOD SPECIMENOrdering Facility: [facility] Address: [address] [place] [address] Performed By: #### 5 7021-8 ####[facility] LABIA [id number] [place] [address] [place] WBC (Bld) [#/Vol] 14.38 10*3/uL High 3.70-11.00 [facility] Comment on above: Order Comment: Speci men Type: BLOOD SPECIMENOrdering Facility: [facility] Address: [address] [place], [place] [address] Performed By: #### 5 7021-8 ####[facility] LABCLIA [id number] [place] [id number] [employer] OF [facility] CRP SerPl-mCncon 06-07-2022 CRP [Mass/Vol] 2.1 mg/dL High <0.9 [facility] Comment on above: Order Comment: Speci men Type: BLOOD SPECIMENOrdering Facility: [facility] Address: [address] [place] [address] Performed By: #### 1 988-5, 2777-1, JOSSELYN, 11346-3, 56856-0 ####[facility] [id number] [address] OF [facility] ECG COMPLETEon 06-07-2022 ECG COMPLETE Ventricular Rate : 6 3 BPM Atrial Rate : 63 BPM P-R Interval : 136 ms QRS Duration : 82 ms Q-T Interval : 414 ms QTC Calculation(Bazett) : 423 ms Calculated P [place] : 56 degrees Calculated R [place] : 49 degrees Calculated T [place] : 33 degrees NORMAL SINUS RHYTHM NORMAL ECG Confirmed by MD PRECIOUS, PhD, UZMA ([id number]) on 06/24/2022 6:36:16 PM NAME : VALERIA ROMERO PID : [id number] : 1965 Gender : Female Race : ORD : [id number] Procedure Date : Jun 07 2022 02:28:37 Edit Date : Jun 24 2022 18:36:18 Diagnosis: NORMAL SINUS RHYTHM NORMAL ECG Confirmed by MD PRECIOUS, PhD, UZMA ([id number]) on 06/24/2022 6:36:16 PM Test Reason : Post-OP Location : 53 : 0 H050[facility] Overread By : MD PRECIOUS, PhD,UZMA Edited By : MD PRCEIOUS, PhD,UZMA Referred By : , Acquired by : JACQUES FISCHER [facility] Magnesium SerPl-mCncon 06-07 Magnesium [Mass/Vol] 2.0 mg/dL Normal 1.7-2.3 [facility] Comment on above: Order Comment: Speci men Type: BLOOD SPECIMENOrdering Facility: [facility] Address: [address] [place] [address] Performed By: #### 1 988-5, 2777-1, JOSSELYN, , 53000-4 ####[facility] LABCLIA [id number] [address] [address] [facility] Phosphate SerPl-mCncon 06-07 Phosphate [Mass/Vol] 4.4 mg/dL Normal 2.7-4.8 [facility] Comment on above: Order Comment: Speci men Type: BLOOD SPECIMENOrdering Facility: [facility] Address: [address] [place], [place] [address] [address] Performed By: #### 1 988-5, 2777-1, JOSSELYN, , 68059-6 ####[facility] LABCLIA [id number] [place] [id number] [employer] OF [place] THERAPY NTon 06-07-2022 THERAPY NT HNO ID: [id number] Author: Chayo Maharaj OT/Hamida Service: ? Author Type: Occupational Therapist Type: Therapy (PT/OT/Speech/Resp) Filed: 06/07/2022 3:04 PM Note Text: Occupational Therapy Evaluation SERVICE DATE: 06/07/2022 SERVICE TIME: 1354 to 1451 ROOM: [place] [address] Recommended Discharge Disposition: Home Recommended Discharge Disposition [...] needs ar (more content not included)... Normal [facility] THERAPY NT HNO ID: [id number] Author: Shanna Leslie PT Service: ? 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 Patient Report: Pt agreeable to PT CURRENT [...] Diagnosis: Reduced mobility-other Interventions Provided: Evaluation;Therapeutic Activity (91256);Gait Training (78209) $ Evaluation-Low (30952) Billed Units: 1 unit Therapeutic Activity (62537) Treatment Minutes: 8 $ Therapeutic Activity (73768) Billed Units: 1 unit Gait Training (34943) Treatment Minutes: 15 $ Gait Training (31548) Billed Units: 1 unit Training AND education provided in: Assistive device use, Bed mobility, Benefits of in-hospital mobility, Discharge planning, Disease specific education, Expected functional level, Gait trinity (more content not included)... Normal [facility] TROPONIN Ton 06-07-2022 Troponin T.cardiac [Mass/Vol] ug/L Normal 0.000-0.029 [facility] Comment on above: Order Comment: Speci men Type: BLOOD SPECIMENOrdering Facility: [facility] Address: [address] [place] [address] Performed By: #### 1 988-5, 2777-1, JOSSELYN, 30059-3, 77721-3 ####[facility] LABCLIA [id number] [place] [address] [place] ANES POSTPROC EVALon 022 ANES POSTPROC EVAL HNO ID: [id number] Author: Jose Manuel Martinez MD Service: ? Author Type: Anesthesiologist Type: Anesthesia Postprocedure Evaluation Filed: 06/06/2022 4:49 PM Note Text: POST ANESTHESIA EVALUATION NOTE : 1965 Procedure Summary Date: 06/06/22 Room / Location: [address] [facility] Anesthesia Start: 1026 Anesthesia Stop: [...] June 06, 2022 TIME: 4:48 PM CSN: [id number] Normal [facility] ANES PRE-OPon 06-06-2022 ANES PRE-OP HNO ID: [id number] Author: Jose Manuel Martinez MD Service: ? Author Type: Anesthesiologist Type: Anesthesia Preprocedure Evaluation Filed: 06/06/2022 9:56 AM Note Text: ANESTHESIOLOGY DAY OF SURGERY NOTE : 1965 Procedure Information Date/Time: 06/06/22 1015 Procedure: COMPLEX REPAIR WOUND OF ABDOMEN 2.6 CM TO 7.5 CM (Abdomen) Location: [place] [address] / MAIN [place] Surgeons: Pedro Walsh MD Estimated body mass [...] and consent discussed: yes. Patient / Responsible Democrat agrees to proceed: yes Patient / Surrogate [...] June 06, 2022 TIME: 9:52 AM CSN: [id number] Normal [facility] CBC panel Auto (Bld)on 06-06 Erythrocyte distribution width (RBC) [Ratio] 14.2 % Normal 11.5-15.0 [facility] Comment on above: Order Comment: Speci men Type: BLOOD SPECIMENOrdering Facility: [facility] Address: [address] [place] [address] Performed By: #### 5 8410-2 ####[facility] [id number] [address] [place] Hematocrit (Bld) [Volume fraction] 41.1 % Normal 36.0-46.0 [facility] Comment on above: Order Comment: Speci men Type: BLOOD SPECIMENOrdering Facility: [facility] Address: [address] [place] [address] Performed By: #### 5 8410-2 ####[facility] [id number] [place] [address] [place] Hemoglobin (Bld) [Mass/Vol] 13.1 g/dL Normal 11.5-15.5 [facility] Comment on above: Order Comment: Speci men Type: BLOOD SPECIMENOrdering Facility: [facility] Address: [address] [place] [address] Performed By: #### 5 8410-2 ####[facility] LABIA [id number] [place] [address] [place] MCH (RBC) [Entitic mass] 29.5 pg Normal 26.0-34.0 [facility] Comment on above: Order Comment: Speci men Type: BLOOD SPECIMENOrdering Facility: [facility] Address: [address] [place] [address] Performed By: #### 5 8410-2 ####[facility] LABIA [id number] [place] [address] [place] MCHC (RBC) [Mass/Vol] 31.9 g/dL Normal 30.5-36.0 [facility] Comment on above: Order Comment: Speci men Type: BLOOD SPECIMENOrdering Facility: [facility] Address: [address] [place], [place] [address] Performed By: #### 5 8410-2 ####[facility] LABIA [id number] [place] [address] [place] MCV (RBC) [Entitic vol] 92.6 fL Normal 80.0-100.0 [facility] Comment on above: Order Comment: Speci men Type: BLOOD SPECIMENOrdering Facility: [facility] Address: [address] [place], [place] [address] Performed By: #### 5 8410-2 ####[facility] LABIA [id number] [address] [place] Nucleated RBC (Bld) [#/Vol] 10*3/uL Normal <0.01 [facility] Comment on above: Order Comment: Speci men Type: BLOOD SPECIMENOrdering Facility: [facility] Address: [address] [place], [place] [address] Performed By: #### 5 8410-2 ####[facility] LABIA [id number] [place] [address] [place] Platelet mean volume (Bld) [Entitic vol] 9.6 fL Normal 9.0-12.7 [facility] Comment on above: Order Comment: Speci men Type: BLOOD SPECIMENOrdering Facility: [facility] Address: [address] [place], [place] [address] Performed By: #### 5 8410-2 ####[facility] LABCLIA [id number] [place] [address] [place] Platelets (Bld) [#/Vol] 261 10*3/uL Normal 150-400 [facility] Comment on above: Order Comment: Speci men Type: BLOOD SPECIMENOrdering Facility: [facility] Address: [address] [place], [place] [address] Performed By: #### 5 8410-2 ####[facility] LABCLIA [id number] [place] [address] [place] RBC (Bld) [#/Vol] 4.44 10*6/uL Normal 3.90-5.20 [facility] Comment on above: Order Comment: Speci men Type: BLOOD SPECIMENOrdering Facility: [facility] Address: [address] [place], [place] [address] Performed By: #### 5 8410-2 ####[facility] LABCLIA [id number] [place] [address] [place] WBC (Bld) [#/Vol] 18.18 10*3/uL High 3.70-11.00 [facility] Comment on above: Order Comment: Speci men Type: BLOOD SPECIMENOrdering Facility: [facility] Address: [address] [place], [place] [address] Performed By: #### 5 8410-2 ####[facility] LABCLIA [id number] [place] [address] [place] CONFIRM BLOOD TYPEon 022 ABO O Normal [facility] Comment on above: Order Comment: Speci men Type: BLOOD SPECIMENOrdering Facility: [facility] Address: [address] [place], [place] [address] Performed By: #### C ONABO ####[facility] BLOOD BANKCLIA [id number] [place] [address] [place] Rh Nom (Bld) Positive Normal [facility] Comment on above: Order Comment: Speci men Type: BLOOD SPECIMENOrdering Facility: [facility] Address: [address] [place], [place] [address] Performed By: #### C ONABO ####[facility] BLOOD BANKNORTHEASTERN [facility] [id number] [place] [id number] [facility] OPERATIVE NOon 06-06-2022 OPERATIVE NO HNO ID: [id number] Author: Pedro Walsh MD Service: ? Author Type: Physician Type: Operative Report Filed: 06/06/2022 2:20 PM Note Text: OPERATIVE REPORT Name: Valeria Romero : 1965 MR#: [id number] Date of service: June 06, 2022 Surgeon(s): Pedro Walsh MD Broadcast Operations Engineer(s): DO Anne Peterson MD Procedure(s): 1. Open [...] inferiorly. There were 3 pieces of old [place] mesh from prior hernia repairs that were [...] fascia. The midline was closed with interrupted [id number] sutures using #1 PDS. Some hernia sac [...] present and scrubbed for the procedure. [facility]) VALERIA ROMERO ([id number]) 1965 F Date Time Provider Department 06/01/22 VALERIA MORSE [facility] During your visit today, we recorded the following information about you: VON Bhatia 06/12/2022 4:16 PM Signed [facility] called the pt and left message with name and number asking for a return call. Allergies As of Date: 06/01/2022 Noted Allergy Reaction CIPRO (CIPROFLOXACIN) 02/27/2007 2 - Rash Date Reviewed: 05/30/2022 Reviewed by: Darío Miranda APRN.HYDRAULIC PLUMBER - Fully Assessed Reason for Visit: outreach [...] Encounter Status:Closed by VALERIA MORSE on 06/12/22 [facility] Telephone ([facility]) VALERIA ROMERO ([id number]) 1965 F Date Time Provider Department 06/01/22 VALERIA MORSE [facility] During your visit today, we recorded the following information about you: VON Bhatia 06/01/2022 1:38 PM Signed BEHAVIORAL HEALTH SOCIAL WORK CONSULT NOTE Service Date: June 01, 2022 Patient was identified by name and Patient: Valeria Romero [address] [place] [address] [address] [facility] [address] (home) [phone] (cell) PCP: No primary care provider on file. No primary provider on file. Assessment: [facility] called the pt to discuss behavioral health [...] Provided referral information Resources Provided: Medication Management On License Of [facility] Time Spent: 15 minutes VON Bhatia Allergies As of Date: 06/01/2022 Noted Allergy Reaction CIPRO (CIPROFLOXACIN) 02/27/2007 2 - Rash Date Reviewed: 05/30/2022 Reviewed by: Darío Miranda APRN.HYDRAULIC PLUMBER - Fully Assessed Reason for Visit: outreach [...] Status:Closed by VALERIA MORSE on 06/01/22 Normal [facility] ANTIBODY ID PATIENTon 2021 ANTIBODY IDENTIFIED Non-specific Zoey Normal [facility] Comment on above: Order Comment: Speci men Type: BLOOD SPECIMENOrdering Facility: [facility] Address: [address] [place] [address] Performed By: #### % DIAZ, TSCR30, BBABINT ####[facility] BLOOD BANKCLIA [id number] [address] BLOOD BANK PLACEHOLDER, ANTI BODY INTERPRETATIONon 05-30-2022 BLOOD BANK REPORT, ANTIBODY INTERPRETATION See Pathology Report Normal [facility] Comment on above: Order Comment: Speci men Type: BLOOD SPECIMENOrdering Facility: [facility] Address: [address] [place] [address] Performed By: #### % DIAZ, TSCR30, BBABINT ####[facility] BLOOD BANKCLIA [id number] [address] TYPE AND SCREEN EXPIRATION 06/29/2022 23:59 Normal [facility] Comment on above: Order Comment: Speci men Type: BLOOD SPECIMENOrdering Facility: [facility] Address: [address] [place] [address] Performed By: #### % DIAZ, TSCR30, BBABINT ####[facility] BLOOD BANKCLIA [id number] [address] BLOOD BANK REPORT, ANTIBODY INTERPRETATIONon 05-30-2022 CASE REPORT Normal [facility] Comment on above: Order Comment: Poncho freeman Type: BLOOD SPECIMENOrdering Facility: [facility] Address: [address] [place], [place] [id number] Result Comment: Jonny cyr Bank Report, [facility] Case: [id number] Authorizing Provider: Pedro Walsh MD Collected: 05/30/2022 11:24 AM Ordering Location: Laboratory Medicine Received: 06/06/2022 11:54 AM Pathologist: Daniele Gallo MD Specimen: BLOOD Performed By: #### B MATEO ####[facility] LABIA [id number] [address] PATHOLOGY INTERPRETATION Normal [facility] Comment on above: Order Comment: Poncho freeman Type: BLOOD SPECIMENOrdering Facility: [facility] Address: [address] [place] [address] Result Comment: Anti bodies to common clinically [...] apparent specificity. Performed By: #### B MATEO ####[facility] LABIA [id number] [address] [place] CBC W Auto Differential pane l (Bld)on 05-30-2022 Basophils (Bld) [#/Vol] 10*3/uL Normal <0.11 [facility] Comment on above: Order Comment: Poncho freeman Type: BLOOD SPECIMENOrdering Facility: [facility] Address: [address] [place] [address] Performed By: #### 5 7021-8 ####[facility] LABCLIA [id number] [address] [place] Basophils/100 WBC (Bld) 0.4 % Normal [facility] Comment on above: Order Comment: Speci men Type: BLOOD SPECIMENOrdering Facility: [facility] Address: [address] [place], [place] [address] Performed By: #### 5 7021-8 ####[facility] LABCLIA [id number] [place] [address] [place] Differential cell count method Nom (Bld) Auto Normal [facility] Comment on above: Order Comment: Speci men Type: BLOOD SPECIMENOrdering Facility: [facility] Address: [address] [place], [place] [address] Performed By: #### 5 7021-8 ####[facility] LABCLIA [id number] [place] [address] [place] Eosinophils (Bld) [#/Vol] 0.15 10*3/uL Normal <0.46 [facility] Comment on above: Order Comment: Speci men Type: BLOOD SPECIMENOrdering Facility: [facility] Address: [address] [place] [address] Performed By: #### 5 7021-8 ####[facility] LABCLIA [id number] [address] STATES OF [facility] Eosinophils/100 WBC (Bld) 2.7 % Normal [facility] Comment on above: Order Comment: Speci men Type: BLOOD SPECIMENOrdering Facility: [facility] Address: [address] [place] [address] Performed By: #### 5 7021-8 ####[facility] LABCLIA [id number] [place] [address] [place] Erythrocyte distribution width (RBC) [Ratio] 13.7 % Normal 11.5-15.0 [facility] Comment on above: Order Comment: Speci men Type: BLOOD SPECIMENOrdering Facility: [facility] Address: [address] [place], [place] [address] Performed By: #### 5 7021-8 ####[facility] LABIA [id number] [address] [place] Hematocrit (Bld) [Volume fraction] 40.5 % Normal 36.0-46.0 [facility] Comment on above: Order Comment: Speci men Type: BLOOD SPECIMENOrdering Facility: [facility] Address: [address] [place], [place] [address] Performed By: #### 5 7021-8 ####[facility] LABIA [id number] [address] [place] Hemoglobin (Bld) [Mass/Vol] 12.8 g/dL Normal 11.5-15.5 [facility] Comment on above: Order Comment: Speci men Type: BLOOD SPECIMENOrdering Facility: [facility] Address: [address] [place], [place] [address] Performed By: #### 5 7021-8 ####[facility] LABIA [id number] [address] OF [facility] IMMATURE GRAN % 0.4 % Normal [facility] Comment on above: Order Comment: Speci men Type: BLOOD SPECIMENOrdering Facility: [facility] Address: [address] [place], [place] [address] Performed By: #### 5 7021-8 ####[facility] LABIA [id number] [address] [place] IMMATURE GRAN ABS <0.03 Normal <0.10 [facility] Comment on above: Order Comment: Speci men Type: BLOOD SPECIMENOrdering Facility: [facility] Address: [address] [place], [place] [address] Performed By: #### 5 7021-8 ####[facility] LABCLIA [id number] [place] [address] [place] Lymphocytes (Bld) [#/Vol] 1.30 10*3/uL Normal 1.00-4.00 [facility] Comment on above: Order Comment: Speci men Type: BLOOD SPECIMENOrdering Facility: [facility] Address: [address] [place] [address] Performed By: #### 5 7021-8 ####[facility] LABIA [id number] [place] [address] [place] Lymphocytes/100 WBC (Bld) 23.5 % Normal [facility] Comment on above: Order Comment: Speci men Type: BLOOD SPECIMENOrdering Facility: [facility] Address: [address] [place] [address] Performed By: #### 5 7021-8 ####[facility] LABIA [id number] [place] [address] [place] MCH (RBC) [Entitic mass] 28.8 pg Normal 26.0-34.0 [facility] Comment on above: Order Comment: Speci men Type: BLOOD SPECIMENOrdering Facility: [facility] Address: [address] [place] [address] Performed By: #### 5 7021-8 ####[facility] LABIA [id number] [address] [place] MCHC (RBC) [Mass/Vol] 31.6 g/dL Normal 30.5-36.0 [facility] Comment on above: Order Comment: Speci men Type: BLOOD SPECIMENOrdering Facility: [facility] Address: [address] [place], [place] [address] Performed By: #### 5 7021-8 ####[facility] LABIA [id number] [address] [place] [address] [place] MCV (RBC) [Entitic vol] 91.2 fL Normal 80.0-100.0 [facility] Comment on above: Order Comment: Speci men Type: BLOOD SPECIMENOrdering Facility: [facility] Address: [address] [place], [place] [address] Performed By: #### 5 7021-8 ####[facility] LABCLIA [id number] [place] [address] [place] Monocytes (Bld) [#/Vol] 0.49 10*3/uL Normal <0.87 [facility] Comment on above: Order Comment: Speci men Type: BLOOD SPECIMENOrdering Facility: [facility] Address: [address] [place], [place] [address] Performed By: #### 5 7021-8 ####[facility] LABCLIA [id number] [address] [place] Monocytes/100 WBC (Bld) 8.8 % Normal [facility] Comment on above: Order Comment: Speci men Type: BLOOD SPECIMENOrdering Facility: [facility] Address: [address] [place], [place] [address] Performed By: #### 5 7021-8 ####[facility] LABCLIA [id number] [place] [address] [place] Neutrophils (Bld) [#/Vol] 3.56 10*3/uL Normal 1.45-7.50 [facility] Comment on above: Order Comment: Speci men Type: BLOOD SPECIMENOrdering Facility: [facility] Address: [address] [place], [place] [address] Performed By: #### 5 7021-8 ####[facility] LABCLIA [id number] [place] [address] [place] Neutrophils/100 WBC (Bld) 64.2 % Normal [facility] Comment on above: Order Comment: Speci men Type: BLOOD SPECIMENOrdering Facility: [facility] Address: [address] [place] [address] Performed By: #### 5 7021-8 ####[facility] LABCLIA [id number] [address] Nucleated RBC (Bld) [#/Vol] 10*3/uL Normal <0.01 [facility] Comment on above: Order Comment: Speci men Type: BLOOD SPECIMENOrdering Facility: [facility] Address: [address] [place], [place] [address] Performed By: #### 5 7021-8 ####[facility] LABCLIA [id number] [place] [address] [place] Nucleated RBC/100 WBC (Bld) [Ratio] 0.0 /100 WBC Normal [facility] Comment on above: Order Comment: Speci men Type: BLOOD SPECIMENOrdering Facility: [facility] Address: [address] [place], [place] [address] Performed By: #### 5 7021-8 ####[facility] LABCLIA [id number] [place] [address] [place] Platelet mean volume (Bld) [Entitic vol] 10.4 fL Normal 9.0-12.7 [facility] Comment on above: Order Comment: Speci men Type: BLOOD SPECIMENOrdering Facility: [facility] Address: [address] [place] [address] Performed By: #### 5 7021-8 ####[facility] LABCLIA [id number] [place] [address] [place] Platelets (Bld) [#/Vol] 354 10*3/uL Normal 150-400 [facility] Comment on above: Order Comment: Speci men Type: BLOOD SPECIMENOrdering Facility: [facility] Address: [address] [place] [address] Performed By: #### 5 7021-8 ####[facility] LABCLIA [id number] [place] [address] [place] RBC (Bld) [#/Vol] 4.44 10*6/uL Normal 3.90-5.20 [facility] Comment on above: Order Comment: Speci men Type: BLOOD SPECIMENOrdering Facility: [facility] Address: [address] [place] [address] Performed By: #### 5 7021-8 ####[facility] LABIA [id number] [address] [place] WBC (Bld) [#/Vol] 5.54 10*3/uL Normal 3.70-11.00 [facility] Comment on above: Order Comment: Speci men Type: BLOOD SPECIMENOrdering Facility: [facility] Address: [address] [place] [address] Performed By: #### 5 7021-8 ####[facility] LABIA [id number] [address] [place] CNOVon 05-30-2022 CNOV Office Visit (INWG10 ) GARRETTOSITO DEVLINVALERIA Hamida ([id number]) 1965 F Date Time Provider Department 05/30/22 [...] Frequency: Continuous Intervention/Comfort measure: Medication MORALES Larsen, KARINA.HYDRAULIC PLUMBER 05/30/2022 2:30 PM Signed CC: Medication refills, asthma HPI: Valeria Romero is a 57 year old female who presents to the 0 walk in clinic with the above chief compliant. PMH: Asthma, multiple hernias, depression/anxiety Patient from [place]. Moved to [place] and moved back for the surgery. Living in [place], [place] 1.5 hours away. Has not had a PCP in >5 years. Needs to establish care with PCP in [place], [place]. Patient has not been taking any of her medications because of financial reasons and she wanted to be off medications. Patient currently has medicaid. Trying to get medical things taken care of while she has insurance. Following with general surgery for a painful and enlarging incisional hernia. Hx of incisional hernia repair with mesh at [facility] w/ Dr. Craft in 2006. Patient scheduled for abdominal wall reconstruction with prior mesh excision 06/06/22. Pre-op testing today --> Provider sent patient to [facility] today for concerns for asthma. Asthma [...] Take one(1 (more content not included)... Normal [facility] CNOV Office Visit (GENN ) VALERIA ROMERO ([id number]) 1965 F Date Time Provider Department 05/30/22 11:00 AM JAZZY SAWANT During your visit today, we recorded the following information about you: Jazzy Pastrana, PhD 05/30/2022 2:09 PM Signed [facility] Name: Valeria Romero MR#: [id number] Date: 05/30/2022 Time: ? hour Referred by: [...] Jazzy Pastrana, Ph.D. Referring Provider: PEDRO WALSH [[id number]] Allergies As of Date: 05/30/2022 Noted Allergy [...] Status:Closed by JAZZY SAWANT on 05/30/22 Normal [facility] Comprehensive metabolic 2000 panelon 05-30-2022 Albumin [Mass/Vol] 4.3 g/dL Normal 3.9-4.9 [facility] Comment on above: Order Comment: Speci men Type: BLOOD SPECIMENOrdering Facility: [facility] Address: [address] [place] [address] Performed By: #### 2 4323-8 ####[facility] LABCLIA [id number] [place] [address] [place] ALP [Catalytic activity/Vol] 83 U/L Normal 34-123 [facility] Comment on above: Order Comment: Speci men Type: BLOOD SPECIMENOrdering Facility: [facility] Address: [address] [place] [address] Performed By: #### 2 4323-8 ####[facility] LABCLIA [id number] [place] [address] [place] ALT [Catalytic activity/Vol] 16 U/L Normal 7-38 [facility] Comment on above: Order Comment: Speci men Type: BLOOD SPECIMENOrdering Facility: [facility] Address: [address] [place] [address] Performed By: #### 2 4323-8 ####[facility] LABCLIA [id number] [place] [address] [place] Anion gap [Moles/Vol] 11 mmol/L Normal 9-18 [facility] Comment on above: Order Comment: Speci men Type: BLOOD SPECIMENOrdering Facility: [facility] Address: [address] [place], [place] [address] Performed By: #### 2 4323-8 ####[facility] LABCLIA [id number] [place] [address] [place] AST [Catalytic activity/Vol] 27 U/L Normal 13-35 [facility] Comment on above: Order Comment: Speci men Type: BLOOD SPECIMENOrdering Facility: [facility] Address: [address] [place], [place] [address] Performed By: #### 2 4323-8 ####[facility] LABCLIA [id number] [place] [address] [place] Bilirubin [Mass/Vol] 0.3 mg/dL Normal 0.2-1.3 [facility] Comment on above: Order Comment: Speci men Type: BLOOD SPECIMENOrdering Facility: [facility] Address: [address] [place], [place] [address] Performed By: #### 2 4323-8 ####[facility] LABCLIA [id number] [place] [address] [place] Calcium [Mass/Vol] 10.0 mg/dL Normal 8.5-10.2 [facility] Comment on above: Order Comment: Speci men Type: BLOOD SPECIMENOrdering Facility: [facility] Address: [address] [place] [address] Performed By: #### 2 4323-8 ####[facility] LABCLIA [id number] [place] [address] [place] Chloride [Moles/Vol] 102 mmol/L Normal 97-105 [facility] Comment on above: Order Comment: Speci men Type: BLOOD SPECIMENOrdering Facility: [facility] Address: [address] [place], [place] [address] Performed By: #### 2 4323-8 ####[facility] LABCLIA [id number] [place] [address] [place] CO2 [Moles/Vol] 28 mmol/L Normal 22-30 [facility] Comment on above: Order Comment: Speci men Type: BLOOD SPECIMENOrdering Facility: [facility] Address: [address] [place] [address] Performed By: #### 2 4323-8 ####[facility] LABCLIA [id number] [address] OF [facility] Creatinine [Mass/Vol] 0.59 mg/dL Normal 0.58-0.96 [facility] Comment on above: Order Comment: Speci men Type: BLOOD SPECIMENOrdering Facility: [facility] Address: [address] [place] [address] Performed By: #### 2 4323-8 ####[facility] LABIA [id number] [address] ESTIMATED GLOMERULAR FILTRATION RATE 107 mL/min/1.73m??? Normal >=60 [facility] Comment on above: Order Comment: Speci men Type: BLOOD SPECIMENOrdering Facility: [facility] Address: [address] [place] [address] Result Comment: Faiza mated Glomerular Filtration Rate [...] actual GFR. Performed By: #### 2 4323-8 ####[facility] LABCLIA [id number] [place] [address] [place] Glucose [Mass/Vol] 89 mg/dL Normal 74-99 [facility] Comment on above: Order Comment: Speci men Type: BLOOD SPECIMENOrdering Facility: [facility] Address: [address] [place] [address] Result Comment: The [place] Diabetes Association (ADA) provides guidance for cutoff [...] Standards of Medical Care in Diabetes 2016, [place] [employer]. Diabetes Care. 2016.39(Suppl 1). Performed By: #### 2 4323-8 ####[facility] LABCLIA [id number] [place] [address] [place] Potassium [Moles/Vol] 4.3 mmol/L Normal 3.7-5.1 [facility] Comment on above: Order Comment: Speci men Type: BLOOD SPECIMENOrdering Facility: [facility] Address: [address] Performed By: #### 2 4323-8 ####[facility] [id number] [place] [address] [place] Protein [Mass/Vol] 7.4 g/dL Normal 6.3-8.0 [facility] Comment on above: Order Comment: Speci men Type: BLOOD SPECIMENOrdering Facility: [facility] Address: [address] Performed By: #### 2 4323-8 ####[facility] LABIA [id number] [place] [address] [place] Sodium [Moles/Vol] 141 mmol/L Normal 136-144 [facility] Comment on above: Order Comment: Speci men Type: BLOOD SPECIMENOrdering Facility: [facility] Address: [address] Performed By: #### 2 4323-8 ####[facility] LABCLIA [id number] [address] [address] [place] OF [facility] Urea nitrogen [Mass/Vol] 9 mg/dL Normal 7-21 [facility] Comment on above: Order Comment: Speci men Type: BLOOD SPECIMENOrdering Facility: [facility] Address: [address] [place], [place] [address] Performed By: #### 2 4323-8 ####[facility] LABCLIA [id number] [address] [address] [place] ECG COMPLETEon 05-30-2022 ECG COMPLETE Ventricular Rate : 5 5 BPM Atrial Rate : 55 BPM P-R Interval : 144 ms QRS Duration : 76 ms Q-T Interval : 464 ms QTC Calculation(Bazett) : 443 ms Calculated P [place] : 65 degrees Calculated R [place] : 65 degrees Calculated T [place] : 40 degrees SINUS BRADYCARDIA OTHERWISE NORMAL ECG Confirmed by KATT DODSON MD ([id number]) on 06/04/2022 6:50:53 PM NAME : VALERIA ROMERO PID : [id number] : 1965 Gender : Female Race : ORD : [id number] Procedure Date : May 30 2022 10:59:19 Edit Date : Jun 04 2022 18:50:54 Diagnosis: SINUS BRADYCARDIA OTHERWISE NORMAL ECG Confirmed by KATT DODSON MD ([id number]) on 06/04/2022 6:50:53 PM Test Reason : Location : 119 : A17 Overread By : KATT DODSON MD Edited By : KATT DODSON MD Referred By : PEDRO WALSH Acquired by : ISHAAN ROY [facility] HISTORY PHYSICALon HISTORY PHYSICAL HNO ID: [id number] Author: Candace Harris DO Service: ? Author [...] fevers. Neuro: No history of TIA's, stroke, HANGAR ATTENDANT tumor, impaired sensorium, hemiplegia, paraplegia or quadraplegia. No neurological symptoms or problems. Respiratory: +Asthma. No history of current cough or dyspnea, or pneumonia in the past 6 weeks. No history of respiratory/pulmonary symptoms or problems. Cardiovascular: No history of HTN requiring medication, no history of angina, CHF, IN, cardiac surgery or stents. Denies rest pain, gangrene or revascularization/ampu tation for PVD. No history of cardiovascular symptoms or problems. GI: +Chronic diarrhea/IBS. : No history of d (more content not included)... Normal [facility] PT panel Coag (PPP)on 2021 INR Coag (PPP) [Relative time] 1.0 {INR} Normal 0.9-1.3 [facility] Comment on above: Order Comment: Poncho freeman Type: BLOOD SPECIMENOrdering Facility: [facility] Address: [address] [address] Result Comment: Essence min K Antagonist (VKA) Therapeutic Range: INR 2 to 3 (Target INR of 2.5) Note: For patients treated with VKA drugs, such as warfarin, the [place] [employer] 2012 Guideline recommends [...] Chest 2012, 141:7S-47S Mateus RA, et al. [facility] 2017, 70: 252-289 Performed By: #### 3 4528-0, 16235-7 ####[facility] LABCLIA [id number] [facility] [id number] [place] PT Coag (PPP) [Time] 10.6 s Normal 9.7-13.0 [facility] Comment on above: Order Comment: Poncho freeman Type: BLOOD SPECIMENOrdering Facility: [facility] Address: [address] [place] [address] Performed By: #### 3 4528-0, 38617-7 ####[facility] LABCLIA [id number] [address] OF [place] TYPE AND SCREEN,30 DAYon ABO O Normal [facility] Comment on above: Order Comment: Speci men Type: BLOOD SPECIMENOrdering Facility: [facility] Address: [address] [place] [address] Performed By: #### % DIAZ, TSCR30, BBABINT ####[facility] BLOOD BANKCLIA [id number] [address] [place] HISTORICAL AB SCR STATUS Negative Normal [facility] Comment on above: Order Comment: Speci men Type: BLOOD SPECIMENOrdering Facility: [facility] Address: [address] [place] [address] Performed By: #### % DIAZ, TSCR30, BBABINT ####[facility] BLOOD BANKIA [id number] [address] [place] Rh Nom (Bld) Positive Normal [facility] Comment on above: Order Comment: Speci men Type: BLOOD SPECIMENOrdering Facility: [facility] Address: [address] [place] [address] Performed By: #### % DIAZ, TSCR30, BBABINT ####[facility] BLOOD BANKCLIA [id number] [address] OF [place] aPTT PPPon 05-30-2022 aPTT Coag (PPP) [Time] 27.3 s Normal 23.0-32.4 [facility] Comment on above: Order Comment: Speci men Type: BLOOD SPECIMENOrdering Facility: [facility] Address: [address] [place] [address] Performed By: #### 3 4528-0, 19130-6 ####[facility] LABCLIA [id number] [address] [place] CNOVon 05-22-2022 CNOV Office Visit (GENN ) VALERIA ROMERO ([id number]) 1965 F Date Time Provider Department 05/22/22 [...] Yeni Sevilla MD 05/22/2022 11:19 AM Signed [facility] Abdominal [facility] - HISTORY AND PHYSICAL Chief Complaint: [...] year. She occasionally visited the ED in [place], and she presented to the ED in [...] Wt 73.5 (more content not included)... Normal [facility] HISTORY PHYSICALon HISTORY PHYSICAL HNO ID: [id number] Author: Yeni Sevilla MD Service: ? Author Type: Resident Type: HANDP Filed: 05/22/2022 11:19 AM Note Text: [facility] Abdominal [facility] - HISTORY [...] year. She occasionally visited the ED in [place], and she presented to the ED in [...] Skin is (more content not included)... Normal [facility] CT ABD/PEL W IVCONon 04-19-[address] ABD/PEL W IVCON * * *Final Report* * * DATE OF EXAM: Apr 18 2022 10:36PM [facility] 0530 - CT ABD/PEL W IVCON / [...] of the herniated contents. Lower thorax: Unremarkable. Firefighting Equipment Specialist (topogram) images: Unremarkable. IMPRESSION: Fat-containing ventral hernia as described, increased in size since 2010. Details and incidental findings as discussed. Physicist Acoustics: MANAV Transcribe Date/Time: Apr 18 2022 10:48P Dictated by : JUJU GREGORY MD This examination was interpreted and the report reviewed and electronically signed by: KATT YANEZ MD on Apr 18 2022 11:18PM EST [id number] Normal [facility] ED NOTEon 04-19-2022 ED NOTE HNO ID: [id number] Author: Monique Hanna RN Service: Emergency Medicine Author Type: Registered Nurse Type: ED Notes Filed: 04/18/2022 11:59 PM Note Text: Discharge instructions reviewed with patient at this time. No further questions or concerns. Patient stable at time of discharge. Normal [facility] Basic metabolic 2000 panelon 04-18-2022 Anion gap [Moles/Vol] 8 mmol/L Low 9-18 [facility] Comment on above: Order Comment: Speci men Type: BLOOD SPECIMENOrdering Facility: [facility] Address: [address] [place] [address] Performed By: #### 2 4321-2, ####[facility] LABCLIA [id number] [place] [id number] [place] Calcium [Mass/Vol] 9.9 mg/dL Normal 8.5-10.2 [facility] Comment on above: Order Comment: Speci men Type: BLOOD SPECIMENOrdering Facility: [facility] Address: [address] [place] [address] Performed By: #### 2 4321-2, ####[facility] LABCLIA [id number] [place] [address] [place] Chloride [Moles/Vol] 104 mmol/L Normal 97-105 [facility] Comment on above: Order Comment: Speci men Type: BLOOD SPECIMENOrdering Facility: [facility] Address: [address] [place] [address] Performed By: #### 2 432-2, ####[facility] LABCLIA [id number] [place] [address] [place] CO2 [Moles/Vol] 29 mmol/L Normal 22-30 [facility] Comment on above: Order Comment: Speci men Type: BLOOD SPECIMENOrdering Facility: [facility] Address: [address] [place] [address] Performed By: #### 2 4321-2, ####[facility] LABCLIA [id number] [place] [address] [place] Creatinine [Mass/Vol] 0.63 mg/dL Normal 0.58-0.96 [facility] Comment on above: Order Comment: Speci men Type: BLOOD SPECIMENOrdering Facility: [facility] Address: [address] [place], [place] [address] Performed By: #### 2 4320-, ####[facility] LABCLIA [id number] [place] [address] [place] ESTIMATED GLOMERULAR FILTRATION RATE 105 mL/min/1.73m??? Normal >=60 [facility] Comment on above: Order Comment: Poncho freeman Type: BLOOD SPECIMENOrdering Facility: [facility] Address: [address] [place] [address] Result Comment: Faiza mated Glomerular Filtration Rate [...] actual GFR. Performed By: #### 2 43210-02, ####[facility] LABCLIA [id number] [place] [address] [place] Glucose [Mass/Vol] 101 mg/dL High 74-99 [facility] Comment on above: Order Comment: Poncho freeman Type: BLOOD SPECIMENOrdering Facility: [facility] Address: [address] [place] [address] Result Comment: The [place] Diabetes Association (ADA) provides guidance for cutoff [...] Standards of Medical Care in Diabetes 2016, [place] [employer]. Diabetes Care. 2016.39(Suppl 1). Performed By: #### 2 432-, ####[facility] LABCLIA [id number] [place] [address] [place] Potassium [Moles/Vol] 3.4 mmol/L Low 3.7-5.1 [facility] Comment on above: Order Comment: Speci men Type: BLOOD SPECIMENOrdering Facility: [facility] Address: [address] [place] [address] Performed By: #### 2 4321-2, 05783-4 ####[facility] LABCLIA [id number] [place] [address] [place] Sodium [Moles/Vol] 141 mmol/L Normal 136-144 [facility] Comment on above: Order Comment: Speci men Type: BLOOD SPECIMENOrdering Facility: [facility] Address: [address] [place] [address] Performed By: #### 2 4321-2, 22338-6 ####[facility] LABCLIA [id number] [address] [place] Urea nitrogen [Mass/Vol] 9 mg/dL Normal 7-21 [facility] Comment on above: Order Comment: Speci men Type: BLOOD SPECIMENOrdering Facility: [facility] Address: [address] [place] [address] Performed By: #### 2 4321-2, 23326-3 ####[facility] LABCLIA [id number] [place] [address] [place] CBC W Auto Differential pane l (Bld)on 04-18-2022 Basophils (Bld) [#/Vol] 0.04 10*3/uL Normal <0.11 [facility] Comment on above: Order Comment: Speci men Type: BLOOD SPECIMENOrdering Facility: [facility] Address: [address] [place] [address] Performed By: #### 5 7021-8 ####[facility] LABCLIA [id number] [address] [place] Basophils/100 WBC (Bld) 0.7 % Normal [facility] Comment on above: Order Comment: Speci men Type: BLOOD SPECIMENOrdering Facility: [facility] Address: [address] [place], [place] [address] Performed By: #### 5 7021-8 ####[facility] LABCLIA [id number] [place] [address] [place] Differential cell count method Nom (Bld) Auto Normal [facility] Comment on above: Order Comment: Speci men Type: BLOOD SPECIMENOrdering Facility: [facility] Address: [address] [place], [place] [address] Performed By: #### 5 7021-8 ####[facility] LABCLIA [id number] [place] [address] [place] Eosinophils (Bld) [#/Vol] 0.17 10*3/uL Normal <0.46 [facility] Comment on above: Order Comment: Speci men Type: BLOOD SPECIMENOrdering Facility: [facility] Address: [address] [place] [address] Performed By: #### 5 7021-8 ####[facility] LABCLIA [id number] [address] [place] Eosinophils/100 WBC (Bld) 2.8 % Normal [facility] Comment on above: Order Comment: Speci men Type: BLOOD SPECIMENOrdering Facility: [facility] Address: [address] [place] [address] Performed By: #### 5 7021-8 ####[facility] LABCLIA [id number] [place] [address] [place] Erythrocyte distribution width (RBC) [Ratio] 13.9 % Normal 11.5-15.0 [facility] Comment on above: Order Comment: Speci men Type: BLOOD SPECIMENOrdering Facility: [facility] Address: [address] [place], [place] [address] Performed By: #### 5 7021-8 ####[facility] LABIA [id number] [address] OF [facility] Hematocrit (Bld) [Volume fraction] 37.6 % Normal 36.0-46.0 [facility] Comment on above: Order Comment: Speci men Type: BLOOD SPECIMENOrdering Facility: [facility] Address: [address] [place], [place] [address] Performed By: #### 5 7021-8 ####[facility] LABIA [id number] [address] OF [facility] Hemoglobin (Bld) [Mass/Vol] 12.4 g/dL Normal 11.5-15.5 [facility] Comment on above: Order Comment: Speci men Type: BLOOD SPECIMENOrdering Facility: [facility] Address: [address] [place], [place] [address] Performed By: #### 5 7021-8 ####[facility] LABIA [id number] [address] IMMATURE GRAN % 0.3 % Normal [facility] Comment on above: Order Comment: Speci men Type: BLOOD SPECIMENOrdering Facility: [facility] Address: [address] [place], [place] [address] Performed By: #### 5 7021-8 ####[facility] LABIA [id number] [address] [place] IMMATURE GRAN ABS <0.03 Normal <0.10 [facility] Comment on above: Order Comment: Speci men Type: BLOOD SPECIMENOrdering Facility: [facility] Address: [address] [place], [place] [address] Performed By: #### 5 7021-8 ####[facility] LABIA [id number] [address] [id number] [address] [place] Lymphocytes (Bld) [#/Vol] 2.13 10*3/uL Normal 1.00-4.00 [facility] Comment on above: Order Comment: Speci men Type: BLOOD SPECIMENOrdering Facility: [facility] Address: [address] [place] [address] Performed By: #### 5 7021-8 ####[facility] LABCLIA [id number] [address] [place] Lymphocytes/100 WBC (Bld) 34.7 % Normal [facility] Comment on above: Order Comment: Speci men Type: BLOOD SPECIMENOrdering Facility: [facility] Address: [address] [place], [place] [address] Performed By: #### 5 7021-8 ####[facility] LABCLIA [id number] [address] [place] MCH (RBC) [Entitic mass] 29.5 pg Normal 26.0-34.0 [facility] Comment on above: Order Comment: Speci men Type: BLOOD SPECIMENOrdering Facility: [facility] Address: [address] [place], [place] [id number] Performed By: #### 5 7021-8 ####[facility] LABCLIA [id number] [address] [place] MCHC (RBC) [Mass/Vol] 33.0 g/dL Normal 30.5-36.0 [facility] Comment on above: Order Comment: Speci men Type: BLOOD SPECIMENOrdering Facility: [facility] Address: [address] [place], [place] [address] Performed By: #### 5 7021-8 ####[facility] LABCLIA [id number] [place] [address] [place] MCV (RBC) [Entitic vol] 89.3 fL Normal 80.0-100.0 [facility] Comment on above: Order Comment: Speci men Type: BLOOD SPECIMENOrdering Facility: [facility] Address: [address] [place], [place] [address] Performed By: #### 5 7021-8 ####[facility] LABCLIA [id number] [place] [address] [place] Monocytes (Bld) [#/Vol] 0.72 10*3/uL Normal <0.87 [facility] Comment on above: Order Comment: Speci men Type: BLOOD SPECIMENOrdering Facility: [facility] Address: [address] [place], [place] [address] Performed By: #### 5 7021-8 ####[facility] LABCLIA [id number] [place] [address] [place] Monocytes/100 WBC (Bld) 11.7 % Normal [facility] Comment on above: Order Comment: Speci men Type: BLOOD SPECIMENOrdering Facility: [facility] Address: [address] [place], [place] [address] Performed By: #### 5 7021-8 ####[facility] LABCLIA [id number] [place] [address] [place] Neutrophils (Bld) [#/Vol] 3.05 10*3/uL Normal 1.45-7.50 [facility] Comment on above: Order Comment: Speci men Type: BLOOD SPECIMENOrdering Facility: [facility] Address: [address] [place] [address] Performed By: #### 5 7021-8 ####[facility] LABCLIA [id number] [place] [address] [place] Neutrophils/100 WBC (Bld) 49.8 % Normal [facility] Comment on above: Order Comment: Speci men Type: BLOOD SPECIMENOrdering Facility: [facility] Address: [address] [place], [place] [address] Performed By: #### 5 7021-8 ####[facility] LABCLIA [id number] [place] [address] [place] Nucleated RBC (Bld) [#/Vol] 10*3/uL Normal <0.01 [facility] Comment on above: Order Comment: Speci men Type: BLOOD SPECIMENOrdering Facility: [facility] Address: [address] [place], [place] [address] Performed By: #### 5 7021-8 ####[facility] LABIA [id number] [place] [address] [place] Nucleated RBC/100 WBC (Bld) [Ratio] 0.0 /100 WBC Normal [facility] Comment on above: Order Comment: Speci men Type: BLOOD SPECIMENOrdering Facility: [facility] Address: [address] [place], [place] [address] Performed By: #### 5 7021-8 ####[facility] [id number] [place] [address] [place] Platelet mean volume (Bld) [Entitic vol] 9.1 fL Normal 9.0-12.7 [facility] Comment on above: Order Comment: Speci men Type: BLOOD SPECIMENOrdering Facility: [facility] Address: [address] [place], [place] [address] Performed By: #### 5 7021-8 ####[facility] [id number] [place] [address] [place] Platelets (Bld) [#/Vol] 355 10*3/uL Normal 150-400 [facility] Comment on above: Order Comment: Speci men Type: BLOOD SPECIMENOrdering Facility: [facility] Address: [address] [place] [address] Performed By: #### 5 7021-8 ####[facility] LABIA [id number] [place] [address] [place] RBC (Bld) [#/Vol] 4.21 10*6/uL Normal 3.90-5.20 [facility] Comment on above: Order Comment: Speci men Type: BLOOD SPECIMENOrdering Facility: [facility] Address: [address] [place], [place] [address] Performed By: #### 5 7021-8 ####[facility] LABCLIA [id number] [place] [address] [place] [facility] WBC (Bld) [#/Vol] 6.13 10*3/uL Normal 3.70-11.00 [facility] Comment on above: Order Comment: Speci men Type: BLOOD SPECIMENOrdering Facility: [facility] Address: [address] [place] [address] Performed By: #### 5 7021-8 ####[facility] LABCLIA [id number] [address] OF [facility] ED NOTEon 04-18-2022 ED NOTE HNO ID: [id number] Author: Eddie Lu DO, DPM Service: Emergency Medicine Author Type: Physician Type: ED Notes Filed: 04/20/2022 9:09 AM Note Text: CC for SS at 9:42 PM 57 year old female with PMH incision hernia s/p multiple repairs with mesh. Living in [place] and just moved back to [place]. Just got her Medicaid insurance today. Here [...] Eddie Lu DO, VALERIE, CHUY, FACEP Normal [facility] ED NOTE HNO ID: [id number] Author: Eddie Gu RN Service: Emergency Medicine Author Type: Registered Nurse Type: ED Notes Filed: 04/18/2022 2:12 PM Note Text: Pt with a history of hernia repair, states recently diagnosed with another hernia at [facility], only wants her care at [facility]. Normal [facility] ED PROV NOTEon 04-18-2022 ED PROV NOTE HNO ID: [id number] Author: Eddie Lu DO, DPM Service: Emergency [...] with mesh. Patient has been living in [place] but recently returned to [place]. States that over the past few months the hernia has rapidly grown in size. Endorses cramping and pulling pain along the hernia. States that she has been able to tolerate p.o. Denies nausea, vomiting, fever, chills, overlying skin changes. Her last bowel movement was while waiting in the ED lobby. States that she returned to [facility] to establish definitive care as she is [...] / Clinical Impression ED Course as of 04/18/220 Jef Hamilton's Documentation SunApr 18, 20222033 Temp: [...] or gangre (more content not included)... Normal [facility] Magnesium SerPl-mCncon 04-18 Magnesium [Mass/Vol] 1.9 mg/dL Normal 1.7-2.3 [facility] Comment on above: Order Comment: Speci men Type: BLOOD SPECIMENOrdering Facility: [facility] Address: [address] [place] [address] Performed By: #### 2 4321-2, 76341-8 ####[facility] LABCLIA [id number] [place] [address] [place] Vital Signs Date Time Vital Sign Value Performing Clinician Facility 12-27-2022 10:46-0400 Diastolic blood pressure 65 mm[Hg] [facility] Work Phone: [facility] 12-27-2022 10:46-0400 Heart rate 61 /min [facility] Work Phone: [facility] 12-27-2022 10:46-0400 Respiratory rate 18 /min [facility] Work Phone: [facility] 12-27-2022 10:46-0400 SaO2% (BldA) [Mass fraction] 98 % [facility] Work Phone: [facility] 12-27-2022 10:46-0400 Systolic blood pressure 107 mm[Hg] [facility] Dept Work Phone: [facility] 12-27-2022 08:49-0400 Body height 152.4 cm [facility] Work Phone: [facility] 12-27-2022 08:49-0400 Body temperature 97.7 [degF] [facility] Work Phone: [facility] 12-27-2022 08:49-0400 Body weight 86.63 kg [facility] Work Phone: [facility] 06-29-2022 10:33-0400 Body height 157.5 cm Pedro Walsh MD Work Phone: [facility] 06-29-2022 10:33-0400 Body temperature 96.6 [degF] Pedro Walsh MD Work Phone: [facility] 06-29-2022 10:33-0400 Body weight 78.02 kg Pedro Walsh MD Work Phone: [facility] 06-29-2022 10:33-0400 Diastolic blood pressure 62 mm[Hg] Pedro Walsh MD Work Phone: [facility] 06-29-2022 10:33-0400 Heart rate 76 /min Pedro Walsh MD Work Phone: [facility] 06-29-2022 10:33-0400 Respiratory rate 14 /min Pedro Walsh MD Work Phone: [facility] 06-29-2022 10:33-0400 Systolic blood pressure 109 mm[Hg] Pedro Walsh MD Work Phone: [facility] 05-30-2022 13:09-0400 Body temperature 98.71 [degF] Daríohector Miranda [employer] Work Phone: [facility] 05-30-2022 13:09-0400 Body weight 77.47 kg Daríohector Miranda [employer] Work Phone: [facility] 05-30-2022 13:09-0400 Diastolic blood pressure 63 mm[Hg] Daríohector Miranda [employer] Work Phone: [facility] 05-30-2022 13:09-0400 Heart rate 54 /min Darío Bhattiveronica [employer] Work Phone: [facility] 05-30-2022 13:09-0400 SaO2% (BldA) [Mass fraction] 95 % Darío Bhattiveronica [employer] Work Phone: [facility] 05-30-2022 13:09-0400 Systolic blood pressure 102 mm[Hg] Darío Ruben [employer] Work Phone: [facility] 05-22-2022 09:26-0400 Body height 152.4 cm Pedro Walsh MD Work Phone: [facility] 05-22-2022 09:26-0400 Body temperature 98.29 [degF] Pedro Walsh MD Work Phone: [facility] 05-22-2022 09:26-0400 Body weight 73.48 kg Pedro Walsh MD Work Phone: [facility] 05-22-2022 09:26-0400 Diastolic blood pressure 69 mm[Hg] Pedro Walsh MD Work Phone: [facility] 05-22-2022 09:26-0400 Heart rate 69 /min Pedro Walsh MD Work Phone: [facility] 05-22-2022 09:26-0400 Systolic blood pressure 108 mm[Hg] Pedro Walsh MD Work Phone: [facility] Encounters Encounter Date Encounter Type Care Provider Facility Start: 01-18-2023 End: 01-18-2023 lashon REYNA Facility:[facility] Start: 01-18-2023 End: 01-18-2023 Patient encounter procedure Maria D Reyna MD Work Phone: Colorectal Surgery Comment on above: Prolapsed hemorrhoid s (Primary Dx); Vaginal prolapse Start: 12-27-2022 End: 12-27-2022 ambulatory [facility] Dept Facility:[facility] Start: 12-27-2022 End: 12-27-2022 Admission to same day surgery center Arcadio Taomee [facility] Dept Work Phone: [facility] Work Phone: Start: 12-27-2022 End: 12-27-2022 ambulatory Arcadio Taomee [facility] Dept Work Phone: [facility] Work Phone: Start: 12-18-2022 End: 12-18-[address] CHICHO JAMISON Facility: Start: 09-06-2022 End: 09-06-2022 ambulatory PHYSICIAN NO FAMILY Facility:[facility] Start: 09-06-2022 End: 09-06-2022 ambulatory PHYSICIAN NO FAMILY [facility] Work Phone: Start: 09-06-2022 End: 09-06-2022 Patient encounter procedure PHYSICIAN NO [facility] Start: 06-29-2022 End: 06-29-2022 ambulatory BETTIE SMITH Facility:[facility] Start: 06-29-2022 End: 06-30-2022 ambulatory PEDRO WALSH Facility:[facility] Start: 06-29-2022 End: 06-29-2022 Subsequent hospital [...] management of inpatient PEDRO WALSH Facility:[facility] Start: 06-01-2022 Chart abstracting Valeria LONGORIA Work Phone: Psycholgy Start: 06-01-2022 Telephone encounter Valeriaomar Pettywell [employer] Work Phone: Psycholgy Comment on above: outreach Start: 05-30-2022 End: 05-31-2022 ambulatory BETTIE SMITH Facility:[facility] Start: 05-30-2022 Encounter for other preprocedural examination [facility] Start: 05-30-2022 End: 05-31-2022 ambulatory PEDRO WALSH Facility:[facility] Start: 05-30-2022 End: 05-31-2022 ambulatory PEDRO WALSH Facility:[facility] Start: 05-30-2022 Encounter for other preprocedural examination [facility] Start: 05-30-2022 End: 05-30-2022 Patient encounter procedure [...] End: 05-23-2022 ambulatory PEDRO WALSH Facility:[facility] Start: 05-22-2022 End: 05-22-2022 Patient encounter procedure Pedro Walsh MD Work Phone: General Surgery Comment on above: Incisional hernia, w ithout obstruction or gangrene (Primary Dx) Start: 04-18-2022 End: 04-19-2022 Emergency department patient visit CRISTINE GARCIA Facility:[facility] Procedures Date Procedure Procedure Detail Performing Clinician Start: 12-27-2022 Esophagogastroduodenoscopy Arcadio carreon Dept Work Phone: Start: 09-06-2022 Screening mammography of bilateral breasts PHYSICIAN NO FAMILY Start: 06-29-2022 Ct abdomen & pelvis w/o contrast material Leonard Ivey MD Work Phone: Start: 05-30-2022 Antibody screen BETTIE SMITH Comment on above: Order Comment: Specimen Type: BLOOD SPEC IMENOrdering Facility: [facility] Address: [address] [place] [address] Performed By: #### % DIAZ, [id number], BBABINT ####[facility]IN BLOOD BANKCLIA [id number] [address] Plan of Treatment Date Care Activity Detail Author Start: 06-09-2025 DIABETES SCREEN DIABETES SCREEN [facility] Start: 05-30-2025 DIABETES SCREEN DIABETES SCREEN [facility] Start: 04-18-2025 DIABETES SCREEN DIABETES SCREEN [facility] Start: 06-01-2023 Influenza vaccination INFLUENZA (Sea son Ended) [facility] Start: 05-30-2023 ANNUAL PCP TEAM HEADING REPAIRER VANESA DISEASE VISIT ANNUAL PCP TEAM CHRONIC DISEASE VISIT [facility] Start: 12-27-2022 [facility] Start: 10-01-2022 DEPRESSION ASSESSMENT DEPRESSION ASS ESSMENT [facility] Start: 09-06-2022 [facility] Start: 06-01-2022 Influenza vaccination INFLUENZA (#1) [facility] Start: 05-29-2022 End: 05-25-2023 aPTT in Platelet poor plasma by Coagulation assay ACTIVATED PTT Lab Routine Preoperative examination Incisional hernia, without obstruction or gangrene Expected: 05/29/2022, Expires: 05/25/2023 [facility] Work Phone: Comment on above: Expected: 05/29/2022 , Expires: 05/25/2023 Start: 05-29-2022 End: 05-25-2023 CBC W Auto Differential panel - Blood CBC + DIFF Lab Routine Preoperative examination Incisional hernia, without obstruction or gangrene Expected: 05/29/2022, Expires: 05/25/2023 [facility] Work Phone: Comment on above: Expected: 05/29/2022 , Expires: 05/25/2023 Start: 05-29-2022 End: 05-25-2023 Comprehensive metabolic 2000 panel - Serum or Plasma COMP METABOLIC PANEL Lab Routine Preoperative examination Incisional hernia, without obstruction or gangrene Expected: 05/29/2022, Expires: 05/25/2023 [facility] Work Phone: Comment on above: Expected: 05/29/2022 , Expires: 05/25/2023 Start: 05-29-2022 End: 05-25-2023 PT panel - Platelet poor plasma by Coagulation assay PROTHROMBIN TIME/PT Lab Routine Preoperative examination Incisional hernia, without obstruction or gangrene Expected: 05/29/2022, Expires: 05/25/2023 [facility] Work Phone: Comment on above: Expected: 05/29/2022 , Expires: 05/25/2023 Start: 05-29-2022 End: 05-25-2023 TYPE AND SCREEN,30 DAY TYPE AND SCREEN,30 DAY Blood Bank Routine Preoperative examination Incisional hernia, without obstruction or gangrene Expected: 05/29/2022, Expires: 05/25/2023 [facility] Work Phone: Comment on above: Expected: 05/29/2022 , Expires: 05/25/2023 Start: 10-01-2021 DEPRESSION ASSESSMENT DEPRESSION ASS ESSMENT [facility] Start: 2017 SHINGRIX VACCINE (1 of 2) SHINGRIX VACCINE (1 of 2) [facility] Start: 02-03-2012 COLOGUARD (FIT-DNA) COLOGUARD (FIT-D NA) [facility] Start: 02-03-2012 Colonoscopy COLONOSCOPY [facility] Start: 02-03-2012 COLORECTAL CANCER SCREENING COLORECTAL CANCER SCREENING [facility] Start: 02-03-[address] COLONOGRAPHY [facility] Start: 02-03-2012 FECAL OCCULT BLOOD FECAL OCCULT BLOO D [facility] Start: 02-03-2012 LIPID SCREEN LIPID SCREEN [facility] Start: 02-03-2012 SIGMOIDOSCOPY SIGMOIDOSCOPY [facility] Start: 2007 Mammography MAMMOGRAM [facility] Start: 1997 HPV TESTING HPV TESTING [facility] Start: 02-03-1988 PAP TESTING PAP TESTING [facility] Start: 1986 Urine microalbumin profile DTAP,TDAP,TD (1 - Tdap) [facility] Start: 1985 ANNUAL PCP TEAM HEADING REPAIRER VANESA DISEASE VISIT ANNUAL PCP TEAM CHRONIC DISEASE VISIT [facility] Start: 1985 HEPATITIS C SCREENING HEPATITIS C SC REENING [facility] Start: 1985 HIV SCREENING HIV SCREENING [facility] Start: 1985 SPIROMETRY SPIROMETRY [facility] Start: 1979 Adult depression screening assessment DEPRESSION SCREENING [facility] Start: 1973 PNEUMOCOCCAL (1 - PCV) PNEUMOCOCCAL (1 - PCV) [facility] Start: 1967 COVID-19 VACCINE (#1) COVID-19 VACCI NE (#1) [facility] Start: 1967 HEPATITIS B (1 of 3 - 3-dose series) [facility] End: 05-25-2023 ECG COMPLETE ECG COMPLETE ECG Routine Preoperative examination Incisional hernia, without obstruction or gangrene 1 Occurrences starting 05/29/2022 until 05/25/2023 [facility] Work Phone: Comment on above: 1 Occurrences starti ng 05/29/2022 until 05/25/2023 Hepatitis C virus Ab Signal/Cutoff in Serum or Plasma by Immunoassay [facility] Work Phone: Patient Education Colon Polyps H emorrhoids (DC) Diverticulosis (DC) [facility] Work Phone: REFER FOR ADMIT INTERVIEW REFER FOR ADMIT INTERVIEW Procedures Routine Preoperative examination Incisional hernia, without obstruction or gangrene Ordered: 05/29/2022 [facility] Work Phone: Comment on above: Ordered: 05/29/2022 [facility] Payers Date Payer Category Payer Self-pay 2022 Medicaid MEDICAID [facility] MEDICAID [id number] 2022-Present [phone] [address] [place] [address] Medicaid [id number] 2022 Medicaid [id number] 1967 Unknown [id number] Unknown Isaías MORTON/YENI [id number] Unknown [id number] Unknown [id number] Social History Date Type Detail Facility Start: 05-22-2022 End: 05-30-2022 Tobacco smoking status KYIS Occasional tobacco smoker [facility] End: 05-22-2022 History of tobacco use Cigarette Smoker [facility] History of tobacco use Pipe Smoker [facility] Start: 05-22-2022 End: 05-30-2022 Tobacco use and exposure Smokeless tobacco non-user [facility] Start: 1965 Sex Assigned At Not on file [facility] Start: 05-12-2022 End: 06-29-2022 Exposure to SARS-CoV-2 (event) Not sure [facility] Start: 05-30-2022 End: 01-19-2023 Alcohol intake Current drinker of alcohol (finding) [facility] Start: 05-30-2022 History SDOH Alcohol Comment rare [facility] Start: 05-30-2022 [facility] Start: 1965 Sex Assigned At Female F [facility] Start: 12-27-2022 Tobacco smoking stat us KYIS Ex-smoker (finding) [facility] Medical Equipment Procedure Code Equipment Code Equipment Origin al Text Equipment Identifier Dates Mesh Prolene Squ are Flat [id number] Surgical Knit Nonabsorbable Nonreactive - [id number] Start: 06-06-2022 Goals Date Patient Goal Desired Activity /State Clinical Notes 04-19-2022 to 01-18-2023 Gianna Gusman RN - 01/18/2023 10:10 AM PRITITMaria D Reyna MD - 01/18/2023 9:40 AM Collette Beyer - 06/29/2022 1:30 PM Glynn Walsh MD - 06/29/2022 11:10 AM EDT Note Date & Type Note Facility 01-18-2023 Note HNO ID: [id number] Author: Maria D Reyna MD Service: ? Author Type: Physician Type: Progress Notes Filed: 01/19/2023 1:23 AM Note Text: COLORECTAL SURGERY January 18, 2023 Valeria Romero 57 year old This consult was requested by Dr. Sena and my final recommendations will be communicated to the requesting health care provider by way of the shared medical record for internal providers or letter via the [employer] for external providers. Chief Complaint: [...] exam reveals no gross blood or masses Sand Carrier present: Yes, Gianna Gusman Anoscopy: The patient [...] and the redu (more content not included)... [facility] 01-18-2023 Nurse Note What is the reason [...] No Drains: No documented in this encounter [facility] 01-18-2023 History of Presen t illness Narrative COLORECTAL SURGERY January 18, 2023 Valeria Romero 57 year old This consult was requested by Dr. Sena and my final recommendations will be communicated to the requesting health care provider by way of the shared medical record for internal providers or letter via the [employer] for external providers. Chief Complaint: [...] exam reveals no gross blood or masses Sand Carrier present: Yes, Gianna Gusman Anoscopy: The patient [...] MD Colorectal Surgery documented in this encounter [facility] 12-27-2022 Procedure note [facility] 06-29-2022 Note HNO ID: [id number] Author: Collette Figueroa Service: Radiology Author Type: Clinical Trial Educator Type: Progress Notes Filed: 06/29/2022 12:24 PM [...] Collette Figueroa June 29, 2022 12:18 PM [facility] 06-29-2022 History of Presen t illness Narrative [...] 2022 12:18 PM documented in this encounter [facility] 06-29-2022 Note HNO ID: [id number] Author: Pedro Walsh MD Service: ? Author Type: Physician Type: Progress Notes Filed: 06/29/2022 4:16 PM Note Text: [facility] - Postoperative visit [...] Walsh MD Date: 06/29/2022 Time: 1:01 PM [facility] 06-29-2022 History of Presen t illness Narrative [facility] - Postoperative visit [...] Time: 1:01 PM documented in this encounter [facility] 06-12-2022 Miscellaneous Notes [facility] called the pt and left message with name and number asking for a return call. documented in this encounter [facility] 06-12-2022 Miscellaneous Notes BEHAVIORAL HEALTH SOCIAL WORK CONSULT NOTE Service Date: June 12, 2022 Patient was identified by name and Patient: Valeria Romero [address] [place] [address] [address] [facility] [address] (home) [phone] (cell) PCP: No primary care provider on [...] minutes VON Bhatia-S documented in this encounter [facility] 06-09-2022 Note HNO ID: [id number] Author: Eve Anne MD Service: General Surgery Author Type: Fellow Type: Progress Notes Filed: 06/14/2022 10:29 AM Note Text: [facility] [place] for Abdominal Core Health - Clinic Visit [...] General Surgery Fellow - Abdominal Wall Reconstruction [facility] 06-08-2022 Note HNO ID: [id number] Author: nAdree Chavez RN Service: Care Management Author Type: Registered Nurse Type: Care Mgt Initial Assessment Filed: 06/08/2022 3:32 PM Note Text: CARE MANAGEMENT: ASSESSMENT AND DISCHARGE PLAN SERVICE DATE: June 08, 2022 SERVICE TIME: 3:30 PM PRIMARY CARE PHYSICIAN: No primary care provider on file. Phone: None Primary Contact: Extended Emergency Contact Information Primary Emergency Contact: ISIDORO ROMERO Address: [address] [address] Relation: Spouse ADMISSION STATUS: Inpatient Insurance Provider: [place] NEED[place] PRIOR TO DISCHARGE No skilled needs POTENTIAL TRANSITION PLANS Home with self care and family support Patient's perception of need for this admission: planned procedure ADVANCE DIRECTIVES Current Advance Directive: None Radio Program Director Attempted to Assist with AD Completion: [...] 08, 2022 TIME: 3:30 PM CONTACT #: [phone] [facility] 06-08-2022 Note HNO ID: [id number] Author: Herminia Chance APRN.HYDRAULIC PLUMBER Service: General Surgery Author Type: Nurse Practitioner [...] 0659 06/08/22 0700 - 06/09/22 0659 Shift 1134-5057 9320-5606 2116-5154 24 Hour Total 0612-1214 8831-3038 8488-1491 24 Hour Total INTAKE PO 480 480 PO 480 480 IV 600 713 853 0518 Volume (mL) (lactated ringers iv infusion) 600 822 443 9372 Shift Total 1080 710 038 2748 OUTPUT Urine 300 600 900 Output ( [...] BMs 0 x 0 x Shift Total 371 144 2827 Weight (kg) 85 85 85 85 85 [...] feels better today. PLAN: - D/C Dilaudid SPORT PSYCHOLOGIST - Scheduled Tylenol, Flexeril, Gabapentin. Monitor for [...] 183 -- 06/06/22 184 pneumatic compression stockings ([place]) 06/06/22 184 activity - mobilize patient ([place]) VTE Prophylaxis: VTE prophylaxis appropriate Plan of care discussed with: Provider, RN, Patient and Care Management SIGNATURE: Herminia Chance APRN.HYDRAULIC PLUMBER PATIENT NAME: Valeria Romero DATE: June 08, 2022 TIME: 7:08 AM [facility] 06-07-2022 History of Past i llness Narrative Problem Noted Date Resolved Date Hyperkalemia 06/07/2022 06/09/2022 Last Assessment & Plan: Assessment: 5.1 today. PLAN: - Continue to trend BMPs while in house Incisional hernia of anterio r abdominal wall without obstruction or gangrene 06/06/2022 06/07/2022 documented as of this encounter (statuses as of 06/09/2022) [facility]09[facility]07[facility]20[facility] History of Past illness Narrative* Problem Noted Date Resolved Date Hyperkalemia 06/07/2022 06/09/2022 Last Assessment & Plan: Assessment: 5.1 today. PLAN: - Continue to trend BMPs while in house Incisional hernia of anterio r abdominal wall without obstruction or gangrene 06/06/2022 06/07/2022 documented as of this encounter (statuses as of 06/12/2022) [facility] History of Past illness Narrative* Problem Noted Date Resolved Date Hyperkalemia 06/07/2022 06/09/2022 Last Assessment & Plan: Assessment: 5.1 today. PLAN: - Continue to trend BMPs while in house Incisional hernia of anterio r abdominal wall without obstruction or gangrene 06/06/2022 06/07/2022 documented as of this encounter (statuses as of 06/12/2022) [facility] History of Past illness Narrative* Problem Noted Date Resolved Date Hyperkalemia 06/07/2022 06/09/2022 Last Assessment & Plan: Assessment: 5.1 today. PLAN: - Continue to trend BMPs while in house Incisional hernia of anterio r abdominal wall without obstruction or gangrene 06/06/2022 06/07/2022 documented as of this encounter (statuses as of 06/29/2022) [facility] History of Past illness Narrative* Problem Noted Date Resolved Date Hyperkalemia 06/07/2022 06/09/2022 Last Assessment & Plan: Assessment: 5.1 today. PLAN: - Continue to trend BMPs while in house Incisional hernia of anterio r abdominal wall without obstruction or gangrene 06/06/2022 06/07/2022 documented as of this encounter (statuses as of 06/30/2022) [facility] History of Past illness Narrative* Problem Noted Date Resolved Date Hyperkalemia 06/07/2022 06/09/2022 Last Assessment & Plan: Assessment: 5.1 today. PLAN: - Continue to trend BMPs while in house Incisional hernia of anterio r abdominal wall without obstruction or gangrene 06/06/2022 06/07/2022 documented as of this encounter (statuses as of 06/30/2022) [facility] History of Past illness Narrative* Problem Noted Date Resolved Date Hyperkalemia 06/07/2022 06/09/2022 Last Assessment & Plan: Assessment: 5.1 today. PLAN: - Continue to trend BMPs while in house Incisional hernia of anterio r abdominal wall without obstruction or gangrene 06/06/2022 06/07/2022 documented as of this encounter (statuses as of 01/19/2023) [facility]09-07-2022 NoteHNO ID: [id number] Author: Herminia Chance APRN.HYDRAULIC PLUMBER Service: General Surgery Author Type: Nurse Practitioner Type: Progress Notes Filed: 06/07/2022 8:50 AM Note Text: SERVICE DATE: 06/07/2022 SERVICE TIME: 8:49 AM GENERAL SURGERY SERVICE PROGRESS NOTE POD 1- ventral hernia repair with mesh, resection of old mesh - Dr. Walsh Subjective INTERVAL HPI: C/o muscle spasms s/p hernia repair. Using SPORT PSYCHOLOGIST. Denies nausea, vomiting. Reports she has passed flatus but no BM. Highly anxious regarding advancement of her diet. Objective BP 105/56 Pulse 78 Temp (Src) 98.2 (Oral) Resp 16 Ht 5' 0 (1.52m) Wt 187 lb 6.3 oz (85.0kg) SpO2 91% BMI 36.60 kg/(m2). O2 Therapy: Room Air Date 06/06/22 07 - 06/07/22 0659 06/07/22 07 - 06/08/22 0659 Shift 8113-5166 1134-5238 9901-1650 24 Hour Total 0328-2794 1514-1686 4903-8843 24 Hour Total INTAKE PO 100 200 300 PO 100 200 300 IV 2400 225 1475 4100 Volume (mL) (dextrose 10% iv bolus) 250 250 Volume (mL) (lactated ringers iv infusion) 1000 1000 Volume (mL) (lactated ringers iv infusion) 1400 1400 Volume (mL) (lactated ringers iv infusion) 225 1225 1450 Shift Total 2400 325 1675 4400 OUTPUT Urine 940 5920 540 7545 OR Urine Output 940 940 Output ( Indwelling Urinary Catheter 06/06/22 1044 Assessment Scott 16 Fr) 8620 906 0593 Tubes 195 90 285 Drain/Tube Output (Drain/Tube 06/06/22 1349 Assessment Jaspal Burgess Left Upper Quadrant Abdomen Drain #1) 110 50 160 Drain/Tube Output (Drain/Tube 06/06/22 1351 Assessment Jaspal Burgess Right Upper Quadrant Abdomen Drain #2) 85 40 125 Blood 100 100 Estimated Blood loss 100 100 Shift Total 1040 5829 872 3522 Weight (kg) 85 85 85 85 85 [...] BM. Good UOP. PLAN: - Advance to [facility] with limited 1L PO intake. Advised patient [...] C/o muscle spasms around incision site. Using SPORT PSYCHOLOGIST. NAD on visit today PLAN: - Continue Dilaudid SPORT PSYCHOLOGIST - Scheduled Tylenol, Flexeril, Gabapentin. Monitor for [...] ([place]) 06/06/22 1845 activity - mobilize patient ([place]) VTE Prophylaxis: VTE prophylaxis appropriate Plan of care discussed with: Provider, RN, Patient and Care Management SIGNATURE: Herminia Chance APRN.KELLI PATIENT NAME: Valeria Romero DATE: June 07, 2022 TIME: 8:49 [facility]09-07-2022 NoteHNO ID: [id number] Author: Radha Medina RN Service: Nursing Author Type: Registered Nurse Type: Nursing Progress Note Filed: 06/07/2022 1:46 AM Note Text: LIP notified of Potassium 5.4.[facility]09-06-2022 NoteHNO ID: [id number] Author: Lara Moctezuma RN Service: ? Author Type: Registered Nurse Type: Nursing Progress Note Filed: 06/06/2022 6:02 PM Note Text: Other: Educated patient on leaving oxygen in nose when she has the SPORT PSYCHOLOGIST pump.[facility]09-06-2022 NoteHNO ID: [id number] Author: Belkis Benitez APRN.GARNETTER Service: ? Author Type: Nurse V Block Saw Operator Type: Anesthesia Procedure Notes Filed: 06/06/2022 11:07 [...] June 06, 2022 TIME: 11:06 AM CSN: [id number][facility]22 NoteHNO ID: [id number] Author: Belkis Benitez APRN.GARNETTER Service: ? Author Type: Nurse V Block Saw Operator Type: Anesthesia Procedure Notes Filed: 06/06/2022 2:24 PM Note Text: ANESTHESIOLOGY PROCEDURE NOTE PIV General Information Procedure Start Time/Medication Administration: 06/06/2022 10:42 AM Patient Location: OR Staffing GARNETTER: Belkis Benitez APRN.GARNETTER Performed by: PIPO Preparation Sterility Preparation: hand hygiene performed prior to procedure, skin prep agent completely dried prior to procedure Site Prep: alcohol Procedure Details Indication: need for IV access Needle Size/Type: 18 gauge angiocath Orientation: Right Location: Hand Imaging Guidance Used: No SIGNATURE: Belkis Benitez APRN.CRNA PATIENT NAME: Valeria Romero DATE: June 06, 2022 TIME: 11:04 AM CSN: [id number]. [facility] Miscellaneous Notes* Telephone Encounter - VON Bhatia - 06/01/2022 12:47 PM EDT BEHAVIORAL HEALTH SOCIAL WORK CONSULT NOTE Service Date: June 01, 2022 Patient was identified by name and Patient: Valeria Romero [address] [place] [address] [address] [facility] [address] (home) [phone] (cell) PCP: No primary care provider on file. No primary provider on file. Assessment: [facility] called the pt to discuss behavioral health [...] Provided referral information Resources Provided: Medication Management On License Of [facility] Time Spent: 15 minutes VON Bhatia documented in this encounterUniversity [facility]22 NoteHNO ID: [id number] Author: Jazzy Sanchez, PhD Service: ? Author Type: Psychologist Type: Progress Notes Filed: 05/30/2022 2:09 PM Note Text: [facility]al [facility] Name: Valeria Romero MR#: [id number] Date: 05/30/2022 Time: ? hour Referred by: [...] or in the outpatient clinic. Jazzy Pastrana, Ph.D.[facility]08-30-2022 NoteHNO ID: [id number] Author: Darío Miranda APRN.HYDRAULIC PLUMBER Service: ? Author Type: Nurse Practitioner Type: Progress Notes Filed: 05/30/2022 2:30 PM Note Text: CC: Medication refills, asthma HPI: Valeria Romero is a 57 year old female who presents to the 0 walk in clinic with the above chief compliant. PMH: Asthma, multiple hernias, depression/anxiety Patient from [place]. Moved to [place] and moved back for the surgery. Living in [place], [place] 1.5 hours away. Has not had a PCP in >5 years. Needs to establish care with PCP in [place], [place]. Patient has not been taking any of her medications because of financial reasons and she wanted to be off medications. Patient currently has medicaid. Trying to get medical things taken care of while she has insurance. Following with general surgery for a painful and enlarging incisional hernia. Hx of incisional hernia repair with mesh at [facility] w/ Dr. Craft in 2006. Patient scheduled for abdominal wall reconstruction with prior mesh excision 06/06/22. Pre-op testing today --> Provider sent patient to [facility] today for concerns for asthma. Asthma [...] anxiety and depression, GERD, multiple hernias at [facility] for an upcoming hernia repair. Sent to the walk in clinic for uncontrolled asthma concerns/exacerbation. Treatment plan as belo (more content not included)...[facility] 05-30-2022 NoteHNO ID: [id number] Author: Vic Fermin MD Service: ? Author Type: Anesthesiologist Type: Progress Notes Filed: 05/30/2022 1:24 PM Note Text: Attending Note I evaluated the patient and personally participated in the parham components. I agree with the resident's findings and plan as documented and have discussed the case and management of the patient's care with the resident. Signature: Vic Fermin MD Date: 05/30/2022 Time: 1:24 [facility]08-30-2022 Miscellaneous Notes* Addendum Note - Darío Miranda APRN.HYDRAULIC PLUMBER - 05/30/2022 2:39 PM EDTAddended by: DARÍO MIRANDA on: 05/30/2022 02:39 PM Modules accepted: Orders documented in this encounterUniversity Hospitals [facility]08-[facility]-2022 Instructions* Patient Instructions* Darío Miranda APRN.CNP - [...] care Darío Miranda APRN.CNP documented in this encounterUniversity Hospitals [facility]08-30-2022 History of Present illness Narrative* Jazzy Sanchez, PhD - 05/30/2022 2:03 PM EDT [facility]al [facility] Name: Valeria Romero MR#: [id number] Date: 05/30/2022 Time: hour Referred by: Dr. [...] clinic. Jazzy Pastrana, Ph.D. documented in this encounterUniversity Hospitals [facility]08-30-2022 History of Present illness Narrative* Darío Miranda APRN.[facility] - 05/30/2022 1:38 PM EDT CC: Medication refills, asthma HPI: Valeria Romero is a 57 year old female who presents to the 0 walk in clinic with the above chief compliant. PMH: Asthma, multiple hernias, depression/anxiety Patient from [place]. Moved to [place] and moved back for the surgery. Living in [place], [place] away. Has not had a PCP in >5 years. Needs to establish care with PCP in [place]. Patient has not been taking any of her medications because of financial reasons and she wanted to be off medications. Patient currently has medicaid. Trying to get medical things taken care of while shehas insurance. Following with general surgery for a painful and enlarging incisional hernia. Hx of incisional hernia repair with mesh at [facility] w/ Dr. Craft in 2006. Patient scheduled for abdominal wall reconstruction with prior mesh excision 06/06/22. Pre-op testing today --> Provider sent patient to [facility] today for concerns for asthma. Asthma - +wheezing at night. +shortness of breath after exertion. No chest pain. Minimal cough. No tobacco use. Occ MJ use. Not vaping - she quit. Asthma has been worse over the past 1 month. Has been on an maintenance in [facility] in the past. None x >5 years. [...] Wt 77.5 kg (170 lb 12.8 oz) PpA848% BMI 33.36 kg/m General: Alert, cooperative in [...] anxiety and depression, GERD, multiple hernias at [facility] for an upcoming hernia repair. Sent to the walk in clinic for uncontrolled asthma concerns/exacerbation. Treatment plan as below, though reiterated the importance of follow-up with PCP or pulmonology back in [place] in addition to behavioral health specialist/counseling. [...] minutes Darío Miranda APRN.KELLI documented in this encounterUniversity Hospitals [facility]08-30-2022 Nurse Note* Luz Maria Arriaga RN - [...] Luz Maria Arriaga RN documented in this encounterUniversity Hospitals Portage [facility] Center08-22-2022 NoteHNO ID: [id number] Author: Pedro Walsh MD Service: ? Author [...] Double-Blind Randomized Controlled Trial IRB NO.: #[id number] TROPHY ASSEMBLER: Tawnya Soler MD COORDINATOR/Research Nurse/Waste Machine Tender: Anne Colin MD Phone/email: [phone], [email or web address] Consenting was performed by the attending surgeon, in a [id number]-sv-[id number] manner, during preoperative evaluation at the General [...] CRITERIA Yes No 1. The patient lacks Chinese language fluency or cannot understand the consent form/study procedures [] [x] 2. The patient has any hearing impairment with or without the use of hearing aids [] [x] 3. The patient has a neurologic condition which prevents assessment of pain and/or anxiety [] [x] 4. The patient is to remain intubated after surgery [] [x][facility]08-22-2022 History of Present illness Narrative* Pedro Walsh [...] Double-Blind Randomized Controlled Trial IRB NO.: #[id number] TROPHY ASSEMBLER: Tawnya Soler MD COORDINATOR/Research Nurse/Waste Machine Tender: Anne Colin MD Phone/email: [phone], [email or web address] Consenting was performed by the attending surgeon, in a rawj-io-enal manner, during preoperative evaluation at the General [...] CRITERIA Yes No 1. The patient lacks Chinese language fluency or cannot understand the consent form/study procedures [] [x] 2. The patient has any hearing impairment with or without the use of hearing aids [] [x] 3. The patient has a neurologic condition which prevents assessment of pain and/or anxiety [] [x] 4. The patient is to remain intubated after surgery [] [x] documented in this encounterUniversity Hospitals Portage Medical Center08-22-2022 History and physical note * Yeni Sevilla MD - 05/22/2022 9:59 AM EDT [facility] Abdominal [facility] - HISTORY AND PHYSICAL Chief Complaint: [...] MD General Surgery Resident documented in this encounterUniversity Hospitals Portage Medical Center08-22-2022 Nurse Note* Lidya May Ma - 05/22/2022 9:26 AM EDT What is the reason for your visit today? consult Who is your referring physician? Are you having poor oral intake? NO Have you had unintentional weight loss of 15 lbs/7 Kg in the last 3-6 months? NO Bowels: regular Wound: clean & dry Temperature: No Drains: No documented in this encounterUniversity Hospitals Portage Medical Center07-20-2022 NoteHNO ID: [id number] Author: RT Jama(R) Service: Radiology Author Type: Clinical Trial Educator Type: Progress Notes Filed: 04/18/2022 10:37 PM [...] Romero DATE: April 18, 2022 TIME: 10:36 [facility] note* Diagnosis Incisional hernia, without obstruction or gangrene- Primary Incisional hernia without mention of obstruction or gangrene documented in this encounter [facility] note* Diagnosis Preoperative examination- Primary Preoperative examination, [...] obstruction or gangrene documented in this encounter [facility] note* Diagnosis Incisional hernia, without obstruction or gangrene- Primary Incisional hernia without mention of obstruction or gangrene Preoperative examination Preoperative examination, unspecified Incisional hernia, without obstruction or gangrene Incisional hernia without mention of obstruction or gangrene documented in this encounter [facility] note* Diagnosis Asthma with acute exacerbation, unspecified asthma severity, unspecified whether persistent- Primary Anxiety and depression Dysthymic disorder Gastroesophageal reflux disease, unspecified whether esophagitis present Abdominal spasms Abdominal pain, unspecified site Preoperative examination Preoperative examination, unspecified Incisional hernia, without obstruction or gangrene Incisional hernia without mention of obstruction or gangrene documented in this encounter [facility] note* Diagnosis Acute post-operative pain- Primary documented in this encounter [facility] note* Diagnosis Infection in abdomen (HCC)- Primary Unspecified peritonitis documented in this encounter [facility] note* Diagnosis Infection in abdomen (HCC) Unspecified peritonitis documented in this encounter [facility] noteNo assessment information availableOhiohealth Nelsonville Health Center Work Phone: Evaluation note* Diagnosis Prolapsed hemorrhoids- Primary Unspecified hemorrhoids with other complication Vaginal prolapse Unspecified prolapse of vaginal farris documented in this encounter [facility] CenterHistory and physical note Author Charli Sena [facility] December 27, 2022 9:44am Note Date/Time December 27, 2022 9:4 4am [facility] [address] [place] [address] Gastroenterology H&P Signed Patient: Valeria Romero MR#: [id number] : 1965 Acct:[id number] Age/Sex: 57 / F Adm Date: 3 Loc: Room: Type: [facility] Attending Dr: Charli Sena MD Copies to: Charli Sena MD [facility] Date of Service: 12/27/2022 HISTORY & PHYSICAL: [...] <Electronically signed by Charli Sena MD> 12/27/2244 [facility] Work Phone: Hospital Discharge [...] NOT operate machinery such as power tools, Downn mowers, snow blowers, sewing machines, etc. for [...] you a referral to colorectal surgery from [facility] -Follow-up with the GI nurse practitioner in 3 months -Notify the doctor if you have any problems. -Repeat colonoscopy in 3 years. -Follow up with PCP. - Office number [phone].[facility] Work Phone: Reason for referral (narrative)* Outpatient Procedure (Routine) - Authorized Specialty Diagnoses / Procedures Referred By Jossy cheung Referred To [facility] Diagnoses Preoperative examination Incisional hernia, without obstruction or gangrene Procedures ECG COMPLETE ECG ROUTINE ECG W/LEAST 12 LDS W/I&R Pedro Walsh MD [address] [place] [address] [facility] [address] [place] [id number] Referral ID Status Reason Start Date Expiration Date Visits Requested Visits Authorized [id number] Authorized Auto-Generat ed Referral 05/29/2022 05/25/2023 1 1 * Consult, Test, Treat (Routine) - Authorized Specialty Diagnoses / Procedures Referred By Contac t Referred To Contact Diagnoses Preoperative examination Incisional hernia, without obstruction or gangrene Procedures CONSULT TO DD BEHAVIORAL MEDICINE OFFICE/OUTPATIENT [facility] 60-74 MINUTES Pedro Walsh MD [address] [place] [id number] Referral ID Status Reason Start Date Expiration Date Visits Requested Visits Authorized [id number] Authorized PCP Requested Referral 05/29/2022 05/25/2023 1 1 [facility] Reason for Referral Specialty Diagnoses / Procedures Referred By Contac t Referred To Contact CT IMAGING Diagnoses Infection in abdomen (HCC) Procedures CT ABD/PEL WO IVCON CT ABD & PELVIS W/O CONTRAST [facility] [id number] Imaging Referral ID Status Reason Start Date Expiration Date V isits Requested Visits Authorized [id number] Closed Auto-Generate d Referral 06/29/2022 07/29/2023 1 1 Specialty Diagnoses / Procedures Referred By Contac t Referred To Contact Diagnoses Vaginal prolapse Procedures CONSULT TO FEMALE UROLOGY/URO GYNECOLOGY OFFICE/OUTPATIENT [facility] 60-[place] [address] [address] [place] [address] Referral ID Status Reason Start Date Expiration Date Visits Requested Visits Authorized [id number] Authorized PCP Requested Referral 01/18/2023 01/18/2024 1 [...] or prosecute any alcohol or drug abuse patient.[facility] CenterIn the event this information is protected by the Federal Confidentiality of Alcohol and Drug Abuse Patient Records regulations: The Federal rules restrict any use of the information to criminally investigate or prosecute any alcohol or drug abuse patient.[facility] CenterIn the event this information is protected by the Federal Confidentiality of Alcohol and Drug Abuse Patient Records regulations: The Federal rules restrict any use of the information to criminally investigate or prosecute any alcohol or drug abuse patient.[facility] CenterIn the event this information is protected by the Federal Confidentiality of Alcohol and Drug Abuse Patient Records regulations: The Federal rules restrict any use of the information to criminally investigate or prosecute any alcohol or drug abuse patient.[facility] CenterIn the event this information is protected by the Federal Confidentiality of Alcohol and Drug Abuse Patient Records regulations: The Federal rules restrict any use of the information to criminally investigate or prosecute any alcohol or drug abuse patient.[facility] Center[facility] the event this information is protected by the Federal Confidentiality of Alcohol and Drug Abuse Patient Records regulations: The Federal rules restrict any use of the information to criminally investigate or prosecute any alcohol or drug abuse patient.[facility] Center[facility] the event this information is protected by the Federal Confidentiality of Alcohol and Drug Abuse Patient Records regulations: The Federal rules restrict any use of the information to criminally investigate or prosecute any alcohol or drug abuse patient.[facility] Center[facility] the event this information is protected by the Federal Confidentiality of Alcohol and Drug Abuse Patient Records regulations: The Federal rules restrict any use of the information to criminally investigate or prosecute any alcohol or drug abuse patient.[facility] the event this information is protected by the Federal Confidentiality of Alcohol and Drug Abuse Patient Records regulations: The Federal rules restrict any use of the information to criminally investigate or prosecute any alcohol or drug abuse patient.[facility] Center[facility] the event this information is protected by the Federal Confidentiality of Alcohol and Drug Abuse Patient Records regulations: The Federal rules restrict any use of the information to criminally investigate or prosecute any alcohol or drug abuse patient.[facility] CenterIn the event this information is protected by [...] or prosecute any alcohol or drug abuse patient.[facility] CenterIn the event this information is protected by the Federal Confidentiality of Alcohol and Drug Abuse Patient Records regulations: The Federal rules restrict any use of the information to criminally investigate or prosecute any alcohol or drug abuse patient.[facility] Reason for Visit (unrecogniz ed section and [...] IVCON CT ABD & PELVIS W/O CONTRAST [facility] [id number] Imaging Referral ID Status Reason Start Date Expiration Date V isits Requested Visits Authorized [id number] Closed Auto-Generate d Referral 06/29/2022 07/29/2023 1 1 Reason Comments New Patient Consult for hemorrho ids & prolapse Care Teams (unrecognized sec tion and content) Team Status: Inactive Member Role Status Dates PHYSICIAN NO FAMILY Primary Care Provider Active Luz Maria West ([facility]) , [employer] Attending Provider Active Team Status: Active Member Role Status Dates [facility] Primary Care Provider Active Team Status: Inactive Member Role Status Dates [facility] Primary Care Provider Active Charli Sena MD Attending Provider Active Goals (unrecognized section and content) Goals may be documented in a n alternate section INFORMATION SOURCE (unrecogn ized section and content) DATE CREATED AUTHOR 01/04/2023 [facility] DATE CREATED AUTHOR AUTHOR'S ORGANIZ ATION 01/04/[address] [facility] DATE CREATED AUTHOR AUTHOR'S ORGANIZ ATION 01/31/2023 [facility] FOR RECORDS PERTAINING TO PATIENTS WHO ARE [...] BE BASED ON THE PRIMARY CLINICAL RECORDS. [facility] [employer] provides no warranty or guarantee of the accuracy or completeness of information in this document.
[2024-07-16] MEDS: VANCOMYCIN HCL 1,000 MG in 0.9 % SODIUM CHLORIDE 500 ML 250 MG IV (04:36)
[2024-07-16 06:20] LABS: Hematocrit 36.3 % (36.0-48.0); Hemoglobin 11.5 g/dL (12.0-16.0); Mean Corpuscular HGB Conc 31.7 g/dL (29.9-35.2); Mean Corpuscular Hemoglobin 28.4 pg (26.7-34.0); Mean Corpuscular Volume 89.6 fL (81.0-99.0); Mean Platelet Volume 9.2 fL (9.5-13.5); Platelet Count 351 10^3/uL (150-450); Red Blood Count 4.05 10^6/uL (4.20-5.40); Red Cell Distribution Width 14.1 % (11.0-15.0); White Blood Count 9.7 10^3/uL (4.0-11.0)
[2024-07-16] MEDS: PANTOPRAZOLE SODIUM 40 MG VIAL IV ×2 (06:29→09:00)
[2024-07-16] MEDS: 0.9 % SODIUM CHLORIDE 1,000 ML 75 ML IV ×2 (06:30→22:34)
[2024-07-16 06:33] LABS: Lactate/Lactic Acid 0.9 mmol/L (0.4-2.0)
[2024-07-16 06:44] LABS: Anion Gap 13.7; BUN Creatinine Ratio 9.6; Calcium 8.8 mg/dL (8.5-10.1); Carbon Dioxide 25.8 mmol/L (21.0-32.0); Chloride 107 mmol/L (98-107); Estimated GFR (African America >60 (>=60 mL/min/1.73m^2); Estimated GFR (Non-African Ame >60 (>=60 mL/min/1.73m^2); Glucose 90 mg/dL (74-106); Potassium 3.5 mmol/L (3.5-5.1); Sodium 143 mmol/L (136-145)
[2024-07-16 06:46] LABS: Aspartate Amino Transferase 19 U/L (15-37); Bilirubin Direct 0.1 mg/dL (0.0-0.2); Bilirubin Total 0.7 mg/dL (0.2-1.0)
--- NOTE | 2024-07-16 06:46 | PM.GSCN ---
History of Present Illness Consult details Consult date: 07/16/24 Reason for consult: other (Diverticulitis with intramural abscess 1.8 cm) Requesting physician: Jason Wylie Narrative: Ellen Valdovinos is a 59-year-old female presented to the [facility] emergency department late last night or this morning with complaints of lower abdominal discomfort and symptoms of what she thought might be a urinary tract infection and anal pain. She denies any dysuria but did have chills which started on Sunday and denies any nausea or vomiting. She has intermittent rectal bleeding off and on and was diagnosed with hemorrhoids earlier this year after she had a colonoscopy at [facility]. She denies any history of diverticulosis on the colonoscopy. Denies any family history of colon cancer. There is a family history of endometrial cancer. She describes a discomfort in the lower abdomen and anal area and did not want to take narcotics because she is being drug tested due to mushroom use? She would have to drive 2 hours to [facility] to have drug testing with the court which is new. 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 She has not felt well for the last 48 hours. She denies any previous history of diverticulitis. She has had 14 hernia repairs the last 2 being at the [facility] with mesh. She has had a prior hysterectomy and cholecystectomy. CT scan of the abdomen and pelvis shows diverticulitis with a 1.8 cm intramural abscess. She does describe that she thought she might of passed some purulent drainage per rectum a few days ago. It was not normal stool. Review of Systems ROS Status of ROS 10 or more systems reviewed and unremarkable except as noted in history and below [facility] Medical History (Updated 07/16/24 @ 07:22 by Sam Escobedo MD) Hemorrhoids ?K64.9 - Unspecified hemorrhoids (ICD-10) History of uterine cancer ?Z85.42 - Personal history of malignant neoplasm of other parts of uterus (ICD-10) Heartburn ?R12 - Heartburn (ICD-10) Asthma ?J45.909 - Unspecified asthma, uncomplicated (ICD-10) Surgical History H/O hernia repair ?Z98.890 - Other specified postprocedural states (ICD-10) ?Z87.19 - Personal history of other diseases of the digestive system (ICD-10) History of cholecystectomy ?Z90.49 - Acquired absence of other specified parts of digestive tract (ICD-10) H/O: hysterectomy ?Z90.710 - Acquired absence of both cervix and uterus (ICD-10) Family History Other Family history of COPD (chronic obstructive pulmonary disease) Family history of cancer Family history of diabetes mellitus Family history of hypertension Family history of myocardial infarction Social History Within the past year, how often did you have a drink containing alcohol: never Within the past year, how many standard drinks containing alcohol did you have on a typical day: 1 or 2 Within the past year, how often did you have six or more drinks on one occasion: never Total score: 0 Score interpretation: A score less than 3 is consistent with normal alcohol consumption. Smoking status: Never smoker Non-prescribed substance use: cannabis (any form) Previous occupational history: unemployed Highest level of school completed/degree received: some college, no degree In a typical week, how many times do you talk on the telephone with family, friends, or neighbors: 3 or more times per week How often do you get together with friends or relatives: 3 or more times per week Little interest or pleasure in doing things: several days Feeling down, depressed, or hopeless: not at all Feel stressed/tense/nervous/anxious/difficulty sleeping: rather much Life stressors: other Life stressor details: issues with roommates daughter Do you think of yourself as: straight/heterosexual Gender Identity: female Meds Home Medications and Allergies Home Medications ?Medication ?Instructions ?Recorded ?Confirmed ?Type montelukast 10 mg tablet 10 mg PO DAILY 01/16/24 07/16/24 History omeprazole 40 mg capsule,delayed 40 mg PO DAILY 01/16/24 07/16/24 History release albuterol sulfate 90 mcg/actuation 2 puff inhalation Q4H PRN 07/16/24 07/16/24 History aerosol inhaler shortness of breath or wheezing Allergies Allergy/AdvReac Type Severity Reaction Status Date / Time ciprofloxacin (From Cipro) Allergy Hives Verified 07/15/24 23:31 Exam Constitutional Vital Signs, click to edit/add: Last Vital Signs Temp 97.9 F 07/16/24 03:32 Pulse 55 L 07/16/24 03:32 Resp 17 07/16/24 03:32 BP 109/57 07/16/24 03:32 Pulse Ox 97 07/16/24 03:32 O2 Del Method Room Air 07/16/24 03:19 Documenting provider has reviewed patient's vital signs: yes Common normals: no apparent distress, average body habitus, oriented x3, no limitations, healthy appearing, alert and well nourished Nutritional appearance: obese GI Common normals: Normal to inspection, nondistended, normoactive bowel sounds present, soft to palpation and no masses Inspection: incision (Large midline scar and also with large Pfannenstiel scar noted.) and central obesity Palpation: tender Details: LLQ and suprapubic Neuro Common normals: oriented x3, CN's II-XII intact bilaterally, moves all extremities and no focal motor deficits Sensorium/orientation: awake, alert, oriented to person, oriented to place and oriented to time Results Labs Labs: Abnormal lab results 07/16/24 07/16/24 07/16/24 Range/Units 00:00 00:55 06:02 RBC 4.05 L (4.20-5.40) 10^6/uL Hgb 11.5 L (12.0-16.0) g/dL MPV 9.3 L 9.2 L (9.5-13.5) fL Neut # (Auto) 7.1 H (1.4-6.5) 10^3/uL Blaine # (Auto) 1.0 H (0.3-0.8) 10^3/uL BUN 6.0 L (7.0-18.0) mg/dL Urine Ketones Trace A (NEGATIVE) mg/dL Diabetes panel 07/16/24 07/16/24 Range/Units 00:55 06:02 Sodium 141 143 (136-145) mmol/L Potassium 3.7 3.5 (3.5-5.1) mmol/L Chloride 104 107 (98-107) mmol/L Carbon Dioxide 29.6 25.8 (21.0-32.0) mmol/L BUN 6.0 L 7.0 (7.0-18.0) mg/dL Creatinine 0.77 0.73 (0.55-1.02) mg/dL Glucose 97 90 (74-106) mg/dL Calcium 9.6 8.8 (8.5-10.1) mg/dL Calcium panel 07/16/24 07/16/24 Range/Units 00:55 06:02 Calcium 9.6 8.8 (8.5-10.1) mg/dL Pituitary panel 07/16/24 07/16/24 Range/Units 00:55 06:02 Sodium 141 143 (136-145) mmol/L Potassium 3.7 3.5 (3.5-5.1) mmol/L Chloride 104 107 (98-107) mmol/L Carbon Dioxide 29.6 25.8 (21.0-32.0) mmol/L BUN 6.0 L 7.0 (7.0-18.0) mg/dL Creatinine 0.77 0.73 (0.55-1.02) mg/dL Glucose 97 90 (74-106) mg/dL Calcium 9.6 8.8 (8.5-10.1) mg/dL Adrenal panel 07/16/24 07/16/24 Range/Units 00:55 06:02 Sodium 141 143 (136-145) mmol/L Potassium 3.7 3.5 (3.5-5.1) mmol/L Chloride 104 107 (98-107) mmol/L Carbon Dioxide 29.6 25.8 (21.0-32.0) mmol/L BUN 6.0 L 7.0 (7.0-18.0) mg/dL Creatinine 0.77 0.73 (0.55-1.02) mg/dL Glucose 97 90 (74-106) mg/dL Calcium 9.6 8.8 (8.5-10.1) mg/dL All other labs normal. Imaging Abdomen CT scan report/results: report reviewed Assessment and Plan Assessment and Plan (1) Acute diverticulitis: (2) Obesity (BMI 35.0-39.9 without comorbidity): (3) Diverticulitis of sigmoid colon: (4) Abscess of sigmoid colon: (5) History of uterine cancer: (6) Heartburn: (7) Asthma: (8) H/O hernia repair: (9) History of cholecystectomy: (10) H/O: hysterectomy: (11) Hemorrhoids: Plan Recommend n.p.o. and intravenous antibiotics for at least 48 to 72 hours and then determine clinical response. If better then could be discharged home on liquid diet for a week or so and p.o. antibiotics for 7 to 10 days. Would not advance diet until clinically improving. Patient hesitant to use narcotics due to above mushroom use and drug testing. She was told to call her court let them know that she has hospitalized not told her not to hesitate to take analgesics for pain if she has it. She is up-to-date on colonoscopy the last 1 being at [facility] earlier this year.
[2024-07-16 06:47] LABS: Alanine Aminotransferase 26 U/L (14-59); Albumin Level 3.2 g/dL (3.4-5.0); Alkaline Phosphatase 70 U/L (46-116); Globulin 3.2 g/dL; Total Protein 6.4 g/dL (6.4-8.2)
--- NOTE | 2024-07-16 08:40 | P.HP_ITS ---
HPI H&P: HPI History of Present Illness Chief complaint: UTI Narrative: Patient scented to the emergency room with lower abdominal pain. She felt it was more likely a UTI. In the ER evaluation shows urine was clear, CT scan obtained and showed intramural abscess consistent with acute diverticulitis with abscess. Because of the localized nature, her white blood cell count is still maintaining normal. When I saw the patient up on the medical surgical floor, she was resting moderately uncomfortably in bed secondary to pain. No shortness of breath no chest pain Opioid HPI Opioid Management Most Recent Pain and Opioid Data: Last Pain Scale 8 07/16/24 09:00 07/16/24 Last Pain Assessment 07/16/24 09:00 Last MAR Pain Assessment 07/16/24 09:00 Last ORT Total Score 2 07/16/24 04:03 07/16/24 Last ORT Risk Category Low Risk 07/16/24 04:03 07/16/24 Review of Systems ROS Status of ROS 10 or more systems reviewed and unremark able except as noted in history and below PFSH PFSH Medical History (Updated 07/16/24 @ 07:22 by Sam Escobedo MD) Hemorrhoids ?K64.9 - Unspecified hemorrhoids (ICD-10) History of uterine cancer ?Z85.42 - Personal history of malignant neoplasm of other parts of uterus (ICD-10) Heartburn ?R12 - Heartburn (ICD-10) Asthma ?J45.909 - Unspecified asthma, uncomplicated (ICD-10) Surgical History H/O hernia repair ?Z98.890 - Other specified postprocedural states (ICD-10) ?Z87.19 - Personal history of other diseases of the digestive system (ICD-10) History of cholecystectomy ?Z90.49 - Acquired absence of other specified parts of digestive tract (ICD- 10) H/O: hysterectomy ?Z90.710 - Acquired absence of both cervix and uterus (ICD-10) Family History Other Family history of COPD (chronic obstructive pulmonary disease) Family history of cancer Family history of diabetes mellitus Family history of hypertension Family history of myocardial infarction Social History Within the past year, how often did you have a drink containing alcohol: never Within the past year, how many standard drinks containing alcohol did you have on a typical day: 1 or 2 Within the past year, how often did you have six or more drinks on one occasion: never Total score: 0 Score interpretation: A score less than 3 is consistent with normal alcohol consumption. Smoking status: Never smoker Non-prescribed substance use: cannabis (any form) Previous occupational history: unemployed Highest level of school completed/degree received: some college, no degree In a typical week, how many times do you talk on the telephone with family, friends, or neighbors: 3 or more times per week How often do you get together with friends or relatives: 3 or more times per week Little interest or pleasure in doing things: several days Feeling down, depressed, or hopeless: not at all Feel stressed/tense/nervous/anxious/difficulty sleeping: rather much Life stressors: other Life stressor details: issues with roommates daughter Do you think of yourself as: straight/heterosexual Gender Identity: female Meds Home Medications and Allergies Home Medications ?Medication ?Instructions ?Recorded ?Confirmed ?Type montelukast 10 mg tablet 10 mg PO DAILY 01/16/24 07/16/24 History omeprazole 40 mg capsule,delayed 40 mg PO DAILY 01/16/24 07/16/24 History release albuterol sulfate 90 mcg/actuation 2 puff inhalation Q4H PRN 07/16/24 07/16/24 History aerosol inhaler shortness of breath or wheezing Allergies Allergy/AdvReac Type Severity Reaction Status Date / Time ciprofloxacin (From Cipro) Allergy Hives Verified 07/15/24 23:31 Exam Constitutional Vital Signs, click to edit/add: Last Vital Signs Temp 97.4 F L 07/16/24 07:46 Pulse 53 L 07/16/24 07:46 Resp 18 07/16/24 08:00 BP 101/69 07/16/24 07:46 Pulse Ox 96 07/16/24 07:46 O2 Del Method Room Air 07/16/24 07:46 Documenting provider has reviewed patient's vital signs: yes Common normals: apparent distress (Moderate painful distress) Chest Common normals: inspection of chest normal Respiratory Common normals: normal respiratory effort, no retractions and no use of accessory muscles; not clear to ascultation bilaterally Auscultation: wheezes Cardio Common normals: regular rate, regular rhythm and no murmurs GI Common normals: Normal to inspection, nondistended, normoactive bowel sounds present and soft to palpation; tender Palpation: tender Details: LLQ and suprapubic; no rebound tenderness present Results Labs Labs: Short CBC 07/16/24 07/16/24 Range/Units 00:55 06:02 WBC 10.9 9.7 (4.0-11.0) 10^3/uL Hgb 12.7 11.5 L (12.0-16.0) g/dL Hct 40.3 36.3 (36.0-48.0) % Plt Count 397 351 (150-450) 10^3/uL BMP 07/16/24 07/16/24 00:55 06:02 Sodium 141 143 Potassium 3.7 3.5 Chloride 104 107 Carbon Dioxide 29.6 25.8 BUN 6.0 L 7.0 Creatinine 0.77 0.73 Glucose 97 90 Calcium 9.6 8.8 Liver Function 07/16/24 Range/Units 06:02 Total Bilirubin 0.7 (0.2-1.0) mg/dL Direct Bilirubin 0.1 (0.0-0.2) mg/dL AST 19 (15-37) U/L ALT 26 (14-59) U/L Alkaline Phosphatase 70 (46-116) U/L Albumin 3.2 L (3.4-5.0) g/dL Urine 07/16/24 Range/Units 00:00 Urine Color Yellow (YELLOW) Urine Clarity Clear (CLEAR) Urine pH 5.5 (5.0-9.0) Ur Specific Ragland 1.025 (1.005-1.025) Urine Protein Negative (NEG/TRACE) mg/dL Urine Glucose (UA) Negative (NEGATIVE) mg/dL Assessment and Plan Assessment and Plan (1) Acute diverticulitis: (2) Obesity (BMI 35.0-39.9 without comorbidity): (3) Diverticulitis of sigmoid colon: (4) Abscess of sigmoid colon: (5) History of uterine cancer: (6) Heartburn: (7) Asthma: (8) H/O hernia repair: (9) History of cholecystectomy: (10) H/O: hysterectomy: (11) Hemorrhoids: (12) Acute bronchospasm: Plan Admission findings: Normal white blood cell count, vital signs normal but CT scan consistent with intramural abscess in the mid sigmoid colon consistent with acute diverticulitis with abscess. Labs consistent with mild dehydration with positive ketones in the urine. Acute diverticulitis with intramural abscess-IV antibiotics, white blood cell count normal, no rebound tenderness on exam consider adding gentamicin for double coverage of gram-negative's. Maintain n.p.o. status, appreciate input from general surgery Mild iron deficiency anemia-check occult blood if continues to drop Acute asthma-she is wheezing pretty good this morning. Will institute [id number] aerosol treatments. Hold off on steroids due to infection as outlined above Abdominal wall hernia surgeries-she has had multiple, she numbers about 15. This would make any abdominal surgery more complicated, agree with input from general surgery to hold off on any surgical intervention at this time. GERD-continue with ppi Mild dehydration secondary to above-IV fluids Admission status: Patient with intramural abscess, medically necessary treatment will span 2 midnights. High risk for developing sepsis due to the abscess formation. Inpatient status.
--- NOTE | 2024-07-16 09:06 | CM.NOTE ---
Rounds made with Dr. Marques. General Surgery Consult obtained. Continue with current treatment plan-NPO, IV antibiotics.
[2024-07-16] MEDS: ONDANSETRON PF 4 MG/2 ML VIAL IV (09:24)
[2024-07-16] MEDS: IPRATROPIUM/ALBUTEROL SULFATE 3 ML AMPUL.NEB IH ×2 (13:54→22:28)
[2024-07-17] VITALS (13 sets, daily range): BP systolic 86–132; BP diastolic 48–86; PULSE 53–70; TEMP 35.5–36.9; O2SAT 90–98
[2024-07-17] MEDS: PIPERACILLIN SODIUM/TAZOBACTAM 3.375 GM in 0.9 % SODIUM CHLORIDE 50 ML IV ×3 (03:24→18:27)
--- NOTE | 2024-07-17 05:54 | P.PN_ITS ---
Progress Note: Subjective Subjective Interval history: Patient still with abdominal pain. She is hungry however though so that is an improvement Exam Constitutional Vital Signs, click to edit/add: Last Vital Signs Temp 97.9 F 07/17/24 04:00 Pulse 70 07/17/24 04:00 Resp 18 07/17/24 04:00 BP 86/60 L 07/17/24 04:00 Pulse Ox 94 L 07/17/24 04:00 O2 Del Method Room Air 07/17/24 04:00 Documenting provider has reviewed patient's vital signs: yes Common normals: apparent distress (Moderate painful distress) Chest Common normals: inspection of chest normal Respiratory Common normals: normal respiratory effort, no retractions and no use of accessory muscles; not clear to ascultation bilaterally Auscultation: wheezes Cardio Common normals: regular rate, regular rhythm and no murmurs GI Common normals: Normal to inspection, nondistended, normoactive bowel sounds present and soft to palpation; tender Palpation: tender (Still persisting tenderness but is improved from previous day) Details: LLQ and suprapubic; no rebound tenderness present Progress Note: Objective Labs Labs: Short CBC 07/16/24 Range/Units 06:02 WBC 9.7 (4.0-11.0) 10^3/uL Hgb 11.5 L (12.0-16.0) g/dL Hct 36.3 (36.0-48.0) % Plt Count 351 (150-450) 10^3/uL BMP 07/16/24 06:02 Sodium 143 Potassium 3.5 Chloride 107 Carbon Dioxide 25.8 BUN 7.0 Creatinine 0.73 Glucose 90 Calcium 8.8 Liver Function 07/16/24 Range/Units 06:02 Total Bilirubin 0.7 (0.2-1.0) mg/dL Direct Bilirubin 0.1 (0.0-0.2) mg/dL AST 19 (15-37) U/L ALT 26 (14-59) U/L Alkaline Phosphatase 70 (46-116) U/L Albumin 3.2 L (3.4-5.0) g/dL Progress Note: A&P Assessment and Plan (1) Acute diverticulitis: (2) Obesity (BMI 35.0-39.9 without comorbidity): (3) Diverticulitis of sigmoid colon: (4) Abscess of sigmoid colon: (5) History of uterine cancer: (6) Heartburn: (7) Asthma: (8) H/O hernia repair: (9) History of cholecystectomy: (10) H/O: hysterectomy: (11) Hemorrhoids: (12) Acute bronchospasm: Plan Admission findings: Normal white blood cell count, vital signs normal but CT scan consistent with intramural abscess in the mid sigmoid colon consistent with acute diverticulitis with abscess. Labs consistent with mild dehydration with positive ketones in the urine. Acute diverticulitis with intramural abscess-IV antibiotics, white blood cell count normal, no rebound tenderness on exam consider adding gentamicin for double coverage of gram-negative's. As patient continues to slowly improve we will keep with the IV antibiotics for at least 1 additional day, will try clear liquids today. Considerations for repeat CT scanning if patient develops a fever or increasing abdominal pain- Mild iron deficiency anemia-check occult blood if continues to drop Acute asthma-she is wheezing pretty good this morning. Will institute [id number] aerosol treatments. Hold off on steroids due to infection as outlined above-checking on sputum culture Abdominal wall hernia surgeries-she has had multiple, she numbers about 15. This would make any abdominal surgery more complicated, agree with input from general surgery to hold off on any surgical intervention at this time. GERD-continue with ppi Mild dehydration secondary to above-IV fluids Admission status: Patient with intramural abscess, medically necessary treatment will span 2 midnights. High risk for developing sepsis due to the abscess formation. Inpatient status. ?
[2024-07-17 06:00] LABS: Basophils Percent Auto 0.4 % (0.2-2.0); Eosinophils Absolute Auto 0.2 10^3/uL (0.0-0.7); Eosinophils Percent Auto 3.1 % (0.9-7.0); Hematocrit 34.2 % (36.0-48.0); Hemoglobin 10.7 g/dL (12.0-16.0); Immature Granulocytes Abs Auto 0.02 10^3/uL (0.00-0.03); Immature Granulocytes Pct Auto 0.3 % (0.0-0.5); Lymphocytes Absolute Auto 1.9 10^3/uL (1.2-3.8); Lymphocytes Percent Auto 28.1 % (20.5-60.0); Mean Corpuscular HGB Conc 31.3 g/dL (29.9-35.2); Mean Corpuscular Hemoglobin 28.3 pg (26.7-34.0); Mean Corpuscular Volume 90.5 fL (81.0-99.0); Mean Platelet Volume 9.9 fL (9.5-13.5); Monocytes Absolute Auto 0.7 10^3/uL (0.3-0.8); Monocytes Percent Auto 10.7 % (1.7-12.0); Neutrophils Absolute Auto 3.9 10^3/uL (1.4-6.5); Neutrophils Percent Auto 57.4 % (43.0-75.0); Platelet Count 309 10^3/uL (150-450); Red Blood Count 3.78 10^6/uL (4.20-5.40); Red Cell Distribution Width 14.4 % (11.0-15.0); White Blood Count 6.8 10^3/uL (4.0-11.0)
[2024-07-17] MEDS: KETOROLAC TROMETHAMINE 30 MG/ML VIAL IVP ×3 (06:09→22:20)
[2024-07-17 06:19] LABS: Anion Gap 14.6; Calcium 8.7 mg/dL (8.5-10.1); Carbon Dioxide 24.1 mmol/L (21.0-32.0); Chloride 110 mmol/L (98-107); Estimated GFR (African America >60 (>=60 mL/min/1.73m^2); Estimated GFR (Non-African Ame >60 (>=60 mL/min/1.73m^2); Glucose 86 mg/dL (74-106); Potassium 3.7 mmol/L (3.5-5.1); Sodium 145 mmol/L (136-145)
[2024-07-17] MEDS: PANTOPRAZOLE SODIUM 40 MG VIAL IV (08:52)
[2024-07-17] MEDS: MONTELUKAST SODIUM 10 MG TABLET PO (08:53)
--- NOTE | 2024-07-17 08:56 | CM.NOTE ---
Rounds made with Dr. Marques, abdomen less tender with exam. Dr. Marques will increase diet to Clear liquids. Dr. Escobedo will see pt today for further recommendations. No discharge today.
[2024-07-17] MEDS: IPRATROPIUM/ALBUTEROL SULFATE 3 ML AMPUL.NEB IH (11:53)
--- NOTE | 2024-07-17 13:40 | PM.GSPN ---
Progress Note: A&P Assessment and Plan (1) Acute diverticulitis: (2) Obesity (BMI 35.0-39.9 without comorbidity): (3) Diverticulitis of sigmoid colon: (4) Abscess of sigmoid colon: (5) History of uterine cancer: (6) Heartburn: (7) Asthma: (8) H/O hernia repair: (9) History of cholecystectomy: (10) H/O: hysterectomy: (11) Hemorrhoids: (12) Acute bronchospasm: Plan Continue IV antibiotics for another 24 hours and keep on liquids until all pain is gone.WBC down to normal. Subjective Subjective Patient reports: pain is less, tolerating liquids well, flatus and bowel movement Interval history: Feeling much better;up at bedside taking respiratory treatment and drinking liquids. Exam Constitutional Vital Signs, click to edit/add: Last Vital Signs Temp 98.4 F 07/17/24 11:42 Pulse 56 L 07/17/24 11:54 Resp 14 07/17/24 11:42 BP 132/78 07/17/24 11:42 Pulse Ox 96 07/17/24 11:54 O2 Del Method Room Air 07/17/24 11:54 GI Common normals: Normal to inspection, nondistended, normoactive bowel sounds present and soft to palpation Date and Time Date and Time of Service Date of service: 07/17/24 Time: 11:45
[2024-07-17] MEDS: 0.9 % SODIUM CHLORIDE 1,000 ML 100 ML IV (13:42)
[2024-07-17] MEDS: HYOSCYAMINE SULFATE 0.125 MG TAB.SUBL SL ×2 (13:44→22:20)
--- NOTE | 2024-07-17 18:20 | CT_ITS ---
The [address] [address] Patient Name: VALERIA ROMERO MRN: [id number] date: 1965 Sex: F Assigned Patient Location: [place] Current Patient Location: [place] Accession/Order Number: [id number] Exam Date: 07/17/2024 19:27 Report Date: 07/17/2024 21:16 At the request of: AFTAB GROVES Procedure: CT abdomen pelvis w con EXAM: CT SCAN ABDOMEN AND PELVIS WITH IV CONTRAST DATE: 07/17/2024 7:27 PM EDT HISTORY: diverticulitis follow up - [facility] in a 59-year-old female COMPARISON: 07/16/2024 CT head abdomen pelvis. TECHNIQUE: CT examination of the abdomen and pelvis was performed following the intravenous administration of IV contrast. CT dose lowering techniques were used, to include: automated exposure control, adjustment for patient size, and/or use of iterative reconstruction. Contrast: 100 ml Isovue 370 FINDINGS: Hydro Generation Manager/ Lines and Tubes: Nonobstructive bowel gas pattern Lower Chest: Lung bases within normal limits. Free Air: None. Liver: Liver is enlarged measuring 18 cm with intrahepatic biliary distention and fatty infiltration. Gallbladder: Removed Common Bile Duct: Normal Pancreas: Normal Spleen: Normal Adrenal Glands: Right: Normal Left: Normal Kidneys: Right Kidney: Normal. Right Ureter: Normal. Left Kidney: Normal. Left Ureter: Normal. GI Tract: Distal esophagus in FOV: There is a small hiatal hernia Stomach: Mild prominence of small bowel and gastric rugal folds Small Bowel: Normal Appendix: Normal on axial image 90 of series 4 Large Bowel: Diverticulosis with mild edema of the sigmoid colonic wall with a small rim enhancing abscess seen on axial image 107 of series 4 measures 9.6 x 15 mm. Mesentery/Peritoneum: Normal Vasculature: Aorta: Normal. IVC: Normal. Yen[place] Vein: Normal. Retroperitoneum: Normal Abdominal/Pelvic Wall: Normal Bladder: Decompressed Reproductive: Hysterectomy. Musculoskeletal: Normal Free Fluid: None. CT/CT abdomen pelvis w con IMPRESSION: 1. Diverticulosis with acute diverticulitis with a small 10 mm x 15 mm abscess within the sigmoid colonic wall. 2. Mild prominence of gastric rugal folds. Please correlate for gastritis. 3. Normal appendix. 4. Hepatomegaly with hepatic steatosis with intrahepatic biliary prominence. Please correlate with patient's LFTs 5. Cholecystectomy. 6. Small hiatal hernia. 7. Hysterectomy. Electronically authenticated by: NATHAN CARTER Date: 07/17/2024 21:16
[2024-07-17 18:55] LABS: Basophils Percent Auto 0.6 % (0.2-2.0); Eosinophils Absolute Auto 0.2 10^3/uL (0.0-0.7); Eosinophils Percent Auto 3.1 % (0.9-7.0); Hematocrit 33.9 % (36.0-48.0); Hemoglobin 10.7 g/dL (12.0-16.0); Immature Granulocytes Abs Auto 0.02 10^3/uL (0.00-0.03); Immature Granulocytes Pct Auto 0.3 % (0.0-0.5); Lymphocytes Absolute Auto 1.8 10^3/uL (1.2-3.8); Lymphocytes Percent Auto 28.1 % (20.5-60.0); Mean Corpuscular HGB Conc 31.6 g/dL (29.9-35.2); Mean Corpuscular Hemoglobin 28.8 pg (26.7-34.0); Mean Corpuscular Volume 91.4 fL (81.0-99.0); Mean Platelet Volume 9.8 fL (9.5-13.5); Monocytes Absolute Auto 0.7 10^3/uL (0.3-0.8); Monocytes Percent Auto 10.5 % (1.7-12.0); Neutrophils Absolute Auto 3.7 10^3/uL (1.4-6.5); Neutrophils Percent Auto 57.4 % (43.0-75.0); Platelet Count 297 10^3/uL (150-450); Red Blood Count 3.71 10^6/uL (4.20-5.40); Red Cell Distribution Width 14.2 % (11.0-15.0); White Blood Count 6.4 10^3/uL (4.0-11.0)
--- NOTE | 2024-07-17 19:01 | PC.NURSE ---
Addendum entered by [facility] Gloria Hassan 07/17/24 19:06: Patient was notified of NPO status, Dr ordered CT scan Original Note: Upon entering patient's room to administer medication, patient was in restroom with minimal amount of blood in toilet and blood on toilet paper with nickel size clot.Patient complains of swelling on abdomen mainly on left side. Notified nurse. Helped patient back into bed.
[2024-07-17 19:13] LABS: INR 1.05; Partial Thromboplastin Time 29.9 sec (22.3-36.2); Prothrombin Time 11.1 sec (9.0-11.6)
[2024-07-17] MEDS: ONDANSETRON PF 4 MG/2 ML VIAL IV (22:20)
[2024-07-18] VITALS (9 sets, daily range): BP systolic 99–132; BP diastolic 62–69; PULSE 47–65; TEMP 36.6–36.9; O2SAT 94–98
[2024-07-18] MEDS: PIPERACILLIN SODIUM/TAZOBACTAM 3.375 GM in 0.9 % SODIUM CHLORIDE 50 ML IV ×3 (03:18→18:01)
[2024-07-18 05:53] LABS: Basophils Percent Auto 0.6 % (0.2-2.0); Eosinophils Absolute Auto 0.2 10^3/uL (0.0-0.7); Eosinophils Percent Auto 3.4 % (0.9-7.0); Hematocrit 36.2 % (36.0-48.0); Hemoglobin 11.2 g/dL (12.0-16.0); Immature Granulocytes Abs Auto 0.02 10^3/uL (0.00-0.03); Immature Granulocytes Pct Auto 0.3 % (0.0-0.5); Lymphocytes Absolute Auto 1.7 10^3/uL (1.2-3.8); Lymphocytes Percent Auto 25.5 % (20.5-60.0); Mean Corpuscular HGB Conc 30.9 g/dL (29.9-35.2); Mean Corpuscular Hemoglobin 28.4 pg (26.7-34.0); Mean Corpuscular Volume 91.9 fL (81.0-99.0); Mean Platelet Volume 10.2 fL (9.5-13.5); Monocytes Absolute Auto 0.6 10^3/uL (0.3-0.8); Monocytes Percent Auto 8.4 % (1.7-12.0); Neutrophils Percent Auto 61.8 % (43.0-75.0); Platelet Count 328 10^3/uL (150-450); Red Blood Count 3.94 10^6/uL (4.20-5.40); Red Cell Distribution Width 14.3 % (11.0-15.0); White Blood Count 6.5 10^3/uL (4.0-11.0)
--- NOTE | 2024-07-18 06:00 | P.PN_ITS ---
Progress Note: Subjective Subjective Interval history: Yesterday we attempted to have patient eat clear liquids. She had increasing abdominal pain in the afternoon and then had a bloody bowel movement. CT scan was repeated. Repeat CT scan shows abscess still present intramural, it is slightly smaller or at least in 1 dimension than previously. Pain persisting this morning although not as severe as admission but not resolved either. Exam Constitutional Vital Signs, click to edit/add: Last Vital Signs Temp 97.9 F 07/18/24 04:00 Pulse 47 L 07/18/24 04:00 Resp 18 07/18/24 04:00 BP 99/67 07/18/24 04:00 Pulse Ox 94 L 07/18/24 04:00 O2 Del Method Room Air 07/18/24 04:00 Documenting provider has reviewed patient's vital signs: yes Common normals: apparent distress (Moderate painful distress) Chest Common normals: inspection of chest normal Respiratory Common normals: normal respiratory effort, no retractions and no use of accessory muscles; not clear to ascultation bilaterally Auscultation: wheezes Cardio Common normals: regular rate, regular rhythm and no murmurs GI Common normals: Normal to inspection, nondistended, normoactive bowel sounds present and soft to palpation; tender Palpation: tender (Still persisting tenderness and is unchanged from previous day) Details: LLQ and suprapubic; no rebound tenderness present Progress Note: Objective Labs Labs: Short CBC 07/17/24 07/17/24 07/18/24 Range/Units 05:38 18:50 05:31 WBC 6.8 6.4 6.5 (4.0-11.0) 10^3/uL Hgb 10.7 L 10.7 L 11.2 L (12.0-16.0) g/dL Hct 34.2 L 33.9 L 36.2 (36.0-48.0) % Plt Count 309 297 328 (150-450) 10^3/uL BMP 07/17/24 05:38 Sodium 145 Potassium 3.7 Chloride 110 H Carbon Dioxide 24.1 BUN 8.0 Creatinine 0.73 Glucose 86 Calcium 8.7 Progress Note: A&P Assessment and Plan (1) Acute diverticulitis: (2) Obesity (BMI 35.0-39.9 without comorbidity): (3) Diverticulitis of sigmoid colon: (4) Abscess of sigmoid colon: (5) History of uterine cancer: (6) Heartburn: (7) Asthma: (8) H/O hernia repair: (9) History of cholecystectomy: (10) H/O: hysterectomy: (11) Hemorrhoids: (12) Acute bronchospasm: Plan Admission findings: Normal white blood cell count, vital signs normal but CT scan consistent with intramural abscess in the mid sigmoid colon consistent with acute diverticulitis with abscess. Labs consistent with mild dehydration with positive ketones in the urine. Acute diverticulitis with intramural abscess-IV antibiotics, white blood cell count normal, no rebound tenderness on exam consider adding gentamicin for double coverage of gram-negative's. Maintain current antibiotics, white blood cell count vital signs are normal. Abscess repeated on CT scan does show slightly smaller at least in 1 dimension. Reevaluate by surgical team as well. Mild iron deficiency anemia-check occult blood if continues to drop Acute asthma-she is wheezing pretty good this morning. Sputum culture pending but lungs do sound improved today Abdominal wall hernia surgeries-she has had multiple, she numbers about 15. This would make any abdominal surgery more complicated, agree with input from general surgery to hold off on any surgical intervention at this time. GERD-continue with ppi Mild dehydration secondary to above-IV fluids Admission status: Patient with intramural abscess, medically necessary treatment will span 2 midnights. High risk for developing sepsis due to the abscess formation. Inpatient status. ?
[2024-07-18 06:05] LABS: Anion Gap 13.7; BUN Creatinine Ratio 2.6; Chloride 111 mmol/L (98-107); Estimated GFR (African America >60 (>=60 mL/min/1.73m^2); Estimated GFR (Non-African Ame >60 (>=60 mL/min/1.73m^2); Glucose 86 mg/dL (74-106); Potassium 3.7 mmol/L (3.5-5.1); Sodium 145 mmol/L (136-145)
--- NOTE | 2024-07-18 09:41 | CM.NOTE ---
Rounds made with Dr. Marques, pt having increased abdominal discomfort this morning. Awaiting Dr. Escobedo to re-evaluate pt for further recommendations.
[2024-07-18] MEDS: PANTOPRAZOLE SODIUM 40 MG VIAL IV (09:59)
[2024-07-18] MEDS: HYOSCYAMINE SULFATE 0.125 MG TAB.SUBL SL ×2 (09:59→20:42)
[2024-07-18] MEDS: MONTELUKAST SODIUM 10 MG TABLET PO (09:59)
[2024-07-18] MEDS: 0.9 % SODIUM CHLORIDE 1,000 ML 100 ML IV ×2 (11:57→20:41)
[2024-07-18] MEDS: IPRATROPIUM/ALBUTEROL SULFATE 3 ML AMPUL.NEB IH ×3 (11:57→22:10)
[2024-07-18] MEDS: ONDANSETRON PF 4 MG/2 ML VIAL IV (20:42)
[2024-07-18] MEDS: KETOROLAC TROMETHAMINE 30 MG/ML VIAL IVP (20:42)
[2024-07-19] MEDS: PIPERACILLIN SODIUM/TAZOBACTAM 3.375 GM in 0.9 % SODIUM CHLORIDE 50 ML IV ×2 (01:12→10:19)
[2024-07-19] MEDS: HYOSCYAMINE SULFATE 0.125 MG TAB.SUBL SL (01:13)
[2024-07-19] MEDS: KETOROLAC TROMETHAMINE 30 MG/ML VIAL IVP (01:13)
[2024-07-19 04:55] VITALS: PULSE 80; O2SAT 96
[2024-07-19] MEDS: IPRATROPIUM/ALBUTEROL SULFATE 3 ML AMPUL.NEB IH (04:55)
[2024-07-19 05:29] VITALS: BP 104/57; PULSE 57; TEMP 36.4; O2SAT 97
[2024-07-19 06:01] LABS: Basophils Percent Auto 0.2 % (0.2-2.0); Eosinophils Absolute Auto 0.1 10^3/uL (0.0-0.7); Eosinophils Percent Auto 2.5 % (0.9-7.0); Hemoglobin 9.9 g/dL (12.0-16.0); Immature Granulocytes Abs Auto 0.02 10^3/uL (0.00-0.03); Immature Granulocytes Pct Auto 0.4 % (0.0-0.5); Lymphocytes Percent Auto 38.5 % (20.5-60.0); Mean Corpuscular HGB Conc 30.9 g/dL (29.9-35.2); Mean Corpuscular Hemoglobin 28.2 pg (26.7-34.0); Mean Corpuscular Volume 91.2 fL (81.0-99.0); Mean Platelet Volume 9.9 fL (9.5-13.5); Monocytes Absolute Auto 0.5 10^3/uL (0.3-0.8); Monocytes Percent Auto 10.2 % (1.7-12.0); Neutrophils Absolute Auto 2.5 10^3/uL (1.4-6.5); Neutrophils Percent Auto 48.2 % (43.0-75.0); Platelet Count 294 10^3/uL (150-450); Red Blood Count 3.51 10^6/uL (4.20-5.40); Red Cell Distribution Width 14.3 % (11.0-15.0); White Blood Count 5.2 10^3/uL (4.0-11.0)
[2024-07-19 06:10] LABS: Anion Gap 16.5; BUN Creatinine Ratio 3.9; Calcium 8.6 mg/dL (8.5-10.1); Carbon Dioxide 21.8 mmol/L (21.0-32.0); Chloride 112 mmol/L (98-107); Estimated GFR (African America >60 (>=60 mL/min/1.73m^2); Estimated GFR (Non-African Ame >60 (>=60 mL/min/1.73m^2); Glucose 89 mg/dL (74-106); Potassium 3.3 mmol/L (3.5-5.1); Sodium 147 mmol/L (136-145)
[2024-07-19] MEDS: 0.9 % SODIUM CHLORIDE 1,000 ML 100 ML IV (07:37)
[2024-07-19 07:39] VITALS: BP 119/68; PULSE 52; TEMP 36.7; O2SAT 97
[2024-07-19] MEDS: SODIUM CHLORIDE 0.45 % 1,000 ML 100 ML IV (09:11)
[2024-07-19] MEDS: PANTOPRAZOLE SODIUM 40 MG VIAL IV (09:11)
[2024-07-19] MEDS: MONTELUKAST SODIUM 10 MG TABLET PO (09:12)
[2024-07-19] MEDS: POTASSIUM CHLORIDE 40 MEQ in 0.9 % SODIUM CHLORIDE 250 ML 67.5 MEQ IV (10:24)
[2024-07-19 11:42] VITALS: BP 136/60; PULSE 62; TEMP 36.6; O2SAT 91
[2024-07-19 11:47] VITALS: O2SAT 91
--- NOTE | 2024-07-19 12:11 | P.DS_ITS ---
DS: Providers Provider Date of admission: 07/16/24 03:53 Primary care physician: Capri Chi NP Admitting clinician: Amos Marques Attending physician on admission: Amos Marques Consults: 07/16/24 03:19 Consult to General Surgeon Routine Consulting Provider: Sma Escobedo Reason for consultation: sigmoid diverticulitis; intraabdominal wall abscess Attending physician on discharge: Shaikh Darwin Discharging clinician: Shaikh Darwin Anticipated date of discharge: 07/19/24 DS: Diagnosis Discharge Diagnosis (1) Diverticulitis of sigmoid colon: (2) Abscess of sigmoid colon: (3) History of uterine cancer: (4) Asthma: Qualifiers: Asthma severity: mild Asthma persistence: intermittent Asthma complication type: uncomplicated Qualified Code(s): J45.20 - Mild intermittent asthma, uncomplicated (5) GERD (gastroesophageal reflux disease): Qualifiers: Esophagitis presence: without esophagitis Qualified Code(s): K21.9 - Gastro-esophageal reflux disease without esophagitis (6) H/O hernia repair: (7) Obesity (BMI 35.0-39.9 without comorbidity): (8) History of cholecystectomy: (9) H/O: hysterectomy: (10) Hemorrhoids: Qualifiers: Hemorrhoid type: unspecified Qualified Code(s): K64.9 - Unspecified hemorrhoids DS: Summary Hospital Course Hospital Course: 59-year-old female presented to the [facility] emergency department with lower abdominal discomfort and symptoms of what she thought might be a urinary tract infection. She has intermittent rectal bleeding off and on and was diagnosed with hemorrhoids earlier this year after she had a colonoscopy at [facility]. She denies any history of diverticulosis on the colonoscopy. CT scan of the abdomen and pelvis showed diverticulitis with a 1.8 cm intramural abscess. She was admitted for IV abx and treatment of diverticular abscess. Patient received IV zosyn for Diverticulitis, IVF and zofran as needed for nausea/vomiting. She was evaluated by General surgery during admission. Patient clinically improved and her diet was advanced but she admits to overdoing it and drank two bowls of chicken broth after which she had watery stool with blood in it along with abdominal cramping and discomfort. She was made NPO again. Her symptoms improved subsequently and today, she was able to tolerate PO diet w/o any difficulty. Case d/w General Surgery. Patient medically stable for discharge. She will need to finish oral abx course as outpatient and was instructed to f/u with PCP in one week. Patient was also instructed to slowly advance her diet. Status at Discharge Functional status at discharge: independent ambulation Overall status at discharge: patient is back to baseline Time Spent with Patient Time attestation: Total time spent providing and/or coordinating discharge services: Exam Constitutional Vital Signs, click to edit/add: Last Vital Signs Temp 97.8 F 07/19/24 11:42 Pulse 62 07/19/24 11:42 Resp 18 07/19/24 11:42 BP 136/60 07/19/24 11:42 Pulse Ox 91 L 07/19/24 11:47 O2 Del Method Room Air 07/19/24 11:47 Documenting provider has reviewed patient's vital signs: yes Common normals: no apparent distress and oriented x3 General appearance: cooperative Respiratory Common normals: normal respiratory effort and clear to auscultation bilaterally Effort & inspection: able to speak in complete sentences Auscultation: clear to auscultation bilaterally Cardio Common normals: regular rate, S1 normal heart sound and S2 normal heart sound Rate: regular rate Heart sounds: S1 normal and S2 normal GI Common normals: Normal to inspection, nondistended, normoactive bowel sounds present, soft to palpation, non-tender and no hepatosplenomegaly Palpation: soft and no hepatosplenomegaly Extremity Common normals: no clubbing, cyanosis or edema Neuro Common normals: oriented x3, moves all extremities and no focal motor deficits Psych Common normals: mental status grossly normal, denies hallucinations, denies homicidal ideation and denies suicidal ideation DS: Data Data Completed and Pending Labs on day of discharge: Labs from last 24 hours 07/19/24 05:35 WBC 5.2 RBC 3.51 L Hgb 9.9 L Hct 32.0 L MCV 91.2 MCH 28.2 MCHC 30.9 RDW 14.3 Plt Count 294 MPV 9.9 Neut % (Auto) 48.2 Lymph % (Auto) 38.5 [place] % (Auto) 10.2 Eos % (Auto) 2.5 Baso % (Auto) 0.2 Neut # (Auto) 2.5 Lymph # (Auto) 2.0 [place] # (Auto) 0.5 Eos # (Auto) 0.1 Baso # (Auto) 0.0 Abs Immat Gran (auto) 0.02 Imm/Tot Granulo (auto) 0.4 Sodium 147 H Potassium 3.3 L Chloride 112 H Carbon Dioxide 21.8 Anion Gap 16.5 BUN 3.0 L Creatinine 0.77 Est GFR ( Amer) >60 Est GFR (Non-Af Amer) >60 BUN/Creatinine Ratio 3.9 Glucose 89 Calcium 8.6 Preliminary micro results at discharge 07/16/24 16:54 Lower Respiratory Culture - Preliminary Sputum - Expectorated Sputum 07/16/24 06:11 Blood Culture Result 2 - Preliminary Blood - Left Hand NO GROWTH AT 36-48 HOURS. FINAL TO FOLLOW. 07/16/24 06:02 Blood Culture Result 1 - Preliminary Blood - Left Antecubital NO GROWTH AT 36-48 HOURS. FINAL TO FOLLOW. Discharge Plan Discharge Disposition: Home, Self-Care Discharge Medications: New amoxicillin-pot clavulanate 875-125 mg tablet 1 tab PO Q12H Qty: 20 0RF ondansetron HCl 4 mg tablet 4 mg PO Q6H PRN (Reason: nausea and vomiting) Qty: 10 0RF oxycodone-acetaminophen [Percocet] 5-325 mg tablet 1 tab PO Q8H PRN (Reason: pain) 3 Days Qty: 9 0RF Continued montelukast 10 mg tablet 10 mg PO DAILY omeprazole 40 mg capsule,delayed release(DR/EC) 40 mg PO DAILY albuterol sulfate 90 mcg/actuation HFA aerosol inhaler 2 puff INHALATION Q4H PRN (Reason: shortness of breath or wheezing) Activity: increase activity as tolerated Diet Detail: Advance diet as tolerated Print Language: German Forms: Portal Instructions Follow Up Appointments: F/u with PCP in one week
--- NOTE | 2024-07-21 12:43 | CM.DCFOLLOWU ---
Person spoke with:patient How are you feeling?well How is your pain? doing better Did you understand your discharge instructions?yes Do you have any questions about your discharge instructions? no, could not get in to her jefft and will call medical records if needed Were you given any prescriptions at discharge?yes Were you able to get your prescriptions filled?yes Do you understand how to take your medications as ordered?yes Do you have any questions about your follow up appointment and do you plan to keep your follow up appointment?no questions, follow up scheduled Is there anything else that you would like to discuss?no Questions/Comments/Concerns/Other:none
== END 2024-07-19 14:45 | disposition home or self-care (01) | DRG 244 ==
LOC: ER 07-16 02:56 → MS 07-16 03:54
PROVIDERS: Family Medicine; Registered Nurse; Admitting Provider Internal Medicine; Emergency Provider Internal Medicine; PCP Nurse Practitioner Family; Visit Provider Internal Medicine
DX: K57.20 Diverticulitis of large intestine with perforation and abscess without bleeding (principal); K21.9 Gastro-esophageal reflux disease without esophagitis; J45.20 Mild intermittent asthma, uncomplicated; E66.9 Obesity, unspecified; Z98.890 Other specified postprocedural states; K64.9 Unspecified hemorrhoids; Z68.36 Body mass index [BMI] 36.0-36.9, adult; Z79.899 Other long term (current) drug therapy; Z85.42 Personal history of malignant neoplasm of other parts of uterus; Z90.49 Acquired absence of other specified parts of digestive tract; Z90.710 Acquired absence of both cervix and uterus
CPT/HCPCS: 36415; 74177; 80048; 80076; 81003; 83605; 83690; 85025; 85027; 85610; 85730; 87040; 87070; 87205; 94640; 94667; 94668; 94761; 96365; 96375; 99285; J1885; J2405; J2543; J3370; J3480; Q9967

== ENCOUNTER 2025-06-13 19:03 | Emergency (ER) | payer OTHER, SELFPAY ==
[2025-06-13 19:10] VITALS: BP 131/98; PULSE 68; TEMP 37.3; O2SAT 99; BMI 39.1
--- OUTSIDE RECORDS SUMMARY | 2025-06-13 19:11 | XMS_ITS | CCD ---
Author Organization [facility] Care Team Providers Care Counter Tender Name Role Phone Unavailable Primary Care Provider Unavailabl e NO FAMILY, PHYSICIAN Primary Care Provider Unava ilable rBett ([facility]), KARINA Lundberg [facility]ending [facility] Provider MD Charli Sena Attending Provider NO FAMILY, PHYSICIAN Primary Care Unavailable Rice ([facility]), Luz Maria Lundberg Admitting Unavailabl e Rice ([facility]), Luz Maria Lundberg [facility] Charli Sena Admitting Unavailable Charli Sena Attending Unavailable YAQUELIN, DR CHICHO Martines Consulting Unavailabl e YAQUELIN, DR CHICHO Martines Attending Unavailabl e [facility] Primary Care Unava ilable YAQUELIN, DR CHICHO Martines Admitting Unavailabl e ZIEBCINDI, DR INO Lundberg Consulting Unavailable NELDA ., MAJOR WANG Consulting Unavailabl e Unavailable Primary Care Provider Unavailabl BETTIE Escobar Referring Unavailable PEDRO WALSH Referring Unavailable PEDRO WALSH Attending Unavailable PEDRO WALSH Referring Unavailable JAZZY SAWANT Attending Unavaila ble PEDRO WALSH Referring Unavailable PEDRO WALSH Attending Unavailable PEDRO WALSH Admitting Unavailable PEDRO WALSH Referring Unavailable PEDRO WALSH Referring Unavailable PEDRO WALSH TMeaghan Referring Unavailable PEDRO WALSH Attending Unavailable MARIA D REYNA Attending Unavailable BETTIE SMITH Referring Unavailable CRISTINE GARCIA Attending Unavailable Unavailable Primary Care Provider Unavailabl e Fair DDS, Yixue Unavailable Unavailable Walsh TEACHING ASSISTANT, Capri Unavailable Unavailable Walsh TEACHING ASSISTANT, Capri Unavailable Unavailable Walsh TEACHING ASSISTANT, Capri Unavailable Unavailable Ramiro TEACHING ASSISTANT-C, Esa Unavailable Unavailab le Fair DDS, Yixluis Attending Unavailable Alon HAZEL, Capri Garcia Primary Care Unavailabl e Allergies Allergy Classification Reported Allergen(s) Allergy Type Date of Onset Reaction(s) Facility (14 sources) Ciprofloxacin; Translations: [CIPROFLOXACIN] Drug Allergy 02-27-2007 [facility] Work Phone: (1 source) Ciprofloxacin Drug Allergy 12-26-2022 [facility] Repository (1 source) Ciprofloxacin Drug Allergy 05-01-2017 [facility] Repository Medications Current Medications Medication Drug Class(es) [...] on above: Take 2 tablets by mo ut every 6 hours as needed for pain [...] as needed for wheezing, shortness of breath amoxicillin 875 mg / clavulanate 125 mg oral tablet (1 source) Penicillin-class Antibacterial Start: 025 take 1 tablet by mouth every twelve hours amoxicillin 875 mg-potassium clavulanate 125 mg tablet take 1 tablet by oral route every 12 hours for 7 days - Active cyclobenzaprine hydrochloride 5 mg oral tablet (10 sources) Muscle Relaxant Start: 022 End: take 1 tablet by mouth every eight [...] as needed for up to 10 days. meloxicam 15 mg oral tablet (1 source) Nonsteroidal Anti-inflammatory Drug Start: take 1 tablet by mouth once daily meloxicam 15 mg tablet take 1 tablet by oral route every day 15 MG - Active montelukast 10 mg oral tablet (16 sources) Leukotriene Receptor Antagonist Start: take 1 tablet by mouth once daily in the evening Singulair 10 mg tablet take 1 tablet by oral route every day in the evening 10 MG - Active Start: 12-18-2006 End: 05-30-2022 take 1 tablet by mouth once daily Montelukast (Singulair) 10 mg Tablet Active 10 MG PO Daily December 26, 2022 12:00am Comment on above: Take one(1) tablet d aily at bedtime. Take 1 tablet by barry th daily at bedtime. Take by mouth. omeprazole 40 mg delayed release oral capsule (14 sources) Proton Pump Inhibitor Start: 05-13-2025 take 1 capsule by mouth once daily before mealtime omeprazole 40 mg capsule,delayed release take 1 capsule by oral route every day before a meal 40 MG - Active Start: 12-26-2022 take 40 mg by mouth once daily [...] Comment on above: Take 1 capsule by mo uth once daily. Take 40 mg by mouth. [...] Comment on above: Take 2 tablets by [facility] once daily for 5 days. sertraline 50 mg oral tablet (12 sources) Serotonin Reuptake Inhibitor Start: 05-13-2025 take 1 tablet by mouth once daily Zoloft 50 mg tablet take 1 tablet by oral route every day 50 MG - Active Start: 05-30-2022 End: 05-30-2022 take 1 tablet by mouth once daily sertraline (ZOLOFT) 50 mg tablet Indications: Anxiety and depression Take 1 tablet by mouth once daily. 90 tablet 0 05/30/2022 Active Comment on above: Take 1 tablet by [facility] once daily. Completed/Discontinued Medications Medication Drug Class(es) Dates Sig (Normalized) Sig (Original) acetaminophen 325 mg / oxyCODONE hydrochloride 5 mg oral tablet (1 source) Opioid Agonist Start: 07-19-2024 End: 05-13-2025 take 1 tablet by mouth every eight hours as needed for pain oxycodone-acetaminop hen 5 mg-325 mg tablet TAKE 1 TABLET BY MOUTH EVERY 8 HOURS NEEDED FOR PAIN FOR 3 DAYS - No Longer Active amoxicillin 500 mg oral capsule (1 source) Penicillin-class Antibacterial Start: 05-22-2024 End: 05-13-2025 amoxicillin 500 mg capsule - No Longer Active 24 hr buPROPion hydrochloride 300 mg extended [...] Comment on above: Take one(1) capsule daily. ibuprofen 800 mg oral tablet (1 source) Nonsteroidal Anti-inflammatory Drug Start: 05-22-2024 End: 05-13-2025 take 1 tablet by mouth three times daily as needed ibuprofen 800 mg tablet TAKE 1 TABLET BY MOUTH THREE TIMES A DAY NEEDED - No Longer Active Nebulizer and Compressor For Neb (11 sources) [...] 1 Each every 4 hours as needed. ondansetron 4 mg oral tablet (1 source) Serotonin-3 Receptor Antagonist Start: End: take 1 tablet by mouth every six hours as needed for nausea and vomiting ondansetron HCl 4 mg tablet TAKE 1 TABLET BY MOUTH EVERY 6 HOURS NEEDED FOR NAUSEA AND VOMITING - No Longer Active oxyCODONE hydrochloride 5 mg oral tablet (9 sources) Opioid Agonist Start: take 1 tablet by mouth every eight [...] above: Take 1 tablet by barry th every 6 hours as needed for up to 5 days. Take 1 tablet by barry th every 8 hours as needed for pain (for pain not relieved by Tylenol/Motrin). promethazine hydrochloride 25 mg oral tablet (3 sources) Phenothiazine Start: 12-18-2006 End: 05-30-2022 PHENERGAN 25 MG TAB Indications: Incisional hernia without mention of obstruction or gangrene Take one(1) tablet every four(4) to six(6) hours as needed for nausea. 0 12/18/2006 05/30/2022 Discontinued (Course of therapy completed) Comment on above: Take one(1) tablet e very four(4) to six(6) hours as needed for nausea. synthetic conjugated estrogens, A (3 sources) Start: 12-18-2006 End: 05-30-2022 CENESTIN 0.625 MG TAB Indications: Incisional hernia [...] [Anxiety disorder, unspecified] Onset: 06-07-2022 Chronic Asthma (15 sources) Asthma; Translations: [Unspecified asthma, uncomplicated] Onset: 05-30-2022 05-30-2022 Chronic Esophageal disorders (15 sources) Gastroesophageal reflux disease without esophagitis; Translations: [Gastro-esophageal reflux disease without esophagitis] Onset: 05-30-2022 05-30-2022 Chronic Esophageal disorders (1 source) Esophageal disorders; Translations: [Gastro-esophageal reflux disease without esophagitis] Onset: 12-27-2022 Hemorrhoids (2 sources) Prolapsed hemorrhoids; Translations: [Other hemorrhoids] Onset: 01-18-2023 Episodic Mood disorders (2 sources) Major depressive disorder, recurrent, unspecified Chronic Other nervous system disorders (1 source) Acute postoperative pain; Translations: [Other acute postprocedural pain] Episodic Other non-traumatic joint disorders (2 sources) Pain in unspecified joint Episodic Other nutritional; endocrine; and metabolic disorders (2 sources) Body mass index (BMI) 38.0-38.9, adult Onset: 05-13-2025 05-13-2025 Chronic Other screening for suspected conditions (not mental disorders or infectious disease) (9 sources) Encounter for screening for dental disorders; Translations: [Encounter for screening for other metabolic disorders] Onset: 05-13-2025 05-13-2025 Episodic Prolapse of female genital organs (1 [...] for malignant neoplasm of breast] Onset: 09-06-2022 Unclassified (1 source) Office visit (chief complaint) Onset: 05-13-2025 Past or Other Problems Problem Classification Problem [...] of incisional hernia repair] Onset: 04-18-2022 Episodic Unclassified (1 source) ER (chief complaint) Onset: 05-13-2025 Results Test Name Value Interpretation Reference Range Facility 25-hydroxyvitamin D3 [Mass/V ol]Ordered By: Capri Walsh TEACHING ASSISTANT on 05-14-2025 25-hydroxyvitamin D [Mass/Vol] 32.5 ng/mL 30.0-100.0 [facility] Comment on above: Vitamin D deficiency has been defined by the [employer] ofMed[employer] and an Endocrine Society practice guideline as alevel of serum 25-OH vitamin D less than 20 ng/mL (1,2).The Endocrine Society went on to further define vitamin Dinsufficiency as a level between 21 and 29 ng/mL (2).1. IOM ([employer] of Medicine). 2010. Dietary reference intakes for calcium and D. [place]: The National Academies Press.2. Inez GARCIA, Martin [place], Landon KATZ, et al. Evaluation, treatment, and prevention of vitamin D deficiency: an Endocrine Society clinical practice guideline. JCEM. 2010; 96(3):1911-30.Performed by:Kerri Owens (CB) Comprehensive metabolic 2000 panelOrdered By: Capri Walsh TEACHING ASSISTANT on 05-14-2025 ALT [Catalytic activity/Vol] 72 U/L High 0-32 [facility] Globulin (S) [Mass/Vol] 3.1 g/dL 1.5-4.5 [facility] Potassium [Moles/Vol] 4.2 mmol/L 3.5-5.2 [facility] Protein [Mass/Vol] 6.8 g/dL 6.0-8.5 [facility] ALP [Catalytic activity/Vol] 83 U/L 44-121 [facility] AST [Catalytic activity/Vol] 76 U/L High 0-40 [facility] Bilirubin [Mass/Vol] 0.8 mg/dL 0.0-1.2 [facility] Albumin [Mass/Vol] 3.7 g/dL Low 3.8-4.9 [facility] Creatinine [Mass/Vol] 0.58 mg/dL 0.57-1.00 [facility] GFR/1.73 sq M.predicted among non-blacks MDRD (S/P/Bld) [Vol rate/Area] 105 mL/min/{1.73_m2} >59 [facility] Urea nitrogen [Mass/Vol] 8 mg/dL 6-24 [facility] Urea nitrogen/Creatinine [Mass ratio] 14 mg/mg 9-23 [facility] Calcium [Mass/Vol] 9.3 mg/dL 8.7-10.2 [facility] CO2 [Moles/Vol] 22 mmol/L 20-29 [facility] Glucose [Mass/Vol] 88 mg/dL 70-99 [facility] Chloride [Moles/Vol] 104 mmol/L 96-106 [facility] Sodium [Moles/Vol] 141 mmol/L 134-144 [facility] Laboratory - Chemistry and C hemistry - challengeOrdered By: Capri Walsh NP on 05-14-2025 Free T4 [Mass/Vol] 1.02 ng/dL 0.82-1.77 [facility] TSH Qn 2.540 uIU/mL 0.450-4.500 [facility] Cholesterol in HDL [Mass/Vol] 33 mg/dL Low >39 [facility] Cholesterol in LDL [Mass/Vol] 106 mg/dL High 0-99 [facility] Cholesterol in LDL/Cholesterol in HDL [Mass ratio] 3.2 {ratio} 0.0-3.2 [facility] Comment on above: LDL/HDL Ratio Men Wo men 1/2 Avg.Risk 1.0 1.5 Avg.Risk 3.6 3.2 2X Avg.Risk 6.2 5.0 3X Avg.Risk 8.0 6.1Performed by:Kerri Owens (STEVEN) Cholesterol in VLDL [Mass/Vol] 18 mg/dL 5-40 [facility] Cholesterol [Mass/Vol] 157 mg/dL 100-199 [facility] Triglyceride [Mass/Vol] 97 mg/dL 0-149 [facility] Hemoglobin A1c/Hemoglobin.to naman in BloodOrdered By: Capri Walsh NP on 05-13-2025 HbA1c (Bld) [Mass fraction] 5.5 % 4.8-5.6 [facility] Comment on above: Prediabetes: 5.7 - 6 .4 Diabetes: >6.4 Glycemic control for adults with diabetes: <7.0Performed by:Kerri Owens (CB) Laboratory - Hematology and Cell countsOrdered By: Capri Walsh NP on 05-13-2025 Basophils (Bld) [#/Vol] 0.0 10*3/uL 0.0-0.2 [facility] Basophils/100 WBC (Bld) 1 % Not Estab. [facility] Eosinophils (Bld) [#/Vol] 0.3 10*3/uL 0.0-0.4 [facility] Eosinophils/100 WBC (Bld) 5 % Not Estab. [facility] Erythrocyte distribution width (RBC) [Ratio] 13.9 % 11.7-15.4 [facility] Hematocrit (Bld) [Volume fraction] 39.5 % 34.0-46.6 [facility] Hemoglobin (Bld) [Mass/Vol] 12.2 g/dL 11.1-15.9 [facility] Immature granulocytes (Bld) [#/Vol] 0.0 10*3/uL 0.0-0.1 [facility] Immature granulocytes/100 WBC (Bld) 0 % Not Estab. [facility] Lymphocytes (Bld) [#/Vol] 1.5 10*3/uL 0.7-3.1 [facility] Lymphocytes/100 WBC (Bld) 24 % Not Estab. [facility] MCH (RBC) [Entitic mass] 27.9 pg 26.6-33.0 [facility] MCHC (RBC) [Mass/Vol] 30.9 g/dL Low 31.5-35.7 [facility] MCV (RBC) [Entitic vol] 90 fL 79-97 [facility] Monocytes (Bld) [#/Vol] 0.7 10*3/uL 0.1-0.9 [facility] Monocytes/100 WBC (Bld) 11 % Not Estab. [facility] Neutrophils (Bld) [#/Vol] 3.5 10*3/uL 1.4-7.0 [facility] Neutrophils/100 WBC (Bld) 59 % Not Estab. [facility] Platelets (Bld) [#/Vol] 351 10*3/uL 150-450 [facility] RBC (Bld) [#/Vol] 4.38 10*6/uL 3.77-5.28 [facility] WBC (Bld) [#/Vol] 6.1 10*3/uL 3.4-10.8 [facility] Multiple labson 07-16-2024 [facility] CNOVon 01-18-2023 CNOV Office Visit (CORSAV ) VALERIA ROMERO ([id number]) 1965 F Date Time Provider Department 01/18/23 [...] for internal providers or letter via the [employer] for external providers. Chief Complaint: [...] exam reveals no gross blood or masses Logging Engineer present: Yes, Gianna Gusman Anoscopy: The patient [...] chest-knee posit (more content not included)... [facility] 12[facility]27-2022 L -- ---- Specimen: [id number] Received: 12/27/22 Status: PJ Goodson Num: [id number] Spec Type: Surgical Subm Dr: Charli Sena MD Tissues: A Colon Biopsy (CECAL POLYP) B Colon Biopsy (ASCENDING POLYP) C Colon Biopsy (TRANSVERSE POLYP) D Colon Biopsy (SIGMOID POLYP) Procedures: ROHAN/Angel, Gross/Micro L4/4 ---- Age/ Patient Sex Location Account Attending Physician ---- Valeria Romero 57/F [id number] Charli Sena MD ---- SPEC NUM: [id number] RECD: 12/27/22 STATUS: [facility] OSEI NUM: [id number] ADELITA: 12/27/22 DR: Charli Sena MD ENTERED: 12/27/[address] [facility] DR: SPEC TYPE: Surgical DEPT: S ORDERED: HE/8, Gross/Micro [...] in one cassette labeled A1. ---- Specimen: [id number] Received: 12/27/22 Status: [facility] Osei Num: [id number] Spec Type: Surgical Subm Dr: Charli Sena MD Tissues: A Colon Biopsy (CECAL POLYP) B Colon Biopsy (ASCENDING POLYP) C Colon Biopsy (TRANSVERSE POLYP) D Colon Biopsy (SIGMOID POLYP) Procedures: ROHANAngel Gross/Micro L4/4 ---- Patient: Valeria Romero [id number] (Continued) ---- Specimen: [id number] Received: 12/27/22 (Continued) Gross Description (Continued) Signed (signature on file) Kristel Blair MD 12/28/22 0936 ---- Specimen: [id number] Received: 12/27/22 Status: PJ Goodson Num: [id number] Spec Type: Surgical Subm Dr: Charli Sena MD Tissues: A Colon Biopsy (CECAL POLYP) B Colon Biopsy (ASCENDING POLYP) C Colon Biopsy (TRANSVERSE POLYP) D Colon Biopsy (SIGMOID POLYP) Procedures: ROHANSarah Ortiz/Micro L4/4 ---- Patient: Valeria Romero [id number] (Continued) ---- Specimen: [id number] Received: 12/27/22-1058 (Continued) Gross Description (Continued) B. Received in [...] support the above pathologic diagnosis. CPT Codes 85042?4 ---- ---- Specimen: [id number] Received: 12/27/22 Status: PJ Goodson Num: [id number] Spec Type: Surgical Subm Dr: Charli Sena MD Tissues: A Colon Biopsy (CECAL POLYP) B Colon Biopsy (ASCENDING POLYP) C Colon Biopsy (TRANSVERSE POLY (more content not included)... [facility] CT ABD/PELVIS WO CONon 12-18 CT [...] INO ORTEGA Date: 2022-12-18 17:48 Normal [facility] ER URINE PROFILEon 3 Bilirubin Ql (U) Negative Normal NEGATIVE [facility] Comment on above: Performed By: #### E RUR #### [facility] [address] [place] [address] Dr. Oh Laureano Clarity (U) CLEAR Normal CLEAR [facility] Comment on above: Performed By: #### E RUR #### [facility] [address] [place] [address] Dr. Oh Laureano Color (U) LT. YELLOW Normal YELLOW [facility] Comment on above: Performed By: #### E RUR #### [facility] [address] [place] [address] Dr. Oh CHAPMAN A micrscopic examination will be performed if indicated. Normal [facility] Comment on above: Performed By: #### E RUR #### [facility] [address] [place] [address] Dr. Oh Laureano Glucose Ql (U) Negative Normal NEGATIVE [facility] Comment on above: Performed By: #### E RUR #### [facility] [address] [place] [address] Dr. Oh Laureano Hemoglobin Ql (U) Negative Normal NEGATIVE [facility] Comment on above: Performed By: #### E RUR #### [facility] [address] [place] [address] Dr. Oh Laureano Ketones Ql (U) Negative Normal NEGATIVE [facility] Comment on above: Performed By: #### E RUR #### [facility] [address] [place] [address] Dr. Oh Laureano LEUKOCYTES Negative Normal NEGATIVE [facility] Comment on above: Performed By: #### E RUR #### [facility] [address] [place] [address] Dr. Oh Laureano Nitrite Ql (U) Negative Normal NEGATIVE [facility] Comment on above: Performed By: #### E RUR #### [facility] [address] [address] [address] Oh Laureano pH (U) 6.0 [pH] Normal 5-9 [facility] Comment on above: Performed By: #### E RUR #### [facility] [address] [place] [address] Dr. Oh Laureano SPEC GRAVITY <=1.005 Abnormal 1.005-<=1.025 [facility] Comment on above: Performed By: #### E RUR #### [facility] [address] [place] [address] Dr. Oh Laureano UA PROTEIN Negative Normal NEGATIVE/ TRACE [facility] Comment on above: Performed By: #### E RUR #### [facility] [address] [place] [address] Dr. Oh Laureano UR MICRO IND NOT INDICATED Normal [facility] Comment on above: Performed By: #### E RUR #### [facility] [address] [place] [address] Dr. Oh Laureano Urobilinogen Qn (U) 0.2 {Rasta'U}/dL Normal 0.2 - 1. 0 [facility] Comment on above: Performed By: #### E RUR #### [facility] [address] [place] [address] Dr. Oh Laureano Basophils Auto (Bld) [#/Vol] Ordered By: Capri Walsh on 09-06-2022 Basophils (Bld) [#/Vol] 0.0 10*3/uL 0.0-0.2 [facility] Basophils/100 WBC Auto (Bld) Ordered By: Capri Walsh on 09-06-2022 Basophils/100 WBC (Bld) 0.9 % . [facility] Complete Blood Count Auto Di ffon 09-06-2022 Basophils (Bld) [#/Vol] 0.0 10*3/uL Normal 0.0-0.2 [facility] Comment on above: Order Comment: PT FA STED 12 HRS Result Comment: PERF ORMED BY: [place] [id number] PATHOLOGIST ESTIMATE CLERK MAURIZIO CRAMER M.D. Performed By: #### C BC #### [address] #### HCV RX PCR #### [facility] , Basophils/100 WBC (Bld) 0.9 % Normal . [facility] Comment on above: Order Comment: PT FA STED 12 HRS Performed By: #### C BC #### [address] #### HCV RX PCR #### [facility] , Eosinophils (Bld) [#/Vol] 0.2 10*3/uL Normal 0.0-0.45 [facility] Comment on above: Order Comment: PT FA STED 12 HRS Performed By: #### C BC #### [address] #### HCV RX PCR #### [facility] , Eosinophils/100 WBC (Bld) 3.7 % Normal . [facility] Comment on above: Order Comment: PT FA STED 12 HRS Performed By: #### C BC #### [address] #### HCV RX PCR #### [facility] , Erythrocyte distribution width (RBC) [Ratio] 15.3 % Normal 11.9-15.3 [facility] Comment on above: Order Comment: PT FA STED 12 HRS Performed By: #### C BC #### [place] [address] [place] #### HCV RX PCR #### [facility] , Hematocrit (Bld) [Volume fraction] 32.5 % Low 34.0-46.4 [facility] Comment on above: Order Comment: PT FA STED 12 HRS Performed By: #### C BC #### [place] [address] [place] #### HCV RX PCR #### [facility] , Hemoglobin (Bld) [Mass/Vol] 10.4 g/dL Low 11.8-15.4 [facility] Comment on above: Order Comment: PT FA STED 12 HRS Performed By: #### C BC #### [facility] [address] [place] [address] #### HCV RX PCR #### [facility] , Lymphocytes (Bld) [#/Vol] 1.1 10*3/uL Normal 1.00-4.8 [facility] Comment on above: Order Comment: PT FA STED 12 HRS Performed By: #### C BC #### [address] #### HCV RX PCR #### [facility] , Lymphocytes/100 WBC (Bld) 20.5 % Normal . [facility] Comment on above: Order Comment: PT FA STED 12 HRS Performed By: #### C BC #### [address] #### HCV RX PCR #### [facility] , MCH (RBC) [Entitic mass] 26.5 pg Normal 24.7-34.3 [facility] Comment on above: Order Comment: PT FA STED 12 HRS Performed By: #### C BC #### [facility] [address] [place] [address] #### HCV RX PCR #### [facility] , MCV (RBC) [Entitic vol] 82.8 fL Normal 80-100 [facility] Comment on above: Order Comment: PT FA STED 12 HRS Performed By: #### C BC #### [facility] [address] [place] [address] #### HCV RX PCR #### [facility] , Mean Corpuscular HGB Conc 32.0 g/dL Normal 32.0-35.0 [facility] Comment on above: Order Comment: PT FA STED 12 HRS Performed By: #### C BC #### [facility] [address] [place] [address] #### HCV RX PCR #### [facility] , Monocytes (Bld) [#/Vol] 0.5 10*3/uL Normal 0.0-0.8 [facility] Comment on above: Order Comment: PT FA STED 12 HRS Performed By: #### C BC #### [facility] [address] [place] [address] #### HCV RX PCR #### [facility] , Monocytes/100 WBC (Bld) 9.1 % Normal . [facility] Comment on above: Order Comment: PT FA STED 12 HRS Performed By: #### C BC #### [facility] [address] [place] [address] #### HCV RX PCR #### [facility] , Neutrophils (Bld) [#/Vol] 3.6 10*3/uL Normal 1.8-7.7 [facility] Comment on above: Order Comment: PT FA STED 12 HRS Performed By: #### C BC #### [facility] [address] [place] [address] #### HCV RX PCR #### [facility] , Neutrophils/100 WBC (Bld) 65.8 % Normal . [facility] Comment on above: Order Comment: PT FA STED 12 HRS Performed By: #### C BC #### [facility] [address] [place] [address] #### HCV RX PCR #### [facility] , NRBC% 0.0 /100{WBC} Normal 0-0.5 [facility] Comment on above: Order Comment: PT FA STED 12 HRS Performed By: #### C BC #### [facility] [address] [place] [address] [place] #### HCV RX PCR #### [facility] , Platelet mean volume (Bld) [Entitic vol] 7.5 fL Normal 6.3-10.7 [facility] Comment on above: Order Comment: PT FA STED 12 HRS Performed By: #### C BC #### [facility] [address] [place] [address] #### HCV RX PCR #### [facility] , Platelets (Bld) [#/Vol] 374 10*3/uL Normal 150-450 [facility] Comment on above: Order Comment: PT FA STED 12 HRS Performed By: #### C BC #### [facility] [address] [place] [address] [place] #### HCV RX PCR #### [facility] , RBC (Bld) [#/Vol] 3.92 10*6/uL Normal 3.60-5.00 [facility] Comment on above: Order Comment: PT FA STED 12 HRS Performed By: #### C BC #### [facility] [address] [place] [address] [place] #### HCV RX PCR #### [facility] , WBC (Bld) [#/Vol] 5.5 10*3/uL Normal 3.8-11.6 [facility] Comment on above: Order Comment: PT FA STED 12 HRS Performed By: #### C BC #### [facility] [address] [place] [address] [place] #### HCV RX PCR #### [facility] , Eosinophils Auto (Bld) [#/Vo l]Ordered By: Capri Walsh on 09-06-2022 Eosinophils (Bld) [#/Vol] 0.2 10*3/uL 0.0-0.45 [facility] Eosinophils/100 WBC Auto (Bl d)Ordered By: Capri Walsh on 09-06-2022 Eosinophils/100 WBC (Bld) 3.7 % . [facility] Erythrocyte distribution wid th Auto (RBC) [Ratio]Ordered By: Capri Walsh on 09-06-2022 Erythrocyte distribution width (RBC) [Ratio] 15.3 % 11.9-15.3 [facility] Hematocrit Auto (Bld) [Volum e fraction]Ordered By: Capri Walsh on 09-06-2022 Hematocrit (Bld) [Volume fraction] 32.5 % 34.0-46.4 [facility] Hemoglobin [Mass/volume] in BloodOrdered By: Capri Walsh on 09-06-2022 Hemoglobin (Bld) [Mass/Vol] 10.4 g/dL 11.8-15.4 [facility] Hep C Ab wRfx to Qnt PCRon 1 11-07-2021 Hepatitis C Virus Antibody <0.1 Normal 0.0-0.9 [facility] Comment on above: Order Comment: PT FA STED 12 HRS Performed By: #### C BC #### [facility] [address] [place] [address] #### HCV RX PCR #### [facility] , Interpretation Hepatitis C Normal . [facility] Comment on above: Order Comment: PT FA STED 12 HRS Result Comment: Nega tive Not infected with HCV, unless recent infection is suspected or other evidence exists to indicate HCV infection. Performed at: [facility] [address] [id number] [employer] Mechanic: Jean Thorpe PhD, Phone: [phone] PERFORMED BY: [place] [address] PATHOLOGIST ESTIMATE CLERK MAURIZIO CRAMER M.D. Performed By: #### C BC #### [facility] [address] [place] [address] [place] #### HCV RX PCR #### [facility] , Leukocytes [#/volume] correc radhames for nucleated erythrocytes in Blood by Automated counOrdered By: Capri Walsh on 09-06-2022 WBC corrected for nucl RBC Auto (Bld) [#/Vol] 5.5 10*3/uL 3.8-11.6 [facility] Lymphocytes Auto (Bld) [#/Vo l]Ordered By: Capri Walsh on 09-06-2022 Lymphocytes (Bld) [#/Vol] 1.1 10*3/uL 1.00-4.8 [facility] Lymphocytes/100 WBC Auto (Bl d)Ordered By: Capri Walsh on 09-06-2022 Lymphocytes/100 WBC (Bld) 20.5 % . [facility] MCH Auto (RBC) [Entitic mass ]Ordered By: Capri Walsh on 09-06-2022 MCH (RBC) [Entitic mass] 26.5 pg 24.7-34.3 [facility] MCHC Auto (RBC) [Mass/Vol]Or dered By: Capri Walsh on 09-06-2022 MCHC (RBC) [Mass/Vol] 32.0 g/dL 32.0-35.0 [facility] MCV Auto (RBC) [Entitic vol] Ordered By: Capri Walsh on 09-06-2022 MCV (RBC) [Entitic vol] 82.8 fL 80-100 [facility] MM screening mammo BI w/CADo n 09-06-2022 MM screening mammo BI w/CAD [facility] [place] [address] Mammography Report Signed Patient: Valeria Romero MR#: [id number] : 1965 Acct:[id number] Age/Sex: 57 / F ADM Date: 09/06/22 Loc: [place] Room: Type: [facility] Attending Dr: Luz Maria West ([facility]) KARINA Copies to: NO FAMILY PHYSICIAN [...] Wilfredo Green M.D.09/06/2022 12:33 PM Dictation Location: [facility] Transcribed By: HAM 09/06/22 1233 Dictated By: Wilfredo Green II, MD 09/06/22 1226 Signed By: 09/06/22 1233 Normal [facility] Monocytes Auto (Bld) [#/Vol] Ordered By: Capri Walsh on 09-06-2022 Monocytes (Bld) [#/Vol] 0.5 10*3/uL 0.0-0.8 [facility] Monocytes/100 WBC Auto (Bld) Ordered By: Capri Walsh on 09-06-2022 Monocytes/100 WBC (Bld) 9.1 % . [facility] Neutrophils Auto (Bld) [#/Vo l]Ordered By: Capri Walsh on 09-06-2022 Neutrophils (Bld) [#/Vol] 3.6 10*3/uL 1.8-7.7 [facility] Neutrophils/100 WBC Auto (Bl d)Ordered By: Capri Walsh on 09-06-2022 Neutrophils/100 WBC (Bld) 65.8 % . [facility] Nucleated erythrocytes [Pres ence] in Blood by Automated countOrdered By: Capri Walsh on 09-06-2022 Nucleated RBC Auto Ql (Bld) 0.0 /100{WBC} 0-0.5 [facility] Platelet mean volume Auto (B ld) [Entitic vol]Ordered By: Capri Walsh on 09-06-2022 Platelet mean volume (Bld) [Entitic vol] 7.5 fL 6.3-10.7 [facility] Platelets Auto (Bld) [#/Vol] Ordered By: Capri Walsh on 09-06-2022 Platelets (Bld) [#/Vol] 374 10*3/uL 150-450 [facility] RBC Auto (Bld) [#/Vol]Ordere d By: Capri Walsh on 09-06-2022 RBC (Bld) [#/Vol] 3.92 10*6/uL 3.60-5.00 [facility] WBC Auto (Bld) [#/Vol]Ordere d By: Capri Walsh on 09-06-2022 WBC (Bld) [#/Vol] 5.5 10*3/uL 3.8-11.6 [facility] CNOVon 06-29-2022 CNOV Office Visit (TAMMY ) ANDREAROMIQUITAVALERIA ([id number]) 1965 F Date Time Provider Department 06/29/22 10:20 AM PEDRO WALSH During your visit today, we recorded the following information about you: Temperature Pulse Respiration Blood pressure 96.6 degrees 76/minute 14/minute 109/62 Weight Height 78 kg 1.575 m Pedro Walsh MD 06/29/2022 4:16 PM Signed [facility] for Abdominal Core Health - Postoperative visit [...] the resi (more content not included)... Normal [facility] CT ABD/PEL WO IVCONon 2021 CT ABD/PEL WO IVCON * * *Final Report* * * DATE OF EXAM: Jun 29 2022 12:25PM [facility] [place] ABD/PEL WO IVCON / [...] inferior pubic rami fractures. Lower thorax: Unremarkable. Junior Art Director (topogram) images: No additional findings. IMPRESSION: Postoperative changes to ventral abdominal wall with pockets of fluid along the surgical incision without internal gas, as described, likely seromas. No intra-abdominopelvic fluid collection. Expressive Art Therapist: MANAV Transcribe Date/Time: Jun 29 2022 12:38P Dictated by : ALISSON FISH, DO This examination was interpreted and the report reviewed and electronically signed by: KYLE COBB MD on Jun 29 2022 1:40PM EST [id number] Normal [facility] No Panel Informationon 06-29 [facility] VALERIA ROMERO ([id number]) 1965 F Date Time Provider Department 06/12/22 VALERIA MORSE [facility] During your visit today, we recorded the following information about you: VON Bhatia 06/12/2022 4:15 PM Signed [facility] SOCIAL WORK CONSULT NOTE Service Date: June 12, 2022 Patient was identified by name and Patient: Valeria Romero [address] [place] [address] [address] [facility] [address] (home) [phone] (cell) PCP: No primary care provider on [...] option for recommendations Time Spent: 15 minutes ILEN Bhatia Allergies As of Date: 06/12/2022 Noted [...] Status:Closed by VALERIA MORSE on 06/12/[address] [facility] Basic metabolic 2000 panelon 06-09-2022 Anion gap [Moles/Vol] 11 mmol/L Normal 9-18 [place] Comment on above: Order Comment: Speci men Type: BLOOD SPECIMENOrdering Facility: [facility] Address: [address] [place], [place] [phone] Performed By: #### 2 4322, 1988-01, , 2776-10 ####[facility] LABIA [id number] [place] [address] [place] Calcium [Mass/Vol] 8.8 mg/dL Normal 8.5-10.2 [facility] Comment on above: Order Comment: Speci men Type: BLOOD SPECIMENOrdering Facility: [facility] Address: [address] [place] [phone] Performed By: #### 2 432-2, 1988-01, , 2776-10 ####[facility] LABCLIA [id number] [place] [address] [place] Chloride [Moles/Vol] 102 mmol/L Normal 97-105 [facility] Comment on above: Order Comment: Speci men Type: BLOOD SPECIMENOrdering Facility: [facility] Address: [address] [place], [place] [phone] Performed By: #### 2 4320-11, 1988-01, , 2776-10 ####[facility] LABIA [id number] [place] [address] [place] CO2 [Moles/Vol] 25 mmol/L Normal 22-30 [facility] Comment on above: Order Comment: Speci men Type: BLOOD SPECIMENOrdering Facility: [facility] Address: [address] [place], [place] [address] Performed By: #### 2 4320-11, 1988-01, , 2776-10 ####[facility] LABIA [id number] [address] [place] Creatinine [Mass/Vol] 0.58 mg/dL Normal 0.58-0.96 [place] Comment on above: Order Comment: Speci men Type: BLOOD SPECIMENOrdering Facility: [facility] Address: [address] [place] [address] Performed By: #### 2 4320-11, 1988-01, , 2776-10 ####[facility] [id number] [address] [place] ESTIMATED GLOMERULAR FILTRATION RATE 107 mL/min/1.73m??? Normal >=60 [facility] Comment on above: Order Comment: Speci men Type: BLOOD SPECIMENOrdering Facility: [facility] Address: [address] [place], [place] [address] Result Comment: Faiza mated Glomerular Filtration Rate [...] By: #### 2 4320-11, 1988-01, , 2776-10 ####[facility] LABCLIA [id number] [address] [address] [place] Glucose [Mass/Vol] 102 mg/dL High 74-99 [facility] Comment on above: Order Comment: Poncho lydia Type: BLOOD SPECIMENOrdering Facility: [facility] Address: [address] [place] [phone] Result Comment: The [place] Diabetes Association (ADA) provides guidance for cutoff [...] Standards of Medical Care in Diabetes 2016, [place] [employer]. Diabetes Care. 2016.39(Suppl 1). Performed By: #### 2 4320-11, 1988-01, , 2776-10 ####[facility] LABIA [id number] [address] [address] [place] Potassium [Moles/Vol] 3.9 mmol/L Normal 3.7-5.1 [place] Comment on above: Order Comment: Neyi men Type: BLOOD SPECIMENOrdering Facility: [facility] Address: [address] [place] [address] Performed By: #### 2 4320-11, 1988-01, , 2776-10 ####[facility] LABIA [id number] [address] [address] [place] Sodium [Moles/Vol] 138 mmol/L Normal 136-144 [facility] Comment on above: Order Comment: Neyi men Type: BLOOD SPECIMENOrdering Facility: [facility] Address: [address] [place], [place] [address] Performed By: #### 2 432-2, 1988-01, , [address] ####[facility] LABCLIA [id number] [place] [address] [place] Urea nitrogen [Mass/Vol] 6 mg/dL Low 7-21 [facility] Comment on above: Order Comment: Speci men Type: BLOOD SPECIMENOrdering Facility: [facility] Address: [address] [place] [address] Performed By: #### 2 432-2, 1988-01, , [address]-31 ####[facility] LABCLIA [id number] [place] [address] [place] CBC W Auto Differential pane l (Bld)on 06-09-2022 Basophils (Bld) [#/Vol] 0.05 10*3/uL Normal <0.11 [facility] Comment on above: Order Comment: Speci men Type: BLOOD SPECIMENOrdering Facility: [facility] Address: [address] [place] [address] Performed By: #### 5 7021-8 ####[facility] LABCLIA [id number] [place] [address] [place] Basophils/100 WBC (Bld) 0.4 % Normal [facility] Comment on above: Order Comment: Speci men Type: BLOOD SPECIMENOrdering Facility: [facility] Address: [address] [place], [place] [address] Performed By: #### 5 7021-8 ####[facility] LABIA [id number] [place] [address] [place] Differential cell count method Nom (Bld) Auto Normal [facility] Comment on above: Order Comment: Speci men Type: BLOOD SPECIMENOrdering Facility: [facility] Address: [address] [place], [place] [address] Performed By: #### 5 7021-8 ####[facility] LABCLIA [id number] [place] [address] [place] Eosinophils (Bld) [#/Vol] 0.26 10*3/uL Normal <0.46 [facility] Comment on above: Order Comment: Speci men Type: BLOOD SPECIMENOrdering Facility: [facility] Address: [address] [place], [place] [address] Performed By: #### 5 7021-8 ####[facility] LABCLIA [id number] [place] [address] [place] Eosinophils/100 WBC (Bld) 2.1 % Normal [facility] Comment on above: Order Comment: Speci men Type: BLOOD SPECIMENOrdering Facility: [facility] Address: [address] [place], [place] [address] Performed By: #### 5 7021-8 ####[facility] LABIA [id number] [address] [place] Erythrocyte distribution width (RBC) [Ratio] 14.1 % Normal 11.5-15.0 [facility] Comment on above: Order Comment: Speci men Type: BLOOD SPECIMENOrdering Facility: [facility] Address: [address] [place], [place] [address] Performed By: #### 5 7021-8 ####[facility] LABCLIA [id number] [place] [address] [place] Hematocrit (Bld) [Volume fraction] 34.3 % Low 36.0-46.0 [facility] Comment on above: Order Comment: Speci men Type: BLOOD SPECIMENOrdering Facility: [facility] Address: [address] [place], [place] [address] Performed By: #### 5 7021-8 ####[facility] LABIA [id number] [place] [address] [place] Hemoglobin (Bld) [Mass/Vol] 10.7 g/dL Low 11.5-15.5 [facility] Comment on above: Order Comment: Speci men Type: BLOOD SPECIMENOrdering Facility: [facility] Address: [address] [place] [address] Performed By: #### 5 7021-8 ####[facility] LABCLIA [id number] [address] OF [facility] IMMATURE GRAN % 0.8 % Normal [facility] Comment on above: Order Comment: Speci men Type: BLOOD SPECIMENOrdering Facility: [facility] Address: [address] [place] [address] Performed By: #### 5 7021-8 ####[facility] LABCLIA [id number] [address] OF [facility] IMMATURE GRAN ABS 0.10 k/uL High <0.10 [facility] Comment on above: Order Comment: Speci men Type: BLOOD SPECIMENOrdering Facility: [facility] Address: [address] [place], [place] [address] Performed By: #### 5 7021-8 ####[facility] LABIA [id number] [address] [place] Lymphocytes (Bld) [#/Vol] 1.76 10*3/uL Normal 1.00-4.00 [facility] Comment on above: Order Comment: Speci men Type: BLOOD SPECIMENOrdering Facility: [facility] Address: [address] [place], [place] [address] Performed By: #### 5 7021-8 ####[facility] LABCLIA [id number] [address] [place] Lymphocytes/100 WBC (Bld) 14.0 % Normal [facility] Comment on above: Order Comment: Speci men Type: BLOOD SPECIMENOrdering Facility: [facility] Address: [address] [place], [place] [address] Performed By: #### 5 7021-8 ####[facility] LABCLIA [id number] [address] [place] MCH (RBC) [Entitic mass] 29.4 pg Normal 26.0-34.0 [facility] Comment on above: Order Comment: Speci men Type: BLOOD SPECIMENOrdering Facility: [facility] Address: [address] [place], [place] [address] Performed By: #### 5 7021-8 ####[facility] LABIA [id number] [place] [address] [place] MCHC (RBC) [Mass/Vol] 31.2 g/dL Normal 30.5-36.0 [place] Comment on above: Order Comment: Speci men Type: BLOOD SPECIMENOrdering Facility: [facility] Address: [address] [place], [place] [address] Performed By: #### 5 7021-8 ####[facility] LABIA [id number] [place] [address] [place] MCV (RBC) [Entitic vol] 94.2 fL Normal 80.0-100.0 [facility] Comment on above: Order Comment: Speci men Type: BLOOD SPECIMENOrdering Facility: [facility] Address: [address] [place] [address] Performed By: #### 5 7021-8 ####[facility] LABIA [id number] [place] [address] [place] Monocytes (Bld) [#/Vol] 1.05 10*3/uL High <0.87 [facility] Comment on above: Order Comment: Speci men Type: BLOOD SPECIMENOrdering Facility: [facility] Address: [address] [place], [place] [address] Performed By: #### 5 7021-8 ####[facility] LABCLIA [id number] [place] [address] [place] Monocytes/100 WBC (Bld) 8.4 % Normal [facility] Comment on above: Order Comment: Speci men Type: BLOOD SPECIMENOrdering Facility: [facility] Address: [address] [place] [address] Performed By: #### 5 7021-8 ####[facility] LABCLIA [id number] [place] [address] [place] Neutrophils (Bld) [#/Vol] 9.35 10*3/uL High 1.45-7.50 [facility] Comment on above: Order Comment: Speci men Type: BLOOD SPECIMENOrdering Facility: [facility] Address: [address] [place] [address] Performed By: #### 5 7021-8 ####[facility] LABCLIA [id number] [place] [address] [place] Neutrophils/100 WBC (Bld) 74.3 % Normal [facility] Comment on above: Order Comment: Speci men Type: BLOOD SPECIMENOrdering Facility: [facility] Address: [address] [place], [place] [address] Performed By: #### 5 7021-8 ####[facility] LABCLIA [id number] [place] [address] [place] Nucleated RBC (Bld) [#/Vol] 10*3/uL Normal <0.01 [facility] Comment on above: Order Comment: Speci men Type: BLOOD SPECIMENOrdering Facility: [facility] Address: [address] [place], [place] [address] Performed By: #### 5 7021-8 ####[facility] LABCLIA [id number] [place] [address] [place] Nucleated RBC/100 WBC (Bld) [Ratio] 0.0 /[address] [facility] Comment on above: Order Comment: Speci men Type: BLOOD SPECIMENOrdering Facility: [facility] Address: [address] [place], [place] [address] Performed By: #### 5 7021-8 ####[facility] LABIA [id number] [place] [address] [place] Platelet mean volume (Bld) [Entitic vol] 9.9 fL Normal 9.0-12.7 [facility] Comment on above: Order Comment: Speci men Type: BLOOD SPECIMENOrdering Facility: [facility] Address: [address] [place], [place] [address] Performed By: #### 5 7021-8 ####[facility] LABIA [id number] [place] [address] [place] Platelets (Bld) [#/Vol] 316 10*3/uL Normal 150-400 [facility] Comment on above: Order Comment: Speci men Type: BLOOD SPECIMENOrdering Facility: [facility] Address: [address] [place], [place] [address] Performed By: #### 5 7021-8 ####[facility]IA [id number] [place] [address] [place] RBC (Bld) [#/Vol] 3.64 10*6/uL Low 3.90-5.20 [facility] Comment on above: Order Comment: Speci men Type: BLOOD SPECIMENOrdering Facility: [facility] Address: [address] [place] [address] Performed By: #### 5 7021-8 ####[facility]IA [id number] [place] [address] [place] WBC (Bld) [#/Vol] 12.57 10*3/uL High 3.70-11.00 [facility] Comment on above: Order Comment: Speci men Type: BLOOD SPECIMENOrdering Facility: [facility] Address: [address] [place], [place] [address] [address] Performed By: #### 5 7021-8 ####[facility] LABFLAVIO [id number] [id number] [address] [facility] CNDSon 06-09-2022 CNDS HNO ID: [id number] Author: Pedro Walsh MD Service: General Surgery [...] PACU, and then was transferred to a [facility] for the remainder of recovery. On POD1 she was treated with a K+ cocktail x1 for hyperkalemia. She was asymptomatic and an EKG showed NSR. On POD1 she was having bowel function and advanced to GIS. On POD2 the patient was weaned off her [employer] and transitioned to PO pain medications. Her [...] Attending Provider: Pedro Walsh MD Primary Service: Emeterio SILVINO PATIENT CONDITION AT DISCHARGE: Stable DISCHARGE DISPOSITION: [...] 1 Each (more content not included)... Normal [facility] CRP SerPl-ncon 06-09-2022 CRP [Mass/Vol] 10.2 mg/dL High <0.9 [facility] Comment on above: Order Comment: Speci men Type: BLOOD SPECIMENOrdering Facility: [facility] Address: [address] [place], [place] [address] Performed By: #### 2 4320-11, 1988-01, , 2776-10 ####[facility] LABIA [id number] [address] [place] Magnesium SerPl-mCncon 06-09 Magnesium [Mass/Vol] 2.0 mg/dL Normal 1.7-2.3 [facility] Comment on above: Order Comment: Poncho freeman Type: BLOOD SPECIMENOrdering Facility: [facility] Address: [address] [place], [place] [address] Performed By: #### 2 4320-11, 1988-01, , 2776-10 ####[facility] [id number] [address] [address] [place] NURSING PROGon 06-09-2022 NURSING PROG HNO ID: [id number] Author: Kellee Hayden, RN Service: ? Author Type: Registered Nurse [...] and still refused. Dr Ivey notified Normal [facility] Phosphate SerPl-mCncon 06-09 Phosphate [Mass/Vol] 2.0 mg/dL Low 2.7-4.8 [facility] Comment on above: Order Comment: Speci men Type: BLOOD SPECIMENOrdering Facility: [facility] Address: [address] [place] [address] Performed By: #### 2 4321-2, 1987-5, 27215-3, 2777-1 ####[facility] [id number] [place] [address] [place] URINALYSIS, REFLEX MICROSCOP ICon 06-09-2022 Bilirubin Ql (U) Negative Normal Negative [facility] Comment on above: Order Comment: Speci men Type: URINE SPECIMENOrdering Facility: [facility] Address: [address] [place] [address] Performed By: #### L [id number] ####[facility] LABCLIA [id number] [place] [address] [place] Clarity (Unsp spec) Clear Normal Clear [facility] Comment on above: Order Comment: Speci men Type: URINE SPECIMENOrdering Facility: [facility] Address: [address] [place] [address] Performed By: #### L [id number] ####[facility] [id number] [address] [place] Color (U) Straw Normal Yellow [facility] Comment on above: Order Comment: Speci men Type: URINE SPECIMENOrdering Facility: [facility] Address: [address] Performed By: #### L [id number] ####[facility] LABCLIA [id number] [place] [address] [place] Glucose Test strip (U) [Mass/Vol] Negative Normal Negative [facility] Comment on above: Order Comment: Speci men Type: URINE SPECIMENOrdering Facility: [facility] Address: [address] [place], [place] [address] Performed By: #### L [id number] ####[facility] LABCLIA [id number] [address] [place] Hemoglobin Ql (U) Negative Normal Negative [facility] Comment on above: Order Comment: Speci men Type: URINE SPECIMENOrdering Facility: [facility] Address: [address] [place], [place] [address] Performed By: #### L [id number] ####[facility] LABCLIA [id number] [place] [address] [place] Ketones Ql (U) Negative Normal Negative [facility] Comment on above: Order Comment: Speci men Type: URINE SPECIMENOrdering Facility: [facility] Address: [address] [place] [address] Performed By: #### L [id number] ####[facility] LABCLIA [id number] [place] [address] [place] Leukocyte esterase Test strip Ql (U) Negative Normal Negative [facility] Comment on above: Order Comment: Speci men Type: URINE SPECIMENOrdering Facility: [facility] Address: [address] [place], [place] [address] Performed By: #### L [id number] ####[facility] LABCLIA [id number] [place] [address] [place] Nitrite Ql (U) Negative Normal Negative [facility] Comment on above: Order Comment: Speci men Type: URINE SPECIMENOrdering Facility: [facility] Address: [address] [place] [address] Performed By: #### L [id number] ####[facility] LABIA [id number] [place] [address] [place] pH (U) 8.0 [pH] Normal 5.0-8.0 [facility] Comment on above: Order Comment: Speci men Type: URINE SPECIMENOrdering Facility: [facility] Address: [address] [place] [address] Performed By: #### L [id number] ####[facility] [id number] [place] [address] [place] Protein (U) [Mass/Vol] Negative Normal Negative [facility] Comment on above: Order Comment: Speci men Type: URINE SPECIMENOrdering Facility: [facility] Address: [address] [place] [address] Performed By: #### L [id number] ####[facility] LABIA [id number] [place] [address] [place] Specific gravity (U) [Rel density] 1.006 Normal 1.005-1.030 [facility] Comment on above: Order Comment: Speci men Type: URINE SPECIMENOrdering Facility: [facility] Address: [address] [place] [address] Performed By: #### L [id number] ####[facility] LABIA [id number] [place] [address] [place] Urobilinogen Ql (U) Negative Normal Negative [facility] Comment on above: Order Comment: Speci men Type: URINE SPECIMENOrdering Facility: [facility] Address: [address] [place] [address] Performed By: #### L [id number] ####[facility] LABCLIA [id number] [place] [id number] [place] ALLIED HEALTHon 06-08-2022 ALLIED HEALTH HNO ID: [id number] Author: Chaplain Jameson Service: Spiritual Care Author Type: Ratings Analyst Type: Allied Health Filed: 06/08/2022 12:50 PM [...] 08, 2022 TIME: 12:49 PM CONTACT #: [id number] [facility] Basic metabolic 2000 panelon 06-08-2022 Anion gap [Moles/Vol] 9 mmol/L Normal 9-18 [place] Comment on above: Order Comment: Speci men Type: BLOOD SPECIMENOrdering Facility: [facility] Address: [address] [place], [place] [phone] Performed By: #### 2 43210-02, 1988-01, , 2776-10, JOSSELYN ####[facility] LABCLIA [id number] [place] [id number] [place] Calcium [Mass/Vol] 9.0 mg/dL Normal 8.5-10.2 [facility] Comment on above: Order Comment: Speci men Type: BLOOD SPECIMENOrdering Facility: [facility] Address: [address] [place] [address] Performed By: #### 2 4321-, 1988-01, , 2776-10, JOSSELYN ####[facility] LABCLIA [id number] [place] [id number] [place] Chloride [Moles/Vol] 99 mmol/L Normal 97-105 [facility] Comment on above: Order Comment: Speci men Type: BLOOD SPECIMENOrdering Facility: [facility] Address: [address] [place], [place] [phone] Performed By: #### 2 432-2, 1988-01, , 2776-10, JOSSELYN ####[facility] [id number] [place] [id number] [place] CO2 [Moles/Vol] 30 mmol/L Normal 22-30 [facility] Comment on above: Order Comment: Speci men Type: BLOOD SPECIMENOrdering Facility: [facility] Address: [address] [place] [address] Performed By: #### 2 4320-2, 1988-01, , 2776-10, JOSSELYN ####[facility] [id number] [place] [address] [place] Creatinine [Mass/Vol] 0.66 mg/dL Normal 0.58-0.96 [place] Comment on above: Order Comment: Speci men Type: BLOOD SPECIMENOrdering Facility: [facility] Address: [address] [place], [place] [address] Performed By: #### 2 432-, 1988-01, , 2776-10, JOSSELYN ####[facility] [id number] [place] [address] [place] ESTIMATED GLOMERULAR FILTRATION RATE 104 mL/min/1.73m??? Normal >=60 [facility] Comment on above: Order Comment: Speci men Type: BLOOD SPECIMENOrdering Facility: [facility] Address: [address] [place], [place] [phone] Result Comment: Faiza mated Glomerular Filtration Rate [...] #### 2 4320-11, 1988-01, , 2776-10, JOSSELYN ####[facility] LABCLIA [id number] [address] [address] [place] Glucose [Mass/Vol] 108 mg/dL High 74-99 [facility] Comment on above: Order Comment: Speci lydia Type: BLOOD SPECIMENOrdering Facility: [facility] Address: [address] [place] [phone] Result Comment: The [place] Diabetes Association (ADA) provides guidance for cutoff [...] Standards of Medical Care in Diabetes 2016, [place] [employer]. Diabetes Care. 2016.39(Suppl 1). Performed By: #### 2 4320-11, 1988-01, , 2776-10, JOSSELYN ####[facility] LABCLIA [id number] [address] [address] [place] Potassium [Moles/Vol] 5.1 mmol/L Normal 3.7-5.1 [place] Comment on above: Order Comment: Poncho freeman Type: BLOOD SPECIMENOrdering Facility: [facility] Address: [address] [place] [address] Performed By: #### 2 4320-11, 1988-01, , 2776-10, JOSSELYN ####[facility] LABCLIA [id number] [place] [address] [place] Sodium [Moles/Vol] 138 mmol/L Normal 136-144 [facility] Comment on above: Order Comment: Speci men Type: BLOOD SPECIMENOrdering Facility: [facility] Address: [address] [place] [address] Performed By: #### 2 4320-2, 1988-01, , 2776-10, JOSSELYN ####[facility] LABCLIA [id number] [place] [address] [place] Urea nitrogen [Mass/Vol] 6 mg/dL Low 7-21 [facility] Comment on above: Order Comment: Speci men Type: BLOOD SPECIMENOrdering Facility: [facility] Address: [address] [place] [address] Performed By: #### 2 4320-, 1988-01, , 2776-10, JOSSELYN ####[facility] LABCLIA [id number] [place] [address] [place] CBC W Auto Differential pane l (Bld)on 06-08-2022 Basophils (Bld) [#/Vol] 10*3/uL Normal <0.11 [facility] Comment on above: Order Comment: Speci men Type: BLOOD SPECIMENOrdering Facility: [facility] Address: [address] [place], [place] [address] Performed By: #### 5 7021-8 ####[facility] LABCLIA [id number] [place] [address] [place] Basophils/100 WBC (Bld) 0.1 % Normal [facility] Comment on above: Order Comment: Speci men Type: BLOOD SPECIMENOrdering Facility: [facility] Address: [address] [place], [place] [address] Performed By: #### 5 7021-8 ####[facility] LABCLIA [id number] [address] [place] Differential cell count method Nom (Bld) Auto Normal [facility] Comment on above: Order Comment: Speci men Type: BLOOD SPECIMENOrdering Facility: [facility] Address: [address] [place] [address] Performed By: #### 5 7021-8 ####[facility] LABCLIA [id number] [place] [address] [place] Eosinophils (Bld) [#/Vol] 0.07 10*3/uL Normal <0.46 [facility] Comment on above: Order Comment: Speci men Type: BLOOD SPECIMENOrdering Facility: [facility] Address: [address] [place] [address] Performed By: #### 5 7021-8 ####[facility] LABCLIA [id number] [address] [place] Eosinophils/100 WBC (Bld) 0.6 % Normal [facility] Comment on above: Order Comment: Speci men Type: BLOOD SPECIMENOrdering Facility: [facility] Address: [address] [place], [place] [address] Performed By: #### 5 7021-8 ####[facility] LABCLIA [id number] [place] [address] [place] Erythrocyte distribution width (RBC) [Ratio] 14.4 % Normal 11.5-15.0 [facility] Comment on above: Order Comment: Speci men Type: BLOOD SPECIMENOrdering Facility: [facility] Address: [address] [place], [place] [address] Performed By: #### 5 7021-8 ####[facility] LABCLIA [id number] [place] [address] [place] Hematocrit (Bld) [Volume fraction] 34.8 % Low 36.0-46.0 [facility] Comment on above: Order Comment: Speci men Type: BLOOD SPECIMENOrdering Facility: [facility] Address: [address] [place], [place] [address] Performed By: #### 5 7021-8 ####[facility] LABCLIA [id number] [place] [address] [place] Hemoglobin (Bld) [Mass/Vol] 10.7 g/dL Low 11.5-15.5 [facility] Comment on above: Order Comment: Speci men Type: BLOOD SPECIMENOrdering Facility: [facility] Address: [address] [place] [address] Performed By: #### 5 7021-8 ####[facility] LABCLIA [id number] [address] [place] IMMATURE GRAN % 0.7 % Normal [facility] Comment on above: Order Comment: Speci men Type: BLOOD SPECIMENOrdering Facility: [facility] Address: [address] [place], [place] [address] Performed By: #### 5 7021-8 ####[facility] LABCLIA [id number] [place] [address] [place] IMMATURE GRAN ABS 0.08 k/uL Normal <0.10 [facility] Comment on above: Order Comment: Speci men Type: BLOOD SPECIMENOrdering Facility: [facility] Address: [address] [place], [place] [address] Performed By: #### 5 7021-8 ####[facility] LABCLIA [id number] [place] [address] [place] Lymphocytes (Bld) [#/Vol] 2.23 10*3/uL Normal 1.00-4.00 [facility] Comment on above: Order Comment: Speci men Type: BLOOD SPECIMENOrdering Facility: [facility] Address: [address] [place], [place] [address] Performed By: #### 5 7021-8 ####[facility] LABCLIA [id number] [place] [address] [place] Lymphocytes/100 WBC (Bld) 20.2 % Normal [facility] Comment on above: Order Comment: Speci men Type: BLOOD SPECIMENOrdering Facility: [facility] Address: [address] [place] [address] Performed By: #### 5 7021-8 ####[facility] LABIA [id number] [address] [place] MCH (RBC) [Entitic mass] 29.1 pg Normal 26.0-34.0 [facility] Comment on above: Order Comment: Speci men Type: BLOOD SPECIMENOrdering Facility: [facility] Address: [address] [place], [place] [address] Performed By: #### 5 7021-8 ####[facility] LABIA [id number] [address] [place] MCHC (RBC) [Mass/Vol] 30.7 g/dL Normal 30.5-36.0 [place] Comment on above: Order Comment: Speci men Type: BLOOD SPECIMENOrdering Facility: [facility] Address: [address] [place], [place] [address] Performed By: #### 5 7021-8 ####[facility] LABIA [id number] [place] [address] [place] MCV (RBC) [Entitic vol] 94.6 fL Normal 80.0-100.0 [facility] Comment on above: Order Comment: Speci men Type: BLOOD SPECIMENOrdering Facility: [facility] Address: [address] [place], [place] [address] Performed By: #### 5 7021-8 ####[facility] LABIA [id number] [place] [address] [place] Monocytes (Bld) [#/Vol] 0.97 10*3/uL High <0.87 [facility] Comment on above: Order Comment: Speci men Type: BLOOD SPECIMENOrdering Facility: [facility] Address: [address] [place] [address] Performed By: #### 5 7021-8 ####[facility] LABCLIA [id number] [place] [address] [place] Monocytes/100 WBC (Bld) 8.8 % Normal [facility] Comment on above: Order Comment: Speci men Type: BLOOD SPECIMENOrdering Facility: [facility] Address: [address] [place], [place] [address] Performed By: #### 5 7021-8 ####[facility] LABCLIA [id number] [place] [address] [place] Neutrophils (Bld) [#/Vol] 7.66 10*3/uL High 1.45-7.50 [facility] Comment on above: Order Comment: Speci men Type: BLOOD SPECIMENOrdering Facility: [facility] Address: [address] [place], [place] [address] Performed By: #### 5 7021-8 ####[facility] LABCLIA [id number] [place] [address] [place] Neutrophils/100 WBC (Bld) 69.6 % Normal [facility] Comment on above: Order Comment: Speci men Type: BLOOD SPECIMENOrdering Facility: [facility] Address: [address] [place] [address] Performed By: #### 5 7021-8 ####[facility] LABCLIA [id number] [place] [address] [place] Nucleated RBC (Bld) [#/Vol] 10*3/uL Normal <0.01 [facility] Comment on above: Order Comment: Speci men Type: BLOOD SPECIMENOrdering Facility: [facility] Address: [address] [place], [place] [address] Performed By: #### 5 7021-8 ####[facility] LABCLIA [id number] [place] [address] [place] Nucleated RBC/100 WBC (Bld) [Ratio] 0.0 /[address] [facility] Comment on above: Order Comment: Speci men Type: BLOOD SPECIMENOrdering Facility: [facility] Address: [address] [place] [address] Performed By: #### 5 7021-8 ####[facility] LABIA [id number] [place] [address] [place] Platelet mean volume (Bld) [Entitic vol] 9.7 fL Normal 9.0-12.7 [facility] Comment on above: Order Comment: Speci men Type: BLOOD SPECIMENOrdering Facility: [facility] Address: [address] [place], [place] [address] Performed By: #### 5 7021-8 ####[facility] LABIA [id number] [place] [address] [place] Platelets (Bld) [#/Vol] 322 10*3/uL Normal 150-400 [facility] Comment on above: Order Comment: Speci men Type: BLOOD SPECIMENOrdering Facility: [facility] Address: [address] [place] [address] Performed By: #### 5 7021-8 ####[facility] LABCLIA [id number] [place] [address] [place] RBC (Bld) [#/Vol] 3.68 10*6/uL Low 3.90-5.20 [facility] Comment on above: Order Comment: Speci men Type: BLOOD SPECIMENOrdering Facility: [facility] Address: [address] [place], [place] [address] Performed By: #### 5 7021-8 ####[facility] LABCLIA [id number] [place] [id number] [place] WBC (Bld) [#/Vol] 11.02 10*3/uL High 3.70-11.00 [facility] Comment on above: Order Comment: Speci men Type: BLOOD SPECIMENOrdering Facility: [facility] Address: [address] [place] [address] Performed By: #### 5 7021-8 ####[facility] LABCLIA [id number] [place] [address] [place] CRP SerPl-mCncon 06-08-2022 CRP [Mass/Vol] 6.2 mg/dL High <0.9 [facility] Comment on above: Order Comment: Speci men Type: BLOOD SPECIMENOrdering Facility: [facility] Address: [address] [place] [address] Performed By: #### 2 4321-2, 1988-01, , 2776-10, JOSSELYN ####[facility] LABCLIA [id number] [place] [address] [place] Magnesium SerPl-mCncon 06-08 Magnesium [Mass/Vol] 2.2 mg/dL Normal 1.7-2.3 [facility] Comment on above: Order Comment: Speci men Type: BLOOD SPECIMENOrdering Facility: [facility] Address: [address] [place], [place] [address] Performed By: #### 2 4321-2, 1988-01, , 2776-10, JOSSELYN ####[facility] LABCLIA [id number] [place] [address] [place] Phosphate SerPl-mCncon 06-08 Phosphate [Mass/Vol] 2.4 mg/dL Low 2.7-4.8 [facility] Comment on above: Order Comment: Speci men Type: BLOOD SPECIMENOrdering Facility: [facility] Address: [address] [place] [address] Performed By: #### 2 4321-2, 1988-01, , 2776-, JOSSELYN ####[facility] LABIA [id number] [place] [address] [place] TROPONIN Ton 06-08-2022 Troponin T.cardiac [Mass/Vol] ug/L Normal 0.000-0.029 [facility] Comment on above: Order Comment: Speci men Type: BLOOD SPECIMENOrdering Facility: [facility] Address: [address] Performed By: #### 2 4321-2, 1988-01, , 2776-10, JOSSELYN ####[facility] LABIA [id number] [place] [address] [place] Basic metabolic 2000 panelon 06-07-2022 Anion gap [Moles/Vol] 9 mmol/L Normal 9-18 [place] Comment on above: Order Comment: Speci men Type: BLOOD SPECIMENOrdering Facility: [facility] Address: [address] [place] [address] Performed By: #### 2 4321-2 ####[facility] LABIA [id number] [place] [address] [place] Calcium [Mass/Vol] 9.6 mg/dL Normal 8.5-10.2 [facility] Comment on above: Order Comment: Speci men Type: BLOOD SPECIMENOrdering Facility: [facility] Address: [address] Performed By: #### 2 4321-2 ####[facility] LABIA [id number] [place] [address] [place] Chloride [Moles/Vol] 99 mmol/L Normal 97-105 [facility] Comment on above: Order Comment: Speci men Type: BLOOD SPECIMENOrdering Facility: [facility] Address: [address] [place] [phone] Performed By: #### 2 4321-2 ####[facility] LABCLIA [id number] [place] [address] [place] CO2 [Moles/Vol] 29 mmol/L Normal 22-30 [facility] Comment on above: Order Comment: Speci men Type: BLOOD SPECIMENOrdering Facility: [facility] Address: [address] [place] [address] Performed By: #### 2 4321-2 ####[facility] LABIA [id number] [place] [address] [place] Creatinine [Mass/Vol] 0.70 mg/dL Normal 0.58-0.96 [place] Comment on above: Order Comment: Speci men Type: BLOOD SPECIMENOrdering Facility: [facility] Address: [address] [place] [address] Performed By: #### 2 4321-2 ####[facility] LABIA [id number] [place] [address] [place] ESTIMATED GLOMERULAR FILTRATION RATE 102 mL/min/1.73m??? Normal >=60 [facility] Comment on above: Order Comment: Speci men Type: BLOOD SPECIMENOrdering Facility: [facility] Address: [address] [place] [address] Result Comment: Faiza mated Glomerular Filtration Rate [...] actual GFR. Performed By: #### 2 4321-2 ####[facility] LABCLIA [id number] [place] [address] [place] Glucose [Mass/Vol] 94 mg/dL Normal 74-99 [facility] Comment on above: Order Comment: Speci men Type: BLOOD SPECIMENOrdering Facility: [facility] Address: [address] [place], [place] [phone] Result Comment: The [place] [employer] (ADA) provides guidance for cutoff [...] Standards of Medical Care in Diabetes 2016, [place] [employer]. Diabetes Care. 2016.39(Suppl 1). Performed By: #### 2 4321-2 ####[facility] LABCLIA [id number] [place] [address] [place] Potassium [Moles/Vol] 4.9 mmol/L Normal 3.7-5.1 [place] Comment on above: Order Comment: Speci men Type: BLOOD SPECIMENOrdering Facility: [facility] Address: [address] [place], [place] [address] Performed By: #### 2 4321-2 ####[facility] LABCLIA [id number] [place] [address] [place] Sodium [Moles/Vol] 137 mmol/L Normal 136-144 [facility] Comment on above: Order Comment: Speci men Type: BLOOD SPECIMENOrdering Facility: [facility] Address: [address] [place], [place] [address] Performed By: #### 2 4321-2 ####[facility] LABCLIA [id number] [place] [address] [place] Urea nitrogen [Mass/Vol] 8 mg/dL Normal 7-21 [facility] Comment on above: Order Comment: Speci men Type: BLOOD SPECIMENOrdering Facility: [facility] Address: [address] [place], [place] [address] Performed By: #### 2 4321-2 ####[facility] LABCLIA [id number] [place] [address] [place] Anion gap [Moles/Vol] 9 mmol/L Normal 9-18 [place] Comment on above: Order Comment: Speci men Type: BLOOD SPECIMENOrdering Facility: [facility] Address: [address] [place] [address] Performed By: #### 1 988-5, 2777-1, JOSSELYN, , 23565-4 ####[facility] LABIA [id number] [place] [address] [place] Calcium [Mass/Vol] 10.0 mg/dL Normal 8.5-10.2 [facility] Comment on above: Order Comment: Speci men Type: BLOOD SPECIMENOrdering Facility: [facility] Address: [address] [place] [address] Performed By: #### 1 988-5, 2777-1, JOSSELYN, , 13895-1 ####[facility] LABIA [id number] [place] [address] [place] Chloride [Moles/Vol] 99 mmol/L Normal 97-105 [facility] Comment on above: Order Comment: Speci men Type: BLOOD SPECIMENOrdering Facility: [facility] Address: [address] [place], [place] [id number] Performed By: #### 1 988-5, 2777-1, JOSSELYN, , 48500-0 ####[facility] LABIA [id number] [place] [address] [place] CO2 [Moles/Vol] 27 mmol/L Normal 22-30 [facility] Comment on above: Order Comment: Speci men Type: BLOOD SPECIMENOrdering Facility: [facility] Address: [address] Performed By: #### 1 988-5, 2777-1, JOSSELYN, , 03215-0 ####[facility] LABCLIA [id number] [place] [address] [place] Creatinine [Mass/Vol] 0.66 mg/dL Normal 0.58-0.96 [place] Comment on above: Order Comment: Speci men Type: BLOOD SPECIMENOrdering Facility: [facility] [facility] Address: [address] [place], [place] [address] Performed By: #### 1 988-5, 2777-1, JOSSELYN, , 03030-3 ####[facility] LABCLIA [id number] [place] [address] [place] [facility] ESTIMATED GLOMERULAR FILTRATION RATE 104 mL/min/1.73m??? Normal >=60 [facility] Comment on above: Order Comment: Speci men Type: BLOOD SPECIMENOrdering Facility: [facility] Address: [address] [place] [address] Result Comment: Faiza mated Glomerular Filtration Rate [...] Performed By: #### 1 988-5, 2777-1, JOSSELYN, 52401-2, 62016-1 ####[facility] LABCLIA [id number] [place] [address] [place] Glucose [Mass/Vol] 121 mg/dL High 74-99 [facility] Comment on above: Order Comment: Speci men Type: BLOOD SPECIMENOrdering Facility: [facility] Address: [address] [place] [address] Result Comment: The [place] Diabetes Association (ADA) provides guidance for cutoff [...] Standards of Medical Care in Diabetes 2016, [place] [employer]. Diabetes Care. 2016.39(Suppl 1). Performed By: #### 1 988-5, 2777-1, JOSSELYN, , 45780-7 ####[facility] LABCLIA [id number] [place] [address] [place] Potassium [Moles/Vol] 5.4 mmol/L High 3.7-5.1 [place] Comment on above: Order Comment: Speci men Type: BLOOD SPECIMENOrdering Facility: [facility] Address: [address] [address] Performed By: #### 1 988-5, 2777-1, JOSSELYN, , ####[facility] LABIA [id number] [place] [address] [place] Sodium [Moles/Vol] 135 mmol/L Low 136-144 [facility] Comment on above: Order Comment: Speci men Type: BLOOD SPECIMENOrdering Facility: [facility] Address: [address] [place] [address] Performed By: #### 1 988-5, 2777-1, JOSSELYN, , ####[facility] LABIA [id number] [address] [address] [place] Urea nitrogen [Mass/Vol] 8 mg/dL Normal 7-21 [facility] Comment on above: Order Comment: Speci men Type: BLOOD SPECIMENOrdering Facility: [facility] Address: [address] [place] [address] Performed By: #### 1 988-5, 2777-1, JOSSELYN, 19680-5, 55316-7 ####[facility] LABCLIA [id number] [place] [address] [place] CBC W Auto Differential pane l (Bld)on 06-07-2022 Basophils (Bld) [#/Vol] 10*3/uL Normal <0.11 [facility] Comment on above: Order Comment: Speci men Type: BLOOD SPECIMENOrdering Facility: [facility] Address: [address] [place] [address] Performed By: #### 5 7021-8 ####[facility] LABCLIA [id number] [place] [address] [place] Basophils/100 WBC (Bld) 0.1 % Normal [facility] Comment on above: Order Comment: Speci men Type: BLOOD SPECIMENOrdering Facility: [facility] Address: [address] [place] [address] Performed By: #### 5 7021-8 ####[facility] LABCLIA [id number] [place] [address] [place] Differential cell count method Nom (Bld) Auto Normal [facility] Comment on above: Order Comment: Speci men Type: BLOOD SPECIMENOrdering Facility: [facility] Address: [address] [place] [address] Performed By: #### 5 7021-8 ####[facility] LABCLIA [id number] [place] [address] [place] Eosinophils (Bld) [#/Vol] 10*3/uL Normal <0.46 [facility] Comment on above: Order Comment: Speci men Type: BLOOD SPECIMENOrdering Facility: [facility] Address: [address] [place], [place] [address] Performed By: #### 5 7021-8 ####[facility] LABCLIA [id number] [place] [address] [place] Eosinophils/100 WBC (Bld) 0.0 % Normal [facility] Comment on above: Order Comment: Speci men Type: BLOOD SPECIMENOrdering Facility: [facility] Address: [address] [place], [place] [address] Performed By: #### 5 7021-8 ####[facility] LABIA [id number] [place] [address] [place] Erythrocyte distribution width (RBC) [Ratio] 14.4 % Normal 11.5-15.0 [facility] Comment on above: Order Comment: Speci men Type: BLOOD SPECIMENOrdering Facility: [facility] Address: [address] [place], [place] [address] Performed By: #### 5 7021-8 ####[facility] LABIA [id number] [place] [address] [place] Hematocrit (Bld) [Volume fraction] 39.3 % Normal 36.0-46.0 [facility] Comment on above: Order Comment: Speci men Type: BLOOD SPECIMENOrdering Facility: [facility] Address: [address] [place], [place] [address] Performed By: #### 5 7021-8 ####[facility] LABCLIA [id number] [place] [address] [place] Hemoglobin (Bld) [Mass/Vol] 12.2 g/dL Normal 11.5-15.5 [facility] Comment on above: Order Comment: Speci men Type: BLOOD SPECIMENOrdering Facility: [facility] Address: [address] [place], [place] [address] Performed By: #### 5 7021-8 ####[facility] LABCLIA [id number] [address] STATES OF [facility] IMMATURE GRAN % 0.8 % Normal [facility] Comment on above: Order Comment: Speci men Type: BLOOD SPECIMENOrdering Facility: [facility] Address: [address] [place] [address] Performed By: #### 5 7021-8 ####[facility] LABCLIA [id number] [place] [address] [place] IMMATURE GRAN ABS 0.11 k/uL High <0.10 [facility] Comment on above: Order Comment: Speci men Type: BLOOD SPECIMENOrdering Facility: [facility] Address: [address] [place] [address] Performed By: #### 5 7021-8 ####[facility] LABCLIA [id number] [place] [address] [place] Lymphocytes (Bld) [#/Vol] 0.56 10*3/uL Low 1.00-4.00 [facility] Comment on above: Order Comment: Speci men Type: BLOOD SPECIMENOrdering Facility: [facility] Address: [address] [place], [place] [address] Performed By: #### 5 7021-8 ####[facility] LABIA [id number] [address] [place] Lymphocytes/100 WBC (Bld) 3.9 % Normal [facility] Comment on above: Order Comment: Speci men Type: BLOOD SPECIMENOrdering Facility: [facility] Address: [address] [place], [place] [address] Performed By: #### 5 7021-8 ####[facility] LABCLIA [id number] [place] [address] [place] MCH (RBC) [Entitic mass] 28.7 pg Normal 26.0-34.0 [facility] Comment on above: Order Comment: Speci men Type: BLOOD SPECIMENOrdering Facility: [facility] Address: [address] [place], [place] [address] Performed By: #### 5 7021-8 ####[facility] LABCLIA [id number] [address] [place] MCHC (RBC) [Mass/Vol] 31.0 g/dL Normal 30.5-36.0 [place] Comment on above: Order Comment: Speci men Type: BLOOD SPECIMENOrdering Facility: [facility] Address: [address] [place], [place] [address] Performed By: #### 5 7021-8 ####[facility] LABIA [id number] [place] [address] [place] MCV (RBC) [Entitic vol] 92.5 fL Normal 80.0-100.0 [facility] Comment on above: Order Comment: Speci men Type: BLOOD SPECIMENOrdering Facility: [facility] Address: [address] [place], [place] [address] Performed By: #### 5 7021-8 ####[facility] LABIA [id number] [place] [address] [place] Monocytes (Bld) [#/Vol] 0.76 10*3/uL Normal <0.87 [facility] Comment on above: Order Comment: Speci men Type: BLOOD SPECIMENOrdering Facility: [facility] Address: [address] [place] [address] Performed By: #### 5 7021-8 ####[facility] LABCLIA [id number] [address] [place] Monocytes/100 WBC (Bld) 5.3 % Normal [facility] Comment on above: Order Comment: Speci men Type: BLOOD SPECIMENOrdering Facility: [facility] Address: [address] [place], [place] [address] Performed By: #### 5 7021-8 ####[facility] LABCLIA [id number] [place] [address] [place] Neutrophils (Bld) [#/Vol] 12.93 10*3/uL High 1.45-7.50 [facility] Comment on above: Order Comment: Speci men Type: BLOOD SPECIMENOrdering Facility: [facility] Address: [address] [place], [place] [address] Performed By: #### 5 7021-8 ####[facility] LABCLIA [id number] [place] [address] [place] Neutrophils/100 WBC (Bld) 89.9 % Normal [facility] Comment on above: Order Comment: Speci men Type: BLOOD SPECIMENOrdering Facility: [facility] Address: [address] [place], [place] [address] Performed By: #### 5 7021-8 ####[facility] LABIA [id number] [place] [address] [place] Nucleated RBC (Bld) [#/Vol] 10*3/uL Normal <0.01 [facility] Comment on above: Order Comment: Speci men Type: BLOOD SPECIMENOrdering Facility: [facility] Address: [address] [place], [place] [address] Performed By: #### 5 7021-8 ####[facility] LABIA [id number] [place] [address] [place] Nucleated RBC/100 WBC (Bld) [Ratio] 0.0 /[address] [facility] Comment on above: Order Comment: Speci men Type: BLOOD SPECIMENOrdering Facility: [facility] Address: [address] [place] [address] Performed By: #### 5 7021-8 ####[facility] LABIA [id number] [place] [address] [place] Platelet mean volume (Bld) [Entitic vol] 9.9 fL Normal 9.0-12.7 [facility] Comment on above: Order Comment: Speci men Type: BLOOD SPECIMENOrdering Facility: [facility] Address: [address] [place], [place] [address] Performed By: #### 5 7021-8 ####[facility] LABCLIA [id number] [place] [address] [place] Platelets (Bld) [#/Vol] 385 10*3/uL Normal 150-400 [facility] Comment on above: Order Comment: Speci men Type: BLOOD SPECIMENOrdering Facility: [facility] Address: [address] [place], [place] [address] Performed By: #### 5 7021-8 ####[facility] LABCLIA [id number] [place] [address] [place] RBC (Bld) [#/Vol] 4.25 10*6/uL Normal 3.90-5.20 [facility] Comment on above: Order Comment: Speci men Type: BLOOD SPECIMENOrdering Facility: [facility] Address: [address] [place], [place] [address] Performed By: #### 5 7021-8 ####[facility] LABCLIA [id number] [place] [address] [place] WBC (Bld) [#/Vol] 14.38 10*3/uL High 3.70-11.00 [facility] Comment on above: Order Comment: Speci men Type: BLOOD SPECIMENOrdering Facility: [facility] Address: [address] [place], [place] [address] Performed By: #### 5 7021-8 ####[facility] LABCLIA [id number] [place] [address] [place] CRP SerPl-mCncon 06-07-2022 CRP [Mass/Vol] 2.1 mg/dL High <0.9 [facility] Comment on above: Order Comment: Speci men Type: BLOOD SPECIMENOrdering Facility: [facility] Address: [address] [place] [address] Performed By: #### 1 988-5, 2777-1, JOSSELYN, , 03885-8 ####[facility] LABCLIA [id number] [address] ECG COMPLETEon 06-07-2022 ECG COMPLETE Ventricular Rate : 6 3 BPM Atrial Rate : 63 BPM P-R Interval : 136 ms QRS Duration : 82 ms Q-T Interval : 414 ms QTC Calculation(Bazett) : 423 ms Calculated P [place] : 56 degrees Calculated R [place] : 49 degrees Calculated T [place] : 33 degrees NORMAL SINUS RHYTHM NORMAL ECG Confirmed by MD PRECIOUS, PhD, UZMA ([id number]) on 06/24/2022 6:36:16 PM NAME : VALERIA ROMERO PID : [id number] : 1965 Gender : Female Race : ORD : [id number] Procedure Date : Jun 07 2022 02:28:37 Edit Date : Jun 24 2022 18:36:18 Diagnosis: NORMAL SINUS RHYTHM NORMAL ECG Confirmed by MD PRECIOUS, PhD, UZMA ([id number]) on 06/24/2022 6:36:16 PM Test Reason : Post-OP Location : 53 : [facility] H050[facility] Overread By : MD PRECIOUS, PhD,UZMA Edited By : MD PRECIOUS, PhD,UZMA Referred By : , Acquired by : JACQUES FISCHER Normal [facility] Magnesium [Mass/Vol] 2.0 mg/dL Normal 1.7-2.3 [facility] Comment on above: Order Comment: Speci men Type: BLOOD SPECIMENOrdering Facility: [facility] Address: [address] [place], [place] [address] Performed By: #### 1 988-5, 2777-1, JOSSELYN, , 99724-8 ####[facility] LABCLIA [id number] [place] [id number] [place] Phosphate SerPl-mCncon 06-07 Phosphate [Mass/Vol] 4.4 mg/dL Normal 2.7-4.8 [facility] Comment on above: Order Comment: Speci men Type: BLOOD SPECIMENOrdering Facility: [facility] Address: [address] [place] [address] Performed By: #### 1 988-5, 2777-1, JOSSELYN, 61810-6, 98763-9 ####[facility] LABCLIA [id number] [place] [id number] [place] THERAPY NTon 06-07-2022 THERAPY NT HNO ID: [id number] Author: Chayo Maharaj OT/L Service: ? Author Type: Occupational Therapist Type: Therapy (PT/OT/Speech/Resp) Filed: 06/07/2022 3:04 PM Note Text: Occupational Therapy Evaluation SERVICE DATE: 06/07/2022 SERVICE TIME: 1354 to 1451 ROOM: [place] [address] Recommended Discharge Disposition: Home Recommended Discharge Disposition [...] arranged for roommates to complete. Equipment Owned: Shot Stats-Shower Prior Functional Level: Within Functional Limits Prior [...] needs ar (more content not included)... Normal [facility] THERAPY NT HNO ID: [id number] Author: Shanna Leslie, PT Service: ? 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 Patient Report: Pt agreeable to PT CURRENT [...] Diagnosis: Reduced mobility-other Interventions Provided: Evaluation;Therapeutic Activity (24856);Gait Training (61054) $ Evaluation-Low (35510) Billed Units: 1 unit Therapeutic Activity (74935) Treatment Minutes: 8 $ Therapeutic Activity (25228) Billed Units: 1 unit Gait Training (42960) Treatment Minutes: 15 $ Gait Training (36599) Billed Units: 1 unit Training AND education provided in: Assistive device use, Bed mobility, Benefits of in-hospital mobility, Discharge planning, Disease specific education, Expected functional level, Gait trinity (more content not included)... Normal [facility] TROPONIN Ton 06-07-2022 Troponin T.cardiac [Mass/Vol] ug/L Normal 0.000-0.029 [facility] Comment on above: Order Comment: Speci men Type: BLOOD SPECIMENOrdering Facility: [facility] Address: [address] [place], [place] [address] Performed By: #### 1 988-5, 2777-1, JOSSELYN, 96836-9, 94595-6 ####[facility] LABCLIA [id number] [address] OF [facility] ANES POSTPROC EVALon 022 ANES POSTPROC EVAL HNO ID: [id number] Author: Jose Manuel Martinez MD Service: ? Author Type: Anesthesiologist Type: Anesthesia Postprocedure Evaluation Filed: 06/06/2022 4:49 PM Note Text: POST ANESTHESIA EVALUATION NOTE : 1965 Procedure Summary Date: 06/06/22 Room / Location: [address] [facility] Anesthesia Start: 1026 Anesthesia Stop: 1505 Procedure: [...] June 06, 2022 TIME: 4:48 PM CSN: [id number] Normal [facility] ANES PRE-OPon 06-06-2022 ANES PRE-OP HNO ID: [id number] Author: Jose Manuel Martinez MD Service: ? Author Type: Anesthesiologist Type: Anesthesia Preprocedure Evaluation Filed: 06/06/2022 9:56 AM Note Text: ANESTHESIOLOGY DAY OF SURGERY NOTE : 1965 Procedure Information Date/Time: 06/06/22 1015 Procedure: COMPLEX REPAIR WOUND OF ABDOMEN 2.6 CM TO 7.5 CM (Abdomen) Location: [facility]IN [facility] Surgeons: Pedro Walsh MD Estimated body mass [...] and consent discussed: yes. Patient / Responsible [employer] Party agrees to proceed: yes Patient / Surrogate agrees to blood products: Yes Significant changes in the patient condition since the History and Physical, not otherwise documented in primary service progress note: no. Potential Anesthesia issues that may suggest increased risk of complications or contraindication to planned procedure: none. Vitals Value Taken Time BP 116/60 06/06/22 0845 Pulse 63 06/06/2245 Resp 18 06/06/22844 Temp 36.7 ?C (98.1 ?F) 06/06/22844 SpO2 99 % 06/06/22844 Facility-Administered Medications as of 06/06/2022 Medication Dose [...] June 06, 2022 TIME: 9:52 AM CSN: [id number] Normal [facility] CBC panel Auto (Bld)on 06-06 Erythrocyte distribution width (RBC) [Ratio] 14.2 % Normal 11.5-15.0 [facility] Comment on above: Order Comment: Speci men Type: BLOOD SPECIMENOrdering Facility: [facility] Address: [address] [place], [place] [address] Performed By: #### 5 8410-2 ####[facility] LABIA [id number] [place] [address] [place] Hematocrit (Bld) [Volume fraction] 41.1 % Normal 36.0-46.0 [facility] Comment on above: Order Comment: Speci men Type: BLOOD SPECIMENOrdering Facility: [facility] Address: [address] [place], [place] [address] Performed By: #### 5 8410-2 ####[facility] LABIA [id number] [address] [place] Hemoglobin (Bld) [Mass/Vol] 13.1 g/dL Normal 11.5-15.5 [facility] Comment on above: Order Comment: Speci men Type: BLOOD SPECIMENOrdering Facility: [facility] Address: [address] [place], [place] [address] Performed By: #### 5 8410-2 ####[facility] LABIA [id number] [place] [address] [place] MCH (RBC) [Entitic mass] 29.5 pg Normal 26.0-34.0 [facility] Comment on above: Order Comment: Speci men Type: BLOOD SPECIMENOrdering Facility: [facility] Address: [address] [place] [address] Performed By: #### 5 8410-2 ####[facility] LABIA [id number] [place] [address] [place] MCHC (RBC) [Mass/Vol] 31.9 g/dL Normal 30.5-36.0 [place] Comment on above: Order Comment: Speci men Type: BLOOD SPECIMENOrdering Facility: [facility] Address: [address] [place] [address] [place] [address] Performed By: #### 5 8410-2 ####[facility] LABIA [id number] [address] [place] MCV (RBC) [Entitic vol] 92.6 fL Normal 80.0-100.0 [facility] Comment on above: Order Comment: Speci men Type: BLOOD SPECIMENOrdering Facility: [facility] Address: [address] [place] [address] Performed By: #### 5 8410-2 ####[facility] LABIA [id number] [place] [address] [place] Nucleated RBC (Bld) [#/Vol] 10*3/uL Normal <0.01 [facility] Comment on above: Order Comment: Speci men Type: BLOOD SPECIMENOrdering Facility: [facility] Address: [address] [place], [place] [address] Performed By: #### 5 8410-2 ####[facility] LABIA [id number] [place] [address] [place] Platelet mean volume (Bld) [Entitic vol] 9.6 fL Normal 9.0-12.7 [facility] Comment on above: Order Comment: Speci men Type: BLOOD SPECIMENOrdering Facility: [facility] Address: [address] [place] [address] Performed By: #### 5 8410-2 ####[facility] LABIA [id number] [place] [address] [place] Platelets (Bld) [#/Vol] 261 10*3/uL Normal 150-400 [facility] Comment on above: Order Comment: Speci men Type: BLOOD SPECIMENOrdering Facility: [facility] Address: [address] [place] [address] Performed By: #### 5 8410-2 ####[facility] LABIA [id number] [place] [address] [place] RBC (Bld) [#/Vol] 4.44 10*6/uL Normal 3.90-5.20 [facility] Comment on above: Order Comment: Speci men Type: BLOOD SPECIMENOrdering Facility: [facility] Address: [address] [place] [address] Performed By: #### 5 8410-2 ####[facility] LABCLIA [id number] [place] [address] [place] WBC (Bld) [#/Vol] 18.18 10*3/uL High 3.70-11.00 [facility] Comment on above: Order Comment: Speci men Type: BLOOD SPECIMENOrdering Facility: [facility] Address: [address] [place] [address] Performed By: #### 5 8410-2 ####[facility] LABCLIA [id number] [address] [place] BLOOD TYPEon [address] [facility] Comment on above: Order Comment: Speci men Type: BLOOD SPECIMENOrdering Facility: [facility] Address: [address] [place] [address] Performed By: #### C ONABO ####[facility] BLOOD BANKCLIA [id number] [place] [address] [place] Rh Nom (Bld) Positive Normal [facility] Comment on above: Order Comment: Speci men Type: BLOOD SPECIMENOrdering Facility: [facility] Address: [address] [place] [address] Performed By: #### C ONABO ####[facility] BLOOD BANKCLIA [id number] [address] [place] OPERATIVE NOon 06-06-2022 OPERATIVE NO HNO ID: [id number] Author: Pedro Walsh MD Service: ? Author Type: Physician Type: Operative Report Filed: 06/06/2022 2:20 PM Note Text: OPERATIVE REPORT Name: Valeria Romero : 1965 MR#: [id number] Date of service: June 06, 2022 Surgeon(s): Pedro Walsh MD Peer Tutor(s): DO Anne Peterson MD Procedure(s): 1. Open [...] inferiorly. There were 3 pieces of old Edwall-Leonides mesh from prior hernia repairs that were [...] fascia. The midline was closed with interrupted bcstfk-yo-caerg sutures using #1 PDS. Some hernia sac [...] present and scrubbed for the procedure. Normal [facility] CNPLluvia 06-01-2022 CNPN Telephone ([facility]) VALERIA ROMERO ([id number]) 1965 F Date Time Provider Department 06/01/22 VALERIA MORSE [facility] During your visit today, we recorded the following information about you: VON Bhatia 06/12/2022 4:16 PM Signed [facility] called the pt and left message with name and number asking for a return call. Allergies As of Date: 06/01/2022 Noted Allergy Reaction CIPRO (CIPROFLOXACIN) 02/27/2007 2 - Rash Date Reviewed: 05/30/2022 Reviewed by: Darío Miranda APRN.FURNACE OPERATOR - Fully Assessed Reason for Visit: outreach [...] Encounter Status:Closed by VALERIA MORSE on 06/12/[address] [facility] Telephone ([facility]) VALERIA ROMERO ([id number]) 1965 F Date Time Provider Department 06/01/22 VALERIA MORSE [facility] During your visit today, we recorded the following information about you: VON Bhatia 06/01/2022 1:38 PM Signed [facility] CONSULT NOTE Service Date: June 01, 2022 Patient was identified by name and Patient: Valeria Hamida Romero [address] [place] [address] [address] [facility] [address] (home) [phone] (cell) PCP: No primary care provider on file. No primary provider on file. Assessment: [facility] called the pt to discuss behavioral health services and offer resources, etc. Pt was looking for resources close to home. [facility] discussed options for psych, discussed firelands. Medications: [...] information Resources Provided: Medication Management [facility] Time Spent: 15 minutes VON Bhatia Allergies As of Date: 06/01/2022 Noted Allergy Reaction CIPRO (CIPROFLOXACIN) 02/27/2007 2 - Rash Date Reviewed: 05/30/2022 Reviewed by: Darío Miranda APRN.FURNACE OPERATOR - Fully Assessed Reason for Visit: outreach [...] Status:Closed by VALERIA MORSE on 06/01/[address] [facility] ANTIBODY ID PATIENTon 2021 ANTIBODY IDENTIFIED Non-specific Zoey Normal [facility] Comment on above: Order Comment: Speci men Type: BLOOD SPECIMENOrdering Facility: [facility] Address: [address] [place] [address] Performed By: #### % DIAZ, TSCR30, BBABINT ####CC MAIN BLOOD BANKCLIA [id number] [address] BLOOD BANK PLACEHOLDER, ANTI BODY INTERPRETATIONon 05-30-2022 BLOOD BANK REPORT, ANTIBODY INTERPRETATION See Pathology Report Normal [facility] Comment on above: Order Comment: Speci men Type: BLOOD SPECIMENOrdering Facility: [facility] Address: [address] [place] [address] Performed By: #### % DIAZ, TSCR30, BBABINT ####CC MAIN BLOOD BANKCLIA [id number] [address] TYPE AND SCREEN EXPIRATION 06/29/2022 23:[address] [facility] Comment on above: Order Comment: Speci men Type: BLOOD SPECIMENOrdering Facility: [facility] Address: [address] [place] [address] Performed By: #### % DIAZ, TSCR30, BBABINT ####CC MAIN BLOOD BANKCLIA [id number] [address] BLOOD BANK REPORT, ANTIBODY INTERPRETATIONon 05-30-[address] [facility] Comment on above: Order Comment: Speci men Type: BLOOD SPECIMENOrdering Facility: [facility] Address: [address] [place], [place] [phone] Result Comment: Jonny cyr Bank Report, Main [place] Case: [id number] Authorizing Provider: Pedro Walsh MD Collected: 05/30/2022 11:24 AM Ordering Location: Laboratory Medicine Received: 06/06/2022 11:54 AM Pathologist: Daniele Gallo MD Specimen: BLOOD Performed By: #### Michelle GALINDO ####[facility] [id number] [place] [address] [place] PATHOLOGY INTERPRETATION Normal [facility] Comment on above: Order Comment: Speci men Type: BLOOD SPECIMENOrdering Facility: [facility] Address: [address] [place] [address] Result Comment: Anti bodies to common clinically [...] of no apparent specificity. Performed By: #### Michelle GALINDO ####[facility] [id number] [address] [place] CBC W Auto Differential pane l (Bld)on 05-30-2022 Basophils (Bld) [#/Vol] 10*3/uL Normal <0.11 [facility] Comment on above: Order Comment: Speci men Type: BLOOD SPECIMENOrdering Facility: [facility] Address: [address] [place] [address] Performed By: #### 5 7021-8 ####[facility] LABIA [id number] [address] [place] Basophils/100 WBC (Bld) 0.4 % Normal [facility] Comment on above: Order Comment: Speci men Type: BLOOD SPECIMENOrdering Facility: [facility] Address: [address] [place], [place] [address] Performed By: #### 5 7021-8 ####[facility] LABCLIA [id number] [place] [address] [place] Differential cell count method Nom (Bld) Auto Normal [facility] Comment on above: Order Comment: Speci men Type: BLOOD SPECIMENOrdering Facility: [facility] Address: [address] [place], [place] [address] Performed By: #### 5 7021-8 ####[facility] LABCLIA [id number] [place] [address] [place] Eosinophils (Bld) [#/Vol] 0.15 10*3/uL Normal <0.46 [facility] Comment on above: Order Comment: Speci men Type: BLOOD SPECIMENOrdering Facility: [facility] Address: [address] [place], [place] [address] Performed By: #### 5 7021-8 ####[facility] LABCLIA [id number] [place] [address] [place] Eosinophils/100 WBC (Bld) 2.7 % Normal [facility] Comment on above: Order Comment: Speci men Type: BLOOD SPECIMENOrdering Facility: [facility] Address: [address] [place], [place] [address] Performed By: #### 5 7021-8 ####[facility] LABCLIA [id number] [place] [address] [place] Erythrocyte distribution width (RBC) [Ratio] 13.7 % Normal 11.5-15.0 [facility] Comment on above: Order Comment: Speci men Type: BLOOD SPECIMENOrdering Facility: [facility] Address: [address] [place], [place] [address] Performed By: #### 5 7021-8 ####[facility] LABCLIA [id number] [address] [place] Hematocrit (Bld) [Volume fraction] 40.5 % Normal 36.0-46.0 [facility] Comment on above: Order Comment: Speci men Type: BLOOD SPECIMENOrdering Facility: [facility] Address: [address] [place] [address] Performed By: #### 5 7021-8 ####[facility] LABCLIA [id number] [address] OF [facility] Hemoglobin (Bld) [Mass/Vol] 12.8 g/dL Normal 11.5-15.5 [facility] Comment on above: Order Comment: Speci men Type: BLOOD SPECIMENOrdering Facility: [facility] Address: [address] [place] [address] Performed By: #### 5 7021-8 ####[facility] LABIA [id number] [address] OF [facility] IMMATURE GRAN % 0.4 % Normal [facility] Comment on above: Order Comment: Speci men Type: BLOOD SPECIMENOrdering Facility: [facility] Address: [address] [place] [address] Performed By: #### 5 7021-8 ####[facility] LABIA [id number] [address] OF [facility] IMMATURE GRAN ABS <0.03 Normal <0.10 [facility] Comment on above: Order Comment: Speci men Type: BLOOD SPECIMENOrdering Facility: [facility] Address: [address] [place] [address] Performed By: #### 5 7021-8 ####[facility] LABIA [id number] [place] [address] [place] Lymphocytes (Bld) [#/Vol] 1.30 10*3/uL Normal 1.00-4.00 [facility] Comment on above: Order Comment: Speci men Type: BLOOD SPECIMENOrdering Facility: [facility] Address: [address] [place], [place] [address] Performed By: #### 5 7021-8 ####[facility] LABIA [id number] [address] STATES [facility] Lymphocytes/100 WBC (Bld) 23.5 % Normal [facility] Comment on above: Order Comment: Speci men Type: BLOOD SPECIMENOrdering Facility: [facility] Address: [address] [place], [place] [address] Performed By: #### 5 7021-8 ####[facility] [id number] [place] [address] [place] MCH (RBC) [Entitic mass] 28.8 pg Normal 26.0-34.0 [facility] Comment on above: Order Comment: Speci men Type: BLOOD SPECIMENOrdering Facility: [facility] Address: [address] [place], [place] [address] Performed By: #### 5 7021-8 ####[facility] LABIA [id number] [address] [place] MCHC (RBC) [Mass/Vol] 31.6 g/dL Normal 30.5-36.0 [place] Comment on above: Order Comment: Speci men Type: BLOOD SPECIMENOrdering Facility: [facility] Address: [address] [place] [address] Performed By: #### 5 7021-8 ####[facility] LABIA [id number] [address] [place] MCV (RBC) [Entitic vol] 91.2 fL Normal 80.0-100.0 [facility] Comment on above: Order Comment: Speci men Type: BLOOD SPECIMENOrdering Facility: [facility] Address: [address] [place], [place] [address] Performed By: #### 5 7021-8 ####[facility] LABCLIA [id number] [place] [address] [place] Monocytes (Bld) [#/Vol] 0.49 10*3/uL Normal <0.87 [facility] Comment on above: Order Comment: Speci men Type: BLOOD SPECIMENOrdering Facility: [facility] Address: [address] [place], [place] [address] Performed By: #### 5 7021-8 ####[facility] LABCLIA [id number] [place] [address] [place] Monocytes/100 WBC (Bld) 8.8 % Normal [facility] Comment on above: Order Comment: Speci men Type: BLOOD SPECIMENOrdering Facility: [facility] Address: [address] [place] [address] Performed By: #### 5 7021-8 ####[facility] LABCLIA [id number] [place] [address] [place] Neutrophils (Bld) [#/Vol] 3.56 10*3/uL Normal 1.45-7.50 [facility] Comment on above: Order Comment: Speci men Type: BLOOD SPECIMENOrdering Facility: [facility] Address: [address] [place], [place] [address] Performed By: #### 5 7021-8 ####[facility] LABCLIA [id number] [place] [address] [place] Neutrophils/100 WBC (Bld) 64.2 % Normal [facility] Comment on above: Order Comment: Speci men Type: BLOOD SPECIMENOrdering Facility: [facility] Address: [address] [place], [place] [address] Performed By: #### 5 7021-8 ####[facility] LABCLIA [id number] [place] [address] [place] Nucleated RBC (Bld) [#/Vol] 10*3/uL Normal <0.01 [facility] Comment on above: Order Comment: Speci men Type: BLOOD SPECIMENOrdering Facility: [facility] Address: [address] [place], [place] [address] Performed By: #### 5 7021-8 ####[facility] LABCLIA [id number] [place] [address] [place] Nucleated RBC/100 WBC (Bld) [Ratio] 0.0 /[address] [facility] Comment on above: Order Comment: Speci men Type: BLOOD SPECIMENOrdering Facility: [facility] Address: [address] [place], [place] [address] Performed By: #### 5 7021-8 ####[facility] LABIA [id number] [place] [address] [place] Platelet mean volume (Bld) [Entitic vol] 10.4 fL Normal 9.0-12.7 [facility] Comment on above: Order Comment: Speci men Type: BLOOD SPECIMENOrdering Facility: [facility] Address: [address] [place], [place] [address] Performed By: #### 5 7021-8 ####[facility] LABIA [id number] [place] [address] [place] Platelets (Bld) [#/Vol] 354 10*3/uL Normal 150-400 [facility] Comment on above: Order Comment: Speci men Type: BLOOD SPECIMENOrdering Facility: [facility] Address: [address] [place], [place] [address] Performed By: #### 5 7021-8 ####[facility] LABCLIA [id number] [place] [address] [place] RBC (Bld) [#/Vol] 4.44 10*6/uL Normal 3.90-5.20 [facility] Comment on above: Order Comment: Speci men Type: BLOOD SPECIMENOrdering Facility: [facility] Address: [address] [place], [place] [address] Performed By: #### 5 7021-8 ####[facility] LABIA [id number] [place] [address] [place] WBC (Bld) [#/Vol] 5.54 10*3/uL Normal 3.70-11.00 [facility] Comment on above: Order Comment: Speci men Type: BLOOD SPECIMENOrdering Facility: [facility] Address: [address] [place], [place] [address] Performed By: #### 5 7021-8 ####[facility] LABIA [id number] [place] [address] [place] CNOVon 05-30-2022 CNOV Office Visit (INWG10 ) GARRETTQUITAVALERIA ([id number]) 1965 F Date Time Provider Department 05/30/22 12:45 PM DARÍO MIRANDA INWG10 During your visit today, we recorded the following information about you: Temperature Pulse Blood pressure Weight 98.7 degrees 54/minute 102/63 77.5 kg Luz Maria Arriaga RN 05/30/2022 1:12 PM Signed Valeria Romero is a 57 year old [...] Months Frequency: Continuous Intervention/Comfort measure: Medication MORALES Larsen APRN.KELLI 05/30/2022 2:30 PM Signed CC: Medication refills, asthma HPI: Valeria Romero is a 57 year old female who presents to the [facility] walk in clinic with the above chief compliant. PMH: Asthma, multiple hernias, depression/anxiety Patient from [place]. Moved to [place] and moved back for the surgery. Living in [place], [place] 1[place] hours away. Has not had a PCP in >5 years. Needs to establish care with PCP in [place], [place]. Patient has not been taking any of her medications because of financial reasons and she wanted to be off medications. Patient currently has medicaid. Trying to get medical things taken care of while she has insurance. Following with general surgery for a painful and enlarging incisional hernia. Hx of incisional hernia repair with mesh at [facility] w/ Dr. Craft in 2006. Patient scheduled for abdominal wall reconstruction with prior mesh excision 06/06/22. Pre-op testing today --> Provider sent patient to [facility] today for concerns for asthma. Asthma [...] Take one(1 (more content not included)... Normal [facility] CNOV Office Visit (GENTasha ) VALERIA ROMERO ([id number]) 1965 F Date Time Provider Department 05/30/22 11:00 AM JAZZY SAWANT During your visit today, we recorded the following information about you: Jazzy Pastrana, PhD 05/30/2022 2:09 PM Signed Behavioral Medicine [facility] [place] Name: Valeria Romero MR#: [id number] Date: 05/30/2022 Time: ? hour Referred by: [...] Jazzy Pastrana, Ph.D. Referring Provider: PEDRO WALSH [[id number]] Allergies As of Date: 05/30/2022 Noted Allergy [...] Status:Closed by JAZZY SAWANT on 05/30/[address] [facility] Comprehensive metabolic 2000 panelon 05-30-2022 Albumin [Mass/Vol] 4.3 g/dL Normal 3.9-4.9 [facility] Comment on above: Order Comment: Speci men Type: BLOOD SPECIMENOrdering Facility: [facility] Address: [address] [place], [place] [address] Performed By: #### 2 4323-8 ####[facility] LABCLIA [id number] [place] [address] [place] ALP [Catalytic activity/Vol] 83 U/L Normal 34-123 [facility] Comment on above: Order Comment: Speci men Type: BLOOD SPECIMENOrdering Facility: [facility] Address: [address] [place] [address] Performed By: #### 2 4323-8 ####[facility] LABCLIA [id number] [place] [address] [place] ALT [Catalytic activity/Vol] 16 U/L Normal 7-38 [facility] Comment on above: Order Comment: Speci men Type: BLOOD SPECIMENOrdering Facility: [facility] Address: [address] [place], [place] [address] Performed By: #### 2 4323-8 ####[facility] LABCLIA [id number] [place] [address] [place] Anion gap [Moles/Vol] 11 mmol/L Normal 9-18 [place] Comment on above: Order Comment: Speci men Type: BLOOD SPECIMENOrdering Facility: [facility] Address: [address] [place], [place] [address] Performed By: #### 2 4323-8 ####[facility] LABCLIA [id number] [place] [address] [place] AST [Catalytic activity/Vol] 27 U/L Normal 13-35 [facility] Comment on above: Order Comment: Speci men Type: BLOOD SPECIMENOrdering Facility: [facility] Address: [address] [place], [place] [address] Performed By: #### 2 4323-8 ####[facility] LABCLIA [id number] [place] [address] [place] Bilirubin [Mass/Vol] 0.3 mg/dL Normal 0.2-1.3 [facility] Comment on above: Order Comment: Speci men Type: BLOOD SPECIMENOrdering Facility: [facility] Address: [address] [place], [place] [address] Performed By: #### 2 4323-8 ####[facility] LABCLIA [id number] [place] [address] [place] Calcium [Mass/Vol] 10.0 mg/dL Normal 8.5-10.2 [facility] Comment on above: Order Comment: Speci men Type: BLOOD SPECIMENOrdering Facility: [facility] Address: [address] [place], [place] [address] Performed By: #### 2 4323-8 ####[facility] LABCLIA [id number] [place] [address] [place] Chloride [Moles/Vol] 102 mmol/L Normal 97-105 [facility] Comment on above: Order Comment: Speci men Type: BLOOD SPECIMENOrdering Facility: [facility] Address: [address] [place] [address] Performed By: #### 2 4323-8 ####[facility] LABIA [id number] [place] [address] [place] CO2 [Moles/Vol] 28 mmol/L Normal 22-30 [facility] Comment on above: Order Comment: Speci men Type: BLOOD SPECIMENOrdering Facility: [facility] Address: [address] [place] [address] Performed By: #### 2 4323-8 ####[facility] LABIA [id number] [address] STATES OF [facility] Creatinine [Mass/Vol] 0.59 mg/dL Normal 0.58-0.96 [place] Comment on above: Order Comment: Speci men Type: BLOOD SPECIMENOrdering Facility: [facility] Address: [address] [place], [place] [address] Performed By: #### 2 4323-8 ####[facility] LABIA [id number] [address] OF [facility] ESTIMATED GLOMERULAR FILTRATION RATE 107 mL/min/1.73m??? Normal >=60 [facility] Comment on above: Order Comment: Neyi men Type: BLOOD SPECIMENOrdering Facility: [facility] Address: [address] [place] [address] Result Comment: Faiza mated Glomerular Filtration Rate [...] actual GFR. Performed By: #### 2 4323-8 ####[facility] LABIA [id number] [place] [address] [place] Glucose [Mass/Vol] 89 mg/dL Normal 74-99 [facility] Comment on above: Order Comment: Speci men Type: BLOOD SPECIMENOrdering Facility: [facility] Address: [address] [place], [place] [address] Result Comment: The [place] Diabetes Association (ADA) provides guidance for cutoff [...] Standards of Medical Care in Diabetes 2016, [place] [employer]. Diabetes Care. 2016.39(Suppl 1). Performed By: #### 2 4323-8 ####[facility] LABCLIA [id number] [place] [address] [place] Potassium [Moles/Vol] 4.3 mmol/L Normal 3.7-5.1 [place] Comment on above: Order Comment: Speci men Type: BLOOD SPECIMENOrdering Facility: [facility] Address: [address] [place] [address] Performed By: #### 2 4323-8 ####[facility] LABCLIA [id number] [place] [address] [place] Protein [Mass/Vol] 7.4 g/dL Normal 6.3-8.0 [facility] Comment on above: Order Comment: Speci men Type: BLOOD SPECIMENOrdering Facility: [facility] Address: [address] [place] [address] Performed By: #### 2 4323-8 ####[facility] LABCLIA [id number] [place] [address] [place] Sodium [Moles/Vol] 141 mmol/L Normal 136-144 [facility] Comment on above: Order Comment: Speci men Type: BLOOD SPECIMENOrdering Facility: [facility] Address: [address] [place] [address] Performed By: #### 2 4323-8 ####[facility] LABCLIA [id number] [place] [address] [place] Urea nitrogen [Mass/Vol] 9 mg/dL Normal 7-21 [facility] Comment on above: Order Comment: Speci men Type: BLOOD SPECIMENOrdering Facility: [facility] Address: [address] [place], [place] [address] Performed By: #### 2 4323-8 ####[facility] LABCLIA [id number] [facility] C[facility] [place] [address] [place] ECG COMPLETEon 05-30-2022 ECG COMPLETE Ventricular Rate : 5 5 BPM Atrial Rate : 55 BPM P-R Interval : 144 ms QRS Duration : 76 ms Q-T Interval : 464 ms QTC Calculation(Bazett) : 443 ms Calculated P [place] : 65 degrees Calculated R [place] : 65 degrees Calculated T [place] : 40 degrees SINUS BRADYCARDIA OTHERWISE NORMAL ECG Confirmed by KATT DODSON MD ([id number]) on 06/04/2022 6:50:53 PM NAME : VALERIA ROMERO PID : [id number] : 1965 Gender : Female Race : ORD : [id number] Procedure Date : May 30 2022 10:59:19 Edit Date : Jun 04 2022 18:50:54 Diagnosis: SINUS BRADYCARDIA OTHERWISE NORMAL ECG Confirmed by KATT DODSON MD ([id number]) on 06/04/2022 6:50:53 PM Test Reason : Location : 119 : A17 Overread By : KATT DODSON MD Edited By : KATT DODSON MD Referred By : PEDRO WALSH Acquired by : ISHAAN ROY [facility] HISTORY PHYSICALon HISTORY PHYSICAL HNO ID: [id number] Author: Candace Harris DO Service: ? Author [...] fevers. Neuro: No history of TIA's, stroke, LINE THERAPIST tumor, impaired sensorium, hemiplegia, paraplegia or quadraplegia. No neurological symptoms or problems. Respiratory: +Asthma. No history of current cough or dyspnea, or pneumonia in the past 6 weeks. No history of respiratory/pulmonary symptoms or problems. Cardiovascular: No history of HTN requiring medication, no history of angina, CHF, [place], cardiac surgery or stents. Denies rest pain, gangrene or revascularization/ampu tation for PVD. No history of cardiovascular symptoms or problems. GI: +Chronic diarrhea/IBS. : No history of d (more content not included)... Normal [facility] PT panel Coag (PPP)on 2021 INR Coag (PPP) [Relative time] 1.0 {INR} Normal 0.9-1.3 [facility] Comment on above: Order Comment: Poncho freeman Type: BLOOD SPECIMENOrdering Facility: [facility] Address: [address] [place], [place] [phone] Result Comment: Essence min K Antagonist (VKA) Therapeutic Range: INR 2 to 3 (Target INR of 2.5) Note: For patients treated with VKA drugs, such as warfarin, the [place] [employer] 2012 Guideline recommends [...] to 3.5 (target INR of 3). Jad GH, et al. Chest 2012, 141:7S-47S Mateus RA, et al. [facility] 2017, 70: 252-289 Performed By: #### 3 4528-0, 88604-8 ####[facility] [id number] [place] [address] [place] PT Coag (PPP) [Time] 10.6 s Normal 9.7-13.0 [facility] Comment on above: Order Comment: Poncho freeman Type: BLOOD SPECIMENOrdering Facility: [facility] Address: [address] [place] [address] Performed By: #### 3 4528-0, 52256-7 ####[facility] LABIA [id number] [place] [address] [place] TYPE AND SCREEN,30 DAYon ABO O Normal [facility] Comment on above: Order Comment: Poncho freeman Type: BLOOD SPECIMENOrdering Facility: [facility] Address: [address] [place] [address] Performed By: #### % DIAZ, TSCR30, BBABINT ####CC MAIN BLOOD BANKCLIA [id number] [address] HISTORICAL AB SCR STATUS Negative Normal [facility] Comment on above: Order Comment: Speci men Type: BLOOD SPECIMENOrdering Facility: [facility] Address: [address] [place] [address] Performed By: #### % DIAZ, TSCR30, BBABINT ####[facility] BLOOD BANKCLIA [id number] [address] Rh Nom (Bld) Positive Normal [facility] Comment on above: Order Comment: Speci men Type: BLOOD SPECIMENOrdering Facility: [facility] Address: [address] [place] [address] Performed By: #### % DIAZ, TSCR30, BBABINT ####[facility] BLOOD BANKCLIA [id number] [place] aPTT PPPon 05-30-2022 aPTT Coag (PPP) [Time] 27.3 s Normal 23.0-32.4 [facility] Comment on above: Order Comment: Speci men Type: BLOOD SPECIMENOrdering Facility: [facility] Address: [address] [place] [address] Performed By: #### 3 4528-0, 13093-1 ####[facility] LABCLIA [id number] [address] [place] CNOVon 05-22-2022 CNOV Office Visit (GENTasha ) TARASCHKE,VALERIA L ([id number]) 1965 F Date Time Provider Department 05/22/22 9:00 AM PEDRO WALSH During your visit today, we recorded the following information about you: Temperature Pulse Blood pressure Weight 98.3 degrees 69/minute 108/69 73.5 kg Height 1.524 m Lidya May Syeda 05/22/2022 9:29 AM Signed What is the reason for your visit today? consult Who is your referring physician? Are you having poor oral intake? NO Have you had unintentional weight loss of 15 lbs/7 Kg in the last 3-6 months? NO Bowels: regular Wound: clean AND dry Temperature: No Drains: No Yeni Sevilla MD 05/22/2022 11:19 AM Signed [facility] Abdominal [facility] - HISTORY AND PHYSICAL Chief Complaint: [...] year. She occasionally visited the ED in [place], and she presented to the ED in [...] Wt 73.5 (more content not included)... Normal [facility] HISTORY PHYSICALon 2 HISTORY PHYSICAL HNO ID: [id number] Author: Yeni Sevilla MD Service: ? Author Type: Resident Type: HANDP Filed: 05/22/2022 11:19 AM Note Text: [facility] Abdominal [facility] - HISTORY AND PHYSICAL Chief Complaint: [...] year. She occasionally visited the ED in [place], and she presented to the ED in [...] Skin is (more content not included)... Normal [facility] CT ABD/PEL W IVCONon -20-[address] ABD/PEL W IVCON * * *Final Report* * * DATE OF EXAM: Apr 18 2022 10:36PM [facility] 0530 - CT ABD/PEL W IVCON [...] of the herniated contents. Lower thorax: Unremarkable. Junior Art Director (topogram) images: Unremarkable. IMPRESSION: Fat-containing ventral hernia as described, increased in size since 2010. Details and incidental findings as discussed. Expressive Art Therapist: MANAV Transcribe Date/Time: Apr 18 2022 10:48P Dictated by : JUJU GREGORY MD This examination was interpreted and the report reviewed and electronically signed by: KATT YANEZ MD on Apr 18 2022 11:18PM EST [id number] Normal [facility] ED NOTEon 04-19-2022 ED NOTE HNO ID: [id number] Author: Monique Hanna RN Service: Emergency Medicine Author Type: Registered Nurse Type: ED Notes Filed: 04/18/2022 11:59 PM Note Text: Discharge instructions reviewed with patient at this time. No further questions or concerns. Patient stable at time of discharge. Normal [facility] Basic metabolic 2000 panelon 04-18-2022 Anion gap [Moles/Vol] 8 mmol/L Low 9-18 [place] Comment on above: Order Comment: Speci men Type: BLOOD SPECIMENOrdering Facility: [facility] Address: [address] [place], [place] [phone] Performed By: #### 2 4321-2, 13697-7 ####[facility] LABCLIA [id number] [place] [address] [place] Calcium [Mass/Vol] 9.9 mg/dL Normal 8.5-10.2 [facility] Comment on above: Order Comment: Speci men Type: BLOOD SPECIMENOrdering Facility: [facility] Address: [address] [place] [phone] Performed By: #### 2 4321-2, ####[facility] LABCLIA [id number] [facility] [place] [address] [place] Chloride [Moles/Vol] 104 mmol/L Normal 97-105 [facility] Comment on above: Order Comment: Speci men Type: BLOOD SPECIMENOrdering Facility: [facility] Address: [address] [place], [place] [phone] Performed By: #### 2 2, ####[facility] LABCLIA [id number] [facility] [place] [address] [place] CO2 [Moles/Vol] 29 mmol/L Normal 22-30 [facility] Comment on above: Order Comment: Speci men Type: BLOOD SPECIMENOrdering Facility: [facility] Address: [address] [place], [place] [address] Performed By: #### 2 2, ####[facility] LABCLIA [id number] [facility] [place] [address] [place] Creatinine [Mass/Vol] 0.63 mg/dL Normal 0.58-0.96 [place] Comment on above: Order Comment: Speci men Type: BLOOD SPECIMENOrdering Facility: [facility] Address: [address] [place] [address] Performed By: #### 2 2, ####[facility] LABCLIA [id number] [facility] [place] [id number] [place] ESTIMATED GLOMERULAR FILTRATION RATE 105 mL/min/1.73m??? Normal >=60 [facility] Comment on above: Order Comment: Speci men Type: BLOOD SPECIMENOrdering Facility: [facility] Address: [address] [phone] Result Comment: Faiza mated Glomerular Filtration Rate [...] reflect actual GFR. Performed By: #### 2 4321-2, ####[facility] LABIA [id number] [place] [address] [place] Glucose [Mass/Vol] 101 mg/dL High 74-99 [facility] Comment on above: Order Comment: Poncho freeman Type: BLOOD SPECIMENOrdering Facility: [facility] Address: [address] [place] [address] Result Comment: The [place] Diabetes Association (ADA) provides guidance for cutoff [...] Standards of Medical Care in Diabetes 2016, [place] [employer] Association. Diabetes Care. 2016.39(Suppl 1). Performed By: #### 2 4321-2, ####[facility] LABIA [id number] [place] [id number] [place] Potassium [Moles/Vol] 3.4 mmol/L Low 3.7-5.1 [place] Comment on above: Order Comment: Poncho freeman Type: BLOOD SPECIMENOrdering Facility: [facility] Address: [address] [phone] Performed By: #### 2 4321-2, ####[facility] LABIA [id number] [place] [address] [place] Sodium [Moles/Vol] 141 mmol/L Normal 136-144 [facility] Comment on above: Order Comment: Speci men Type: BLOOD SPECIMENOrdering Facility: [facility] Address: [address] [place], [place] [address] Performed By: #### 2 432-2, ####[facility] LABIA [id number] [place] [address] [place] Urea nitrogen [Mass/Vol] 9 mg/dL Normal 7-21 [facility] Comment on above: Order Comment: Speci men Type: BLOOD SPECIMENOrdering Facility: [facility] Address: [address] [place], [place] [address] Performed By: #### 2 4320-2, ####[facility] LABIA [id number] [place] [address] [place] CBC W Auto Differential pane l (Bld)on 04-18-2022 Basophils (Bld) [#/Vol] 0.04 10*3/uL Normal <0.11 [facility] Comment on above: Order Comment: Speci men Type: BLOOD SPECIMENOrdering Facility: [facility] Address: [address] [place], [place] [address] Performed By: #### 5 7021-8 ####[facility] LABIA [id number] [address] [place] Basophils/100 WBC (Bld) 0.7 % Normal [facility] Comment on above: Order Comment: Speci men Type: BLOOD SPECIMENOrdering Facility: [facility] Address: [address] [place], [place] [address] Performed By: #### 5 7021-8 ####[facility] LABCLIA [id number] [place] [address] [place] Differential cell count method Nom (Bld) Auto Normal [facility] Comment on above: Order Comment: Speci men Type: BLOOD SPECIMENOrdering Facility: [facility] Address: [address] [place] [address] Performed By: #### 5 7021-8 ####[facility] LABCLIA [id number] [place] [address] [place] Eosinophils (Bld) [#/Vol] 0.17 10*3/uL Normal <0.46 [facility] Comment on above: Order Comment: Speci men Type: BLOOD SPECIMENOrdering Facility: [facility] Address: [address] [place] [address] Performed By: #### 5 7021-8 ####[facility] LABCLIA [id number] [place] [address] [place] Eosinophils/100 WBC (Bld) 2.8 % Normal [facility] Comment on above: Order Comment: Speci men Type: BLOOD SPECIMENOrdering Facility: [facility] Address: [address] [place] [address] Performed By: #### 5 7021-8 ####[facility] LABCLIA [id number] [place] [address] [place] Erythrocyte distribution width (RBC) [Ratio] 13.9 % Normal 11.5-15.0 [facility] Comment on above: Order Comment: Speci men Type: BLOOD SPECIMENOrdering Facility: [facility] Address: [address] [place], [place] [address] Performed By: #### 5 7021-8 ####[facility] LABCLIA [id number] [place] [address] [place] Hematocrit (Bld) [Volume fraction] 37.6 % Normal 36.0-46.0 [facility] Comment on above: Order Comment: Speci men Type: BLOOD SPECIMENOrdering Facility: [facility] Address: [address] [place] [address] Performed By: #### 5 7021-8 ####[facility] LABCLIA [id number] [place] [address] [place] Hemoglobin (Bld) [Mass/Vol] 12.4 g/dL Normal 11.5-15.5 [facility] Comment on above: Order Comment: Speci men Type: BLOOD SPECIMENOrdering Facility: [facility] Address: [address] [place] [address] Performed By: #### 5 7021-8 ####[facility] LABCLIA [id number] [address] [place] IMMATURE GRAN % 0.3 % Normal [facility] Comment on above: Order Comment: Speci men Type: BLOOD SPECIMENOrdering Facility: [facility] Address: [address] [place] [address] Performed By: #### 5 7021-8 ####[facility] LABIA [id number] [place] [address] [place] IMMATURE GRAN ABS <0.03 Normal <0.10 [facility] Comment on above: Order Comment: Speci men Type: BLOOD SPECIMENOrdering Facility: [facility] Address: [address] [place], [place] [address] Performed By: #### 5 7021-8 ####[facility] LABIA [id number] [place] [address] [place] Lymphocytes (Bld) [#/Vol] 2.13 10*3/uL Normal 1.00-4.00 [facility] Comment on above: Order Comment: Speci men Type: BLOOD SPECIMENOrdering Facility: [facility] Address: [address] [place], [place] [address] Performed By: #### 5 7021-8 ####[facility] LABCLIA [id number] [place] [address] [place] Lymphocytes/100 WBC (Bld) 34.7 % Normal [facility] Comment on above: Order Comment: Speci men Type: BLOOD SPECIMENOrdering Facility: [facility] Address: [address] [place] [address] Performed By: #### 5 7021-8 ####[facility] LABIA [id number] [place] [address] [place] MCH (RBC) [Entitic mass] 29.5 pg Normal 26.0-34.0 [facility] Comment on above: Order Comment: Speci men Type: BLOOD SPECIMENOrdering Facility: [facility] Address: [address] [place] [address] Performed By: #### 5 7021-8 ####[facility] LABIA [id number] [address] [place] MCHC (RBC) [Mass/Vol] 33.0 g/dL Normal 30.5-36.0 [place] Comment on above: Order Comment: Speci men Type: BLOOD SPECIMENOrdering Facility: [facility] Address: [address] [place] [address] Performed By: #### 5 7021-8 ####[facility] LABIA [id number] [place] [address] [place] MCV (RBC) [Entitic vol] 89.3 fL Normal 80.0-100.0 [facility] Comment on above: Order Comment: Speci men Type: BLOOD SPECIMENOrdering Facility: [facility] Address: [address] [place], [place] [address] Performed By: #### 5 7021-8 ####[facility] LABIA [id number] [place] [address] [place] Monocytes (Bld) [#/Vol] 0.72 10*3/uL Normal <0.87 [facility] Comment on above: Order Comment: Speci men Type: BLOOD SPECIMENOrdering Facility: [facility] Address: [address] [place], [place] [address] Performed By: #### 5 7021-8 ####[facility] LABCLIA [id number] [place] [address] [place] Monocytes/100 WBC (Bld) 11.7 % Normal [facility] Comment on above: Order Comment: Speci men Type: BLOOD SPECIMENOrdering Facility: [facility] Address: [address] [place], [place] [address] Performed By: #### 5 7021-8 ####[facility] LABCLIA [id number] [place] [address] [place] Neutrophils (Bld) [#/Vol] 3.05 10*3/uL Normal 1.45-7.50 [facility] Comment on above: Order Comment: Speci men Type: BLOOD SPECIMENOrdering Facility: [facility] Address: [address] [place], [place] [address] Performed By: #### 5 7021-8 ####[facility] LABCLIA [id number] [place] [address] [place] Neutrophils/100 WBC (Bld) 49.8 % Normal [facility] Comment on above: Order Comment: Speci men Type: BLOOD SPECIMENOrdering Facility: [facility] Address: [address] [place], [place] [address] Performed By: #### 5 7021-8 ####[facility] LABCLIA [id number] [place] [address] [place] Nucleated RBC (Bld) [#/Vol] 10*3/uL Normal <0.01 [facility] Comment on above: Order Comment: Speci men Type: BLOOD SPECIMENOrdering Facility: [facility] Address: [address] [place] [phone] Performed By: #### 5 7021-8 ####[facility] LABCLIA [id number] [place] [address] [place] Nucleated RBC/100 WBC (Bld) [Ratio] 0.0 /[address] [facility] Comment on above: Order Comment: Speci men Type: BLOOD SPECIMENOrdering Facility: [facility] Address: [address] [place], [place] [address] Performed By: #### 5 7021-8 ####[facility] LABIA [id number] [place] [address] [place] Platelet mean volume (Bld) [Entitic vol] 9.1 fL Normal 9.0-12.7 [facility] Comment on above: Order Comment: Speci men Type: BLOOD SPECIMENOrdering Facility: [facility] Address: [address] [place], [place] [address] Performed By: #### 5 7021-8 ####[facility] LABCLIA [id number] [place] [address] [place] Platelets (Bld) [#/Vol] 355 10*3/uL Normal 150-400 [facility] Comment on above: Order Comment: Speci men Type: BLOOD SPECIMENOrdering Facility: [facility] Address: [address] [place], [place] [address] Performed By: #### 5 7021-8 ####[facility] LABCLIA [id number] [place] [address] [place] RBC (Bld) [#/Vol] 4.21 10*6/uL Normal 3.90-5.20 [facility] Comment on above: Order Comment: Speci men Type: BLOOD SPECIMENOrdering Facility: [facility] Address: [address] [place], [place] [address] Performed By: #### 5 7021-8 ####[facility] LABCLIA [id number] [place] [id number] [place] WBC (Bld) [#/Vol] 6.13 10*3/uL Normal 3.70-11.00 [facility] Comment on above: Order Comment: Speci men Type: BLOOD SPECIMENOrdering Facility: [facility] Address: [address] [place] [address] Performed By: #### 5 7021-8 ####[facility] LABCLIA [id number] [address] [place] ED NOTEon 04-18-2022 ED NOTE HNO ID: [id number] Author: Eddie Lu DO, DPM Service: Emergency Medicine Author Type: Physician Type: ED Notes Filed: 04/20/2022 9:09 AM Note Text: [facility] for SS at 9:42 PM 57 year old female with PMH incision hernia s/p multiple repairs with mesh. Living in [place] and just moved back to [place]. Just got her Medicaid insurance today. Here [...] home in stable condition. Eddie Lu DO, DPM, CHUY, FACEP Normal [facility] ED NOTE HNO ID: [id number] Author: Eddie Gu RN Service: Emergency Medicine Author Type: Registered Nurse Type: ED Notes Filed: 04/18/2022 2:12 PM Note Text: Pt with a history of hernia repair, states recently diagnosed with another hernia at [facility], only wants her care at [facility]. Normal [facility] ED PROV NOTEon 04-18-2022 ED PROV NOTE HNO ID: [id number] Author: Eddie Lu DO, DPM Service: Emergency [...] with mesh. Patient has been living in [place] but recently returned to [place]. States that over the past few months the hernia has rapidly grown in size. Endorses cramping and pulling pain along the hernia. States that she has been able to tolerate p.o. Denies nausea, vomiting, fever, chills, overlying skin changes. Her last bowel movement was while waiting in the ED lobby. States that she returned to [facility] to establish definitive care as she is [...] / Clinical Impression ED Course as of 04/18/222306 Jef Hamilton's Documentation SunApr 18, 20222033 Temp: 36.7 ?C (98.1 ?F) Afebrile 2033 Pulse: 72 2033 BP: 128/84 Hemodynamically stable 2033 SpO2: 99 % On room air 2133 Lactate (POCT): 0.8 Normal, low suspicion for bowel ischemia Others' Documentation SunApr 18, 20227 Care endorsed to me by Dr. Lu - large ventral hernia with multiple procedures. Got insurance today and came to ED to see Venancio. Getting CT imaging. If no acute then outpatient follow up with [facility]. [HJ] ED Course User Index [HJ] Cristine Garcia MD Clinical Impressions as of 04/18/22 2307 Ventral hernia without obstruction or gangre (more content not included)... Normal [facility] Magnesium SerPl-mCncon 04-18 Magnesium [Mass/Vol] 1.9 mg/dL [facility].3 [facility] Comment on above: Order Comment: Speci men Type: BLOOD SPECIMENOrdering Facility: [facility] Address: [address] [place] [address] Performed By: #### 2 4321-2, 87479-8 ####[facility] LABCLIA [id number] [address] [place] Vital Signs Date Time Vital Sign Value Performing Clinician Facility 05-13-2025 09:38-0400 Body height 152.4 cm Capri Walsh TEACHING ASSISTANT Work Phone: [facility] 05-13-2025 09:38-0400 Body mass index (BMI) [Ratio] 38.67 kg/m2 Capri Walsh TEACHING ASSISTANT Work Phone: [facility] 05-13-2025 09:38-0400 Body temperature 97.88 [degF] Capri Walsh TEACHING ASSISTANT Work Phone: [facility] 05-13-2025 09:38-0400 Body weight 89.81 kg Capri Walsh TEACHING ASSISTANT Work Phone: [facility] 05-13-2025 09:38-0400 Diastolic blood pressure 70 mm[Hg] Scot Fair DDS Work Phone: [facility] 05-13-2025 09:38-0400 Heart rate 56 /min Scot Fair DDS Work Phone: [facility] 05-13-2025 09:38-0400 Respiratory rate 18 /min Capri Walsh TEACHING ASSISTANT Work Phone: [facility] 05-13-2025 09:38-0400 SaO2% (BldA) [Mass fraction] 97 % Capri Walsh TEACHING ASSISTANT Work Phone: [facility] 05-13-2025 09:38-0400 Systolic blood pressure 108 mm[Hg] Capri Walsh TEACHING ASSISTANT Work Phone: [facility] 05-13-2025 09:00-0400 Body temperature 98.6 [degF] Scot Fair DDS Work Phone: [facility] 05-13-2025 09:00-0400 Systolic blood pressure 126 mm[Hg] Espreanzaxluis Fair DDS Work Phone: [facility] 12-27-2022 10:46-0400 Diastolic blood pressure 65 mm[Hg] [facility] 12-27-2022 10:46-0400 Heart rate 61 /min [facility] Work Phone: [facility] 12-27-2022 10:46-0400 Respiratory rate 18 /min [facility] Work Phone: [facility] 12-27-2022 10:46-0400 SaO2% (BldA) [Mass fraction] 98 % [facility] Work Phone: [facility] 12-27-2022 10:46-0400 Systolic blood pressure 107 mm[Hg] [facility] Work Phone: [facility] 12-27-2022 08:49-0400 Body height 152.4 cm [facility] Work Phone: [facility] 12-27-2022 08:49-0400 Body temperature 97.7 [degF] [facility] Work Phone: [facility] 12-27-2022 08:49-0400 Body weight 86.63 kg [facility] 06-29-2022 10:33-0400 Body height 157.5 cm Pedro Walsh MD Work Phone: [facility] 06-29-2022 10:33-0400 Body temperature 96.6 [degF] Pedro Walsh MD Work Phone: [facility] 06-29-2022 10:33-0400 Body weight 78.02 kg Pedro Walsh MD Work Phone: [facility] 06-29-2022 10:33-0400 Diastolic blood pressure 62 mm[Hg] Pedro Walsh MD Work Phone: [facility] 06-29-2022 10:33-0400 Heart rate 76 /min Pedro Walsh MD Work Phone: [facility] 06-29-2022 10:33-0400 Respiratory rate 14 /min Pedro Walsh MD Work Phone: [facility] 06-29-2022 10:33-0400 Systolic blood pressure 109 mm[Hg] Pedro Walsh MD Work Phone: [facility] 05-30-2022 13:09-0400 Body temperature 98.71 [degF] Darío Frilling MANAGER SPEECH.FURNACE OPERATOR Work Phone: [facility] 05-30-2022 13:09-0400 Body weight 77.47 kg Darío Frilling MANAGER SPEECH.FURNACE OPERATOR Work Phone: [facility] 05-30-2022 13:09-0400 Diastolic blood pressure 63 mm[Hg] Darío Frilling MANAGER SPEECH.FURNACE OPERATOR Work Phone: [facility] 05-30-2022 13:09-0400 Heart rate 54 /min Darío Frilling MANAGER SPEECH.FURNACE OPERATOR Work Phone: [facility] 05-30-2022 13:09-0400 SaO2% (BldA) [Mass fraction] 95 % Darío Frilling MANAGER SPEECH.FURNACE OPERATOR Work Phone: [facility] 05-30-2022 13:09-0400 Systolic blood pressure 102 mm[Hg] Darío Miranda FURNACE OPERATOR Work Phone: [facility] 05-22-2022 09:26-0400 Body height 152.4 cm Pedro Walsh MD Work Phone: [facility] 05-22-2022 09:26-0400 Body temperature 98.29 [degF] Pedro Walsh MD Work Phone: [facility] 05-22-2022 09:26-0400 Body weight 73.48 kg Pedro Walsh MD Work Phone: [facility] 05-22-2022 09:26-0400 Diastolic blood pressure 69 mm[Hg] Pedro Walsh MD Work Phone: [facility] 05-22-2022 09:26-0400 Heart rate 69 /min Pedro Walsh MD Work Phone: [facility] 05-22-2022 09:26-0400 Systolic blood pressure 108 mm[Hg] Pedro Walsh MD Work Phone: [facility] Encounters Encounter Date Encounter Type Care Provider Facility Start: 06-11-2025 ambulatory Scot Fair DDS [facility] Start: 05-25-2025 End: 05-25-2025 Encounter identifier Esa DIAMOND Work Phone: [facility] Start: 05-22-2025 End: 05-22-2025 Encounter identifier Capri Walsh TEACHING ASSISTANT Work Phone: [facility] Start: 05-20-2025 End: 05-20-2025 Encounter identifier Capri Walsh TEACHING ASSISTANT Work Phone: [facility] Start: 05-13-2025 End: 05-13-2025 limited oral evaluation - problem focused Scot Fair DDS Work Phone: [facility] Start: 05-13-2025 End: 05-13-2025 Patient encounter procedure Capri Walsh NP Work Phone: [facility] Start: 05-13-2025 End: 05-13-2025 Periodic preventive med est patient 40-64yrs Capri Walsh NP Work Phone: [facility] Start: 05-13-2025 End: 05-13-2025 Encounter identifier Scot Fair DDS Work Phone: [facility] Start: 07-28-2024 End: 07-28-2024 Orders Only Not In System Ref Prov [facility] Start: 01-18-2023 End: 01-18-2023 ambulatory MARIA D REYNA Facility:[facility] Start: 01-18-2023 End: 01-18-2023 Patient encounter procedure Maria D Reyna MD Work Phone: Colorectal Surgery Comment on above: Prolapsed hemorrhoid s (Primary Dx); Vaginal prolapse Start: 12-27-2022 End: 12-27-2022 ambulatory [employer] [facility] Dept Facility:[facility] Start: 12-27-2022 End: 12-27-2022 Admission to same day surgery [facility] Work Phone: [facility] Work Phone: Start: 12-27-2022 End: 12-27-2022 ambulatory [facility] Work Phone: [facility] Work Phone: Start: 12-18-2022 End: 12-18-[address] CHICHO JAMISON Facility: Start: 09-06-2022 End: 09-06-2022 ambulatory PHYSICIAN NO FAMILY Facility:[facility] Start: 09-06-2022 End: 09-06-[address] NO FAMILY [facility] Work Phone: Start: 09-06-2022 End: 09-06-2022 Patient encounter procedure PHYSICIAN NO FAMILY [facility] Start: 06-29-2022 End: 06-29-2022 ambulatory BETTIE SMITH Facility:[facility] Start: 06-29-2022 End: 06-30-2022 ambulatory PEDRO WALSH Facility:[facility] Start: 06-29-2022 End: 06-29-2022 Subsequent hospital [...] Evaluation and management of inpatient PEDRO WALSH Facility:[facility] Start: 06-01-2022 Chart abstracting Valeria landa BILLER Work Phone: Psycholgy Start: 06-01-2022 Telephone encounter Valeria Morse BILLER Work Phone: Psycholgy Comment on above: outreach Start: 05-30-2022 End: 05-31-2022 [facility] Start: 05-30-2022 Encounter for other preprocedural examination [facility] Start: 05-30-2022 End: 05-31-2022 ambulatory PEDRO WALSH Facility:[facility] Start: 05-30-2022 End: 05-31-2022 ambulatory PEDRO WALSH Facility:[facility] Start: 05-30-2022 Encounter for other preprocedural examination [facility] Start: 05-30-2022 End: 05-30-2022 Patient encounter [...] Phone: [facility] Comment on above: 96 cure (Complex abdominal wall reconstruction 5 hours los 5) Start: 05-25-2022 Preprocedural examin ation done Pedro Walsh MD Work Phone: [facility] Start: 05-22-2022 End: 05-23-2022 ambulatory PEDRO WALSH Facility:[facility] Start: 05-22-2022 End: 05-22-2022 Patient encounter procedure Pedro Walsh MD Work Phone: General Surgery Comment on above: Incisional hernia, w ithout obstruction or gangrene (Primary Dx) Start: 04-18-2022 End: 04-19-2022 Emergency department patient visit CRISTINE GARCIA Facility:[facility] Procedures Date Procedure Procedure Detail Performing Clinician Start: 05-14-2025 End: 05-14-2025 Lipid panel Capri Walsh NP Work Phone: Start: 05-13-2025 End: 05-13-2025 BP scrn perf rec interval Capri Walsh NP Work Phone: Start: 05-13-2025 End: 05-13-2025 COLORECTAL CA SCREEN DOC REV Capri Walsh NP Work Phone: Start: 05-13-2025 End: 05-13-2025 DIAST BP < 80 MM HG Capri Walsh TEACHING ASSISTANT Work Phone: Start: 05-13-2025 End: 05-13-2025 Documentation of current medications Soct Fair DDS Work Phone: Start: 05-13-2025 End: 05-13-2025 intraoral - periapical first radiographic image Scot Fair DDS Work Phone: Start: 05-13-2025 End: 05-13-2025 MED LIST DOCD IN RCRD Capri Walsh TEACHING ASSISTANT Work Phone: Start: 05-13-2025 End: 05-13-2025 nutritional counseling for control of dental disease Scot Fair DDS Work Phone: Start: 05-13-2025 End: 05-13-2025 Pos clin depres scrn f/u doc Capri Walsh TEACHING ASSISTANT Work Phone: Start: 05-13-2025 End: 05-13-2025 RVW MEDS BY RX/DR IN RCRD Capri Alon TEACHING ASSISTANT Work Phone: Start: 05-13-2025 End: 05-13-2025 SYST BP < 130 MM HG Capri Alon TEACHING ASSISTANT Work Phone: Start: 05-13-2025 End: 05-13-2025 Tobacco User Not Consuled Capri Walsh TEACHING ASSISTANT Work Phone: Start: 07-16-2024 MULTIPLE LABS Not In System Ref Prov Start: 12-27-2022 End: 12-27-2022 Colonoscopy flx dx w/collj spec when pfrmd Scot Fair DDS Work Phone: Start: 12-27-2022 Esophagogastroduodenoscopy Arcadio carreon Dept Work Phone: Start: 09-06-2022 Screening mammography of bilateral breasts PHYSICIAN NO FAMILY Start: 09-02-2022 End: 09-02-2022 Lipid panel Scot Fair DDS Work Phone: Start: 06-29-2022 Ct abdomen & pelvis w/o contrast material Leonard Ivey MD Work Phone: Start: 05-30-2022 Antibody screen BETTIE SMITH Comment on above: Order Comment: Specimen Type: BLOOD SPEC IMENOrdering Facility: [facility] Address: [address] [place] [address] Performed By: #### % DIAZ, [id number], BBABINT ####CC MAIN BLOOD BANKCLIA [id number] [address] Plan of Treatment Date Care Activity Detail Author Start: 11-23-2025 LeonoryaniraValeria [facility] Work Phone: Start: 06-09-2025 DIABETES SCREEN DIABETES SCREEN [facility] Start: 05-30-2025 DIABETES SCREEN DIABETES SCREEN [facility] Start: 05-25-2025 [facility] Work Phone: Start: 05-22-2025 [facility] Work Phone: Start: 05-20-2025 End: 05-20-2025 [facility] Work Phone: Start: 05-13-2025 Dietary management education, guidance, and counseling Dietary management education, guidance, and counseling [facility] Start: 05-13-2025 End: 05-13-2025 [facility] Work Phone: Start: 04-18-2025 DIABETES SCREEN DIABETES SCREEN [facility] Start: 06-01-2023 Influenza vaccination INFLUENZA (Sea son Ended) [facility] Start: 05-30-2023 ANNUAL PCP TEAM CORPORATE WELLNESS COORDINATOR VANSEA DISEASE VISIT ANNUAL PCP TEAM CHRONIC DISEASE VISIT [facility] Start: 12-27-2022 [facility] Start: 10-01-2022 DEPRESSION ASSESSMENT DEPRESSION ASS ESSMENT [facility] Start: 09-06-2022 [facility] Start: 06-01-2022 Influenza vaccination INFLUENZA (#1) [facility] Start: 05-29-2022 End: 05-25-2023 aPTT in Platelet poor plasma by Coagulation assay ACTIVATED PTT Lab Routine Preoperative examination Incisional hernia, without obstruction or gangrene Expected: 05/29/2022, Expires: 05/25/2023 [facility] Work Phone: Comment on above: Expected: 05/29/2022 , Expires: 05/25/2023 Start: 05-29-2022 End: 05-25-2023 CBC W Auto Differential panel - Blood CBC + DIFF Lab Routine Preoperative examination Incisional hernia, without obstruction or gangrene Expected: 05/29/2022, Expires: 05/25/2023 [facility] Work Phone: Comment on above: Expected: 05/29/2022 , Expires: 05/25/2023 Start: 05-29-2022 End: 05-25-2023 Comprehensive metabolic 2000 panel - Serum or Plasma COMP METABOLIC PANEL Lab Routine Preoperative examination Incisional hernia, without obstruction or gangrene Expected: 05/29/2022, Expires: 05/25/2023 [facility] Work Phone: Comment on above: Expected: 05/29/2022 , Expires: 05/25/2023 Start: 05-29-2022 End: 05-25-2023 PT panel - Platelet poor plasma by Coagulation assay PROTHROMBIN TIME/PT Lab Routine Preoperative examination Incisional hernia, without obstruction or gangrene Expected: 05/29/2022, Expires: 05/25/2023 [facility] Work Phone: Comment on above: Expected: 05/29/2022 , Expires: 05/25/2023 Start: 05-29-2022 End: 05-25-2023 TYPE AND SCREEN,30 DAY TYPE AND SCREEN,30 DAY Blood Bank Routine Preoperative examination Incisional hernia, without obstruction or gangrene Expected: 05/29/2022, Expires: 05/25/2023 [facility] Work Phone: Comment on above: Expected: 05/29/2022 , Expires: 05/25/2023 Start: 10-01-2021 DEPRESSION ASSESSMENT DEPRESSION ASS ESSMENT [facility] Start: 2017 SHINGRIX VACCINE (1 of 2) SHINGRIX VACCINE (1 of 2) [facility] Start: 02-03-2012 COLOGUARD (FIT-DNA) COLOGUARD (FIT-D NA) [facility] Start: 02-03-2012 Colonoscopy COLONOSCOPY [facility] Start: 02-03-2012 COLORECTAL CANCER SCREENING COLORECTAL CANCER SCREENING [facility] Start: 02-03-[address] COLONOGRAPHY [facility] Start: 02-03-2012 FECAL OCCULT BLOOD FECAL OCCULT BLOO D [facility] Start: 02-03-2012 LIPID SCREEN LIPID SCREEN [facility] Start: 02-03-2012 SIGMOIDOSCOPY SIGMOIDOSCOPY [facility] Start: 2007 Mammography MAMMOGRAM [facility] Start: 1997 HPV TESTING HPV TESTING [facility] Start: 02-03-1988 PAP TESTING PAP TESTING [facility] Start: 1986 Urine microalbumin profile DTAP,TDAP,TD (1 - Tdap) [facility] Start: 1985 ANNUAL PCP TEAM CORPORATE WELLNESS COORDINATOR VANESA DISEASE VISIT ANNUAL PCP TEAM CHRONIC DISEASE VISIT [facility] Start: 1985 HEPATITIS C SCREENING HEPATITIS C SC REENING [facility] Start: 1985 HIV SCREENING HIV SCREENING [facility] Start: 1985 SPIROMETRY SPIROMETRY [facility] Start: 1979 Adult depression screening assessment DEPRESSION SCREENING [facility] Start: 1973 PNEUMOCOCCAL (1 - PCV) PNEUMOCOCCAL (1 - PCV) [facility] Start: 1967 COVID-19 VACCINE (#1) COVID-19 VACCI NE (#1) [facility] Start: 1967 HEPATITIS B (1 of 3 - 3-dose series) [facility] End: 05-25-2023 ECG COMPLETE ECG COMPLETE ECG Routine Preoperative examination Incisional hernia, without obstruction or gangrene 1 Occurrences starting 05/29/2022 until 05/25/2023 [facility] Work Phone: Comment on above: 1 Occurrences starti ng 05/29/2022 until 05/25/2023 Hepatitis C virus Ab Signal/Cutoff in Serum or Plasma by Immunoassay [facility] Work Phone: Patient Education Colon Polyps H emorrhoids (DC) Diverticulosis (DC) [facility] Work Phone: REFER FOR ADMIT INTERVIEW REFER FOR ADMIT INTERVIEW Procedures Routine Preoperative examination Incisional hernia, without obstruction or gangrene Ordered: 05/29/2022 [facility] Work Phone: Comment on above: Ordered: 05/29/2022 [facility] Payers Date Payer Category Payer Self-pay 2022 Medicaid MEDICAID [facility] MEDICAID [id number] 2022-Present [phone] [address] [place] [address] Medicaid [id number] 2022 Medicaid [id number] 1967 Unknown [id number] 1967 Unknown [id number] Unknown Isaías BC/BS [id number] Unknown [id number] Unknown [id number] Social History Date Type Detail Facility Start: 05-22-2022 End: 05-30-2022 Tobacco smoking status NHIS Occasional tobacco smoker [facility] End: 05-22-2022 History of tobacco use Cigarette Smoker [facility] History of tobacco use Pipe Smoker [facility] Start: 05-22-2022 End: 05-30-2022 Tobacco use and exposure Smokeless tobacco non-user [facility] Start: 1965 Sex Assigned At Not on file [facility] Start: 05-12-2022 End: 06-29-2022 Exposure to SARS-CoV-2 (event) Not sure [facility] Start: 05-30-2022 End: 01-19-2023 Alcohol intake Current drinker of alcohol (finding) [facility] Start: 05-30-2022 History SDOH Alcohol Comment rare [facility] Start: 05-30-2022 [facility] Start: 1965 Sex Assigned At Female F [facility] Start: 12-27-2022 Tobacco smoking stat us NHIS Ex-smoker (finding) [facility] Start: 05-13-2025 End: 05-25-2025 Tobacco smoking status FLIS Tobacco smoking consumption unknown [facility] Start: 03-12-2019 History of Social function [facility] Start: 03-12-2019 Childcare [facility]care [facility] Start: 05-06-2015 Sex Female (finding) [facility] Sexual Orientation Straight or heterosexual [facility] Work Phone: Start: 06-26-2022 Gender identity Female Arcadio Gallagher [facility] Start: 05-22-2025 Alcohol intake Alcohol Use Details [facility] NEGATED: Highlighted rowStart: 05-13-2025 Alcohol intake Alcohol Use Details [facility] Medical Equipment Procedure Code Equipment Code Equipment Origin al Text Equipment Identifier Dates Mesh Prolene Squ are Flat [id number] Surgical Knit Nonabsorbable Nonreactive - [id number] Start: 06-06-2022 Goals Date Patient Goal Desired Activity /State Clinical Notes 04-19-2022 to 05-13-2025 Note Date & Type Note Facility 05-13-2025 Evaluation note Type assessment Body mass index [BMI] 38.0-38.9, adult assessment Screening for metabolic disorder assessment Encounter for screen ing for cardiovascular disorders assessment Screening for diabetes mellitus assessment Annual physical exam assessment Arthralgia of multiple joints Au assessment Chronic GERD assessment Mild intermittent asthma without complication assessment Depression, recurrent impression Generally well appea ring with unremarkable exam. Discuss age appropriate preventative care.Recommend regular exercise and heart healthy diet.Encourage no nicotine, conservative alcohol consumption and limit caffeine to <200mg per day.Pt agreeable to routine labs today. impression Well controlled with meloxicam. Pt asking for a refill, in hopes it will help with her current tooth pain as well. She did see dental prior to this appt. impression Well managed with PPI. Refill se nt. impression Continue singulair. Rarely using inhaler. No wheezing or dyspnea. Smokes marijuana occasionally, cessation recommended. impression Has tolerated zoloft well, will resume. No SI or HI. Pt has social supports. [facility] Work Phone: 1(286) 304-964408-13-2025 History of Present illness Narrative* Encounter Date Complaint History Of Prese nt Illness Office visit Patient presents for refills. She states she needs refills of her medication. She states she does not need a mammogram because she had a breast reduction and she is refusing a PAP. She is due for a colonoscopy in November 2025. Patient states she will call the gastro's office. She states that sunday her and then 5 hours later she had a grandchild was born. Patient vapes, drinks alcohol rarely, patient drinks caffeine, and admits to marijuana use. --DAVONTE AdamsNNoted above. Pt indicates a high amount of stress lately, especially with recent passing of her . She also recently had the of her grandson and currently battling a tooth infection and GERD. She has not been seen since last year and needing refills of her medications. Pt states she had a stash of medication at home so has only been out for a few weeks. She denies needing medication changes. She notes she does not need an inhaler refill because she is not needing it very often anymore.Montserrat HAZEL [facility] Work Phone: 1(325) 945-539508-13-2025 Instructions* Date Instruction Additional Infor jhon Follow up 6 months, sooner if ne eded. Related to Depression, recurrent Take medication as d irectedAvoid known trigger foods or large mealsNo late night eating, wait at least 2 hrs before laying down Related to Chronic GERD Recommend:annual phy sical exams, sooner with concerns or problems- annual vision exam- biannual dental exams-annual womens health exam, mammogram beginning age 40- REFUSEDcolon cancer screening beginning age 50- Related to Annual physical exam Giving encouragement to exercise Related to Body mass index [BMI] 38.0-38.9, adult Dietary management e ducation, guidance, and counseling Related to Body mass index [BMI] 38.0-38.9, adult [facility] Work Phone: 1(839) 565-973704-20-2023 NoteHNO ID: [id number] Author: Maria D Reyna MD Service: ? Author Type: Physician Type: Progress Notes Filed: 01/19/2023 1:23 AM Note Text: COLORECTAL SURGERY January 18, 2023 Valeria Romero 57 year old This consult was requested by Dr. Sena and my final recommendations will be communicated to the requesting health care provider by way of the shared medical record for internal providers or letter via the [employer] for external providers. Chief Complaint: [...] exam reveals no gross blood or masses Logging Engineer present: Yes, Gianna Gusman Anoscopy: The patient [...] identified and the redu (more content not included)...[facility]04-20-2023 Nurse Note* Gianna Gusman RN - 01/18/2023 10:10 AM EDT What is the reason for [...] Temperature: No Drains: No [facility] History of Present illness Narrative* Maria D Reyna MD - 01/18/2023 9:40 AM EDT COLORECTAL SURGERY January 18, 2023 Valeria Romero 57 year old This consult was requested by Dr. Sena and my final recommendations will be communicated to the requesting health care provider by way of the shared medical record for internal providers or letter via the [employer] for external providers. Chief Complaint: [...] exam reveals no gross blood or masses Logging Engineer present: Yes, Gianna Gusman Anoscopy: The patient [...] posterior, left lateral) suctioned. Using the applicator, 2rubber bands were placed around the tissue and [...] Reyna MD Colorectal Surgery [facility] Procedure [facility]09-29-2022 NoteHNO ID: [id number] Author: Collette Figueroa Service: Radiology Author Type: Program Paraprofessional Type: Progress Notes Filed: 06/29/2022 12:24 PM [...] BY: Collette Figueroa June 29, 2022 12:18 [facility]09-29-2022 History of Present illness Narrative* Collette Figueroa - 06/29/2022 1:30 PM EDT Radiology Service Progress Note PATIENT NAME: Valeria Romero DATE OF SERVICE: June 29, 2022 TIME: 12:18 PM PATIENT IDENTITY VERIFICATION COMPLETED USING TWO (2) IDENTIFIERS: Name and Date of confirmedby patient verbally. FALL SCREENING: Has the patient [...] 29, 2022 12:18 PM documented in [facility]-2022 NoteHNO ID: [id number] Author: Pedro Walsh MD Service: ? Author Type: Physician Type: Progress Notes Filed: 06/29/2022 4:16 PM Note Text: [facility] - Postoperative visit [...] Pedro Walsh MD Date: 06/29/2022 Time: 1:01 [facility]09-29-2022 History of Present illness Narrative* Pedro Walsh MD - 06/29/2022 11:10 AM EDT [facility] Abdominal [facility] - Postoperative visit HPI: Silvia Galo [...] the case and management of the patient's carewith the resident. I suspect she has a seroma. CT today. Signature: Pedro Walsh MD Date: 06/29/2022 Time: 1:01 PM documented in [facility] Miscellaneous Notes* Telephone Encounter - VON Bhatia - 06/12/2022 4:15 PM EDT [facility] called the pt and left message with name and number asking for a return call. documented in this encounterL[facility]09-[facility]-2022 Miscellaneous Notes* Telephone Encounter - VON Bhatia - 06/12/2022 4:12 PM EDT BEHAVIORAL HEALTH SOCIAL WORK CONSULT NOTE Service Date: June 12, 2022 Patient was identified by name and Patient: Valeria Romero [address] [place] [address] [address] [place] [address] (home) [phone] (cell) PCP: No primary care provider on file. No primary provider on file. Assessment: SW spoke with pt about getting connected with mental health services. Pt declined assistance. Medications: Current Outpatient Medications on File Prior to Visit Medication Sig cyclobenzaprine (FLEXERIL) 5 mg tablet Take 1 tablet by mouth three times daily as needed for up to10 days. acetaminophen (TYLENOL) 500 mg tablet Take [...] 15 minutes VON Bhatia-S documented in this encounterL[facility]09-09-2022 NoteHNO ID: [id number] Author: Eve Anne MD Service: General Surgery Author Type: Fellow Type: Progress Notes Filed: 06/14/2022 10:29 AM Note Text: [facility] - Clinic Visit [...] AM General Surgery Fellow - Abdominal [facility]St[facility] Note HNO ID: [id number] Author: Andree Chavez RN Service: Care Management Author Type: Registered Nurse Type: Care Mgt Initial Assessment Filed: 06/08/2022 3:32 PM Note Text: CARE MANAGEMENT: ASSESSMENT AND DISCHARGE PLAN SERVICE DATE: June 08, 2022 SERVICE TIME: 3:30 PM PRIMARY CARE PHYSICIAN: No primary care provider on file. Phone: None Primary Contact: Extended Emergency Contact Information Primary Emergency Contact: ISIDORO ROMERO Address: [address] [place] [address] Relation: Spouse ADMISSION STATUS: Inpatient Insurance Provider: [place] MEDICA[place] NEEDS PRIOR TO DISCHARGE No skilled needs POTENTIAL TRANSITION PLANS Home with self care and family support Patient's perception of need for this admission: planned procedure ADVANCE DIRECTIVES Current Advance Directive: None Gun Perforator Attempted to Assist with AD Completion: Yes [...] following: Independent: Ambulation;Bathe/Shower;Going to the bathroom;Transportation to appointments/community;Meals/Meal Prep;Dress;Medication Management Services/Needs//Equipment Does Patient Currently Receive [...] 08, 2022 TIME: 3:30 PM CONTACT #: [phone] Note HNO ID: [id number] Author: Herminia Chance APRN.FURNACE OPERATOR Service: General Surgery Author Type: Nurse Practitioner [...] 36.60 kg/(m2). O2 Therapy: Room Air Date 06/07/22699 - 06/08/22 0606/08/22 07 - 06/09/22 0659 Shift 7984-6880 4182-8471 7740-4527 24 Hour Total 5112-9755 2263-9164 5040-5505 24 Hour Total INTAKE PO 480 480 PO 480 480 IV 600 237 106 3739 Volume (mL) (lactated ringers iv infusion) 600 083 922 9569 Shift Total 1080 361 977 6594 OUTPUT Urine 300 600 900 Output ( [...] BMs 0 x 0 x Shift Total 947 564 2922 Weight (kg) 85 85 85 85 85 [...] feels better today. PLAN: - D/C Dilaudid SUPERVISOR PUBLIC MESSAGE SERVICE - Scheduled Tylenol, Flexeril, Gabapentin. Monitor for [...] 183 -- 06/06/22 184 pneumatic compression stockings (fl,ky) 06/06/221844 activity - mobilize patient ([place], [place]) VTE Prophylaxis: VTE prophylaxis appropriate Plan of care discussed with: Provider, RN, Patient and Care Management SIGNATURE: Herminia Chance APRN.CNP PATIENT NAME: Valeria Romero DATE: June 08, 2022 TIME: 7:08 [facility]09-07-2022 History of Past illness Narrative* Problem Noted Date Resolved Date Hyperkalemia 06/07/2022 06/09/2022 Last Assessment & Plan: Assessment: 5.1 today. PLAN: - Continue to trend BMPs while in house Incisional hernia of anterio r abdominal wall without obstruction or gangrene 06/06/2022 06/07/2022 documented as of this encounter (statuses as of 06/09/2022) [facility]09-07-2022 History of Past illness Narrative* Problem Noted Date Resolved Date Hyperkalemia 06/07/2022 06/09/2022 Last Assessment & Plan: Assessment: 5.1 today. PLAN: - Continue to trend BMPs while in house Incisional hernia of anterio r abdominal wall without obstruction or gangrene 06/06/2022 06/07/2022 documented as of this encounter (statuses as of 06/12/2022) [facility]09-07-2022 History of Past illness Narrative* Problem Noted Date Resolved Date Hyperkalemia 06/07/2022 06/09/2022 Last Assessment & Plan: Assessment: 5.1 today. PLAN: - Continue to trend BMPs while in house Incisional hernia of anterio r abdominal wall without obstruction or gangrene 06/06/2022 06/07/2022 documented as of this encounter (statuses as of 06/12/2022) [facility]09-07-[facility] History of Past illness Narrative* Problem Noted Date Resolved Date Hyperkalemia 06/07/2022 06/09/2022 Last Assessment & Plan: Assessment: 5.1 today. PLAN: - Continue to trend BMPs while in house Incisional hernia of anterio r abdominal wall without obstruction or gangrene 06/06/2022 06/07/2022 documented as of this encounter (statuses as of 06/29/2022) [facility] [facility] of Past illness Narrative* Problem Noted Date Resolved Date Hyperkalemia 06/07/2022 06/09/2022 Last Assessment & Plan: Assessment: 5.1 today. PLAN: - Continue to trend BMPs while in house Incisional hernia of anterio r abdominal wall without obstruction or gangrene 06/06/2022 06/07/2022 documented as of this encounter (statuses as of 06/30/2022) [facility]09-07-2022 History of Past illness Narrative* Problem Noted Date Resolved Date Hyperkalemia 06/07/2022 06/09/2022 Last Assessment & Plan: Assessment: 5.1 today. PLAN: - Continue to trend BMPs while in house Incisional hernia of anterio r abdominal wall without obstruction or gangrene 06/06/2022 06/07/2022 documented as of this encounter (statuses as of 06/30/2022) [facility]09-07-20[facility] History of Past illness Narrative* Problem Noted Date Resolved Date Hyperkalemia 06/07/2022 06/09/2022 Last Assessment & Plan: Assessment: 5.1 today. PLAN: - Continue to trend BMPs while in house Incisional hernia of anterio r abdominal wall without obstruction or gangrene 06/06/2022 06/07/2022 documented as of this encounter (statuses as of 01/19/2023) [facility]09-07-2022 NoteHNO ID: [id number] Author: Herminia Chance APRN.FURNACE OPERATOR Service: General Surgery Author Type: Nurse Practitioner Type: Progress Notes Filed: 06/07/2022 8:50 AM Note Text: SERVICE DATE: 06/07/2022 SERVICE TIME: 8:49 AM GENERAL SURGERY SERVICE PROGRESS NOTE POD 1- ventral hernia repair with mesh, resection of old mesh - Dr. Walsh Subjective INTERVAL HPI: C/o muscle spasms s/p hernia repair. Using [employer]. Denies nausea, vomiting. Reports she has passed flatus but no BM. Highly anxious regarding advancement of her diet. Objective BP 105/56 Pulse 78 Temp (Src) 98.2 (Oral) Resp 16 Ht 5' 0 (1.52m) Wt 187 lb 6.3 oz (85.0kg) SpO2 91% BMI 36.60 kg/(m2). O2 Therapy: Room Air Date 06/06/22699 - 06/07/2265806/07/22699 - 06/08/22 0659 Shift 9671-6908 5191-8412 6135-8732 24 Hour Total 7736-5695 3008-0770 1129-7183 24 Hour Total INTAKE PO 100 200 300 PO 100 200 300 IV 2400 225 1475 4100 Volume (mL) (dextrose 10% iv bolus) 250 250 Volume (mL) (lactated ringers iv infusion) 1000 1000 Volume (mL) (lactated ringers iv infusion) 1400 1400 Volume (mL) (lactated ringers iv infusion) 225 1225 1450 Shift Total 2400 325 1675 4400 OUTPUT Urine 940 6484 296 2325 OR Urine Output 940 940 Output ( Indwelling Urinary Catheter 06/06/22 1044 Assessment Scott 16 Fr) 8204 336 4652 Tubes 195 90 285 Drain/Tube Output (Drain/Tube 06/06/22 1349 Assessment Jaspal Burgess Left Upper Quadrant Abdomen Drain #1) 110 50 160 Drain/Tube Output (Drain/Tube 06/06/22 1351 Assessment Jaspal Burgess Right Upper Quadrant Abdomen Drain #2) 85 40 125 Blood 100 100 Estimated Blood loss 100 100 Shift Total 1040 6608 588 2037 Weight (kg) 85 85 85 85 85 [...] BM. Good UOP. PLAN: - Advance to [facility] with limited 1L PO intake. Advised patient [...] C/o muscle spasms around incision site. Using [employer]. NAD on visit today PLAN: - Continue Dilaudid [employer] - Scheduled Tylenol, Flexeril, Gabapentin. Monitor for [...] mg SUBCUTANEOUS EVERY 24 HOURS Given, 06/06 202806/06/221831 -- 06/06/221844 pneumatic compression stockings (ca,ky) 06/06/221844 activity - mobilize patient ([place]) VTE Prophylaxis: VTE prophylaxis appropriate Plan of care discussed with: Provider, RN, Patient and Care Management SIGNATURE: Herminia Chance APRN.KELLI PATIENT NAME: Valeria Romero DATE: June 07, 2022 TIME: 8:49 [facility]09-07-2022 NoteHNO ID: [id number] Author: Radha Medina RN Service: Nursing Author Type: Registered Nurse Type: Nursing Progress Note Filed: 06/07/2022 1:46 AM Note Text: LIP notified of Potassium 5.4.[facility]09-06-2022 NoteHNO ID: [id number] Author: Lara Moctezuma RN Service: ? Author Type: Registered Nurse Type: Nursing Progress Note Filed: 06/06/2022 6:02 PM Note Text: Other: Educated patient on leaving oxygen in nose when she has the [employer] pump.[facility]09-06-2022 NoteHNO ID: [id number] Author: Belkis Benitez APRN.TRANSPORTATION WORKER Service: ? Author Type: Nurse Counselor Nurses[employer] Association Type: Anesthesia Procedure Notes Filed: 06/06/2022 11:07 [...] June 06, 2022 TIME: 11:06 AM CSN: [id number] NoteHNO ID: [id number] Author: Belkis Benitez APRN.TRANSPORTATION WORKER Service: ? Author Type: Nurse Counselor Nurses[employer] Association Type: Anesthesia Procedure Notes Filed: 06/06/2022 2:24 PM Note Text: ANESTHESIOLOGY PROCEDURE NOTE PIV General Information Procedure Start Time/Medication Administration: 06/06/2022 10:42 AM Patient Location: OR Staffing TRANSPORTATION WORKER: Belkis Benitez APRN.TRANSPORTATION WORKER Performed by: TRANSPORTATION WORKER Preparation Sterility Preparation: hand hygiene performed prior to procedure, skin prep agent completely dried prior to procedure Site Prep: alcohol Procedure Details Indication: need for IV access Needle Size/Type: 18 gauge angiocath Orientation: Right Location: Hand Imaging Guidance Used: No SIGNATURE: Belkis Benitez APRN.CRNA PATIENT NAME: Valeria Romero DATE: June 06, 2022 TIME: 11:04 AM CSN: [id number] Miscellaneous Notes* Telephone Encounter - VON Bhatia - 06/01/2022 12:47 PM EDT BEHAVIORAL HEALTH SOCIAL WORK CONSULT NOTE Service Date: June 01, 2022 Patient was identified by name and Patient: Valeria Romero [address] [place] [address] [address] [address] (home) [phone] (cell) PCP: No primary care provider on file. No primary provider on file. Assessment: SW called the pt to discuss behavioral health services and offer resources, etc. Pt was looking for resources close to home. [facility] discussed options for psych, discussed firelands. Medications: [...] Provided referral information Resources Provided: Medication Management [facility] Time Spent: 15 minutes VON Bhatia documented in [facility] encounterL[facility]22 NoteHNO ID: [id number] Author: Jazzy Snachez, PhD Service: ? Author Type: Psychologist Type: Progress Notes Filed: 05/30/2022 2:09 PM Note Text: Behavioral Medicine Digestive Disease [facility] [place] Name: Valeria Romero MR#: [id number] Date: 05/30/2022 Time: ? hour Referred by: [...] or in the outpatient clinic. Jazzy Pastrana, Ph.D.[facility]08-30-2022 NoteHNO ID: [id number] Author: Darío Miranda APRN.FURNACE OPERATOR Service: ? Author Type: Nurse Practitioner Type: Progress Notes Filed: 05/30/2022 2:30 PM Note Text: CC: Medication refills, asthma HPI: Valeria Romero is a 57 year old female who presents to the 0 walk in clinic with the above chief compliant. PMH: Asthma, multiple hernias, depression/anxiety Patient from [place]. Moved to [place] and moved back for the surgery. Living in [place], [place] 1.5 hours away. Has not had a PCP in >5 years. Needs to establish care with PCP in [place], [place]. Patient has not been taking any of her medications because of financial reasons and she wanted to be off medications. Patient currently has medicaid. Trying to get medical things taken care of while she has insurance. Following with general surgery for a painful and enlarging incisional hernia. Hx of incisional hernia repair with mesh at [facility] w/ Dr. Craft in 2006. Patient scheduled for abdominal wall reconstruction with prior mesh excision 06/06/22. Pre-op testing today --> Provider sent patient to [facility] today for concerns for asthma. Asthma - +wheezing at night. +shortness of breath after exertion. No chest pain. Minimal cough. No tobacco use. Occ MJ use. Not vaping - she quit. Asthma has been worse over the past 1 month. Has been on an maintenance in [place] in the past. None x >5 years. [...] anxiety and depression, GERD, multiple hernias at [facility] for an upcoming hernia repair. Sent to the walk in clinic for uncontrolled asthma concerns/exacerbation. Treatment plan as belo (more content not included)...[facility] 05-30-2022 NoteHNO ID: [id number] Author: Vic Fermin MD Service: ? Author Type: Anesthesiologist Type: Progress Notes Filed: 05/30/2022 1:24 PM Note Text: Attending Note I evaluated the patient and personally participated in the parham components. I agree with the resident's findings and plan as documented and have discussed the case and management of the patient's care with the resident. Signature: Vic Fermin MD Date: 05/30/2022 Time: 1:24 [facility]08-30-2022 Miscellaneous Notes* Addendum Note - Darío Miranda APRN.FURNACE OPERATOR - 05/30/2022 2:39 PM EDTAddended by: DARÍO MIRANDA on: 05/30/2022 02:39 PM Modules accepted: Orders documented in this encounterLima City Hospital08-30-2022 Instructions* Patient Instructions* Darío Miranda APRN.CNP [...] care Darío Miranda APRN.CNP documented in this encounterLima City Hospital08-30-2022 History of Present illness Narrative* Jazzy Sanchez, PhD - 05/30/2022 2:03 PM EDT Behavioral Medicine [facility] Disease [facility] [place] Name: Valeria Romero MR#: [id number] Date: 05/30/2022 Time: hour Referred by: Dr. [...] clinic. Jazzy Pastrana, Ph.D. documented in this encounterLima City Hospital08-30-2022 History of Present illness Narrative* Darío Miranda APRN.FURNACE OPERATOR - 05/30/2022 1:38 PM EDT CC: Medication refills, asthma HPI: Valeria Romero is a 57 year old female who presents to the [facility] walk in clinic with the above chief compliant. PMH: Asthma, multiple hernias, depression/anxiety Patient from [place]. Moved to [place] and moved back for the surgery. Living in [place], [place] hours away. Has not had a PCP in >5 years. Needs to establish care with PCP in [place], [place]. Patient has not been taking any of her medications because of financial reasons and she wanted to be off medications. Patient currently has medicaid. Trying to get medical things taken care of while shehas insurance. Following with general surgery for a painful and enlarging incisional hernia. Hx of incisional hernia repair with mesh at [facility] w/ Dr. Craft in 2006. Patient scheduled for abdominal wall reconstruction with prior mesh excision 06/06/22. Pre-op testing today --> Provider sent patient to [facility] today for concerns for asthma. Asthma [...] Wt 77.5 kg (170 lb 12.8 oz) ZgU525% BMI 33.36 kg/m General: Alert, cooperative in [...] anxiety and depression, GERD, multiple hernias at [facility] for an upcoming hernia repair. Sent to the walk in clinic for uncontrolled asthma concerns/exacerbation. Treatment plan as below, though reiterated the importance of follow-up with PCP or pulmonology back in [place] in addition to behavioral health specialist/counseling. [...] minutes Darío Miranda APRN.KELLI documented in this encounterLima City Hospital08-30-2022 Nurse Note* Luz Maria Arriaga RN [...] Luz Maria Arriaga RN documented in this encounterLima City Hospital08-22-2022 NoteHNO ID: [id number] Author: Pedro Walsh MD Service: ? Author [...] Double-Blind Randomized Controlled Trial IRB NO.: #[id number] BAND STRAIGHTENER: Tawnya Soler MD COORDINATOR/Research Nurse/Employment Manager: Anne Colin MD Phone/email: [phone], [email or web address] Consenting was performed by the attending surgeon, in a [id number]-epqc manner, during preoperative evaluation at the General [...] CRITERIA Yes No 1. The patient lacks Belgian language fluency or cannot understand the consent form/study procedures [] [x] 2. The patient has any hearing impairment with or without the use of hearing aids [] [x] 3. The patient has a neurologic condition which prevents assessment of pain and/or anxiety [] [x] 4. The patient is to remain intubated after surgery [] [x][facility]08-[facility] History of Present illness Narrative* Pedro [...] Double-Blind Randomized Controlled Trial IRB NO.: #[id number] BAND STRAIGHTENER: Tawnya Solre MD COORDINATOR/Research Nurse/Employment Manager: Anne Colin MD Phone/email: [phone], [email or web address] Consenting was performed by the attending surgeon, in a [id number]-fe-sjgu manner, during preoperative evaluation at the General [...] CRITERIA Yes No 1. The patient lacks Belgian language fluency or cannot understand the consent form/study procedures [] [x] 2. The patient has any hearing impairment with or without the use of hearing aids [] [x] 3. The patient has a neurologic condition which prevents assessment of pain and/or anxiety [] [x] 4. The patient is to remain intubated after surgery [] [x] documented in this encounterLima City Hospital08-22-2022 History and physical note * Yeni Sevilla MD - 05/22/2022 9:59 AM EDT [facility] Abdominal [facility] - HISTORY AND PHYSICAL Chief Complaint: [...] MD General Surgery Resident documented in this encounterLima City Hospital08-22-2022 Nurse Note* Lidya May Ma - 05/22/2022 9:26 AM EDT What is the reason for your visit today? consult Who is your referring physician? Are you having poor oral intake? NO Have you had unintentional weight loss of 15 lbs/7 Kg in the last 3-6 months? NO Bowels: regular Wound: clean & dry Temperature: No Drains: No documented in this encounterLima City Hospital07-20-2022 NoteHNO ID: [id number] Author: RT Jama(R) Service: Radiology Author Type: Program Paraprofessional Type: Progress Notes Filed: 04/18/2022 10:37 PM [...] PERIPHERAL IV DATA: Inpatient - refer to [facility] documentation RADIOLOGY DEPARTMENT: CT; Exam(s) Completed: Abdomen/Pelvis SIGNATURE: Wiliam Robertson RT(R) PATIENT NAME: Valeria Romero DATE: April 18, 2022 TIME: 10:36 [facility] note* Clinical Note Date No Information [facility] Work Phone: Discharge summary* Clinical Note Date No Information [facility] Work Phone: Evaluation note* Diagnosis Incisional hernia, without obstruction or gangrene- Primary Incisional hernia without mention of obstruction or gangrene documented in this encounter [facility] note* Diagnosis Preoperative examination- Primary Preoperative [...] obstruction or gangrene documented in this encounter [facility] note* Diagnosis Incisional hernia, without obstruction or gangrene- Primary Incisional hernia without mention of obstruction or gangrene Preoperative examination Preoperative examination, unspecified Incisional hernia, without obstruction or gangrene Incisional hernia without mention of obstruction or gangrene documented in this encounter [facility] note* Diagnosis Asthma with acute exacerbation, unspecified asthma severity, unspecified whether persistent- Primary Anxiety and depression Dysthymic disorder Gastroesophageal reflux disease, unspecified whether esophagitis present Abdominal spasms Abdominal pain, unspecified site Preoperative examination Preoperative examination, unspecified Incisional hernia, without obstruction or gangrene Incisional hernia without mention of obstruction or gangrene documented in this encounter [facility] note* Diagnosis Acute post-operative pain- Primary documented in this encounter [facility] note* Diagnosis Infection in abdomen (HCC)- Primary Unspecified peritonitis documented in this encounter [facility] note* Diagnosis Infection in abdomen (HCC) Unspecified peritonitis documented in this encounter [facility] noteNo assessment information availableUniversity [facility]als [facility] Work Phone: Evaluation note* Diagnosis Prolapsed hemorrhoids- Primary Unspecified hemorrhoids with other complication Vaginal prolapse Unspecified prolapse of vaginal farris documented in this encounter [facility] note* Type Assessment Date No Information [facility] Work Phone: History and physical note Author Charli Sena [facility] December 27, 2022 9:44am Note Date/Time December 27, 2022 9:4 4am [facility] ENTER [address] [place] [address] Gastroenterology H&P Signed Patient: Valeria Romero MR#: [id number] : 1965 Acct:[id number] Age/Sex: 57 / F Adm Date: 3 Loc: Room: Type: [facility] Attending Dr: Charli Sena MD Copies to: [facility]li Sen[facility] Date of Service: 12/27/2022 HISTORY & PHYSICAL: [...] Sena MD Documented By: Charli Sena MD 12/27/2243 Signed By: <Electronically signed by Charli Sena MD> 12/27/2244 [facility] Work Phone: History and physical note* Clinical Note Date No Information [facility] Work Phone: History of Past illness Narrative* Condition Effective Dates (start - stop) O utcome No Information [facility] Work Phone: History of Present illness Narrative* Encounter Date Complaint History Of Prese nt Illness No Information [facility] Work Phone: Hospital Discharge instructions Additional Instructions [...] you a referral to colorectal surgery from [facility] -Follow-up with the GI nurse practitioner in 3 months -Notify the doctor if you have any problems. -Repeat colonoscopy in 3 years. -Follow up with PCP. - Office number [phone].[facility] Work Phone: InstructionsNot on filedocumented in this encounter [facility] SystemInstructions* Date Instruction Additional Infor mation No Information [facility] Work Phone: Progress note* Clinical Note Date No Information [facility] Work Phone: Reason for referral (narrative)* Outpatient Procedure (Routine) - Authorized Specialty Diagnoses / Procedures Referred By Jossy cheung Referred To Contact [facility] Diagnoses Preoperative examination Incisional hernia, without obstruction or gangrene Procedures ECG COMPLETE ECG ROUTINE ECG W/LEAST 12 LDS W/I&R Pedro Walsh MD [address] [place] [address] [address] Referral ID Status Reason Start Date Expiration Date Visits Requested Visits Authorized [id number] Authorized Auto-Generat ed Referral 05/29/2022 05/25/2023 1 1 * Consult, Test, Treat (Routine) - Authorized Specialty Diagnoses / Procedures Referred By Jossy cheung Referred To Contact Diagnoses Preoperative examination Incisional hernia, without obstruction or gangrene Procedures CONSULT TO [facility] OFFICE/OUTPATIENT [facility] 60-74 MINUTES Pedro Walsh MD [address] [place] [address] Referral ID Status Reason Start Date Expiration Date Visits Requested Visits Authorized [id number] Authorized PCP Requested Referral 05/29/2022 05/25/2023 1 1 [facility] for referral (narrative)* Reason For Referral No Information [facility] Work Phone: Review of systems Narrative - Reported* System Pos/Neg Findings No Information [facility] Work Phone: Reason for Referral Specialty Diagnoses / Procedures Referred By Contac t Referred To Contact CT IMAGING Diagnoses Infection in abdomen (HCC) Procedures CT ABD/PEL WO IVCON CT ABD & PELVIS W/O CONTRAST [facility] [address] [place] [address] Ct Imaging Referral ID Status Reason Start Date Expiration Date V isits Requested Visits Authorized [id number] Closed Auto-Generate d Referral 06/29/2022 07/29/2023 1 1 Specialty Diagnoses / Procedures Referred By Contac t Referred To Contact Diagnoses Vaginal prolapse Procedures CONSULT TO [facility]/URO GYNECOLOGY OFFICE/OUTPATIENT [facility] 60-[place] [address] [place] [address] Referral ID Status Reason Start Date Expiration Date Visits Requested Visits Authorized [id number] Authorized PCP Requested Referral 01/18/2023 01/18/2024 1 1 Chief Complaint and Reason for Visit Chief Complaint Screening Chief Complaint GERD, Blood Stools Advance Directives No Advanced Directives Records Found Advance Directive Response Recorded Date/ Time Advance Directives No September 06, 2022 8:40am Advance Directive Response Recorded Date/ Time Advance Directives No September 06, 2022 9:40am Directive Yes / No Effective Date File Name No Information Family History No Family History Records Found Relationship Condition Age at Onset Recorded Date/T jelena Not Specified Pulmonary emphysema Unknown Myocardial infarction Unknown Diabetes mellitus Unknown father Diabetes mellitus Unknown grandparent Diabetes mellitus Unknown Family Member Type Diagnosis Age At Onset No Information Summary Purpose Physical Exam Exam Findings Details Eyes Normal Conjunctiva - Ri ght: Normal, Left: Normal. Pupil - Right: Normal, Left: Normal. Neck Exam Normal Inspection - Nor mal. Palpation - Normal. Thyroid gland - Normal. Lymph Detail Normal No cervical or s upraclavicular adenopathy. Respiratory Normal Inspection - Nor mal. Auscultation - Normal. Effort - Normal. Vascular Normal Pulses - Radial: Normal. Capillary refill - Less than 2 seconds. Extremity Normal No edema. Musculoskeletal Normal Visual overview of all four extremities is normal. Skin Normal Inspection - Nor mal. Neurological Normal Memory - Normal. Psychiatric Normal Orientation - Or iented to time, place, person & situation. Appropriate mood and affect. Cardiovascular Normal Regular rate and rhythm. No murmurs, gallops, or rubs. Additional Source Comments Source Comments (unrecognize d section and content) In the event this informatio n is protected by the Federal Confidentiality of Alcohol and Drug Abuse Patient Records regulations: The Federal rules restrict any use of the information to criminally investigate or prosecute any alcohol or drug abuse patient.[facility] HospitalIn the event this information is protected by the Federal Confidentiality of Alcohol and Drug Abuse Patient Records regulations: The Federal rules restrict any use of the information to criminally investigate or prosecute any alcohol or drug abuse patient.[facility] HospitalIn the event this information is protected by the Federal Confidentiality of Alcohol and Drug Abuse Patient Records regulations: The Federal rules restrict any use of the information to criminally investigate or prosecute any alcohol or drug abuse patient.[facility] HospitalIn the event this information is protected by the Federal Confidentiality of Alcohol and Drug Abuse Patient Records regulations: The Federal rules restrict any use of the information to criminally investigate or prosecute any alcohol or drug abuse patient.[facility] HospitalIn the event this information is protected by the Federal Confidentiality of Alcohol and Drug Abuse Patient Records regulations: The Federal rules restrict any use of the information to criminally investigate or prosecute any alcohol or drug abuse patient.[facility] HospitalIn the event this information is protected by the Federal Confidentiality of Alcohol and Drug Abuse Patient Records regulations: The Federal rules restrict any use of the information to criminally investigate or prosecute any alcohol or drug abuse patient.[facility] HospitalIn the event this information is protected by the Federal Confidentiality of Alcohol and Drug Abuse Patient Records regulations: The Federal rules restrict any use of the information to criminally investigate or prosecute any alcohol or drug abuse patient.[facility] HospitalIn the event this information is protected by the Federal Confidentiality of Alcohol and Drug Abuse Patient Records regulations: The Federal rules restrict any use of the information to criminally investigate or prosecute any alcohol or drug abuse patient.[facility] HospitalIn the event this information is protected by the Federal Confidentiality of Alcohol and Drug Abuse Patient Records regulations: The Federal rules restrict any use of the information to criminally investigate or prosecute any alcohol or drug abuse [facility] the event this information is protected by the Federal Confidentiality of Alcohol and Drug Abuse Patient Records regulations: The Federal rules restrict any use of the information to criminally investigate or prosecute any alcohol or drug abuse patient.[facility] the event this information is protected by the Federal Confidentiality of Alcohol and Drug Abuse Patient Records regulations: The Federal rules restrict any use of the information to criminally investigate or prosecute any alcohol or drug abuse patient.[facility] the event this information is protected by the Federal Confidentiality of Alcohol and Drug Abuse Patient Records regulations: The Federal rules restrict any use of the information to criminally investigate or prosecute any alcohol or drug abuse patient.[facility] the event this information is protected by the Federal Confidentiality of Alcohol and Drug Abuse Patient Records regulations: The Federal rules restrict any use of the information to criminally investigate or prosecute any alcohol or drug abuse patient.[facility] Reason for Visit (unrecogniz ed section [...] IVCON CT ABD & PELVIS W/O CONTRAST [facility] [address] [address] [address] Imaging Referral ID Status Reason Start Date Expiration Date V isits Requested Visits Authorized [id number] Closed Auto-Generate d Referral 06/29/2022 07/29/2023 1 1 Reason Comments New Patient Consult for hemorrho ids & prolapse Care Teams (unrecognized sec tion and content) Team Status: Inactive Member Role Status Dates PHYSICIAN NO FAMILY Primary Care Provider Active Luz Maria West ([facility]) , MANAGER SPEECH Attending Provider Active Team Status: Active Member Role Status Dates [facility] Active Team Status: Inactive Member Role Status Dates [facility] Primary Care Provider Active Charli Sena MD Attending Provider Active Name Effective Dates (start - stop) Status Members No Information Goals (unrecognized section and content) Health Concern Goal Type Priority Status No Information INFORMATION SOURCE (unrecogn ized section and content) DATE CREATED AUTHOR 01/04/2023 [facility] DATE CREATED AUTHOR AUTHOR'S ORGANIZ ATION 01/04/2023 [facility] DATE CREATED AUTHOR AUTHOR'S ORGANIZ ATION 01/31/2023 [facility] DATE CREATED AUTHOR AUTHOR'S ORGANIZ ATION 06/13/2025 [facility] DEPARTMENT FOR RECORDS PERTAINING TO PATIENTS WHO ARE [...] BE BASED ON THE PRIMARY CLINICAL RECORDS. [employer] [facility]. provides no warranty or guarantee of the accuracy or completeness of information in this document.
[2025-06-13 21:00] VITALS: BP 141/58; PULSE 65; O2SAT 99
--- NOTE | 2025-06-13 21:12 | ED_ITS ---
HPI - Abdominal Pain General Chief Complaint: Abdominal Pain Stated Complaint: BACK PAIN, ABDOMINAL PAIN Time Seen by Provider: 06/13/25 20:58 Source: patient Mode of arrival: walk-in History of Present Illness HPI narrative: past history of diverticulitis. Had intramural abscess last year treated with antibiotics. Now return with complaint of abdominal pain past 3 days. She feels it is her diverticulitis. she has urinary frequency and abdominal pain RUQ and LLQ. Also has diarrhea episodes. There is blood in her stools but she states she usually has blood because of her hemorrhoids. Nausea yesterday. Not today. no chills but low grade fever. Took meloxican and it help with her pain Related Data Home Medications ?Medication ?Instructions ?Recorded ?Confirmed montelukast 10 mg tablet 10 mg PO DAILY 01/16/2407/01 omeprazole 40 mg capsule,delayed 40 mg PO DAILY 07/16/24 release albuterol sulfate 90 mcg/actuation 2 puff inhalation Q 4H PRN 07/16/24 07/16/24 aerosol inhaler shortness of breath or wheez ing Previous Rx's ?Medication ?Instructions ?Recorded amoxicillin 875 mg-potassium 1 tab PO Q12H #20 tabs clavulanate 125 mg tablet ondansetron HCl 4 mg tablet 4 mg PO Q6H PRN nausea and 07/19/24 vomiting #10 tabs oxycodone-acetaminophen 5 mg-325 1 tab PO Q8H PRN pain 3 days #9 07/19/24 mg tablet (Percocet) tabs Allergies Allergy/AdvReac Type Severity Reaction Status Date / Time ciprofloxacin (From Cipro) Allergy Hives Verified 07/15/24 23:31 Review of Systems ROS Status of ROS 10 or more systems reviewed and unremark able except as noted in history and below [facility] Medical History (Updated 06/14/25 @ 00:44 by Jason Wylie MD) Obesity (BMI 35.0-39.9 without comorbidity) ?E66.9 - Obesity, unspecified (ICD-10) Acute diverticulitis ?K57.92 - Diverticulitis of intestine, part unspecified, without perforation or abscess without bleeding (ICD-10) Diverticulitis of sigmoid colon ?K57.32 - Diverticulitis of large intestine without perforation or abscess without bleeding (ICD-10) Abscess of sigmoid colon ?K63.0 - Abscess of intestine (ICD-10) Acute bronchospasm ?J98.01 - Acute bronchospasm (ICD-10) GERD (gastroesophageal reflux disease) ?K21.9 - Gastro-esophageal reflux disease without esophagitis (ICD-10) Hemorrhoids ?K64.9 - Unspecified hemorrhoids (ICD-10) History of uterine cancer ?Z85.42 - Personal history of malignant neoplasm of other parts of uterus (ICD-10) Heartburn ?R12 - Heartburn (ICD-10) Asthma ?J45.909 - Unspecified asthma, uncomplicated (ICD-10) Surgical History H/O hernia repair ?Z98.890 - Other specified postprocedural states (ICD-10) ?Z87.19 - Personal history of other diseases of the digestive system (ICD-10) History of cholecystectomy ?Z90.49 - Acquired absence of other specified parts of digestive tract (ICD- 10) H/O: hysterectomy ?Z90.710 - Acquired absence of both cervix and uterus (ICD-10) Family History Other Family history of COPD (chronic obstructive pulmonary disease) Family history of cancer Family history of diabetes mellitus Family history of hypertension Family history of myocardial infarction Social History Within the past year, how often did you have a drink containing alcohol: never Within the past year, how many standard drinks containing alcohol did you have on a typical day: 1 or 2 Within the past year, how often did you have six or more drinks on one occasion: never Total score: 0 Score interpretation: A score less than 3 is consistent with normal alcohol consumption. Smoking status: Never smoker Non-prescribed substance use: cannabis (any form) Previous occupational history: unemployed Highest level of school completed/degree received: some college, no degree In a typical week, how many times do you talk on the telephone with family, friends, or neighbors: 3 or more times per week How often do you get together with friends or relatives: 3 or more times per week Little interest or pleasure in doing things: not at all Feeling down, depressed, or hopeless: not at all Feel stressed/tense/nervous/anxious/difficulty sleeping: rather much Life stressors: other Life stressor details: issues with roommates daughter Do you think of yourself as: straight/heterosexual Gender Identity: female Exam Constitutional Vital Signs, click to edit/add: Last Vital Signs Temp 99.1 F 06/13/25 19:10 Pulse 65 06/13/25 21:00 Resp 20 06/13/25 21:00 BP 141/58 06/13/25 21:00 Pulse Ox 99 06/13/25 21:00 O2 Del Method Room Air 06/13/25 21:00 Common normals: no apparent distress, average body habitus, oriented x3, no limitations, healthy appearing, alert and well nourished HENMI Common normals: normocephalic and head/scalp atraumatic Eye Common normals: EOMs intact bilaterally and conjunctivae normal Respiratory Common normals: normal respiratory effort, no retractions, no use of accessory muscles and clear to auscultation bilaterally Cardio Common normals: regular rate, regular rhythm, S1 normal heart sound and S2 normal heart sound GI Other: soft. Mild RUQ and LLQ tenderness. No guarding Extremity Common normals: normal to inspection and full ROM Neuro Common normals: oriented x3, CN's II-XII intact bilaterally, moves all extremities and no focal motor deficits Psych Appearance: grossly normal Course Vital Signs Vital signs: Vital Signs Temperature 99.1 F 06/13/25 19:10 Pulse Rate 68 06/13/25 19:10 Respiratory Rate 16 06/13/25 19:10 Blood Pressure 131/98 H 06/13/25 19:10 Pulse Oximetry 99 06/13/25 19:10 Oxygen Delivery Method Room Air 06/13/25 19:10 Temperature 99.1 F 06/13/25 19:10 Pulse Rate 65 06/13/25 21:00 Respiratory Rate 20 06/13/25 21:00 Blood Pressure 141/58 06/13/25 21:00 Pulse Oximetry 99 06/13/25 21:00 Oxygen Delivery Method Room Air 06/13/25 21:00 MDM - Abdominal Pain MDM Narrative Medical decision making narrative: presents with abdominal pain and concern she may have recurrence of diverticulitis. Did have intramural abscess last year. she has tenderness RUQ and LLQ without guarding. WBC is normal. has isolated elevation of AST and ALT but normal alk phos. Past cholecystectomy . CT without acute findings. Patient advised her findings are likely viral related given her normal diagnostic and labs. Will need follow up of LFTs. advised to follow up with her doctor next week and use Meloxican or tylenol for pain Lab Data Labs: Lab Results 06/13/25 06/13/25 Range/Units 21:05 21:25 WBC 9.5 (4.0-11.0) 10^3/uL RBC 4.62 (4.20-5.40) 10^6/uL Hgb 12.9 (12.0-16.0) g/dL Hct 40.3 (36.0-48.0) % MCV 87.2 (81.0-99.0) fL MCH 27.9 (26.7-34.0) pg MCHC 32.0 (29.9-35.2) g/dL RDW 14.9 (11.0-15.0) % Plt Count 352 (150-450) 10^3/uL MPV 9.4 L (9.5-13.5) fL Neut % (Auto) 55.3 (43.0-75.0) % Lymph % (Auto) 30.0 (20.5-60.0) % [place] % (Auto) 9.3 (1.7-12.0) % Eos % (Auto) 4.6 (0.9-7.0) % Baso % (Auto) 0.5 (0.2-2.0) % Neut # (Auto) 5.3 (1.4-6.5) 10^3/uL Lymph # (Auto) 2.9 (1.2-3.8) 10^3/uL [place] # (Auto) 0.9 H (0.3-0.8) 10^3/uL Eos # (Auto) 0.4 (0.0-0.7) 10^3/uL Baso # (Auto) 0.1 (0.0-0.1) 10^3/uL Abs Immat Gran (auto) 0.03 (0.00-0.03) 10^3/uL Imm/Tot Granulo (auto) 0.3 (0.0-0.5) % Sodium 141 (136-145) mmol/L Potassium 3.5 (3.5-5.1) mmol/L Chloride 104 (98-107) mmol/L Carbon Dioxide 26.4 (21.0-32.0) mmol/L Anion Gap 14.1 BUN 12.0 (7.0-18.0) mg/dL Creatinine 0.63 (0.55-1.02) mg/dL Est GFR ( Amer) >60 (>=60 mL/min/1.73m^2) Est GFR (Non-Af Amer) >60 (>=60 mL/min/1.73m^2) BUN/Creatinine Ratio 19.0 Glucose 94 (74-106) mg/dL Lactate 1.5 (0.4-2.0) mmol/L Calcium 9.1 (8.5-10.1) mg/dL Total Bilirubin 0.3 (0.2-1.0) mg/dL AST 126 H (15-37) U/L ALT 144 H (14-59) U/L Alkaline Phosphatase 108 (46-116) U/L Total Protein 7.7 (6.4-8.2) g/dL Albumin 3.3 L (3.4-5.0) g/dL Globulin 4.4 g/dL Albumin/Globulin Ratio 0.8 Lipase 29.0 (16.0-77.0) U/L Urine Color Lt. yellow (YELLOW) Urine Clarity Clear (CLEAR) Urine pH 6.0 (5.0-9.0) Ur Specific [place] <=1.005 A (1.005-1.025) Urine Protein Negative (NEG/TRACE) mg/dL Urine Glucose (UA) Negative (NEGATIVE) mg/dL Urine Ketones Negative (NEGATIVE) mg/dL Urine Occult Blood Negative (NEGATIVE) Urine Nitrite Negative (NEGATIVE) Urine Bilirubin Negative (NEGATIVE) Urine Urobilinogen 0.2 (0.2-1.0) EU/dL Ur Leukocyte Esterase Negative (NEGATIVE) Urine RBC None seen (0-2) #/HPF Urine WBC None seen (NONE SEEN) #/HPF Ur Squamous Epith Cells Rare (NONE/RARE) #/LPF Urine Crystals None seen (None Seen) #/HPF Urine Bacteria Trace A (NONE SEEN) #/HPF Urine Casts None seen (NONE SEEN) #/LPF Urine Mucus None seen (NONE SEEN) Ur Culture Indicated? No Discharge Plan Discharge Chief Complaint: Abdominal Pain Clinical Impression: Abdominal pain Patient Disposition: Home, Self-Care Prescriptions / Home Meds: No Action montelukast 10 mg tablet 10 mg PO DAILY omeprazole 40 mg capsule,delayed release(DR/EC) 40 mg PO DAILY albuterol sulfate 90 mcg/actuation HFA aerosol inhaler 2 puff INHALATION Q4H PRN (Reason: shortness of breath or wheezing) amoxicillin-pot clavulanate 875-125 mg tablet 1 tab PO Q12H Qty: 20 0RF ondansetron HCl 4 mg tablet 4 mg PO Q6H PRN (Reason: nausea and vomiting) Qty: 10 0RF oxycodone-acetaminophen [Percocet] 5-325 mg tablet 1 tab PO Q8H PRN (Reason: pain) 3 Days Qty: 9 0RF Print Language: Kiswahili Instructions: Abdominal Pain (ED) Additional Instructions: use meloxicam or tylenol for pain and follow up with your doctor next week Referrals: Capri Chi NP [Primary Care Provider] - 1 week
[2025-06-13 21:35] LABS: Hematocrit 40.3 % (36.0-48.0); Hemoglobin 12.9 g/dL (12.0-16.0); Immature Granulocytes Abs Auto 0.03 10^3/uL (0.00-0.03); Immature Granulocytes Pct Auto 0.3 % (0.0-0.5); Lymphocytes Absolute Auto 2.9 10^3/uL (1.2-3.8); Mean Corpuscular HGB Conc 32.0 g/dL (29.9-35.2); Mean Corpuscular Hemoglobin 27.9 pg (26.7-34.0); Mean Corpuscular Volume 87.2 fL (81.0-99.0); Platelet Count 352 10^3/uL (150-450); Red Blood Count 4.62 10^6/uL (4.20-5.40); White Blood Count 9.5 10^3/uL (4.0-11.0)
[2025-06-13 21:36] LABS: Glucose Urine UA NEGATIVE (NEGATIVE)
[2025-06-13 21:43] LABS: Cast Seen? NONE SEEN #/LPF (NONE SEEN); Crystals Seen? None Seen #/HPF (None Seen); Urine Culture Indicated NO
[2025-06-13 21:53] LABS: Alanine Aminotransferase 144 U/L (14-59); Albumin Globulin Ratio 0.8; Albumin Level 3.3 g/dL (3.4-5.0); Alkaline Phosphatase 108 U/L (46-116); Anion Gap 14.1; Aspartate Amino Transferase 126 U/L (15-37); Blood Urea Nitrogen 12.0 mg/dL (7.0-18.0); Calcium 9.1 mg/dL (8.5-10.1); Carbon Dioxide 26.4 mmol/L (21.0-32.0); Chloride 104 mmol/L (98-107); Estimated GFR (African America >60 (>=60 mL/min/1.73m^2); Estimated GFR (Non-African Ame >60 (>=60 mL/min/1.73m^2); Globulin 4.4 g/dL; Glucose 94 mg/dL (74-106); Lipase 29.0 U/L (16.0-77.0); Potassium 3.5 mmol/L (3.5-5.1); Sodium 141 mmol/L (136-145); Total Protein 7.7 g/dL (6.4-8.2)
[2025-06-13 21:56] LABS: Lactate/Lactic Acid 1.5 mmol/L (0.4-2.0)
[2025-06-13] MEDS: 0.9 % SODIUM CHLORIDE 1,000 ML 999 ML IV (22:10)
== END 2025-06-14 01:01 | disposition home or self-care (01) ==
PROVIDERS: Emergency Provider Internal Medicine; PCP Nurse Practitioner Family
DX: R10.9 Unspecified abdominal pain (principal); Z90.49 Acquired absence of other specified parts of digestive tract; Z90.710 Acquired absence of both cervix and uterus; K57.30 Diverticulosis of large intestine without perforation or abscess without bleeding
CPT/HCPCS: 36415; 74177; 80053; 81001; 83605; 83690; 85025; 99284; Q9967